=== PATIENT | female | born 1970 | race American Indian/Alaskan Native ===

== ENCOUNTER 2017-02-16 23:23 | Emergency (ER) | payer OTHER ==
[2017-02-16] MEDS ORDERED: fentaNYL 100 MCG/2 ML SDV IVPUSH ONE (23:35)
[2017-02-16] MEDS ORDERED: Aspirin 81 MG Tab.Chew PO ONE (23:35)
--- NOTE | 2017-02-16 23:36 | EDM.PDOC ---
ED HISTORY OF PRESENT ILLNESS - General Chief Complaint: Chest Pain Stated Complaint: [facility] Time Seen by Provider: 02/16/17 23:28 Source of Information: Reports: Patient History Limitations: Reports: No limitations - History of Present Illness INITIAL COMMENTS - FREE TEXT/NARRATIVE: 46-year-old female [place] ancestry presents to the ED per ambulance. She was brought to the ED per [facility] but lives in [place] . Chief complaint is left-sided chest pain that radiates through to her mid back in the neck. It started about 1500 hours today and his not gone away. She was seen by a physician in injury and given Percocet for pain or hydrocodone for pain and 3 nitroglycerin tablets which she reports did not help relieve the pain. She has a known history of coronary disease with stents in place. Apparently did have a myocardial infarction. She also has a pacemaker left upper anterior chest. She also is complaining of mid cramping abdominal pain with normal bowel function. No blood per rectum. No fever or chills. Denies cough or sputum production. No associated feeling of heartburn or burping or belching to relieve the discomfort. No history of congestive heart failure currently on 80 mg Lasix daily. She is taking insulin for control of type 2 diabetes mellitus. Symptom Onset Date: 02/16/17 Symptom Onset Time: 15:00 Timing/Duration: Reports: Hour(s):, Constant, Getting worse, Gradual onset Location, General: Reports: chest, abdomen (Left chest radiating to to the left mid back and nape of neck. Also complaining of diffuse cramping abdominal pain) Quality: Reports: Ache, Pressure, Same as previous episode. Denies: Sharp, Stabbing Improves with: Reports: None Worsens with: Reports: None Context, General: Reports: Other (Chest pain came on at rest.). Denies: Activity, Exercise, Lifting, Sick contact, Trauma Treatments WELDING ESTIMATOR: Reports: Aspirin, Other (see below) (Assessment in the mornings. She received 3 nitroglycerin tablets in route or at [facility]. And also hydrocodone tablets with no relief of pain.) - Related Data Allergies/ADRs: Allergies Allergy/AdvReac Type Severity Reaction Status Date / Time fentanyl Allergy Itching Verified 02/17/17 00:19 ibuprofen Allergy Hives Verified 02/16/17 23:36 metformin HCl Allergy Hives Verified 02/16/17 23:36 [From Glucophage] spinach Allergy Difficulty Verified 02/16/17 23:36 Breathing catfish Allergy Difficulty Uncoded 02/16/17 23:36 Breathing Home Meds: Home Meds Aspirin [Halfprin] 81 mg PO DAILY 08/10/15 [History] Carvedilol 6.25 mg PO BID 08/10/15 [History] Clopidogrel [Plavix] 75 mg PO DAILY 08/10/15 [History] Insulin Aspart [Novolog] 8 unit SQ TIDMEALS PRN 08/10/15 [History] Insulin Detemir [Levemir] 15 unit SUBCUT QPM 08/10/15 [History] Acetaminophen [Acetaminophen 8 Hour] 650 mg PO Q4H PRN 02/16/17 [History] Isosorbide Mononitrate [Isosorbide Mononitrate ER] 30 mg PO DAILY 02/16/17 [ History] Lisinopril [Prinivil] 25 mg PO DAILY 02/16/17 [History] Metolazone 5 mg PO ASDIRECTED 02/16/17 [History] Torsemide [Demadex] 60 mg PO DAILY 02/16/17 [History] Past Medical History Other HEENT History: no upper teeth--no dentures Cardiovascular History: Reports: CAD, Heart Failure (systolic and diastolic, w/ LVEF 30-35%), High cholesterol, Hypertension, [place] (anterior wall), PVD, Stents, Other (see below) (Mitral regurgitation) Other Cardiovascular History: defiberallator Respiratory History: Reports: COPD, Sleep apnea (noncompliant with CPAP, but takes oxygen 2L per [place] at night), Other (see below) (Pulmonary hypertension) Other Respiratory History: uses CPAP at night Gastrointestinal History: Reports: GERD Other Gastrointestinal History: hernia noted Genitourinary History: Reports: Chronic renal insuffiency, Renal calculus, Urinary incontinence Other Genitourinary History: history of kidney stones, dawkins when I pee. 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: Reports: Neurological History: Reports: Neuropathy, peripheral Psychiatric History: Reports: Anxiety, Depression Endocrine/Metabolic History: Reports: Diabetes, type II, Obesity/BMI 30+ Hematologic History: Reports: Anemia Other Dermatologic History: "boil on private parts" - Past Surgical History HEENT Surgical History: Reports: Tonsillectomy Cardiovascular Surgical History: Reports: AICD, Coronary artery stent (multiple) , Pacer (removed) GI Surgical History: Reports: Appendectomy Female Surgical History: Reports: section Musculoskeletal Surgical History: Reports: ORIF (ankle) Social & Family History - Tobacco Use Smoking Status *Q: Former Smoker Years of Tobacco use: 27 Packs/Tins Daily: 0.1 Used Tobacco, but Quit: Yes Month Tobacco Last Used: 2012 Second Hand Smoke Exposure: No - Caffeine Use Caffeine Use: Reports: Coffee, Soda, Tea - Recreational Drug Use Recreational Drug Use: Yes Drug Use in Last 12 Months: Yes Recreational Drug Type: Reports: Marijuana/Hashish Recreational Drug Use Frequency: Socially Recreational Drug Last Use: "about 2 weeks ago" - Living Situation & Occupation Living situation: Reports: , with family (With niece) Occupation: unemployed ED ROS GENERAL - Review of Systems Review Of Systems: See Below Constitutional: Reports: malaise, weakness, fatigue, decreased appetite. Denies : fever, chills, weight loss HEENT: Reports: No symptoms Respiratory: Reports: Shortness of Breath. Denies: Wheezing, Pleuritic Chest Pain, Cough, Sputum, Hemoptysis Cardiovascular: Reports: Chest pain, Blood pressure problem (See history of present illness), Dyspnea on exertion. Denies: Claudication, Edema, Lightheadedness, Orthopnea, Palpitations Endocrine: Reports: fatigue GI/Abdominal: Reports: Abdominal pain (Place of mid cramping abdominal pain with normal bowel movements.), Decreased appetite. Denies: Diarrhea, Difficulty swallowing, Flatus, Hematemesis, Hematochezia, Melena : Reports: frequency Musculoskeletal: Reports: back pain Skin: Reports: no symptoms (Back pain and knee pain.) Neurological: Reports: No Symptoms Psychiatric: Reports: No symptoms ED EXAM, GENERAL - Physical Exam Exam: See Below Exam Limited By: No limitations General Appearance: alert, moderate distress (Peers to be in moderate degree of discomfort. Appears restless.) Eye Exam: bilateral eye: normal inspection Throat/Mouth: Normal inspection, Normal lips, Normal oropharynx. No: Normal teeth Head: atraumatic, normocephalic Neck: normal inspection, supple, non-tender, full range of motion. No: carotid bruit, lymphadenopathy (R), thyromegaly Respiratory/Chest: no respiratory distress, lungs clear, normal breath sounds, no accessory muscle use, chest non-tender Cardiovascular: regular rate, rhythm, no edema, no JVD, no murmur, no rub Peripheral Pulses: 1+: posterior tibial (L), posterior tibial (R), dorsalis pedis (L), dorsalis pedis (R) GI/Abdominal: soft, non tender, no distention (No tympany to), abnormal bowel sounds: (Lightly hyperactive.), other (He has a midline laparotomy from xiphoid process to the pubic symphysis. She reports this was an exploratory laparotomy but nothing was removed.) Extremities: normal inspection, normal range of motion, non-tender, no pedal edema Neurological: alert, oriented, CN II-XII intact, normal cognition Psychiatric: normal affect, normal mood Skin Exam: Warm, Dry, Intact, Normal color, No rash EKG INTERPRETATION EKG Date: 02/16/17 Time: 23:40 Rhythm: other Rate (beats/min): 80 [place]: RAD-right axis deviation P-wave: absent QRS: other (There is a Q wave in V2 to V6 as well as one and aVL suggesting an old anterolateral infarct) ST-T: other (There is some T-wave inversion in leads 3 and aVF. Testes segments are flat in V4 5 and V6.) QT: normal EKG Interpretation Comments: No further analysis attempted due to to 100% paced rhythm. Course - Vital Signs Last Recorded V/S: Last Vital Signs Temp 35.6 C 02/16/17 23:33 Pulse 86 02/17/17 00:19 Resp 15 02/17/17 00:19 BP 145/90 H 02/17/17 00:19 Pulse Ox 100 02/17/17 00:19 - Orders/Labs/Meds Orders: Active Orders 24 hr Category Date Time Status Blood Glucose Check, Bedside [RC] ONETIME Care 02/17/17 01:52 Active EKG Documentation Completion [RC] STAT Care 02/16/17 23:33 Active Abdomen 1V Flat [CR] Stat Exams 02/16/17 23:33 Taken Chest 1V Frontal [CR] Stat Exams 02/16/17 23:33 Taken GLUCOSE RANDOM [CHEM] Stat Lab 02/17/17 01:49 Received Insulin Regular, Human [HumuLIN R] 100 unit Med 02/17/17 01:00 Active Sodium Chloride 0.9% [Normal Saline] 99 ml IV ASDIRECTED Nitroglycerin/D5W [Nitroglycerin 25 MG/D5W 250 ML] Med 02/16/17 23:45 Active 25 mg in 250 ml IV ASDIRECTED Sodium Chloride 0.9% [Normal Saline] 1,000 ml Med 02/16/17 23:45 Active IV ASDIRECTED Medication Orders Sodium Chloride (Normal Saline) 1,000 mls @ 100 mls/hr IV ASDIRECTED ANIKET Last Admin: 02/16/17 23:54 Dose: 100 mls/hr Nitroglycerin/Dextrose (Nitroglycerin 25 Mg/D5w 250 Ml) 25 mg in 250 mls @ 6 mls/hr IV ASDIRECTED ANIKET PRN Reason: 10 MCG/MIN Last Admin: 02/16/17 23:54 Dose: 10 mcg/min, 6 mls/hr Insulin Human Regular 100 unit (/ Sodium Chloride) 100 mls @ 4 mls/hr IV ASDIRECTED ANIKET PRN Reason: 4 UNITS/HR Last Admin: 02/17/17 01:04 Dose: 4 units/hr, 4 mls/hr Labs: Laboratory Tests 02/16/17 02/16/17 02/16/17 Range/Units 23:40 23:40 23:40 WBC 4.63 (3.98-10.04) K/mm3 RBC 4.91 (3.98-5.22) M/mm3 Hgb 13.7 (11.2-15.7) gm/L Hct 40.2 (34.1-44.9) % MCV 81.9 (79.4-94.8) fl MCH 27.9 (25.6-32.2) pg MCHC 34.1 (32.2-35.5) g/dl RDW Std Deviation 46.2 (36.4-46.3) fL Plt Count 155 L (182-369) K/mm3 MPV 11.5 (9.4-12.3) fl Neutrophils % (Manual) 62 H (40-60) % Band Neutrophils % 0 (0-10) % Lymphocytes % (Manual) 27 (20-40) % Atypical Lymphs % 0 % Monocytes % (Manual) 10 (2-10) % Eosinophils % (Manual) 0 L (0.7-5.8) % Basophils % (Manual) 1 (0.1-1.2) Platelet Estimate Adequate Plt Morphology Comment See note RBC Morph Comment Normal PT 9.9 (8.0-13.0) SECONDS INR 0.91 Sodium 129 L (136-145) mEq/L Potassium 4.5 (3.5-5.1) mEq/L Chloride 96 L (98-107) mEq/L Carbon Dioxide 20 L (21-32) mEq/L Anion Gap 17.5 H (5-15) BUN 79 H (7-18) mg/dL Creatinine 2.5 H (0.55-1.02) mg/dL Est Cr Clr Drug Dosing 27.05 mL/min Estimated GFR (MDRD) 21 (>60) mL/min BUN/Creatinine Ratio 31.6 H (14-18) Glucose 670 H* (74-106) mg/dL Serum Osmolality (280-300) mosm/kg Calcium 9.0 (8.5-10.1) mg/dL Magnesium (1.8-2.4) mg/dl Total Bilirubin 0.3 (0.2-1.0) mg/dL AST 46 H (15-37) U/L ALT 49 (14-59) U/L Alkaline Phosphatase 156 H (46-116) U/L CK-MB (CK-2) 4.6 H (0-3.6) ng/ml Troponin I 0.075 H* (0.00-0.056) ng/mL C-Reactive Protein < 0.2 (<1.0) mg/dL B-Natriuretic Peptide (0-100) pg/mL Total Protein 7.7 (6.4-8.2) g/dl Albumin 3.1 L (3.4-5.0) g/dl Globulin 4.6 gm/dL Albumin/Globulin Ratio 0.7 L (1-2) Urine Color (Yellow) Urine Appearance (Clear) Urine pH (5.0-8.0) Ur Specific [place] (1.005-1.030) Urine Protein (Negative) Urine Glucose (UA) (Negative) Urine Ketones (Negative) Urine Occult Blood (Negative) Urine Nitrite (Negative) Urine Bilirubin (Negative) Urine Urobilinogen (0.2-1.0) Ur Leukocyte Esterase (Negative) Urine RBC (0-5) /hpf Urine WBC (0-5) /hpf Ur Epithelial Cells (0-5) /hpf Ur Renal Epithelial Cell (0-5) /hpf Urine Bacteria (FEW) /hpf Urine Mucus (FEW) /hpf Ketones (0.0-0.3) mM 02/16/17 02/16/17 02/16/17 Range/Units 23:40 23:40 23:40 WBC (3.98-10.04) K/mm3 RBC (3.98-5.22) M/mm3 Hgb (11.2-15.7) gm/L Hct (34.1-44.9) % MCV (79.4-94.8) fl MCH (25.6-32.2) pg MCHC (32.2-35.5) g/dl RDW Std Deviation (36.4-46.3) fL Plt Count (182-369) K/mm3 MPV (9.4-12.3) fl Neutrophils % (Manual) (40-60) % Band Neutrophils % (0-10) % Lymphocytes % (Manual) (20-40) % Atypical Lymphs % % Monocytes % (Manual) (2-10) % Eosinophils % (Manual) (0.7-5.8) % Basophils % (Manual) (0.1-1.2) Platelet Estimate Plt Morphology Comment RBC Morph Comment PT (8.0-13.0) SECONDS INR Sodium (136-145) mEq/L Potassium (3.5-5.1) mEq/L Chloride (98-107) mEq/L Carbon Dioxide (21-32) mEq/L Anion Gap (5-15) BUN (7-18) mg/dL Creatinine (0.55-1.02) mg/dL Est Cr Clr Drug Dosing mL/min Estimated GFR (MDRD) (>60) mL/min BUN/Creatinine Ratio (14-18) Glucose (74-106) mg/dL Serum Osmolality 339 H (280-300) mosm/kg Calcium (8.5-10.1) mg/dL Magnesium (1.8-2.4) mg/dl Total Bilirubin (0.2-1.0) mg/dL AST (15-37) U/L ALT (14-59) U/L Alkaline Phosphatase (46-116) U/L CK-MB (CK-2) (0-3.6) ng/ml Troponin I (0.00-0.056) ng/mL C-Reactive Protein (<1.0) mg/dL B-Natriuretic Peptide 1009 H (0-100) pg/mL Total Protein (6.4-8.2) g/dl Albumin (3.4-5.0) g/dl Globulin gm/dL Albumin/Globulin Ratio (1-2) Urine Color (Yellow) Urine Appearance (Clear) Urine pH (5.0-8.0) Ur Specific [place] (1.005-1.030) Urine Protein (Negative) Urine Glucose (UA) (Negative) Urine Ketones (Negative) Urine Occult Blood (Negative) Urine Nitrite (Negative) Urine Bilirubin (Negative) Urine Urobilinogen (0.2-1.0) Ur Leukocyte Esterase (Negative) Urine RBC (0-5) /hpf Urine WBC (0-5) /hpf Ur Epithelial Cells (0-5) /hpf Ur Renal Epithelial Cell (0-5) /hpf Urine Bacteria (FEW) /hpf Urine Mucus (FEW) /hpf Ketones 0.14 (0.0-0.3) mM 02/16/17 02/17/17 Range/Units 23:46 00:10 WBC (3.98-10.04) K/mm3 RBC (3.98-5.22) M/mm3 Hgb (11.2-15.7) gm/L Hct (34.1-44.9) % MCV (79.4-94.8) fl MCH (25.6-32.2) pg MCHC (32.2-35.5) g/dl RDW Std Deviation (36.4-46.3) fL Plt Count (182-369) K/mm3 MPV (9.4-12.3) fl Neutrophils % (Manual) (40-60) % Band Neutrophils % (0-10) % Lymphocytes % (Manual) (20-40) % Atypical Lymphs % % Monocytes % (Manual) (2-10) % Eosinophils % (Manual) (0.7-5.8) % Basophils % (Manual) (0.1-1.2) Platelet Estimate Plt Morphology Comment RBC Morph Comment PT (8.0-13.0) SECONDS INR Sodium (136-145) mEq/L Potassium (3.5-5.1) mEq/L Chloride (98-107) mEq/L Carbon Dioxide (21-32) mEq/L Anion Gap (5-15) BUN (7-18) mg/dL Creatinine (0.55-1.02) mg/dL Est Cr Clr Drug Dosing mL/min Estimated GFR (MDRD) (>60) mL/min BUN/Creatinine Ratio (14-18) Glucose (74-106) mg/dL Serum Osmolality (280-300) mosm/kg Calcium (8.5-10.1) mg/dL Magnesium 2.5 H (1.8-2.4) mg/dl Total Bilirubin (0.2-1.0) mg/dL AST (15-37) U/L ALT (14-59) U/L Alkaline Phosphatase (46-116) U/L CK-MB (CK-2) (0-3.6) ng/ml Troponin I (0.00-0.056) ng/mL C-Reactive Protein (<1.0) mg/dL B-Natriuretic Peptide (0-100) pg/mL Total Protein (6.4-8.2) g/dl Albumin (3.4-5.0) g/dl Globulin gm/dL Albumin/Globulin Ratio (1-2) Urine Color Yellow (Yellow) Urine Appearance Clear (Clear) Urine pH 6.5 (5.0-8.0) Ur Specific [place] 1.025 (1.005-1.030) Urine Protein 3+ H (Negative) Urine Glucose (UA) 2+ H (Negative) Urine Ketones Negative (Negative) Urine Occult Blood 2+ H (Negative) Urine Nitrite Negative (Negative) Urine Bilirubin Negative (Negative) Urine Urobilinogen 0.2 (0.2-1.0) Ur Leukocyte Esterase Negative (Negative) Urine RBC 10-20 H (0-5) /hpf Urine WBC 0-5 (0-5) /hpf Ur Epithelial Cells 0-5 (0-5) /hpf Ur Renal Epithelial Cell 0-5 (0-5) /hpf Urine Bacteria Moderate H (FEW) /hpf Urine Mucus Not seen (FEW) /hpf Ketones (0.0-0.3) mM Meds: Medications Generic Name Dose Route Start Last Admin Trade Name Freq PRN Reason Stop Dose Admin Sodium Chloride 1,000 mls @ 100 mls/hr 02/16/17 23:45 02/16/17 23:54 Normal Saline IV 100 mls/hr ASDIRECTED ANIKET Administration Nitroglycerin/Dextrose 25 mg in 250 mls @ 6 mls/hr 02/16/17 23:45 02/16/17 23 :54 Nitroglycerin 25 Mg/D5w 250 Ml IV 10 mcg/min ASDIRECTED ANIKET 6 mls/hr 10 MCG/MIN Administration Insulin Human Regular 100 unit 100 mls @ 4 mls/hr 02/17/17 01:00 02/17/17 01: 04 / Sodium Chloride IV 4 units/hr ASDIRECTED ANIKET 4 mls/hr 4 UNITS/HR Administration Discontinued Medications Generic Name Dose Route Start Last Admin Trade Name Freq PRN Reason Stop Dose Admin Aspirin 324 mg 02/16/17 23:35 02/16/17 23:53 Aspirin PO 02/16/17 23:36 324 mg ONETIME ONE Administration Diphenhydramine HCl 25 mg 02/17/17 00:06 02/17/17 00:12 Benadryl IVPUSH 02/17/17 00:07 25 mg ONETIME ONE Administration Fentanyl 100 mcg 02/16/17 23:35 02/16/17 23:53 Sublimaze IVPUSH 02/16/17 23:36 100 mcg ONETIME ONE Administration Furosemide 60 mg 02/17/17 00:46 02/17/17 01:00 Lasix IVPUSH 02/17/17 00:47 60 mg NOW ONE Administration Hydromorphone HCl 1 mg 02/17/17 02:12 02/17/17 02:17 Dilaudid IVPUSH 02/17/17 02:13 1 mg ONETIME ONE Administration Insulin Human Regular 10 unit 02/17/17 00:46 02/17/17 01:03 Humulin R IVPUSH 02/17/17 00:47 10 units ONETIME ONE Administration Protocol Ondansetron HCl 4 mg 02/16/17 23:50 02/16/17 23:56 Zofran IVPUSH 02/16/17 23:51 4 mg ONETIME ONE Administration - Radiology Interpretation Free Text/Narrative:: 46-year-old female [place] ancestry presents the ED with reported left-sided chest pain radiating up into the left shoulder mid back and knee but neck since about 1500 hours today. She has a history of coronary disease with previous myocardial infarction and at least one stent. She is on Plavix. She claims that she has been compliant with her medications. She also is complaining of mid diffuse abdominal pain. She was seen by Dr. whyte in clinic either name to review her new town. She received nitroglycerin tablets x3 without relief of discomfort. She also received hydrocodone tablets without relief of pain. She is feeling short of breath. She denies cough or sputum production. Exam reveals no obvious evidence of congestive failure. Lungs are clear. ECG shows 100% paced rhythm at 80 per minute. Appears that she has suffered an old large anterior lateral infarct in the past. Plan given aspirin 324 mg chewed. Nitroglycerin drip to be started to 10 mcg per minute. We'll give fentanyl 100 mcg IV. We'll give Zofran 4 mg IV for nausea. Labs to be drawn to include cardiac markers of course. One view chest x-ray one view of the abdomen to be obtained. - Re-Assessments/Exams Free Text/Narrative Re-Assessment/Exam: 02/17/17 00:07 started itching even at the IV site when she was receiving a fentanyl 100 mcg and is now picking at her face etc. We'll give Benadryl 25 mg IV. 02/17/17 00:50 chest x-ray is within normal limits and is clear. Pacemaker left upper anterior chest with dual chamber pacemaker noted wire. The KUB reveals increased stool throughout the right hemicolon. There is a collection of gas in the left hemiabdomen which is nonspecific. Appears to be dilated loop of small bowel without any signs of obstruction. Labs however reveal a white count of 4.63 with 62% neutrophils and no bands hemoglobin is 13.7 hematocrit is 40.2 platelets 155,000. Coags show a PT of 9.9 the INR of 0.91. Sodium is low at 129 potassium 4.5. Chloride 96 bicarbonate 20. Anion gap is elevated at 17.5. BUN is 79 Creatinine is 2.5 EGFR is 21 i.e. stage IV chronic kidney disease glucose is markedly elevated at 670. AST is 46 ALT is 49 alkaline phosphatase teases 156. CK-MB is 4.6 mildly elevated and her serum troponins mildly elevated at 0.075. Upper normal limits in our lab is 0.59. However she is in heart failure with a BNP of 1009. CRP is less than 0.2. Urine shows 3+ protein 2+ glucose and 2+ blood. No ketones. Did order serum osmolality and serum ketone levels. She' ll be started on insulin drip given 10 units of regular insulin IV bolus followed by 4 units of regular insulin per hour. 60 mg of Lasix was also given intravenously. She is tolerating the nitro drip with a BP of 121/94. Pulse is 80 and regular due to pacemaker. I will discuss this case with our correspondence renew clerk hospitalist as well she would need ICU admission as well. 02/18/140: Manufacturing Assembler case with hospitalist Dr. Freitas at [facility] and she has accepted care of this patient. 02/17/17 02:12 Patient complained of more chest pain upon notice that she'll have to be transferred to [facility] for definitive management because of our ICU status. Her blood pressure is 166/84. His is on a nitro drip at 10 mcg per minute. We'll give her Dilaudid 1 mg IV. This is prior to transport in the helicopter Departure - Departure Time of Disposition: 02:34 Disposition: DC/Tfer to [facility] 02 Reason for Transfer *Q: Other Condition: serious Clinical Impression: Acute coronary syndrome, Congestive heart failure (CHF), Diabetic hyperosmolar non-ketotic state, Elevated troponin, Abdominal pain, Constipation by delayed colonic transit Uncontrolled type 2 diabetes mellitus Qualifiers: Diabetes mellitus complication status: with kidney complications Diabetes mellitus complication detail: with microalbuminuria Additional Instructions: This patient transferred to [facility] do to her current ICU status. She has multiple comorbidities which make it difficult to manage. She will likely require care outside of the 96 hours allow by critical care access hospital. - My Orders Last 24 Hours: My Active Orders 02/16/17 23:33 EKG Documentation Completion [RC] STAT Abdomen 1V Flat [CR] Stat Chest 1V Frontal [CR] Stat 02/16/17 23:45 Nitroglycerin/D5W [Nitroglycerin 25 MG/D5W 250 ML] 25 mg in 250 ml IV ASDIRECTED Sodium Chloride 0.9% [Normal Saline] 1,000 ml IV ASDIRECTED 02/17/17 01:00 Insulin Regular, Human [HumuLIN R] 100 unit Sodium Chloride 0.9% [Normal Saline] 99 ml IV ASDIRECTED 02/17/17 01:49 GLUCOSE RANDOM [CHEM] Stat 02/17/17 01:52 Blood Glucose Check, Bedside [RC] ONETIME - Assessment/Plan Last 24 Hours: My Active Orders 02/16/17 23:33 EKG Documentation Completion [RC] STAT Abdomen 1V Flat [CR] Stat Chest 1V Frontal [CR] Stat 02/16/17 23:45 Nitroglycerin/D5W [Nitroglycerin 25 MG/D5W 250 ML] 25 mg in 250 ml IV ASDIRECTED Sodium Chloride 0.9% [Normal Saline] 1,000 ml IV ASDIRECTED 02/17/17 01:00 Insulin Regular, Human [HumuLIN R] 100 unit Sodium Chloride 0.9% [Normal Saline] 99 ml IV ASDIRECTED 02/17/17 01:49 GLUCOSE RANDOM [CHEM] Stat 02/17/17 01:52 Blood Glucose Check, Bedside [RC] ONETIME
[2017-02-16] MEDS ORDERED: Nitroglycerin/D5W 25 MG/250 ML BOTTLE IV SCH (23:45)
[2017-02-16] MEDS ORDERED: Sodium Chloride 0.9% 1,000 ML IV SCH (23:45)
[2017-02-16] MEDS ORDERED: Ondansetron 4 MG/2 ML SDV IVPUSH ONE (23:50)
[2017-02-17] MEDS ORDERED: diphenhydrAMINE 50 MG/ML SDV IVPUSH ONE (00:06)
[2017-02-17 00:20] VITALS: BP 145/90
[2017-02-17] MEDS ORDERED: Insulin Regular, Human 100 Units/ML 3 ML Vial IVPUSH ONE (00:46)
[2017-02-17] MEDS ORDERED: Furosemide 40 MG/4 ML VIAL IVPUSH ONE (00:46)
[2017-02-17] MEDS ORDERED: HYDROmorphone 1 MG/ML Syringe IVPUSH ONE (02:12)
--- NOTE | 2017-02-17 18:17 | CR ---
Abdomen: Supine view of the abdomen was obtained. Comparison: No previous abdominal x-ray. Calcifications are seen within the pelvis most likely representing phleboliths. Mild arterial calcification is also seen. Surgical clips are noted from prior cholecystectomy. Bowel gas pattern is normal. Mild joint space narrowing is seen within the right hip. Impression: 1. Incidental findings as noted above. Diagnostic code #2
--- NOTE | 2017-02-17 18:17 | CR ---
Chest: Frontal view of the chest was obtained. Comparison: Previous chest x-ray of 12/11/16. Heart size and mediastinum are within normal limits. Coronary artery stent is noted. AICD is present. Lungs are clear. Bony structures are grossly intact. Impression: 1. Stable findings as noted above. Nothing acute is appreciated on frontal chest x-ray. Diagnostic code #2
== END 2017-02-17 02:45 ==
LOC: JD.ED 23:23
DX: I24.9 Acute ischemic heart disease, unspecified (principal); I13.0 Hypertensive heart and chronic kidney disease with heart failure and stage 1 through stage 4 chronic kidney disease, or unspecified chronic kidney disease; N18.9 Chronic kidney disease, unspecified; I50.40 Unspecified combined systolic (congestive) and diastolic (congestive) heart failure; Z79.82 Long term (current) use of aspirin; Z79.4 Long term (current) use of insulin; Z79.899 Other long term (current) drug therapy; Z88.8 Allergy status to other drugs, medicaments and biological substances; Z88.4 Allergy status to anesthetic agent; Z91.013 Allergy to seafood; Z91.018 Allergy to other foods; E78.00 Pure hypercholesterolemia, unspecified; Z95.5 Presence of coronary angioplasty implant and graft; Z95.810 Presence of automatic (implantable) cardiac defibrillator; I73.9 Peripheral vascular disease, unspecified; J44.9 Chronic obstructive pulmonary disease, unspecified; Z99.81 Dependence on supplemental oxygen; K21.9 Gastro-esophageal reflux disease without esophagitis; E11.42 Type 2 diabetes mellitus with diabetic polyneuropathy; F32.9 Major depressive disorder, single episode, unspecified; F41.9 Anxiety disorder, unspecified; E66.9 Obesity, unspecified; Z68.30 Body mass index [BMI] 30.0-30.9, adult; D64.9 Anemia, unspecified; Z87.891 Personal history of nicotine dependence; E11.00 Type 2 diabetes mellitus with hyperosmolarity without nonketotic hyperglycemic-hyperosmolar coma (NKHHC); R74.8 Abnormal levels of other serum enzymes; K59.00 Constipation, unspecified
CPT/HCPCS: 36415; 71010; 74000; 80053; 81001; 82009; 82553; 82947; 83735; 83880; 83930; 84484; 85025; 85610; 86140; 93005; 96365; 96366; 96374; 96375; 99285; A9270; J1170; J1200; J1817; J1940; J2405; J3010; J7030; J7040

== ENCOUNTER 2017-02-25 19:21 | Inpatient (IN) | payer OTHER ==
[2017-02-25] MEDS ORDERED: Sodium Chloride 0.9% 10 ML Syringe FLUSH PRN ×2 (19:28→22:53)
[2017-02-25] MEDS ORDERED: HYDROmorphone 0.5 MG/0.5 ML Syringe IVPUSH ONE ×2 (19:40→22:05)
[2017-02-25] MEDS ORDERED: Ondansetron 4 MG/2 ML SDV IVPUSH ONE (19:40)
[2017-02-25] MEDS ORDERED: Insulin Regular, Human 100 Units/ML 3 ML Vial IVPUSH ONE (19:41)
[2017-02-25] MEDS ORDERED: Sodium Chloride 0.9% 1,000 ML IV SCH ×2 (19:45→20:30)
--- NOTE | 2017-02-25 19:52 | EDM.PDOC ---
ED HISTORY OF PRESENT ILLNESS - General Chief Complaint: Chest Pain Stated Complaint: [facility] Time Seen by Provider: 02/25/17 19:27 Source of Information: Reports: Patient, EMS, RN notes reviewed - History of Present Illness INITIAL COMMENTS - FREE TEXT/NARRATIVE: 46 year old female that presents with chest pain, upper abd pain, nausea, vomiting and elevated glucose. She started with chest pain, nausea, vomiting last evening that continues today. She states she has been weak, dizzy, continued mid chest pain today. She has not taken insulin today because she has been "too sick to eat". She has not checked her sugars today but EMS state it was over 400. She has been given aspirin 324 mg PO en route, nitro spray SL times 2. She continues with upper abd pain, anterior chest pain on arrival to ED. She states she feels short of breath. Mouth feels dry. She has hx of CAD , has stents, has a pacer, recent transfer to [facility] for similar sx not that long ago. - Related Data Allergies/ADRs: Allergies Allergy/AdvReac Type Severity Reaction Status Date / Time fentanyl Allergy Itching Verified 02/17/17 00:19 ibuprofen Allergy Hives Verified 02/16/17 23:36 metformin HCl Allergy Hives Verified 02/16/17 23:36 [From Glucophage] spinach Allergy Difficulty Verified 02/16/17 23:36 Breathing catfish Allergy Difficulty Uncoded 02/16/17 23:36 Breathing Home Meds: Home Meds Aspirin [Halfprin] 81 mg PO DAILY 08/10/15 [History] Carvedilol 6.25 mg PO BID 08/10/15 [History] Clopidogrel [Plavix] 75 mg PO DAILY 08/10/15 [History] Insulin Aspart [Novolog] 8 unit SQ TIDMEALS PRN 08/10/15 [History] Insulin Detemir [Levemir] 15 unit SUBCUT QPM 08/10/15 [History] Acetaminophen [Acetaminophen 8 Hour] 650 mg PO Q4H PRN 02/16/17 [History] Isosorbide Mononitrate [Isosorbide Mononitrate ER] 30 mg PO DAILY 02/16/17 [ History] Lisinopril [Prinivil] 25 mg PO DAILY 02/16/17 [History] Metolazone 5 mg PO ASDIRECTED 02/16/17 [History] Torsemide [Demadex] 60 mg PO DAILY 02/16/17 [History] Past Medical History Other HEENT History: no upper teeth--no dentures Cardiovascular History: Reports: CAD, Heart Failure, High cholesterol, Hypertension, [place], PVD, Stents, Other (see below) Other Cardiovascular History: defiberallator Respiratory History: Reports: COPD, Sleep apnea, Other (see below) Other Respiratory History: uses CPAP at night Gastrointestinal History: Reports: GERD Other Gastrointestinal History: hernia noted Genitourinary History: Reports: Chronic renal insuffiency, Renal calculus, Urinary incontinence Other Genitourinary History: history of kidney stones, dawkins when I pee. 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: Neurological History: Reports: Neuropathy, peripheral Psychiatric History: Reports: Anxiety, Depression Endocrine/Metabolic History: Reports: Diabetes, type II, Obesity/BMI 30+ Hematologic History: Reports: Anemia Other Dermatologic History: "boil on private parts" - Past Surgical History HEENT Surgical History: Reports: Tonsillectomy Cardiovascular Surgical History: Reports: AICD, Coronary artery stent, Pacer GI Surgical History: Reports: Appendectomy Female Surgical History: Reports: section Musculoskeletal Surgical History: Reports: ORIF Social & Family History - Family History Cardiac: Reports: CAD, Heart failure Endocrine/Metabolic: Reports: Diabetes, type II Oncologic: Reports: Breast - Tobacco Use Smoking Status *Q: Former Smoker Years of Tobacco use: 27 Packs/Tins Daily: 0.1 Used Tobacco, but Quit: No Month Tobacco Last Used: 2012 Second Hand Smoke Exposure: No - Caffeine Use Caffeine Use: Reports: Coffee, Tea - Recreational Drug Use Recreational Drug Use: Yes Drug Use in Last 12 Months: Yes Recreational Drug Type: Reports: Marijuana/Hashish Recreational Drug Use Frequency: Socially Recreational Drug Last Use: "about 2 weeks ago" - Living Situation & Occupation Living situation: Reports: , with family (With niece) Occupation: unemployed [employer] [facility] GENERAL - Review of Systems Review Of Systems: See Below Constitutional: Reports: diaphoresis (gone). Denies: fever, chills HEENT: Reports: Other (mouth feels dry). Denies: Sinus problem, Throat pain Respiratory: Reports: Shortness of Breath, Cough. Denies: Wheezing, Sputum Cardiovascular: Reports: Chest pain, Edema (mild chronic) GI/Abdominal: Reports: Abdominal pain (upper mid abd), Nausea, Vomiting. Denies : Diarrhea Musculoskeletal: Denies: shoulder pain, arm pain Skin: Denies: rash Neurological: Reports: Dizziness, Weakness (generalized) ED EXAM, GENERAL - Physical Exam Exam: See Below General Appearance: alert, anxious, moderate distress Throat/Mouth: Other (oral mucosa moderately dry) Head: No: facial swelling Neck: supple, full range of motion, other (no JVD) Respiratory/Chest: no respiratory distress, lungs clear. No: rales, rhonchi, wheezing Cardiovascular: regular rate, rhythm GI/Abdominal: tender (mild tenderness upper mid abd) Extremities: No: leg pain, increased warmth, redness Neurological: alert, oriented, other (no focal weakness) Skin Exam: Warm, Dry, Normal color EKG INTERPRETATION EKG Date: 02/25/17 Rhythm: other (paced rythm, rate 78) QRS: other (q waves AVL and ant leads) ST-T: depressed (Lead III, AVF and V3) Course - Vital Signs Last Recorded V/S: Last Vital Signs Temp 96.3 F 02/25/17 19:29 Pulse 79 02/25/17 19:29 Resp 14 02/25/17 19:29 BP 154/88 H 02/25/17 19:29 Pulse Ox 100 02/25/17 19:29 - Orders/Labs/Meds Orders: Active Orders 24 hr Category Date Time Status Admission Status [Patient Status] [ADT] Routine ADT 02/25/17 22:15 Active EKG 12 Lead [EKG Documentation Completion] [RC] STAT Care 02/25/17 19:29 Active POC Glucose [Blood Glucose Check, Bedside] [RC] ONETIME Care 02/25/17 22:07 Active Peripheral IV Care [RC] . DIRECTED Care 02/25/17 19:29 Active Chest 1V Frontal [CR] Stat Exams 02/25/17 19:46 Taken Insulin Regular, Human [HumuLIN R] 100 unit Med 02/25/17 19:45 Active Sodium Chloride 0.9% [Normal Saline] 99 ml IV TITRATE Sodium Chloride 0.9% [Normal Saline] 1,000 ml Med 02/25/17 20:30 Active IV ASDIRECTED Sodium Chloride 0.9% [Normal Saline] 1,000 ml Med 02/25/17 19:45 Active IV ONETIME Sodium Chloride 0.9% [Saline Flush] Med 02/25/17 19:28 Active 10 ml FLUSH ASDIRECTED PRN Peripheral IV Insertion Adult [OM.PC] Stat Oth 02/25/17 19:29 Ordered Medication Orders Sodium Chloride (Normal Saline) 1,000 mls @ 999 mls/hr IV ONETIME ANIKET Last Admin: 02/25/17 19:51 Dose: 999 mls/hr Insulin Human Regular 100 unit (/ Sodium Chloride) 100 mls @ 4 mls/hr IV TITRATE ANIKET; 4 UNITS/HR PRN Reason: Protocol Last Admin: 02/25/17 19:58 Dose: 4 units/hr, 4 mls/hr Sodium Chloride (Normal Saline) 1,000 mls @ 75 mls/hr IV ASDIRECTED ANIKET Sodium Chloride (Saline Flush) 10 ml FLUSH ASDIRECTED PRN PRN Reason: Keep Vein Open Last Admin: 02/25/17 20:03 Dose: 10 ml Labs: Laboratory Tests 02/25/17 02/25/17 02/25/17 Range/Units 19:36 19:36 19:36 WBC 6.42 (3.98-10.04) K/mm3 RBC 4.66 (3.98-5.22) M/mm3 Hgb 12.8 (11.2-15.7) gm/L Hct 38.2 (34.1-44.9) % MCV 82.0 (79.4-94.8) fl MCH 27.5 (25.6-32.2) pg MCHC 33.5 (32.2-35.5) g/dl RDW Std Deviation 45.3 (36.4-46.3) fL Plt Count 153 L (182-369) K/mm3 MPV 11.5 (9.4-12.3) fl Neut % (Auto) 66.1 (34.0-71.1) % Lymph % (Auto) 23.7 (19.3-51.7) % [facility] % (Auto) 8.1 (4.7-12.5) % Eos % (Auto) 1.1 (0.7-5.8) Baso % (Auto) 0.5 (0.1-1.2) % Neut # (Auto) 4.25 (1.56-6.13) K/mm3 Lymph # (Auto) 1.52 (1.18-3.74) K/mm3 [facility] # (Auto) 0.52 H (0.24-0.36) K/mm3 Eos # (Auto) 0.07 (0.04-0.36) K/mm3 Baso # (Auto) 0.03 (0.01-0.08) K/mm3 Sodium 137 (136-145) mEq/L Potassium 4.2 (3.5-5.1) mEq/L Chloride 108 H (98-107) mEq/L Carbon Dioxide 17 L (21-32) mEq/L Anion Gap 16.2 H (5-15) BUN 76 H (7-18) mg/dL Creatinine 2.0 H (0.55-1.02) mg/dL Est Cr Clr Drug Dosing TNP Estimated GFR (MDRD) 27 (>60) mL/min BUN/Creatinine Ratio 38.0 H (14-18) Glucose 333 H (74-106) mg/dL POC Glucose (70-105) mg/dL Calcium 8.5 (8.5-10.1) mg/dL Total Bilirubin 0.3 (0.2-1.0) mg/dL AST 29 (15-37) U/L ALT 36 (14-59) U/L Alkaline Phosphatase 120 H (46-116) U/L CK-MB (CK-2) 5.2 H (0-3.6) ng/ml Troponin I 0.071 H* (0.00-0.056) ng/mL C-Reactive Protein < 0.2 (<1.0) mg/dL B-Natriuretic Peptide 1291 H (0-100) pg/mL Total Protein 6.3 L (6.4-8.2) g/dl Albumin 2.2 L (3.4-5.0) g/dl Globulin 4.1 gm/dL Albumin/Globulin Ratio 0.5 L (1-2) Lipase (73-393) U/L 02/25/17 02/25/17 Range/Units 20:51 21:05 WBC (3.98-10.04) K/mm3 RBC (3.98-5.22) M/mm3 Hgb (11.2-15.7) gm/L Hct (34.1-44.9) % MCV (79.4-94.8) fl MCH (25.6-32.2) pg MCHC (32.2-35.5) g/dl RDW Std Deviation (36.4-46.3) fL Plt Count (182-369) K/mm3 MPV (9.4-12.3) fl Neut % (Auto) (34.0-71.1) % Lymph % (Auto) (19.3-51.7) % [facility] % (Auto) (4.7-12.5) % Eos % (Auto) (0.7-5.8) Baso % (Auto) (0.1-1.2) % Neut # (Auto) (1.56-6.13) K/mm3 Lymph # (Auto) (1.18-3.74) K/mm3 [facility] # (Auto) (0.24-0.36) K/mm3 Eos # (Auto) (0.04-0.36) K/mm3 Baso # (Auto) (0.01-0.08) K/mm3 Sodium (136-145) mEq/L Potassium (3.5-5.1) mEq/L Chloride (98-107) mEq/L Carbon Dioxide (21-32) mEq/L Anion Gap (5-15) BUN (7-18) mg/dL Creatinine (0.55-1.02) mg/dL Est Cr Clr Drug Dosing Estimated GFR (MDRD) (>60) mL/min BUN/Creatinine Ratio (14-18) Glucose (74-106) mg/dL POC Glucose 323 H (70-105) mg/dL Calcium (8.5-10.1) mg/dL Total Bilirubin (0.2-1.0) mg/dL AST (15-37) U/L ALT (14-59) U/L Alkaline Phosphatase (46-116) U/L CK-MB (CK-2) (0-3.6) ng/ml Troponin I (0.00-0.056) ng/mL C-Reactive Protein (<1.0) mg/dL B-Natriuretic Peptide (0-100) pg/mL Total Protein (6.4-8.2) g/dl Albumin (3.4-5.0) g/dl Globulin gm/dL Albumin/Globulin Ratio (1-2) Lipase 244 (73-393) U/L Meds: Medications Generic Name Dose Route Start Last Admin Trade Name Freq PRN Reason Stop Dose Admin Sodium Chloride 1,000 mls @ 999 mls/hr 02/25/17 19:45 02/25/17 19:51 Normal Saline IV 999 mls/hr ONETIME ANIKET Administration Insulin Human Regular 100 unit 100 mls @ 4 mls/hr 02/25/17 19:45 02/25/17 19: 58 / Sodium Chloride IV 4 units/hr TITRATE ANIKET 4 mls/hr Protocol Administration 4 UNITS/HR Sodium Chloride 1,000 mls @ 75 mls/hr 02/25/17 20:30 Normal Saline IV ASDIRECTED ANIKET Sodium Chloride 10 ml 02/25/17 19:28 02/25/17 20:03 Saline Flush FLUSH 10 ml ASDIRECTED PRN Administration Keep Vein Open Discontinued Medications Generic Name Dose Route Start Last Admin Trade Name Freq PRN Reason Stop Dose Admin Hydromorphone HCl 0.5 mg 02/25/17 19:40 02/25/17 19:50 Dilaudid IVPUSH 02/25/17 19:41 0.5 mg ONETIME ONE Administration Hydromorphone HCl 0.5 mg 02/25/17 22:05 02/25/17 22:16 Dilaudid IVPUSH 02/25/17 22:06 0.5 mg ONETIME ONE Administration Insulin Human Regular 5 unit 02/25/17 19:41 02/25/17 19:53 Humulin R IVPUSH 02/25/17 19:42 5 unit ONETIME ONE Administration Protocol Metoclopramide HCl 5 mg 02/25/17 22:05 02/25/17 22:14 Reglan IVPUSH 02/25/17 22:06 5 mg ONETIME ONE Administration Ondansetron HCl 4 mg 02/25/17 19:40 02/25/17 19:48 Zofran IVPUSH 02/25/17 19:41 4 mg ONETIME ONE Administration - Re-Assessments/Exams Free Text/Narrative Re-Assessment/Exam: 02/25/17 20:35. Lab values as documented. There Is reported glucose of 93 which makes no sense with her bedside glucose greater than 400 ambulance glucose also greater than 400. Calls into question the rest of the values as well. I also have values that are off on a different patient with elevated glucose BUN creatinine on the patient were those readings were not expected. Further discussion with lab reveals that the labels for those to patient's did get transposed. I am going to have lab come do a redraw at this point in time, redraw and re run everything. Patient does feel much better after initial meds. Her chest pain is almost gone. She still does have some mild right upper quadrant upper and midepigastric discomfort. I'm also going to have lab check a serum lipase. Bedside glucose at this time shows 323. Have reduced her IV fluid down to 75 cc per hour. Will continue her insulin drip at 4 units per hour for now. Her vitals remained stable. Chest x-ray shows mild cardiomegaly, mild pulmonary congestion. Sats are running good in the upper 90s. She continues to breathe comfortably, she's not showing any clinical evidence for diabetic ketoacidosis at this time. 02/25/17 22:19. Repeat glucose at this time 223. Labs are as documented. Troponin 0.071. She does have history of a chronic stroke leak due to underlying cardiac and renal status. CK-MB is 5.2. Anion gap very mildly elevated at 16.7. And 2.0, BUN 76. We did give a 500 cc normal saline bolus initially and then I have decreased her fluid rate to 75 per hour with concern of underlying CHF. She feels much better from arrival but does have some continued anterior chest heaviness with more severe discomfort in the area of her right shoulder. He repeated her Dilaudid 0.5 mg IV just a few minutes ago and also now have given Reglan 5 mg IV for nausea starting to come back. To my knowledge she has not been vomiting since arrival to the ED. We'll decrease her insulin drip down to 2 units per hour at this time. She will be admitted inpatient ICU for further treatment, serial enzymes. Departure - Departure Time of Disposition: 22:22 Disposition: Admitted As Inpatient 65 Condition: fair Clinical Impression: Chest pain, Hyperglycemia Chronic renal insufficiency Qualifiers: Chronic kidney disease stage: unspecified stage Qualified Code(s): N18.9 - Chronic kidney disease, unspecified Forms: ED Department Discharge - My Orders Last 24 Hours: My Active Orders 02/25/17 19:28 Sodium Chloride 0.9% [Saline Flush] 10 ml FLUSH ASDIRECTED PRN 02/25/17 19:29 EKG 12 Lead [EKG Documentation Completion] [RC] STAT Peripheral IV Care [RC] . DIRECTED Peripheral IV Insertion Adult [OM.PC] Stat 02/25/17 19:45 Insulin Regular, Human [HumuLIN R] 100 unit Sodium Chloride 0.9% [Normal Saline] 99 ml IV TITRATE Sodium Chloride 0.9% [Normal Saline] 1,000 ml IV ONETIME 02/25/17 19:46 Chest 1V Frontal [CR] Stat 02/25/17 20:30 Sodium Chloride 0.9% [Normal Saline] 1,000 ml IV ASDIRECTED 02/25/17 22:07 POC Glucose [Blood Glucose Check, Bedside] [RC] ONETIME 02/25/17 22:14 GLUCOSE,POC [POC] Routine 02/25/17 22:15 Admission Status [Patient Status] [ADT] Routine - Assessment/Plan Last 24 Hours: My Active Orders 02/25/17 19:28 Sodium Chloride 0.9% [Saline Flush] 10 ml FLUSH ASDIRECTED PRN 02/25/17 19:29 EKG 12 Lead [EKG Documentation Completion] [RC] STAT Peripheral IV Care [RC] . DIRECTED Peripheral IV Insertion Adult [OM.PC] Stat 02/25/17 19:45 Insulin Regular, Human [HumuLIN R] 100 unit Sodium Chloride 0.9% [Normal Saline] 99 ml IV TITRATE Sodium Chloride 0.9% [Normal Saline] 1,000 ml IV ONETIME 02/25/17 19:46 Chest 1V Frontal [CR] Stat 02/25/17 20:30 Sodium Chloride 0.9% [Normal Saline] 1,000 ml IV ASDIRECTED 02/25/17 22:07 POC Glucose [Blood Glucose Check, Bedside] [RC] ONETIME 02/25/17 22:14 GLUCOSE,POC [POC] Routine 02/25/17 22:15 Admission Status [Patient Status] [ADT] Routine
[2017-02-25] MEDS ORDERED: Metoclopramide 10 MG/2 ML SDV IVPUSH ONE (22:05)
--- NOTE | 2017-02-25 22:41 | PCM.HP ---
H&P History of Present Illness - General Date of Service: 02/25/17 Admit Problem/Dx: Admission Diagnosis/Problem Admission Diagnosis/Problem Hyperglycemia Source of Information: Patient, Old records, Provider, RN notes reviewed History Limitations: Reports: No limitations - History of Present Illness Initial Comments - Free Text/Narative: This is a 46 yo with significant cardiac hx/o who comes in with complaints of multiple issues: chest pain, abdominal pain,nausea, vomiting and elevated glucose level and was admitted for hyperglycemia and acute angina. Patient had similar presentation about over a week ago (02/16/2017), she was shipped out to [place] due to ACS. She states it was not a heart attack but rather congestive heart failure. However right after discharge, her symptoms came back. Patient follows a sexer in [place] but unable to recall his name. She admits to having a total of 12 cardiac stents so far. Her most recent PCI was a couple of months ago wherein she received additional 2 stents. Patient was found to have a BS level of over 400s when EMS arrived. Her initial work up in ED shows a CBC remarkable for platelet level of 153. Her chemistry shows Cl of 108, CO of 17, BUN of 76, Cr of 2, BS of 333, Alk Phos of 120, CKMB of 5.2, Troponin x 1 of 0.071, BNP of 1291, and albumin of 2.2. Her EKG shows paced rhythm with Q waves on don-septal leads, no changes from baseline. Her CKR shows no acute abnormal findings except for an enlarged heart with a pacer in placed. Patient admitted for medical management of acute on chronic angina and hyperglycemia. She is full code. Abdominal Pain Score (Numeric/FACES): 10 - Related Data Allergies/Adverse Reactions: Allergies Allergy/AdvReac Type Severity Reaction Status Date / Time fentanyl Allergy Itching Verified 02/17/17 00:19 ibuprofen Allergy Hives Verified 02/16/17 23:36 metformin HCl Allergy Hives Verified 02/16/17 23:36 [From Glucophage] spinach Allergy Difficulty Verified 02/16/17 23:36 Breathing catfish Allergy Difficulty Uncoded 02/16/17 23:36 Breathing Home Medications: Home Meds Aspirin [Halfprin] 81 mg PO DAILY 08/10/15 [History] Carvedilol 6.25 mg PO BID 08/10/15 [History] Clopidogrel [Plavix] 75 mg PO DAILY 08/10/15 [History] Insulin Aspart [Novolog] 8 unit SQ TIDMEALS PRN 08/10/15 [History] Insulin Detemir [Levemir] 15 unit SUBCUT QPM 08/10/15 [History] Acetaminophen [Acetaminophen 8 Hour] 650 mg PO Q4H PRN 02/16/17 [History] Isosorbide Mononitrate [Isosorbide Mononitrate ER] 30 mg PO DAILY 02/16/17 [ History] Lisinopril [Prinivil] 25 mg PO DAILY 02/16/17 [History] Metolazone 5 mg PO ASDIRECTED 02/16/17 [History] Torsemide [Demadex] 60 mg PO DAILY 02/16/17 [History] Past Medical History Other HEENT History: no upper teeth--no dentures Cardiovascular History: Reports: CAD, Heart Failure, High cholesterol, Hypertension, [place], PVD, Stents, Other (see below) Other Cardiovascular History: defiberallator Respiratory History: Reports: COPD, Sleep apnea, Other (see below) Other Respiratory History: uses CPAP at night Gastrointestinal History: Reports: GERD Other Gastrointestinal History: hernia noted Genitourinary History: Reports: Chronic renal insuffiency, Renal calculus, Urinary incontinence Other Genitourinary History: history of kidney stones, dawkins when I pee. CHARRER History: Reports: Neurological History: Reports: Neuropathy, peripheral Psychiatric History: Reports: Anxiety, Depression Endocrine/Metabolic History: Reports: Diabetes, type II, Obesity/BMI 30+ Hematologic History: Reports: Anemia Other Dermatologic History: "boil on private parts" - Past Surgical History HEENT Surgical History: Reports: Tonsillectomy Cardiovascular Surgical History: Reports: AICD, Coronary artery stent, Pacer GI Surgical History: Reports: Appendectomy Female Surgical History: Reports: section Musculoskeletal Surgical History: Reports: ORIF Social & Family History - Family History Cardiac: Reports: CAD, Heart failure Endocrine/Metabolic: Reports: Diabetes, type II Oncologic: Reports: Breast - Tobacco Use Smoking Status *Q: Former Smoker Years of Tobacco use: 27 Packs/Tins Daily: 0.1 Used Tobacco, but Quit: No Month Tobacco Last Used: 2012 Second Hand Smoke Exposure: No - Caffeine Use Caffeine Use: Reports: Coffee, Tea - Recreational Drug Use Recreational Drug Use: Yes Drug Use in Last 12 Months: Yes Recreational Drug Type: Reports: Marijuana/Hashish Recreational Drug Use Frequency: Socially Recreational Drug Last Use: "about 2 weeks ago" - Living Situation & Occupation Living situation: Reports: , with family (With niece) Occupation: unemployed H&P Review of Systems - Review of Systems: Review Of Systems: See Below General: Reports: weakness, fatigue. Denies: fever, chills HEENT: Reports: no symptoms Pulmonary: Denies: Shortness of Breath Cardiovascular: Reports: chest pain Gastrointestinal: Reports: Abdominal pain, Flatus, Nausea, Vomiting. Denies: Anorexia, Black stool, Bloody stool, Constipation, Diarrhea, Decreased appetite , Difficulty swallowing, Distension, Hematochezia Genitourinary: Reports: no symptoms Musculoskeletal: Reports: no symptoms Skin: Denies: cyanosis, jaundice, pruritis, rash, erythema, wound Psychiatric: Denies: confusion, depression, anxiety, hallucinations, suicidal ideation Neurological: Denies: Confusion, Dizziness, Weakness Hematologic/Lymphatic: Reports: no symptoms Immunologic: Reports: no symptoms Exam - Exam Exam: See Below - Vital Signs Vital Signs: Last Vital Signs Temp 35.7 C 02/25/17 19:29 Pulse 79 02/25/17 19:29 Resp 14 02/25/17 19:29 BP 154/88 H 02/25/17 19:29 Pulse Ox 100 02/25/17 19:29 Weight: 99.79 kg - Exam General: alert, oriented, cooperative, mild distress HEENT: Conjunctiva clear, EACs clear, EOMI, Hearing intact, Mucosa moist & pink , Nares patent, Normal nasal septum, Posterior pharynx clear, Pupils equal, Pupils reactive Neck: supple, trachea midline, 2+ carotid pulse wo bruit, full range of motion. No: JVD Lungs: Clear to auscultation, Normal respiratory effort Cardiovascular: regular rate, regular rhythm Abdomen: normal bowel sounds, soft, tenderness (mid abdomen going to the right lateral region). No: organomegaly, peritoneal signs, distention, guarding, rigidity, rebound (Female) Exam: Deferred Rectal (Female) Exam: Deferred Back Exam: normal inspection, decreased range of motion Extremities: normal inspection, normal pulses, other (hyperpigmented bilateral lower extremity). No: clubbing, cyanosis, calf tenderness, edema Peripheral Pulses: 2+: posterior tibial (L), posterior tibial (R), dorsalis pedis (L), dorsalis pedis (R) Skin: warm, dry, intact, other. No: rash, petechia, ecchymosis Skin Alteration Location (drawings not to scale): 1 - midline scar Neuro Extensive - Mental Status: oriented x3, normal cognition, memory intact Neuro Extensive - Motor, Sensory, Reflexes: CN II-XII intact (fairly intact) Psychiatric: normal affect, normal mood, anxious. No: suicidal ideation, homicidal ideation - Patient Data Result Diagrams: 02/26/17 06:11 02/26/17 06:11 EKG INTERPRETATION EKG Date: 02/25/17 Rate (beats/min): 78 EKG Interpretation Comments: Q wave in anterior leads, depressed ST-T wave III, aVF and V3 *Q Meaningful Use (ADM) - VTE *Q VTE Criteria *Q: - Stroke *Q Stroke Criteria *Q: - AMI *Q AMI Criteria *Q: Problem List Initiated/Reviewed/Updated: Yes Orders Last 24hrs: Medication Orders Sodium Chloride (Normal Saline) 1,000 mls @ 999 mls/hr IV ONETIME ANIKET Last Admin: 02/25/17 19:51 Dose: 999 mls/hr Insulin Human Regular 100 unit (/ Sodium Chloride) 100 mls @ 4 mls/hr IV TITRATE ANIKET; 4 UNITS/HR PRN Reason: Protocol Last Titration: 02/25/17 22:20 Dose: 2 units/hr, 2 mls/hr Admin: 02/25/17 19:58 Dose: 4 units/hr, 4 mls/hr Sodium Chloride (Normal Saline) 1,000 mls @ 75 mls/hr IV ASDIRECTED ANIKET Sodium Chloride (Saline Flush) 10 ml FLUSH ASDIRECTED PRN PRN Reason: Keep Vein Open Last Admin: 02/25/17 20:03 Dose: 10 ml Assessment/Plan Comment:: Assessment/Plan: Acute: Acute on Chronic Angina - Hx/o CAD, HF with Reduced EF and Chronic Troponin Leak - Already on Imdur 30 mg po daily, will increase to BID - Will add Norvasc if no response - PRN IV Morphine Q2 for Chest Pain, Dyspnea and SOB - Most recent stress test (nuclear) 06/28/2015 with no acute reversible ischemia Acute on Chronic Troponin Leak - Maybe false positive due to CKD Stage IV - Troponin X1 0.072, CKMB is 5.2 due to Chronic Kidney Disease - She is already on ASA 81 mg po daily, Plavix 75 mg po daily, and Carvedilol 6.25 mg po BID - CE x 2 monitor and repeat EKG in AM - Lipid panel and TFT in AM DM2 with Hyperglycemia - Was found to have BS in the 400s - She is on insulin regimen - She is likely non-compliant - ADA diet - Will check for A1C - ISS and Accu-check QID AC and Bedtime Abdominal Pain - She is passing gas and normal bowel movement - Pain localized to mid abdomen going to right lateral region - Lipase, AST/ALT all negative - PRN pain medications - KUB for now, consider CT scan in AM if KUB does not show anything Nausea and Vomiting - Likely from poorly controlled glucose - PRN anti-emesis Elevated BNP Level - 1291 - This is 2/2 CKD Stage IV - She is not clinically volume overloaded: no pulmonary congestion, no rales or crackles, no peripheral edema - I do not feel she has exacerbation of CHF - Last 2D echo in 2014, will obtain a new one in AM AG-Metabolic Acidosis - Appears to be chronic - 2/2 CKD Stage IV - Will monitor, no indication for Bicarb at this point Chronic: Heart Failure with Reduced EF 35- 40 % 06/23/2015 CAD S/p Stent X 12 total, most recent stent x 2 a month ago in [place] HLD HTN Hx/o AK PVD S/p PPM/AICD COPD TINO on CPAP GERD CKD Stage IV, at baseline Urinary Incontinence Peripheral Neuropathy Anemia from CKD Obesity with BMI 34.5 Plan: Admit to Inpatient with Telemetry Resume Home Medications Routine AM Labs AHA/ADA diet 2 grams and 2L of fluids daily restrictions PT/OT consult CPAP QHS CM/SW for d/c planning Additional orders as above Code status: 1
[2017-02-25] MEDS ORDERED: Non-Formulary Medication 1 Each (Acetaminophen 650 MG) PO PRN (22:43)
[2017-02-25] MEDS ORDERED: Insulin Aspart 100 Units/ML 3 ML Pen SUBCUT PRN (22:43)
[2017-02-25] MEDS ORDERED: Metoprolol Tartrate 5 MG/5 ML SDV IVPUSH PRN (22:48)
[2017-02-25] MEDS ORDERED: hydrALAZINE 20 MG/ML SDV IVPUSH PRN (22:48)
[2017-02-25] MEDS ORDERED: Bisacodyl 5 MG Tab PO PRN (22:53)
[2017-02-25] MEDS ORDERED: Temazepam 15 MG Cap PO PRN (22:53)
[2017-02-25] MEDS ORDERED: Docusate Sodium 100 MG Cap PO PRN (22:53)
[2017-02-25] MEDS ORDERED: LORazepam 2 MG/ML MDV IV PRN (22:53)
[2017-02-25] MEDS ORDERED: Albuterol/Ipratropium 3.0-0.5 MG/3 ML Neb Soln NEB PRN (22:53)
[2017-02-25] MEDS ORDERED: Isosorbide Mononitrate 30 MG Tab.ER PO ONE (23:22)
[2017-02-25] MEDS ORDERED: 50% Dextrose in Water 50 ML Syringe IVPUSH PRN (23:37)
[2017-02-25] MEDS: Morphine 2 MG/ML Syringe IVPUSH PRN (23:48)
[2017-02-25] MEDS: Heparin Sodium 5,000 Units/ML Vial SUBCUT SCH (23:56)
[2017-02-26] MEDS: Heparin Sodium 5,000 Units/ML Vial SUBCUT SCH ×3 (06:21→22:57)
[2017-02-26] MEDS: Morphine 2 MG/ML Syringe IVPUSH PRN ×3 (06:21→21:20)
[2017-02-26] MEDS: Insulin Aspart 100 Units/ML 3 ML Pen SUBCUT SCH ×4 (08:18→22:56)
--- NOTE | 2017-02-26 08:21 | CR ---
Chest: Portable view of the chest was obtained. Comparison: Previous chest x-ray of 02/16/17. Heart size and mediastinum are within normal limits for portable technique. Coronary artery stent is noted as well as AICD. Lungs are clear. Bony structures are grossly intact. Impression: 1. Stable findings. Nothing acute is identified on portable chest x-ray. Diagnostic code #2
[2017-02-26] MEDS: Ondansetron 4 MG/2 ML SDV IV PRN ×2 (08:35→16:28)
[2017-02-26] MEDS: Torsemide 20 MG Tab PO SCH (08:38)
[2017-02-26] MEDS: Lisinopril 10 MG Tab PO SCH (08:39)
[2017-02-26] MEDS: Carvedilol 6.25 MG Tab PO SCH ×2 (08:40→22:36)
[2017-02-26] MEDS: Isosorbide Mononitrate 30 MG Tab.ER PO SCH ×2 (08:40→22:37)
[2017-02-26] MEDS: Clopidogrel 75 MG Tab PO SCH (08:40)
[2017-02-26] MEDS: Aspirin 81 MG Tab.EC PO SCH (08:40)
--- NOTE | 2017-02-26 08:59 | CR ---
Abdomen: Supine view of the abdomen was obtained. Comparison: Previous abdominal x-ray of 02/16/17. Surgical clips are noted within the upper right abdomen. Bowel gas pattern appears normal. Radiopacities are seen within the colon believed to represent bowel content which overlies the right kidney. Minimal degenerative change is seen within the spine. Slight arterial calcification is seen within the pelvis. Other calcifications are seen within the pelvis which are believed to represent phleboliths. Impression: 1. Incidental findings. Diagnostic code #2
[2017-02-26] MEDS ORDERED: Isosorbide Mononitrate 30 MG Tab.ER PO SCH (09:00)
--- NOTE | 2017-02-26 09:29 | PCM.PN ---
- General Info Date of Service: 02/26/17 Admission Dx/Problem (Free Text): Admission Diagnosis/Problem Admission Diagnosis/Problem Hyperglycemia Subjective Update: Follow Up Functional Status: Reports: tolerating diet, ambulating, urinating. Denies: pain controlled, new symptoms Pain Score: 10 - Review of Systems General: Denies: Fever, Chills HEENT: Reports: no symptoms Pulmonary: Denies: shortness of breath Cardiovascular: Denies: Chest Pain, Palpitations, Dyspnea on Exertion, Edema Gastrointestinal: Reports: Abdominal pain, Nausea, Vomiting Genitourinary: Reports: no symptoms Musculoskeletal: Reports: no symptoms Skin: Denies: cyanosis, jaundice, pruritis, rash Neurological: Denies: Confusion, Difficulty Walking, Weakness Psychiatric: Denies: depression, anxiety, agitation, hallucinations, suicidal ideation Systems Review Comment:: No overnight or acute issues. Her chest pain is gone. She still has abdominal pain. She got sick, throwing up right after she ate her breakfast this am. Her KUB showed no acute abnormal findings. Her BNP is 750 and A1C is 11.30. Her lipid is significantly abnormal. She is in tears with her abdominal pain. She is passing gas. Her last bowel movement was yesterday. - Patient Data Vitals - most recent: Last Vital Signs Temp 35.9 C 02/26/17 08:00 Pulse 73 02/25/17 22:59 Resp 20 02/26/17 08:00 BP 110/77 02/26/17 08:40 Pulse Ox 98 02/26/17 08:00 Weight - most recent: 99.79 kg I&O - last 24 hours: Intake & Output 02/25/17 02/26/17 02/26/17 22:59 06:59 14:59 Output Total 500 400 Balance -500 -400 Lab Results last 24 hrs: Laboratory Results - last 24 hr 02/25/17 02/25/17 02/26/17 Range/Units 23:20 23:20 06:11 WBC 5.10 (3.98-10.04) K/mm3 RBC 4.20 (3.98-5.22) M/mm3 Hgb 11.6 (11.2-15.7) gm/L Hct 35.1 (34.1-44.9) % MCV 83.6 (79.4-94.8) fl MCH 27.6 (25.6-32.2) pg MCHC 33.0 (32.2-35.5) g/dl RDW Std Deviation 47.1 H (36.4-46.3) fL Plt Count 157 L (182-369) K/mm3 MPV 11.4 (9.4-12.3) fl Neut % (Auto) 53.1 (34.0-71.1) % Lymph % (Auto) 35.7 (19.3-51.7) % [place] % (Auto) 7.5 (4.7-12.5) % Eos % (Auto) 2.9 (0.7-5.8) Baso % (Auto) 0.6 (0.1-1.2) % Neut # (Auto) 2.71 (1.56-6.13) K/mm3 Lymph # (Auto) 1.82 (1.18-3.74) K/mm3 [place] # (Auto) 0.38 H (0.24-0.36) K/mm3 Eos # (Auto) 0.15 (0.04-0.36) K/mm3 Baso # (Auto) 0.03 (0.01-0.08) K/mm3 Sodium (136-145) mEq/L Potassium (3.5-5.1) mEq/L Chloride (98-107) mEq/L Carbon Dioxide (21-32) mEq/L Anion Gap (5-15) BUN (7-18) mg/dL Creatinine (0.55-1.02) mg/dL Est Cr Clr Drug Dosing mL/min Estimated GFR (MDRD) (>60) mL/min BUN/Creatinine Ratio (14-18) Glucose (74-106) mg/dL Hemoglobin A1c (4.50-6.20) % Calcium (8.5-10.1) mg/dL Magnesium (1.8-2.4) mg/dl CK-MB (CK-2) (0-3.6) ng/ml Troponin I (0.00-0.056) ng/mL B-Natriuretic Peptide (0-100) pg/mL Triglycerides (<150) mg/dL Cholesterol (<200) mg/dL LDL Cholesterol Direct (<100) mg/dL HDL Cholesterol (40-59) mg/dL Free T4 (0.76-1.46) ng/dL TSH 3rd Generation (0.358-3.74) uIU/mL Urine Color Light yellow (Yellow) Urine Appearance Clear (Clear) Urine pH 6.5 (5.0-8.0) Ur Specific [place] 1.025 (1.005-1.030) Urine Protein 3+ H (Negative) Urine Glucose (UA) 2+ H (Negative) Urine Ketones Negative (Negative) Urine Occult Blood 2+ H (Negative) Urine Nitrite Negative (Negative) Urine Bilirubin Negative (Negative) Urine Urobilinogen 0.2 (0.2-1.0) Ur Leukocyte Esterase Negative (Negative) Urine RBC 30-40 H (0-5) /hpf Urine WBC 5-10 H (0-5) /hpf Ur Epithelial Cells 0-5 (0-5) /hpf Urine Bacteria Few (FEW) /hpf Urine Mucus Few (FEW) /hpf Urine Opiates Screen Negative (NEGATIVE) Ur Buprenorphine Scrn Negative (NEGATIVE) Ur Oxycodone Screen Negative (NEGATIVE) Urine Methadone Screen Negative (NEGATIVE) Ur Propoxyphene Screen Negative (NEGATIVE) Ur Barbiturates Screen Negative (NEGATIVE) Ur Tricyclics Screen Negative (NEGATIVE) Ur Phencyclidine Scrn Negative (NEGATIVE) Ur Amphetamine Screen Negative (NEGATIVE) U Methamphetamines Scrn Negative (NEGATIVE) U Benzodiazepines Scrn Negative (NEGATIVE) U Cocaine Metab Screen Negative (NEGATIVE) U Marijuana (THC) Screen Presumptive positive H (NEGATIVE) 02/26/17 02/26/17 02/26/17 Range/Units 06:11 06:11 06:11 WBC (3.98-10.04) K/mm3 RBC (3.98-5.22) M/mm3 Hgb (11.2-15.7) gm/L Hct (34.1-44.9) % MCV (79.4-94.8) fl MCH (25.6-32.2) pg MCHC (32.2-35.5) g/dl RDW Std Deviation (36.4-46.3) fL Plt Count (182-369) K/mm3 MPV (9.4-12.3) fl Neut % (Auto) (34.0-71.1) % Lymph % (Auto) (19.3-51.7) % [place] % (Auto) (4.7-12.5) % Eos % (Auto) (0.7-5.8) Baso % (Auto) (0.1-1.2) % Neut # (Auto) (1.56-6.13) K/mm3 Lymph # (Auto) (1.18-3.74) K/mm3 [place] # (Auto) (0.24-0.36) K/mm3 Eos # (Auto) (0.04-0.36) K/mm3 Baso # (Auto) (0.01-0.08) K/mm3 Sodium 139 (136-145) mEq/L Potassium 4.5 (3.5-5.1) mEq/L Chloride 108 H (98-107) mEq/L Carbon Dioxide 18 L (21-32) mEq/L Anion Gap 17.5 H (5-15) BUN 73 H (7-18) mg/dL Creatinine 1.8 H (0.55-1.02) mg/dL Est Cr Clr Drug Dosing 37.57 mL/min Estimated GFR (MDRD) 30 (>60) mL/min BUN/Creatinine Ratio 40.6 H (14-18) Glucose 213 H (74-106) mg/dL Hemoglobin A1c 11.30 H (4.50-6.20) % Calcium 8.5 (8.5-10.1) mg/dL Magnesium 2.1 (1.8-2.4) mg/dl CK-MB (CK-2) 4.7 H (0-3.6) ng/ml Troponin I 0.066 H* (0.00-0.056) ng/mL B-Natriuretic Peptide 758 H (0-100) pg/mL Triglycerides 264 H (<150) mg/dL Cholesterol 221 H (<200) mg/dL LDL Cholesterol Direct 135 H* (<100) mg/dL HDL Cholesterol 44.0 (40-59) mg/dL Free T4 1.07 (0.76-1.46) ng/dL TSH 3rd Generation 2.931 (0.358-3.74) uIU/mL Urine Color (Yellow) Urine Appearance (Clear) Urine pH (5.0-8.0) Ur Specific [place] (1.005-1.030) Urine Protein (Negative) Urine Glucose (UA) (Negative) Urine Ketones (Negative) Urine Occult Blood (Negative) Urine Nitrite (Negative) Urine Bilirubin (Negative) Urine Urobilinogen (0.2-1.0) Ur Leukocyte Esterase (Negative) Urine RBC (0-5) /hpf Urine WBC (0-5) /hpf Ur Epithelial Cells (0-5) /hpf Urine Bacteria (FEW) /hpf Urine Mucus (FEW) /hpf Urine Opiates Screen (NEGATIVE) Ur Buprenorphine Scrn (NEGATIVE) Ur Oxycodone Screen (NEGATIVE) Urine Methadone Screen (NEGATIVE) Ur Propoxyphene Screen (NEGATIVE) Ur Barbiturates Screen (NEGATIVE) Ur Tricyclics Screen (NEGATIVE) Ur Phencyclidine Scrn (NEGATIVE) Ur Amphetamine Screen (NEGATIVE) U Methamphetamines Scrn (NEGATIVE) U Benzodiazepines Scrn (NEGATIVE) U Cocaine Metab Screen (NEGATIVE) U Marijuana (THC) Screen (NEGATIVE) Med Orders - Current: Current Medications Acetaminophen (Tylenol) 650 mg PO Q4H PRN PRN Reason: Pain (Mild 1-3)/fever Hydrocodone Bitart/Acetaminophen ([facility] 325-5 Mg) 1 tab PO Q4H PRN PRN Reason: Pain (moderate 4-6) Albuterol/Ipratropium (Duoneb 3.0-0.5 Mg/3 Ml) 3 ml NEB Q4H PRN PRN Reason: Shortness Of Breath/wheezing Aspirin (Halfprin) 81 mg PO DAILY [facility] Last Admin: 02/26/17 08:40 Dose: 81 mg Bisacodyl (Dulcolax) 5 mg PO DAILY PRN PRN Reason: Constipation Carvedilol (Coreg) 6.25 mg PO BID [facility] Last Admin: 02/26/17 08:40 Dose: 6.25 mg Clopidogrel Bisulfate (Plavix) 75 mg PO DAILY [facility] Last Admin: 02/26/17 08:40 Dose: 75 mg Dextrose/Water (Dextrose 50% In Water) 50 ml IVPUSH ASDIRECTED PRN PRN Reason: Hypoglycemia Docusate Sodium (Colace) 100 mg PO BID PRN PRN Reason: Constipation Heparin Sodium (Porcine) (Heparin Sodium) 5,000 units SUBCUT Q8H [facility] Last Admin: 02/26/17 06:21 Dose: 5,000 units Hydralazine HCl (Apresoline) 10 mg IVPUSH Q4H PRN PRN Reason: Hypertension Insulin Aspart (Novolog) 8 unit SUBCUT TIDMEALS PRN PRN Reason: Blood Glucose Insulin Aspart (Novolog) 0 unit SUBCUT QIDACANDBED [facility] PRN Reason: Protocol Last Admin: 02/26/17 08:18 Dose: 2 unit Insulin Detemir (Levemir) 15 unit SUBCUT QPM [facility] Isosorbide Mononitrate (Imdur) 30 mg PO BID [facility] Last Admin: 02/26/17 08:40 Dose: 30 mg Lisinopril (Prinivil) 25 mg PO DAILY [facility] Last Admin: 02/26/17 08:39 Dose: 25 mg Lorazepam (Ativan) 1 mg IV Q6H PRN PRN Reason: Anxiety Magnesium Sulfate (Pharmacy To Dose - Magnesium Replacement) 0 dose .XX ASDIRECTED PRN PRN Reason: rx dose Metolazone (Zaroxolyn) 5 mg PO ASDIRECTED@0900 [facility] Metoprolol Tartrate (Lopressor) 5 mg IVPUSH Q4H PRN PRN Reason: Tachycardia Morphine Sulfate (Morphine) 1 mg IVPUSH Q2H PRN PRN Reason: Other Stop: 03/02/17 22:52 Last Admin: 02/26/17 06:21 Dose: 1 mg Ondansetron HCl (Zofran) 4 mg IV Q6H PRN PRN Reason: Nausea/Vomiting Last Admin: 02/26/17 08:35 Dose: 4 mg Potassium Chloride (Pharmacy To Dose - Potassium Replacement) 0 dose .XX ASDIRECTED PRN PRN Reason: rx dose Senna/Docusate Sodium (Senna Plus) 1 tab PO BID PRN PRN Reason: Constipation Sodium Chloride (Saline Flush) 10 ml FLUSH ASDIRECTED PRN PRN Reason: Keep Vein Open Last Admin: 02/25/17 20:03 Dose: 10 ml Sodium Chloride (Saline Flush) 10 ml FLUSH ASDIRECTED PRN PRN Reason: Keep Vein Open Temazepam (Restoril) 15 mg PO BEDTIME PRN PRN Reason: Sleep Torsemide (Demadex) 60 mg PO DAILY [facility] Last Admin: 02/26/17 08:38 Dose: 60 mg Discontinued Medications Hydromorphone HCl (Dilaudid) 0.5 mg IVPUSH ONETIME ONE Stop: 02/25/17 19:41 Last Admin: 02/25/17 19:50 Dose: 0.5 mg Hydromorphone HCl (Dilaudid) 0.5 mg IVPUSH ONETIME ONE Stop: 02/25/17 22:06 Last Admin: 02/25/17 22:16 Dose: 0.5 mg Sodium Chloride (Normal Saline) 1,000 mls @ 999 mls/hr IV ONETIME [facility] Last Admin: 02/25/17 19:51 Dose: 999 mls/hr Insulin Human Regular 100 unit (/ Sodium Chloride) 100 mls @ 4 mls/hr IV TITRATE ANIKET; 4 UNITS/HR PRN Reason: Protocol Last Titration: 02/25/17 22:20 Dose: 2 units/hr, 2 mls/hr Sodium Chloride (Normal Saline) 1,000 mls @ 75 mls/hr IV ASDIRECTED ANIK[facility] Insulin Human Regular (Humulin R) 5 unit IVPUSH ONETIME ONE PRN Reason: Protocol Stop: 02/25/17 19:42 Last Admin: 02/25/17 19:53 Dose: 5 unit Isosorbide Mononitrate (Imdur) 60 mg PO DAILY [facility] Isosorbide Mononitrate (Imdur) 30 mg PO ONETIME ONE Stop: 02/25/17 23:23 Last Admin: 02/26/17 00:00 Dose: 30 mg Metoclopramide HCl (Reglan) 5 mg IVPUSH ONETIME ONE Stop: 02/25/17 22:06 Last Admin: 02/25/17 22:14 Dose: 5 mg Ondansetron HCl (Zofran) 4 mg IVPUSH ONETIME ONE Stop: 02/25/17 19:41 Last Admin: 02/25/17 19:48 Dose: 4 mg - Exam General: alert, oriented, cooperative, moderate distress, other (uncomfortable in tears with her pain) HEENT: Pupils equal, Pupils reactive, EOMI, Mucous membr. moist/pink, Other ( poor dentition) Neck: supple, trachea midline, no JVD, no thyromegaly Lungs: Clear to auscultation, Normal respiratory effort Cardiovascular: Regular Rate, Regular Rhythm Abdomen: bowel sounds present, soft, no tenderness, no distension, tenderness. No: rigidity, rebound, guarding, distension, organomegaly (Female) Exam: Deferred Back Exam: normal inspection, decreased range of motion Extremities: no edema, normal pulses, no tenderness/swelling, no clubbing, no cyanosis, no calf tenderness Peripheral Pulses: 3+: posterior tibial (L), posterior tibial (R), dorsalis pedis (L), dorsalis pedis (R) Skin: warm, dry, intact Neurological: no new focal deficit Psy/Mental Status: normal affect, normal mood, anxious - Problem List Review Problem List Initiated/Reviewed/Updated: Yes - My Orders Last 24 Hours: My Active Orders 02/25/17 22:43 Insulin Aspart [NovoLOG] 8 unit SUBCUT TIDMEALS PRN 02/25/17 22:45 Metolazone [Zaroxolyn] 5 mg PO ASDIRECTED@0900 02/25/17 22:48 Metoprolol Tartrate [Lopressor] 5 mg IVPUSH Q4H PRN hydrALAZINE [Apresoline] 10 mg IVPUSH Q4H PRN 02/25/17 22:50 Height and Weight [RC] 04 Oxygen Therapy [RC] PRN Up With Assistance [RC] ASDIRECTED Up ad Adriana [RC] ASDIRECTED VTE/DVT Education [RC] BID Vital Signs [RC] Q4HR Acetaminophen [Tylenol] 650 mg PO Q4H PRN Acetaminophen/HYDROcodone [[facility] 325-5 MG] 1 tab PO Q4H PRN Morphine 1 mg IVPUSH Q2H PRN Saline Lock Insert [OM.PC] Routine Resuscitation Status Routine 02/25/17 22:51 Intake and Output [RC] 04,16 02/25/17 22:53 Albuterol/Ipratropium [DuoNeb 3.0-0.5 MG/3 ML] 3 ml NEB Q4H PRN Bisacodyl [Dulcolax] 5 mg PO DAILY PRN Docusate Sodium [Colace] 100 mg PO BID PRN Docusate Sodium/Sennosides [Senna Plus] 1 tab PO BID PRN LORazepam [Ativan] 1 mg IV Q6H PRN Ondansetron [Zofran] 4 mg IV Q6H PRN Sodium Chloride 0.9% [Saline Flush] 10 ml FLUSH ASDIRECTED PRN Temazepam [Restoril] 15 mg PO BEDTIME PRN 02/25/17 22:54 RT Aerosol Therapy [RC] ASDIRECTED 02/25/17 22:55 Consult to Case Management [CONS] Routine Consult to Diabetic Nurse Specialist [CONS] Routine Consult to Noc Analyst [CONS] Routine Consult to Spiritual Care [CONS] Routine OT Evaluation and Treatment [CONS] Routine PT Evaluation and Treatment [CONS] Routine 02/25/17 23:00 Heparin Sodium 5,000 units SUBCUT Q8H Magnesium Rep Pharmacy to Dose [Pharmacy to Dose - Magnesium Replacement] 0 dose .XX ASDIRECTED PRN Potassium Rep Pharmacy to Dose [Pharmacy to Dose - Potassium Replacement] 0 dose .XX ASDIRECTED PRN 02/25/17 23:20 CULTURE URINE [RM] Stat 02/25/17 23:37 Blood Glucose Check, Bedside [RC] QIDACANDBED Dextrose 50% in Water 50 ml IVPUSH ASDIRECTED PRN 02/25/17 Dinner 2 Gram Sodium Diet [DIET] Consistent Carbohydrate Diet [DIET] Fluid Restriction [DIET] 02/26/17 05:11 EKG 12 Lead [EK] AM 02/26/17 07:00 EKG Documentation Completion [RC] ASDIRECTED Insulin Aspart [NovoLOG] See Protocol SUBCUT QIDACANDBED 02/26/17 09:00 Aspirin [Halfprin] 81 mg PO DAILY Carvedilol [Coreg] 6.25 mg PO BID Clopidogrel [Plavix] 75 mg PO DAILY Isosorbide Mononitrate [Imdur] 30 mg PO BID Lisinopril [Prinivil] 25 mg PO DAILY Torsemide [Demadex] 60 mg PO DAILY 02/26/17 13:00 CKMB [CHEM] Routine TROPONIN I [CHEM] Routine 02/26/17 18:00 Insulin Detemir [Levemir] 15 unit SUBCUT QPM 02/27/17 05:11 BASIC METABOLIC PANEL,BMP [CHEM] AM CBC WITH AUTO DIFF [HEME] AM MAGNESIUM [CHEM] AM 02/28/17 05:11 BASIC METABOLIC PANEL,BMP [CHEM] AM CBC WITH AUTO DIFF [HEME] AM MAGNESIUM [CHEM] AM 03/01/17 05:11 BASIC METABOLIC PANEL,BMP [CHEM] AM CBC WITH AUTO DIFF [HEME] AM MAGNESIUM [CHEM] AM 03/02/17 05:11 BASIC METABOLIC PANEL,BMP [CHEM] AM CBC WITH AUTO DIFF [HEME] AM MAGNESIUM [CHEM] AM - Plan Plan:: Assessment/Plan: Acute: Abdominal Pain - She is passing gas and normal bowel movement - Pain localized to mid abdomen going to right lateral region - Lipase, AST/ALT all negative - PRN pain medications - KUB: no acute abnormal findings - 2D echo to r/o GB Disease Nausea and Vomiting - 2/2 above - Got sick after she ate her breakfast - PRN anti-emesis - Scopolamine patch X1 now Acute on Chronic Troponin Leak - Maybe false positive due to CKD Stage IV - Troponin X1 0.072, CKMB is 5.2 due to Chronic Kidney Disease, Troponin this am 0.066 - Continue ASA 81 mg po daily, Plavix 75 mg po daily, and Carvedilol 6.25 mg po BID - Lipid panel: Abnormal - TFT: normal DM2 with Hyperglycemia - Was found to have BS in the 400s - BS improved but we can do better ( in the upper 200s and 300s) - She is on insulin regimen - She is likely non-compliant - ADA diet - A1C is 11. 30 - Increase LA to 25 from 18 units, her TDI is 49.5 units - Continue SA insulin with 8 units - ISS and Accu-check QID AC and Bedtime Elevated BNP Level - 1291--> 758 - This is 2/2 CKD Stage IV - She is not clinically volume overloaded: no pulmonary congestion, no rales or crackles, no peripheral edema - I do not feel she has exacerbation of CHF - Last 2D echo in 2014, waiting 2D echo this am AG-Metabolic Acidosis - Levels above the same - Appears to be chronic - 2/2 CKD Stage IV - Will monitor, no indication for Bicarb at this point Resolved S/p Acute on Chronic Angina - Hx/o CAD, HF with Reduced EF and Chronic Troponin Leak - Already on Imdur 30 mg po daily, will increase to BID - Will add Norvasc if no response - PRN IV Morphine Q2 for Chest Pain, Dyspnea and SOB - Most recent stress test (nuclear) 06/28/2015 with no acute reversible ischemia Chronic: Heart Failure with Reduced EF 35- 40 % 06/23/2015 CAD S/p Stent X 12 total, most recent stent x 2 a month ago in [place] HLD HTN Hx/o [place] PVD S/p PPM/AICD COPD TINO on CPAP GERD CKD Stage IV, at baseline Urinary Incontinence Peripheral Neuropathy Anemia from CKD Obesity with BMI 34.5 Plan: She is clinically stable Transfer to Med-Surg with Telemetry Routine AM Labs GB U/S r/o GB Disease Continue PT/OT CPAP QHS CM/SW for d/c planning Additional orders as above Code status: 1
[2017-02-26] MEDS: Metolazone 5 MG Tab PO SCH (09:56)
[2017-02-26] MEDS: Scopolamine 1.5 MG Transdermal Patch TRDERM PRN (10:44)
--- NOTE | 2017-02-26 12:10 | PCM.SN ---
- Free Text/Narrative Note: I was informed her BP has dropped to 87/53 mmHg with a MAP of 64. She had gotten her BP meds this am (Carvedilol 6.25 mf po BID, Imdur 30 mg po BID, Lisinopril 25 mg po, Demadex 60 daily and 1 mg IVP for Abdominal Pain). Repeat manual BP is about the same. She is asymptomatic, will do trendelenberg and monitor BP closely.
[2017-02-26] MEDS: Acetaminophen/HYDROcodone 325-5 MG Tab PO PRN ×2 (13:00→17:08)
[2017-02-26] MEDS ORDERED: Midodrine 5 MG Tab PO ONE (13:01)
[2017-02-26] MEDS: Acetaminophen 325 MG Tab PO PRN (15:03)
--- NOTE | 2017-02-26 15:34 | US ---
Limited abdominal ultrasound: Multiple real-time images were obtained of the right upper abdomen. Technologist's note: Limited exam due to bowel gas and labored breathing Liver is echogenic compatible with fatty infiltration. Gallbladder not identified. Right kidney shows no hydronephrosis or mass. No biliary duct dilatation is seen. Pancreas is incompletely seen. Visualized portions are unremarkable. Impression: 1. Gallbladder not identified. Differential includes gallbladder filled with gallstones versus gallbladder being contracted. No history of prior cholecystectomy is given although on CT chest of 11/27/16 there is suggestion of cholecystectomy clips within the very lowermost cut. No biliary duct dilatation is seen. 2. Mild fatty infiltration within the liver. 3. Poorly seen pancreas. Diagnostic code #3
[2017-02-26] MEDS: Insulin Detemir 100 Units/ML 3 ML Pen SUBCUT SCH (17:56)
[2017-02-26] MEDS ORDERED: Insulin Detemir 100 Units/ML 3 ML Pen SUBCUT SCH (18:00)
--- NOTE | 2017-02-26 22:29 | PCM.CONSN ---
- General Info Date of Service: 02/26/17 - Patient Data Vitals - most recent: Last Vital Signs Temp 97.2 F 02/26/17 20:27 Pulse 63 02/26/17 20:27 Resp 17 02/26/17 20:27 BP 104/60 02/26/17 20:27 Pulse Ox 97 02/26/17 20:27 Weight - most recent: 99.79 kg I&O - last 24 hours: Intake & Output 02/26/17 02/26/17 02/26/17 07:59 15:59 23:59 Intake Total 300 0 Output Total 500 400 Balance -500 -100 0 Lab Results last 24 hrs: Laboratory Results - last 24 hr 02/25/17 02/25/17 02/26/17 Range/Units 23:20 23:20 06:11 WBC 5.10 (3.98-10.04) K/mm3 RBC 4.20 (3.98-5.22) M/mm3 Hgb 11.6 (11.2-15.7) gm/L Hct 35.1 (34.1-44.9) % MCV 83.6 (79.4-94.8) fl MCH 27.6 (25.6-32.2) pg MCHC 33.0 (32.2-35.5) g/dl RDW Std Deviation 47.1 H (36.4-46.3) fL Plt Count 157 L (182-369) K/mm3 MPV 11.4 (9.4-12.3) fl Neut % (Auto) 53.1 (34.0-71.1) % Lymph % (Auto) 35.7 (19.3-51.7) % [place] % (Auto) 7.5 (4.7-12.5) % Eos % (Auto) 2.9 (0.7-5.8) Baso % (Auto) 0.6 (0.1-1.2) % Neut # (Auto) 2.71 (1.56-6.13) K/mm3 Lymph # (Auto) 1.82 (1.18-3.74) K/mm3 [place] # (Auto) 0.38 H (0.24-0.36) K/mm3 Eos # (Auto) 0.15 (0.04-0.36) K/mm3 Baso # (Auto) 0.03 (0.01-0.08) K/mm3 Sodium (136-145) mEq/L Potassium (3.5-5.1) mEq/L Chloride (98-107) mEq/L Carbon Dioxide (21-32) mEq/L Anion Gap (5-15) BUN (7-18) mg/dL Creatinine (0.55-1.02) mg/dL Est Cr Clr Drug Dosing mL/min Estimated GFR (MDRD) (>60) mL/min BUN/Creatinine Ratio (14-18) Glucose (74-106) mg/dL POC Glucose (70-105) mg/dL Hemoglobin A1c (4.50-6.20) % Calcium (8.5-10.1) mg/dL Magnesium (1.8-2.4) mg/dl CK-MB (CK-2) (0-3.6) ng/ml Troponin I (0.00-0.056) ng/mL B-Natriuretic Peptide (0-100) pg/mL Triglycerides (<150) mg/dL Cholesterol (<200) mg/dL LDL Cholesterol Direct (<100) mg/dL HDL Cholesterol (40-59) mg/dL Free T4 (0.76-1.46) ng/dL TSH 3rd Generation (0.358-3.74) uIU/mL Urine Color Light yellow (Yellow) Urine Appearance Clear (Clear) Urine pH 6.5 (5.0-8.0) Ur Specific [place] 1.025 (1.005-1.030) Urine Protein 3+ H (Negative) Urine Glucose (UA) 2+ H (Negative) Urine Ketones Negative (Negative) Urine Occult Blood 2+ H (Negative) Urine Nitrite Negative (Negative) Urine Bilirubin Negative (Negative) Urine Urobilinogen 0.2 (0.2-1.0) Ur Leukocyte Esterase Negative (Negative) Urine RBC 30-40 H (0-5) /hpf Urine WBC 5-10 H (0-5) /hpf Ur Epithelial Cells 0-5 (0-5) /hpf Urine Bacteria Few (FEW) /hpf Urine Mucus Few (FEW) /hpf Urine Opiates Screen Negative (NEGATIVE) Ur Buprenorphine Scrn Negative (NEGATIVE) Ur Oxycodone Screen Negative (NEGATIVE) Urine Methadone Screen Negative (NEGATIVE) Ur Propoxyphene Screen Negative (NEGATIVE) Ur Barbiturates Screen Negative (NEGATIVE) Ur Tricyclics Screen Negative (NEGATIVE) Ur Phencyclidine Scrn Negative (NEGATIVE) Ur Amphetamine Screen Negative (NEGATIVE) U Methamphetamines Scrn Negative (NEGATIVE) U Benzodiazepines Scrn Negative (NEGATIVE) U Cocaine Metab Screen Negative (NEGATIVE) U Marijuana (THC) Screen Presumptive positive H (NEGATIVE) 02/26/17 02/26/17 02/26/17 Range/Units 06:11 06:11 06:11 WBC (3.98-10.04) K/mm3 RBC (3.98-5.22) M/mm3 Hgb (11.2-15.7) gm/L Hct (34.1-44.9) % MCV (79.4-94.8) fl MCH (25.6-32.2) pg MCHC (32.2-35.5) g/dl RDW Std Deviation (36.4-46.3) fL Plt Count (182-369) K/mm3 MPV (9.4-12.3) fl Neut % (Auto) (34.0-71.1) % Lymph % (Auto) (19.3-51.7) % [place] % (Auto) (4.7-12.5) % Eos % (Auto) (0.7-5.8) Baso % (Auto) (0.1-1.2) % Neut # (Auto) (1.56-6.13) K/mm3 Lymph # (Auto) (1.18-3.74) K/mm3 [place] # (Auto) (0.24-0.36) K/mm3 Eos # (Auto) (0.04-0.36) K/mm3 Baso # (Auto) (0.01-0.08) K/mm3 Sodium 139 (136-145) mEq/L Potassium 4.5 (3.5-5.1) mEq/L Chloride 108 H (98-107) mEq/L Carbon Dioxide 18 L (21-32) mEq/L Anion Gap 17.5 H (5-15) BUN 73 H (7-18) mg/dL Creatinine 1.8 H (0.55-1.02) mg/dL Est Cr Clr Drug Dosing 37.57 mL/min Estimated GFR (MDRD) 30 (>60) mL/min BUN/Creatinine Ratio 40.6 H (14-18) Glucose 213 H (74-106) mg/dL POC Glucose (70-105) mg/dL Hemoglobin A1c 11.30 H (4.50-6.20) % Calcium 8.5 (8.5-10.1) mg/dL Magnesium 2.1 (1.8-2.4) mg/dl CK-MB (CK-2) 4.7 H (0-3.6) ng/ml Troponin I 0.066 H* (0.00-0.056) ng/mL B-Natriuretic Peptide 758 H (0-100) pg/mL Triglycerides 264 H (<150) mg/dL Cholesterol 221 H (<200) mg/dL LDL Cholesterol Direct 135 H* (<100) mg/dL HDL Cholesterol 44.0 (40-59) mg/dL Free T4 1.07 (0.76-1.46) ng/dL TSH 3rd Generation 2.931 (0.358-3.74) uIU/mL Urine Color (Yellow) Urine Appearance (Clear) Urine pH (5.0-8.0) Ur Specific [place] (1.005-1.030) Urine Protein (Negative) Urine Glucose (UA) (Negative) Urine Ketones (Negative) Urine Occult Blood (Negative) Urine Nitrite (Negative) Urine Bilirubin (Negative) Urine Urobilinogen (0.2-1.0) Ur Leukocyte Esterase (Negative) Urine RBC (0-5) /hpf Urine WBC (0-5) /hpf Ur Epithelial Cells (0-5) /hpf Urine Bacteria (FEW) /hpf Urine Mucus (FEW) /hpf Urine Opiates Screen (NEGATIVE) Ur Buprenorphine Scrn (NEGATIVE) Ur Oxycodone Screen (NEGATIVE) Urine Methadone Screen (NEGATIVE) Ur Propoxyphene Screen (NEGATIVE) Ur Barbiturates Screen (NEGATIVE) Ur Tricyclics Screen (NEGATIVE) Ur Phencyclidine Scrn (NEGATIVE) Ur Amphetamine Screen (NEGATIVE) U Methamphetamines Scrn (NEGATIVE) U Benzodiazepines Scrn (NEGATIVE) U Cocaine Metab Screen (NEGATIVE) U Marijuana (THC) Screen (NEGATIVE) 02/26/17 02/26/17 02/26/17 Range/Units 06:50 11:27 13:20 WBC (3.98-10.04) K/mm3 RBC (3.98-5.22) M/mm3 Hgb (11.2-15.7) gm/L Hct (34.1-44.9) % MCV (79.4-94.8) fl MCH (25.6-32.2) pg MCHC (32.2-35.5) g/dl RDW Std Deviation (36.4-46.3) fL Plt Count (182-369) K/mm3 MPV (9.4-12.3) fl Neut % (Auto) (34.0-71.1) % Lymph % (Auto) (19.3-51.7) % [place] % (Auto) (4.7-12.5) % Eos % (Auto) (0.7-5.8) Baso % (Auto) (0.1-1.2) % Neut # (Auto) (1.56-6.13) K/mm3 Lymph # (Auto) (1.18-3.74) K/mm3 [place] # (Auto) (0.24-0.36) K/mm3 Eos # (Auto) (0.04-0.36) K/mm3 Baso # (Auto) (0.01-0.08) K/mm3 Sodium (136-145) mEq/L Potassium (3.5-5.1) mEq/L Chloride (98-107) mEq/L Carbon Dioxide (21-32) mEq/L Anion Gap (5-15) BUN (7-18) mg/dL Creatinine (0.55-1.02) mg/dL Est Cr Clr Drug Dosing mL/min Estimated GFR (MDRD) (>60) mL/min BUN/Creatinine Ratio (14-18) Glucose (74-106) mg/dL POC Glucose 220 H 351 H (70-105) mg/dL Hemoglobin A1c (4.50-6.20) % Calcium (8.5-10.1) mg/dL Magnesium (1.8-2.4) mg/dl CK-MB (CK-2) 4.1 H (0-3.6) ng/ml Troponin I 0.062 H* (0.00-0.056) ng/mL B-Natriuretic Peptide (0-100) pg/mL Triglycerides (<150) mg/dL Cholesterol (<200) mg/dL LDL Cholesterol Direct (<100) mg/dL HDL Cholesterol (40-59) mg/dL Free T4 (0.76-1.46) ng/dL TSH 3rd Generation (0.358-3.74) uIU/mL Urine Color (Yellow) Urine Appearance (Clear) Urine pH (5.0-8.0) Ur Specific [place] (1.005-1.030) Urine Protein (Negative) Urine Glucose (UA) (Negative) Urine Ketones (Negative) Urine Occult Blood (Negative) Urine Nitrite (Negative) Urine Bilirubin (Negative) Urine Urobilinogen (0.2-1.0) Ur Leukocyte Esterase (Negative) Urine RBC (0-5) /hpf Urine WBC (0-5) /hpf Ur Epithelial Cells (0-5) /hpf Urine Bacteria (FEW) /hpf Urine Mucus (FEW) /hpf Urine Opiates Screen (NEGATIVE) Ur Buprenorphine Scrn (NEGATIVE) Ur Oxycodone Screen (NEGATIVE) Urine Methadone Screen (NEGATIVE) Ur Propoxyphene Screen (NEGATIVE) Ur Barbiturates Screen (NEGATIVE) Ur Tricyclics Screen (NEGATIVE) Ur Phencyclidine Scrn (NEGATIVE) Ur Amphetamine Screen (NEGATIVE) U Methamphetamines Scrn (NEGATIVE) U Benzodiazepines Scrn (NEGATIVE) U Cocaine Metab Screen (NEGATIVE) U Marijuana (THC) Screen (NEGATIVE) 02/26/17 Range/Units 17:12 WBC (3.98-10.04) K/mm3 RBC (3.98-5.22) M/mm3 Hgb (11.2-15.7) gm/L Hct (34.1-44.9) % MCV (79.4-94.8) fl MCH (25.6-32.2) pg MCHC (32.2-35.5) g/dl RDW Std Deviation (36.4-46.3) fL Plt Count (182-369) K/mm3 MPV (9.4-12.3) fl Neut % (Auto) (34.0-71.1) % Lymph % (Auto) (19.3-51.7) % [place] % (Auto) (4.7-12.5) % Eos % (Auto) (0.7-5.8) Baso % (Auto) (0.1-1.2) % Neut # (Auto) (1.56-6.13) K/mm3 Lymph # (Auto) (1.18-3.74) K/mm3 [place] # (Auto) (0.24-0.36) K/mm3 Eos # (Auto) (0.04-0.36) K/mm3 Baso # (Auto) (0.01-0.08) K/mm3 Sodium (136-145) mEq/L Potassium (3.5-5.1) mEq/L Chloride (98-107) mEq/L Carbon Dioxide (21-32) mEq/L Anion Gap (5-15) BUN (7-18) mg/dL Creatinine (0.55-1.02) mg/dL Est Cr Clr Drug Dosing mL/min Estimated GFR (MDRD) (>60) mL/min BUN/Creatinine Ratio (14-18) Glucose (74-106) mg/dL POC Glucose 302 H (70-105) mg/dL Hemoglobin A1c (4.50-6.20) % Calcium (8.5-10.1) mg/dL Magnesium (1.8-2.4) mg/dl CK-MB (CK-2) (0-3.6) ng/ml Troponin I (0.00-0.056) ng/mL B-Natriuretic Peptide (0-100) pg/mL Triglycerides (<150) mg/dL Cholesterol (<200) mg/dL LDL Cholesterol Direct (<100) mg/dL HDL Cholesterol (40-59) mg/dL Free T4 (0.76-1.46) ng/dL TSH 3rd Generation (0.358-3.74) uIU/mL Urine Color (Yellow) Urine Appearance (Clear) Urine pH (5.0-8.0) Ur Specific [place] (1.005-1.030) Urine Protein (Negative) Urine Glucose (UA) (Negative) Urine Ketones (Negative) Urine Occult Blood (Negative) Urine Nitrite (Negative) Urine Bilirubin (Negative) Urine Urobilinogen (0.2-1.0) Ur Leukocyte Esterase (Negative) Urine RBC (0-5) /hpf Urine WBC (0-5) /hpf Ur Epithelial Cells (0-5) /hpf Urine Bacteria (FEW) /hpf Urine Mucus (FEW) /hpf Urine Opiates Screen (NEGATIVE) Ur Buprenorphine Scrn (NEGATIVE) Ur Oxycodone Screen (NEGATIVE) Urine Methadone Screen (NEGATIVE) Ur Propoxyphene Screen (NEGATIVE) Ur Barbiturates Screen (NEGATIVE) Ur Tricyclics Screen (NEGATIVE) Ur Phencyclidine Scrn (NEGATIVE) Ur Amphetamine Screen (NEGATIVE) U Methamphetamines Scrn (NEGATIVE) U Benzodiazepines Scrn (NEGATIVE) U Cocaine Metab Screen (NEGATIVE) U Marijuana (THC) Screen (NEGATIVE) Med Orders - Current: Current Medications Acetaminophen (Tylenol) 650 mg PO Q4H PRN PRN Reason: Pain (Mild 1-3)/fever Last Admin: 02/26/17 15:03 Dose: 650 mg Hydrocodone Bitart/Acetaminophen ([place] 325-5 Mg) 1 tab PO Q4H PRN PRN Reason: Pain (moderate 4-6) Last Admin: 02/26/17 17:08 Dose: 1 tab Albuterol/Ipratropium (Duoneb 3.0-0.5 Mg/3 Ml) 3 ml NEB Q4H PRN PRN Reason: Shortness Of Breath/wheezing Aspirin (Halfprin) 81 mg PO DAILY [facility] Last Admin: 02/26/17 08:40 Dose: 81 mg Bisacodyl (Dulcolax) 5 mg PO DAILY PRN PRN Reason: Constipation Carvedilol (Coreg) 6.25 mg PO BID [facility] Last Admin: 02/26/17 08:40 Dose: 6.25 mg Clopidogrel Bisulfate (Plavix) 75 mg PO DAILY [facility] Last Admin: 02/26/17 08:40 Dose: 75 mg Dextrose/Water (Dextrose 50% In Water) 50 ml IVPUSH ASDIRECTED PRN PRN Reason: Hypoglycemia Docusate Sodium (Colace) 100 mg PO BID PRN PRN Reason: Constipation Heparin Sodium (Porcine) (Heparin Sodium) 5,000 units SUBCUT Q8H [facility] Last Admin: 02/26/17 14:59 Dose: 5,000 units Hydralazine HCl (Apresoline) 10 mg IVPUSH Q4H PRN PRN Reason: Hypertension Insulin Aspart (Novolog) 8 unit SUBCUT TIDMEALS PRN PRN Reason: Blood Glucose Insulin Aspart (Novolog) 0 unit SUBCUT QIDACANDBED [facility] PRN Reason: Protocol Last Admin: 02/26/17 17:14 Dose: 4 unit Insulin Detemir (Levemir) 25 unit SUBCUT QPM [facility] Last Admin: 02/26/17 17:56 Dose: 25 units Isosorbide Mononitrate (Imdur) 30 mg PO BID [facility] Last Admin: 02/26/17 08:40 Dose: 30 mg Lisinopril (Prinivil) 25 mg PO DAILY [facility] Last Admin: 02/26/17 08:39 Dose: 25 mg Lorazepam (Ativan) 1 mg IV Q6H PRN PRN Reason: Anxiety Magnesium Sulfate (Pharmacy To Dose - Magnesium Replacement) 0 dose .XX ASDIRECTED PRN PRN Reason: rx dose Metolazone (Zaroxolyn) 5 mg PO ASDIRECTED@0900 [facility] Last Admin: 02/26/17 09:56 Dose: Not Given Metoprolol Tartrate (Lopressor) 5 mg IVPUSH Q4H PRN PRN Reason: Tachycardia Midodrine (Midodrine) 5 mg PO TIDAC PRN PRN Reason: Hypotension Miscellaneous Information (Remove Patch) 0 ea TRDERM Q72H [facility] Morphine Sulfate (Morphine) 1 mg IVPUSH Q2H PRN PRN Reason: Other Stop: 03/02/17 22:52 Last Admin: 02/26/17 21:20 Dose: 1 mg Ondansetron HCl (Zofran) 4 mg IV Q6H PRN PRN Reason: Nausea/Vomiting Last Admin: 02/26/17 16:28 Dose: 4 mg Potassium Chloride (Pharmacy To Dose - Potassium Replacement) 0 dose .XX ASDIRECTED PRN PRN Reason: rx dose Scopolamine (Transderm-Scop) 1.5 mg TRDERM Q72H PRN PRN Reason: Nausea Last Admin: 02/26/17 10:44 Dose: 1.5 mg Senna/Docusate Sodium (Senna Plus) 1 tab PO BID PRN PRN Reason: Constipation Sodium Chloride (Saline Flush) 10 ml FLUSH ASDIRECTED PRN PRN Reason: Keep Vein Open Temazepam (Restoril) 15 mg PO BEDTIME PRN PRN Reason: Sleep Torsemide (Demadex) 60 mg PO DAILY [facility] Last Admin: 02/26/17 08:38 Dose: 60 mg Discontinued Medications Hydromorphone HCl (Dilaudid) 0.5 mg IVPUSH ONETIME ONE Stop: 02/25/17 19:41 Last Admin: 02/25/17 19:50 Dose: 0.5 mg Hydromorphone HCl (Dilaudid) 0.5 mg IVPUSH ONETIME ONE Stop: 02/25/17 22:06 Last Admin: 02/25/17 22:16 Dose: 0.5 mg Sodium Chloride (Normal Saline) 1,000 mls @ 999 mls/hr IV ONETIME [facility] Last Admin: 02/25/17 19:51 Dose: 999 mls/hr Insulin Human Regular 100 unit (/ Sodium Chloride) 100 mls @ 4 mls/hr IV TITRATE ANIKET; 4 UNITS/HR PRN Reason: Protocol Last Titration: 02/25/17 22:20 Dose: 2 units/hr, 2 mls/hr Sodium Chloride (Normal Saline) 1,000 mls @ 75 mls/hr IV ASDIRECTED [facility] Insulin Detemir (Levemir) 15 unit SUBCUT QPM [facility] Insulin Human Regular (Humulin R) 5 unit IVPUSH ONETIME ONE PRN Reason: Protocol Stop: 02/25/17 19:42 Last Admin: 02/25/17 19:53 Dose: 5 unit Isosorbide Mononitrate (Imdur) 60 mg PO DAILY [facility] Isosorbide Mononitrate (Imdur) 30 mg PO ONETIME ONE Stop: 02/25/17 23:23 Last Admin: 02/26/17 00:00 Dose: 30 mg Metoclopramide HCl (Reglan) 5 mg IVPUSH ONETIME ONE Stop: 02/25/17 22:06 Last Admin: 02/25/17 22:14 Dose: 5 mg Midodrine (Midodrine) 5 mg PO NOW ONE Stop: 02/26/17 13:02 Last Admin: 02/26/17 13:25 Dose: 5 mg Ondansetron HCl (Zofran) 4 mg IVPUSH ONETIME ONE Stop: 02/25/17 19:41 Last Admin: 02/25/17 19:48 Dose: 4 mg Sodium Chloride (Saline Flush) 10 ml FLUSH ASDIRECTED PRN PRN Reason: Keep Vein Open Last Admin: 02/25/17 20:03 Dose: 10 ml Consult PN Assessment/Plan Procedures: Procedures ASSAY GLUCOSE BLOOD QUANT (02/16/17) ASSAY OF BLOOD OSMOLALITY (02/16/17) ASSAY OF MAGNESIUM (02/16/17) ASSAY OF NATRIURETIC PEPTIDE (02/16/17) ASSAY OF TROPONIN QUANT (02/16/17) C-REACTIVE PROTEIN (02/16/17) CHEST X-RAY 1 VIEW FRONTAL (02/16/17) CHEST X-RAY 2VW FRONTAL&LATL (11/27/16) COMPLETE CBC W/AUTO DIFF WBC (02/16/17) COMPREHEN METABOLIC PANEL (02/16/17) CREATINE MB FRACTION (02/16/17) CT ANGIOGRAPHY CHEST (11/27/16) ELECTROCARDIOGRAM TRACING (02/16/17) EMERGENCY DEPT VISIT (02/16/17) FIBRIN DEGRADATION QUANT (12/11/16) HYDRATE IV INFUSION ADD-ON (11/27/16) PROTHROMBIN TIME (02/16/17) ROUTINE VENIPUNCTURE (02/16/17) TEST FOR ACETONE/KETONES (02/16/17) THER/PROPH/DIAG INJ IV PUSH (02/16/17) THER/PROPH/DIAG INJ SC/IM (11/27/16) THER/PROPH/DIAG IV INF ADDON (02/16/17) THER/PROPH/DIAG IV INF INIT (02/16/17) THROMBOPLASTIN TIME PARTIAL (12/11/16) TX/PRO/DX INJ NEW DRUG ADDON (02/16/17) TX/PRO/DX INJ SAME DRUG CLOSER ON (12/11/16) URINALYSIS AUTO W/SCOPE (02/16/17) X-RAY EXAM OF ABDOMEN (02/16/17) Problem List Initiated/Reviewed/Updated: Yes Plan: surgical consults dictated LUÍS
[2017-02-26] MEDS ORDERED: Gabapentin 100 MG Cap PO ONE (22:44)
[2017-02-27] MEDS: Midodrine 5 MG Tab PO PRN (01:11)
[2017-02-27] MEDS ORDERED: Sodium Chloride 0.9% 250 ML IV ONE ×3 (01:27→08:30)
[2017-02-27] MEDS ORDERED: Sodium Chloride 0.9% 250 ML IV SCH (01:30)
[2017-02-27] MEDS: Heparin Sodium 5,000 Units/ML Vial SUBCUT SCH ×3 (06:05→23:09)
[2017-02-27] MEDS: Acetaminophen/HYDROcodone 325-5 MG Tab PO PRN ×3 (06:10→18:55)
[2017-02-27] MEDS: Insulin Aspart 100 Units/ML 3 ML Pen SUBCUT SCH ×4 (06:15→21:35)
--- NOTE | 2017-02-27 08:28 | CONS ---
CONSULTING PHYSICIAN: John Redding MD DATE OF CONSULTATION: 02/26/2017 HISTORY OF PRESENT ILLNESS: This is a 46-year-old, who has had abdominal pain, for which I was asked to see. The pain seems to be located in the right upper quadrant and started about 4 days ago associated with a burning sensation and had difficulty eating with vomiting and nausea. The patient has a history of diabetes which has been under poor control. She is insulin dependent. She does state that she has not had any problem with her eyes or numbness in her feet, but her creatinine levels have been 2.0 with an estimated glomerular filtration rate of 27. The patient also along with the diabetes has a history of congestive heart failure which her B-natriuretic peptide is 1200. The patient has had some chest pain recently, has been sent to [place] for possible myocardial infarction which was felt that her problems were due to heart failure. She has had history of numerous stents placed and is on Plavix. Current blood sugars are that in the 300 and 400 range. MEDICATIONS: Per medication form. PAST MEDICAL HISTORY: Cholecystectomy, history of defibrillator placed, and history of a midline incision which laparotomy was done for reasons not noted. There is report of peripheral neuropathy, anxiety, depression, type 2 diabetes, and obesity. Other additional history is her pain and it seems to be constant and burning sensation. No particular radiation. It was not associated with abdominal distention. She does pass gas. Had normal bowel movements. SOCIAL HISTORY: The patient was a former smoker. Does use marijuana and lives with her family. ALLERGIES: Numerous allergies to ibuprofen, fentanyl, metformin, spinach, and catfish. REVIEW OF SYSTEMS: She feels hot and cold and feverish. She has chest pain and shortness of breath at times, nausea and vomiting, anorexia and black stools in the past. She reports general aches and pains. PHYSICAL EXAMINATION: GENERAL: Reveals a temperature of 35, pulse 79, respirations 14, blood pressure 154/88, pulse is 100%. HEENT: Eyes sclerae white. Extraocular muscle motion normal. Oral cavity, healthy mucous membrane. NECK: Supple. LUNGS: Clear. Distant breath sounds noted. HEART: Tones regular rate. ABDOMEN: Midline scar. No guarding, rebound, abdominal distention. No ventral inguinal hernias noted. SKIN: Warm. No rashes noted. EXTREMITIES: The pulses in the lower extremities are intact and dorsalis posterior pedis. Moves all upper and lower extremities. Numbness in the feet can be established and no sensorineural deficit. NEURO: Cranial nerves 3-12 intact. She is alert, but very weepy and in mild distress. ASSESSMENT: 1. Abdominal pain, unlikely surgical in nature and possibly represents a peripheral neuropathy. 2. Uncontrolled diabetes. MMODAL /[id number]
[2017-02-27] MEDS: Torsemide 20 MG Tab PO SCH (08:44)
[2017-02-27] MEDS: Isosorbide Mononitrate 30 MG Tab.ER PO SCH ×2 (08:44→21:34)
[2017-02-27] MEDS: Carvedilol 6.25 MG Tab PO SCH ×2 (08:44→21:34)
[2017-02-27] MEDS: Clopidogrel 75 MG Tab PO SCH (08:45)
[2017-02-27] MEDS: Gabapentin 100 MG Cap PO SCH ×3 (08:45→21:23)
[2017-02-27] MEDS: Lisinopril 10 MG Tab PO SCH (08:45)
[2017-02-27] MEDS: Aspirin 81 MG Tab.EC PO SCH (08:46)
[2017-02-27] MEDS: Metolazone 5 MG Tab PO SCH ×2 (08:49→11:30)
[2017-02-27] MEDS: Diatrizoate Meglumine/Diatrizoate Sodium 37% 120 ML Bottle PO ONE ×2 (08:57→09:31)
[2017-02-27] MEDS ORDERED: Prochlorperazine 25 MG Supp RECTAL PRN (09:08)
[2017-02-27] MEDS ORDERED: Prochlorperazine 10 MG in Sodium Chloride 0.9% 50 ML IV PRN (09:08)
[2017-02-27] MEDS: Dextrose 5%-0.45% NaCl 1,000 ML IV SCH (09:17)
--- NOTE | 2017-02-27 10:25 | CT ---
CT abdomen and pelvis Technique: Multiple axial sections were obtained from above the dome of the diaphragm inferiorly through the pubic symphysis. Oral contrast has been given. No intravenous contrast was utilized. Comparison: No previous CT abdomen or pelvis study is available. Findings: Small portion of the visualized lung bases show nothing acute. Noncontrast appearance of the liver shows no discrete abnormality. Spleen appears within normal limits. Small nodule noted within the right adrenal gland. Nodule has negative Hounsfield unit measurements indicating fat which makes this most likely due to a small benign adenoma. This finding measures slightly greater than 1 cm. Left adrenal gland is unremarkable. Surgical clips seen from prior cholecystectomy. Pancreas is within normal limits. Kidney show no abnormal calcifications or hydronephrosis. Anterior abdominal wall hernia is seen containing a loop of small bowel. Hernia opening measures approximately 8 cm. This causes no strangulation. Hernia mostly contains fat. No pelvic mass or adenopathy is seen. No free fluid or inflammatory change is seen within the abdomen or within the pelvis. No findings of appendicitis are seen. Bone window settings were reviewed which show mild degenerative change scattered within the spine. Impression: 1. Anterior abdominal wall hernia containing mostly fat as well as a loop of small bowel. No small bowel dilatation is seen and hernia causes no strangulation. 2. Small adrenal nodule felt to represent small benign adrenal adenoma. 3. Other incidental findings as noted above. Diagnostic code #3
[2017-02-27] MEDS: metroNIDAZOLE 500 MG Tab PO SCH ×2 (15:52→23:11)
[2017-02-27] MEDS: Insulin Detemir 100 Units/ML 3 ML Pen SUBCUT SCH (17:33)
--- NOTE | 2017-02-27 20:37 | PCM.PN ---
- General Info Date of Service: 02/27/17 Admission Dx/Problem (Free Text): Admission Diagnosis/Problem Admission Diagnosis/Problem Hyperglycemia Subjective Update: Follow Up Functional Status: Reports: pain controlled, urinating. Denies: tolerating diet , new symptoms - Review of Systems General: Denies: Fever, Chills HEENT: Reports: no symptoms Pulmonary: Denies: shortness of breath Cardiovascular: Denies: Chest Pain Gastrointestinal: Reports: Abdominal pain, Nausea, Other. Denies: Vomiting Genitourinary: Reports: no symptoms Musculoskeletal: Reports: no symptoms Skin: Reports: no symptoms Neurological: Denies: Confusion, Seizure, Difficulty Walking, Weakness Psychiatric: Denies: depression, anxiety, agitation, hallucinations Systems Review Comment:: No overnight or acute issues. She is doing much better. Her pain has improved. She was nauseous but no emesis at the time she drinking her oral contrast for the CT scan. - Patient Data Vitals - most recent: Last Vital Signs Temp 36.6 C 02/27/17 16:28 Pulse 60 02/27/17 16:28 Resp 14 02/27/17 16:28 BP 102/48 L 02/27/17 16:28 Pulse Ox 96 02/27/17 16:28 Weight - most recent: 91.308 kg I&O - last 24 hours: Intake & Output 02/27/17 02/27/17 02/27/17 06:59 14:59 22:59 Intake Total 650 0 1930 Output Total 400 Balance 650 -400 1930 Lab Results last 24 hrs: Laboratory Results - last 24 hr 02/26/17 02/27/17 02/27/17 Range/Units 22:56 05:43 05:43 WBC 4.85 (3.98-10.04) K/mm3 RBC 3.99 (3.98-5.22) M/mm3 Hgb 11.0 L (11.2-15.7) gm/L Hct 34.0 L (34.1-44.9) % MCV 85.2 (79.4-94.8) fl MCH 27.6 (25.6-32.2) pg MCHC 32.4 (32.2-35.5) g/dl RDW Std Deviation 48.7 H (36.4-46.3) fL Plt Count 175 L (182-369) K/mm3 MPV 11.2 (9.4-12.3) fl Neut % (Auto) 48.4 (34.0-71.1) % Lymph % (Auto) 39.2 (19.3-51.7) % [place] % (Auto) 8.9 (4.7-12.5) % Eos % (Auto) 2.7 (0.7-5.8) Baso % (Auto) 0.4 (0.1-1.2) % Neut # (Auto) 2.35 (1.56-6.13) K/mm3 Lymph # (Auto) 1.90 (1.18-3.74) K/mm3 [place] # (Auto) 0.43 H (0.24-0.36) K/mm3 Eos # (Auto) 0.13 (0.04-0.36) K/mm3 Baso # (Auto) 0.02 (0.01-0.08) K/mm3 Manual Slide Review Not Reportable Sodium 141 (136-145) mEq/L Potassium 4.4 (3.5-5.1) mEq/L Chloride 111 H (98-107) mEq/L Carbon Dioxide 19 L (21-32) mEq/L Anion Gap 15.4 H (5-15) BUN 74 H (7-18) mg/dL Creatinine 2.5 H (0.55-1.02) mg/dL Est Cr Clr Drug Dosing 27.05 mL/min Estimated GFR (MDRD) 21 (>60) mL/min BUN/Creatinine Ratio 29.6 H (14-18) Glucose 116 H (74-106) mg/dL POC Glucose 202 H (70-105) mg/dL Calcium 8.3 L (8.5-10.1) mg/dL Magnesium 2.1 (1.8-2.4) mg/dl 02/27/17 02/27/17 02/27/17 Range/Units 06:04 11:35 17:10 WBC (3.98-10.04) K/mm3 RBC (3.98-5.22) M/mm3 Hgb (11.2-15.7) gm/L Hct (34.1-44.9) % MCV (79.4-94.8) fl MCH (25.6-32.2) pg MCHC (32.2-35.5) g/dl RDW Std Deviation (36.4-46.3) fL Plt Count (182-369) K/mm3 MPV (9.4-12.3) fl Neut % (Auto) (34.0-71.1) % Lymph % (Auto) (19.3-51.7) % [place] % (Auto) (4.7-12.5) % Eos % (Auto) (0.7-5.8) Baso % (Auto) (0.1-1.2) % Neut # (Auto) (1.56-6.13) K/mm3 Lymph # (Auto) (1.18-3.74) K/mm3 [place] # (Auto) (0.24-0.36) K/mm3 Eos # (Auto) (0.04-0.36) K/mm3 Baso # (Auto) (0.01-0.08) K/mm3 Manual Slide Review Sodium (136-145) mEq/L Potassium (3.5-5.1) mEq/L Chloride (98-107) mEq/L Carbon Dioxide (21-32) mEq/L Anion Gap (5-15) BUN (7-18) mg/dL Creatinine (0.55-1.02) mg/dL Est Cr Clr Drug Dosing mL/min Estimated GFR (MDRD) (>60) mL/min BUN/Creatinine Ratio (14-18) Glucose (74-106) mg/dL POC Glucose 103 267 H 311 H (70-105) mg/dL Calcium (8.5-10.1) mg/dL Magnesium (1.8-2.4) mg/dl Fabrice Results last 24 hrs: Microbiology 02/25/17 23:20 Urine Culture - Final Urine, Clean Catch Gardnerella Vaginalis Med Orders - Current: Current Medications Acetaminophen (Tylenol) 650 mg PO Q4H PRN PRN Reason: Pain (Mild 1-3)/fever Last Admin: 02/26/17 15:03 Dose: 650 mg Hydrocodone Bitart/Acetaminophen ([place] 325-5 Mg) 1 tab PO Q4H PRN PRN Reason: Pain (moderate 4-6) Last Admin: 02/27/17 18:55 Dose: 1 tab Albuterol/Ipratropium (Duoneb 3.0-0.5 Mg/3 Ml) 3 ml NEB Q4H PRN PRN Reason: Shortness Of Breath/wheezing Aspirin (Halfprin) 81 mg PO DAILY [facility] Last Admin: 02/27/17 08:46 Dose: 81 mg Bisacodyl (Dulcolax) 5 mg PO DAILY PRN PRN Reason: Constipation Carvedilol (Coreg) 6.25 mg PO BID [facility] Last Admin: 02/27/17 08:44 Dose: 6.25 mg Clopidogrel Bisulfate (Plavix) 75 mg PO DAILY [facility] Last Admin: 02/27/17 08:45 Dose: 75 mg Dextrose/Water (Dextrose 50% In Water) 50 ml IVPUSH ASDIRECTED PRN PRN Reason: Hypoglycemia Docusate Sodium (Colace) 100 mg PO BID PRN PRN Reason: Constipation Gabapentin (Neurontin) 100 mg PO TID [facility] Last Admin: 02/27/17 15:52 Dose: 100 mg Heparin Sodium (Porcine) (Heparin Sodium) 5,000 units SUBCUT Q8H [facility] Last Admin: 02/27/17 15:52 Dose: 5,000 units Hydralazine HCl (Apresoline) 10 mg IVPUSH Q4H PRN PRN Reason: Hypertension Dextrose/Sodium Chloride (Dextrose 5%-1/2 Ns) 1,000 mls @ 50 mls/hr IV ASDIRECTED [facility] Last Admin: 02/27/17 09:17 Dose: 50 mls/hr Prochlorperazine Edisylate 10 (mg/ Sodium Chloride) 52 mls @ 150 mls/hr IV Q6H PRN PRN Reason: Nausea/Vomiting Insulin Aspart (Novolog) 8 unit SUBCUT TIDMEALS PRN PRN Reason: Blood Glucose Insulin Aspart (Novolog) 0 unit SUBCUT QIDACANDBED [facility] PRN Reason: Protocol Last Admin: 02/27/17 17:32 Dose: 4 unit Insulin Detemir (Levemir) 25 unit SUBCUT QPM [facility] Last Admin: 02/27/17 17:33 Dose: 25 units Isosorbide Mononitrate (Imdur) 30 mg PO BID [facility] Last Admin: 02/27/17 08:44 Dose: 30 mg Lisinopril (Prinivil) 25 mg PO DAILY [facility] Last Admin: 02/27/17 08:45 Dose: 25 mg Lorazepam (Ativan) 1 mg IV Q6H PRN PRN Reason: Anxiety Magnesium Sulfate (Pharmacy To Dose - Magnesium Replacement) 0 dose .XX ASDIRECTED PRN PRN Reason: rx dose Metolazone (Zaroxolyn) 5 mg PO ASDIRECTED@0900 [facility] Last Admin: 02/27/17 11:30 Dose: Not Given Metoprolol Tartrate (Lopressor) 5 mg IVPUSH Q4H PRN PRN Reason: Tachycardia Metronidazole (Flagyl) 500 mg PO Q8H [facility] Last Admin: 02/27/17 15:52 Dose: 500 mg Midodrine (Midodrine) 5 mg PO TIDAC PRN PRN Reason: Hypotension Last Admin: 02/27/17 01:11 Dose: 5 mg Miscellaneous Information (Remove Patch) 0 ea TRDERM Q72H [facility] Morphine Sulfate (Morphine) 1 mg IVPUSH Q2H PRN PRN Reason: Other Stop: 03/02/17 22:52 Last Admin: 02/26/17 21:20 Dose: 1 mg Ondansetron HCl (Zofran) 4 mg IV Q6H PRN PRN Reason: Nausea/Vomiting Last Admin: 02/26/17 16:28 Dose: 4 mg Potassium Chloride (Pharmacy To Dose - Potassium Replacement) 0 dose .XX ASDIRECTED PRN PRN Reason: rx dose Prochlorperazine Maleate (Compro) 25 mg RECTAL Q12HR PRN PRN Reason: Nausea/Vomiting Scopolamine (Transderm-Scop) 1.5 mg TRDERM Q72H PRN PRN Reason: Nausea Last Admin: 02/26/17 10:44 Dose: 1.5 mg Senna/Docusate Sodium (Senna Plus) 1 tab PO BID PRN PRN Reason: Constipation Sodium Chloride (Saline Flush) 10 ml FLUSH ASDIRECTED PRN PRN Reason: Keep Vein Open Temazepam (Restoril) 15 mg PO BEDTIME PRN PRN Reason: Sleep Torsemide (Demadex) 60 mg PO DAILY [facility] Last Admin: 02/27/17 08:44 Dose: 60 mg Discontinued Medications Diatrizoate Meglum/Diatrizoate Sod (Gastrografin 37%) 90 ml PO ONETIME ONE Stop: 02/27/17 08:35 Last Admin: 02/27/17 09:31 Dose: 90 ml Gabapentin (Neurontin) 100 mg PO ONETIME ONE Stop: 02/26/17 22:45 Last Admin: 02/26/17 22:59 Dose: 100 mg Hydromorphone HCl (Dilaudid) 0.5 mg IVPUSH ONETIME ONE Stop: 02/25/17 19:41 Last Admin: 02/25/17 19:50 Dose: 0.5 mg Hydromorphone HCl (Dilaudid) 0.5 mg IVPUSH ONETIME ONE Stop: 02/25/17 22:06 Last Admin: 02/25/17 22:16 Dose: 0.5 mg Sodium Chloride (Normal Saline) 1,000 mls @ 999 mls/hr IV ONETIME ANIKET Last Admin: 02/25/17 19:51 Dose: 999 mls/hr Insulin Human Regular 100 unit (/ Sodium Chloride) 100 mls @ 4 mls/hr IV TITRATE ANIKET; 4 UNITS/HR PRN Reason: Protocol Last Titration: 02/25/17 22:20 Dose: 2 units/hr, 2 mls/hr Sodium Chloride (Normal Saline) 1,000 mls @ 75 mls/hr IV ASDIRECTED ANIKET Sodium Chloride (Normal Saline) 250 mls @ 250 mls/hr IV ONETIME ONE Stop: 02/27/17 02:26 Last Admin: 02/27/17 01:37 Dose: 250 mls/hr Sodium Chloride (Normal Saline) 250 mls @ 250 mls/hr IV ONETIME ONE Stop: 02/27/17 07:29 Last Admin: 02/27/17 08:08 Dose: 250 mls/hr Sodium Chloride (Normal Saline) 250 mls @ 250 mls/hr IV ONETIME ONE Stop: 02/27/17 09:29 Last Admin: 02/27/17 09:16 Dose: Not Given Insulin Detemir (Levemir) 15 unit SUBCUT QPM ANIKET Insulin Human Regular (Humulin R) 5 unit IVPUSH ONETIME ONE PRN Reason: Protocol Stop: 02/25/17 19:42 Last Admin: 02/25/17 19:53 Dose: 5 unit Isosorbide Mononitrate (Imdur) 60 mg PO DAILY ANIKET Isosorbide Mononitrate (Imdur) 30 mg PO ONETIME ONE Stop: 02/25/17 23:23 Last Admin: 02/26/17 00:00 Dose: 30 mg Metoclopramide HCl (Reglan) 5 mg IVPUSH ONETIME ONE Stop: 02/25/17 22:06 Last Admin: 02/25/17 22:14 Dose: 5 mg Midodrine (Midodrine) 5 mg PO NOW ONE Stop: 02/26/17 13:02 Last Admin: 02/26/17 13:25 Dose: 5 mg Ondansetron HCl (Zofran) 4 mg IVPUSH ONETIME ONE Stop: 02/25/17 19:41 Last Admin: 02/25/17 19:48 Dose: 4 mg Sodium Chloride (Saline Flush) 10 ml FLUSH ASDIRECTED PRN PRN Reason: Keep Vein Open Last Admin: 02/25/17 20:03 Dose: 10 ml - Exam General: alert, oriented, cooperative, no acute distress HEENT: Pupils equal, Pupils reactive, EOMI, Mucous membr. moist/pink Neck: supple, trachea midline, no JVD, no thyromegaly Lungs: Clear to auscultation, Normal respiratory effort Cardiovascular: Regular Rate, Regular Rhythm Abdomen: bowel sounds present, soft, no tenderness, no distension (Female) Exam: Deferred Back Exam: normal inspection, decreased range of motion Extremities: normal pulses, no tenderness/swelling, no clubbing, no cyanosis, no calf tenderness. No: edema Skin: warm, dry, intact Neurological: no new focal deficit Psy/Mental Status: alert, normal affect, normal mood - Problem List Review Problem List Initiated/Reviewed/Updated: Yes - My Orders Last 24 Hours: My Active Orders 02/26/17 21:33 Notify Provider Consults [RC] ASDIRECTED Consult to Physician [CONS] Routine 02/26/17 21:38 Midodrine 5 mg PO TIDAC PRN 02/27/17 09:08 Prochlorperazine [Compazine] 10 mg Sodium Chloride 0.9% [Normal Saline] 50 ml IV Q6H Prochlorperazine [Compro] 25 mg RECTAL Q12HR PRN 02/27/17 09:15 Dextrose 5%-0.45% NaCl [Dextrose 5%-1/2 NS] 1,000 ml IV ASDIRECTED 02/27/17 12:11 Consult to Dietary [Consult to Senior Writer] [CONS] Routine 02/28/17 05:11 BASIC METABOLIC PANEL,BMP [CHEM] AM CBC WITH AUTO DIFF [HEME] AM MAGNESIUM [CHEM] AM 03/01/17 05:11 BASIC METABOLIC PANEL,BMP [CHEM] AM CBC WITH AUTO DIFF [HEME] AM MAGNESIUM [CHEM] AM 03/01/17 10:30 Remove Patch 0 ea TRDERM Q72H 03/02/17 05:11 BASIC METABOLIC PANEL,BMP [CHEM] AM CBC WITH AUTO DIFF [HEME] AM MAGNESIUM [CHEM] AM - Plan Plan:: Assessment/Plan: Acute: Abdominal Pain, Improved - She is passing gas and normal bowel movement - Pain localized to mid abdomen going to right lateral region - Lipase, AST/ALT all negative - PRN pain medications - KUB: no acute abnormal findings - U/S GB: Showed no GD - CT scan shows: Anterior abdomial wall hernia containing fat as well as a loop of small bowel. No strangulation. Small adrenal nodule felt to be adenoma Nausea W/o Vomiting - 2/2 above - Got sick after she ate her breakfast - PRN anti-emesis - Scopolamine patch X1 now DM2 with Hyperglycemia - Was found to have BS in the 400s - BS improved but we can do better ( in the upper 200s and 300s) - She is on insulin regimen - She is likely non-compliant - ADA diet - A1C is 11. 30 - Increase LA to 25 from 18 units, her TDI is 49.5 units - Continue SA insulin with 8 units - ISS and Accu-check QID AC and Bedtime - She is getting D5W for sustenance since she has not been able to take anything in Elevated BNP Level - 1291--> 758 - This is 2/2 CKD Stage IV - She is not clinically volume overloaded: no pulmonary congestion, no rales or crackles, no peripheral edema - I do not feel she has exacerbation of CHF - Last 2D echo in 2014, 2D echo completed this am AG-Metabolic Acidosis, Improving - CO is now 19 - Levels above the same - Appears to be chronic - 2/2 CKD Stage IV - Will monitor, no indication for Bicarbonate at this point Resolved S/p Acute on Chronic Angina - Hx/o CAD, HF with Reduced EF and Chronic Troponin Leak - Already on Imdur 30 mg po daily, will increase to BID - Will add Norvasc if no response - PRN IV Morphine Q2 for Chest Pain, Dyspnea and SOB - Most recent stress test (nuclear) 06/28/2015 with no acute reversible ischemia S/p Acute on Chronic Troponin Leak - Maybe false positive due to CKD Stage IV - Troponin X1 0.072, CKMB is 5.2 due to Chronic Kidney Disease, Troponin this am 0.066 - Continue ASA 81 mg po daily, Plavix 75 mg po daily, and Carvedilol 6.25 mg po BID - Lipid panel: Abnormal - TFT: normal Chronic: Heart Failure with Reduced EF 35- 40 % 06/23/2015 CAD S/p Stent X 12 total, most recent stent x 2 a month ago in [place] [facility] HTN Hx/o MD PVD S/p PPM/AICD COPD TINO on CPAP GERD CKD Stage IV, at baseline Urinary Incontinence Peripheral Neuropathy Anemia from CKD Obesity with BMI 34.5 Plan: She remains clinically stable Routine AM Labs Continue PT/OT CPAP QHS CM/SW for d/c planning Will resume full liquid diet Consulted Dr. Redding last night for further eval Additional orders as above Code status: 1
--- NOTE | 2017-02-27 21:03 | PCM.SN ---
- Free Text/Narrative Note: Discussed case with Dr. Redding, he recommended physiotherapy and physical therapy. Will continue pain medications. She need to be someone in [place] for further evaluation of it. Will do it after discharge.
[2017-02-28] MEDS: Dextrose 5%-0.45% NaCl 1,000 ML IV SCH ×2 (02:04→22:42)
[2017-02-28] MEDS: Heparin Sodium 5,000 Units/ML Vial SUBCUT SCH ×4 (06:18→23:01)
[2017-02-28] MEDS: metroNIDAZOLE 500 MG Tab PO SCH ×4 (06:19→23:01)
[2017-02-28] MEDS: Ondansetron 4 MG/2 ML SDV IV PRN (08:10)
[2017-02-28] MEDS: Insulin Aspart 100 Units/ML 3 ML Pen SUBCUT SCH ×4 (08:15→21:29)
--- NOTE | 2017-02-28 08:26 | PCM.PN ---
- General Info Date of Service: 02/28/17 Admission Dx/Problem (Free Text): Admission Diagnosis/Problem Admission Diagnosis/Problem Hyperglycemia Subjective Update: Follow Up Functional Status: Reports: pain controlled, ambulating, urinating. Denies: new symptoms - Review of Systems General: Denies: Fever, Weakness, Fatigue, Malaise, Chills HEENT: Reports: no symptoms Pulmonary: Denies: shortness of breath Cardiovascular: Denies: Chest Pain Gastrointestinal: Reports: Nausea. Denies: Abdominal pain Genitourinary: Reports: no symptoms Musculoskeletal: Reports: no symptoms Skin: Reports: no symptoms Neurological: Denies: Confusion, Seizure, Difficulty Walking, Weakness Psychiatric: Denies: confusion, depression, anxiety, agitation Systems Review Comment:: No overnight issues. She is still nauseous. She is still not able to keep anything down. She has no new complaints. - Patient Data Vitals - most recent: Last Vital Signs Temp 36.1 C 02/28/17 04:22 Pulse 62 02/28/17 04:22 Resp 16 02/28/17 04:22 BP 95/56 L 02/28/17 04:22 Pulse Ox 97 02/28/17 04:22 Weight - most recent: 96.116 kg I&O - last 24 hours: Intake & Output 02/27/17 02/28/17 02/28/17 22:59 06:59 14:59 Intake Total 1930 602 Output Total 0 Balance 1930 602 Lab Results last 24 hrs: Laboratory Results - last 24 hr 02/27/17 02/27/17 02/27/17 Range/Units 11:35 17:10 21:16 WBC (3.98-10.04) K/mm3 RBC (3.98-5.22) M/mm3 Hgb (11.2-15.7) gm/L Hct (34.1-44.9) % MCV (79.4-94.8) fl MCH (25.6-32.2) pg MCHC (32.2-35.5) g/dl RDW Std Deviation (36.4-46.3) fL Plt Count (182-369) K/mm3 MPV (9.4-12.3) fl Neut % (Auto) (34.0-71.1) % Lymph % (Auto) (19.3-51.7) % [place] % (Auto) (4.7-12.5) % Eos % (Auto) (0.7-5.8) Baso % (Auto) (0.1-1.2) % Neut # (Auto) (1.56-6.13) K/mm3 Lymph # (Auto) (1.18-3.74) K/mm3 [place] # (Auto) (0.24-0.36) K/mm3 Eos # (Auto) (0.04-0.36) K/mm3 Baso # (Auto) (0.01-0.08) K/mm3 Sodium (136-145) mEq/L Potassium (3.5-5.1) mEq/L Chloride (98-107) mEq/L Carbon Dioxide (21-32) mEq/L Anion Gap (5-15) BUN (7-18) mg/dL Creatinine (0.55-1.02) mg/dL Est Cr Clr Drug Dosing mL/min Estimated GFR (MDRD) (>60) mL/min BUN/Creatinine Ratio (14-18) Glucose (74-106) mg/dL POC Glucose 267 H 311 H 286 H (70-105) mg/dL Calcium (8.5-10.1) mg/dL Magnesium (1.8-2.4) mg/dl 02/28/17 02/28/17 02/28/17 Range/Units 05:35 05:35 06:26 WBC 3.87 L (3.98-10.04) K/mm3 RBC 3.80 L (3.98-5.22) M/mm3 Hgb 10.6 L (11.2-15.7) gm/L Hct 32.5 L (34.1-44.9) % MCV 85.5 (79.4-94.8) fl MCH 27.9 (25.6-32.2) pg MCHC 32.6 (32.2-35.5) g/dl RDW Std Deviation 48.6 H (36.4-46.3) fL Plt Count 114 L (182-369) K/mm3 MPV 11.6 (9.4-12.3) fl Neut % (Auto) 38.8 (34.0-71.1) % Lymph % (Auto) 45.7 (19.3-51.7) % [place] % (Auto) 10.9 (4.7-12.5) % Eos % (Auto) 3.6 (0.7-5.8) Baso % (Auto) 0.5 (0.1-1.2) % Neut # (Auto) 1.50 L (1.56-6.13) K/mm3 Lymph # (Auto) 1.77 (1.18-3.74) K/mm3 [place] # (Auto) 0.42 H (0.24-0.36) K/mm3 Eos # (Auto) 0.14 (0.04-0.36) K/mm3 Baso # (Auto) 0.02 (0.01-0.08) K/mm3 Sodium 138 (136-145) mEq/L Potassium 4.3 (3.5-5.1) mEq/L Chloride 108 H (98-107) mEq/L Carbon Dioxide 18 L (21-32) mEq/L Anion Gap 16.3 H (5-15) BUN 71 H (7-18) mg/dL Creatinine 2.6 H (0.55-1.02) mg/dL Est Cr Clr Drug Dosing 26.01 mL/min Estimated GFR (MDRD) 20 (>60) mL/min BUN/Creatinine Ratio 27.3 H (14-18) Glucose 184 H (74-106) mg/dL POC Glucose 184 H (70-105) mg/dL Calcium 7.8 L (8.5-10.1) mg/dL Magnesium 2.2 (1.8-2.4) mg/dl Fabrice Results last 24 hrs: Microbiology 02/25/17 23:20 Urine Culture - Final Urine, Clean Catch Gardnerella Vaginalis Med Orders - Current: Current Medications Acetaminophen (Tylenol) 650 mg PO Q4H PRN PRN Reason: Pain (Mild 1-3)/fever Last Admin: 02/26/17 15:03 Dose: 650 mg Hydrocodone Bitart/Acetaminophen ([place] 325-5 Mg) 1 tab PO Q4H PRN PRN Reason: Pain (moderate 4-6) Last Admin: 02/27/17 18:55 Dose: 1 tab Albuterol/Ipratropium (Duoneb 3.0-0.5 Mg/3 Ml) 3 ml NEB Q4H PRN PRN Reason: Shortness Of Breath/wheezing Aspirin (Halfprin) 81 mg PO DAILY [facility] Last Admin: 02/27/17 08:46 Dose: 81 mg Bisacodyl (Dulcolax) 5 mg PO DAILY PRN PRN Reason: Constipation Carvedilol (Coreg) 6.25 mg PO BID [facility] Last Admin: 02/27/17 21:34 Dose: 6.25 mg Clopidogrel Bisulfate (Plavix) 75 mg PO DAILY [facility] Last Admin: 02/27/17 08:45 Dose: 75 mg Dextrose/Water (Dextrose 50% In Water) 50 ml IVPUSH ASDIRECTED PRN PRN Reason: Hypoglycemia Docusate Sodium (Colace) 100 mg PO BID PRN PRN Reason: Constipation Gabapentin (Neurontin) 100 mg PO TID [facility] Last Admin: 02/27/17 21:23 Dose: 100 mg Heparin Sodium (Porcine) (Heparin Sodium) 5,000 units SUBCUT Q8H [facility] Last Admin: 02/28/17 06:18 Dose: 5,000 units Hydralazine HCl (Apresoline) 10 mg IVPUSH Q4H PRN PRN Reason: Hypertension Dextrose/Sodium Chloride (Dextrose 5%-1/2 Ns) 1,000 mls @ 50 mls/hr IV ASDIRECTED [facility] Last Admin: 02/28/17 02:04 Dose: 50 mls/hr Prochlorperazine Edisylate 10 (mg/ Sodium Chloride) 52 mls @ 150 mls/hr IV Q6H PRN PRN Reason: Nausea/Vomiting Insulin Aspart (Novolog) 0 unit SUBCUT QIDACANDBED [facility] PRN Reason: Protocol Last Admin: 02/28/17 08:15 Dose: 1 unit Insulin Detemir (Levemir) 25 unit SUBCUT QPM [facility] Last Admin: 02/27/17 17:33 Dose: 25 units Isosorbide Mononitrate (Imdur) 30 mg PO BID [facility] Last Admin: 02/27/17 21:34 Dose: 30 mg Lisinopril (Prinivil) 25 mg PO DAILY [facility] Last Admin: 02/27/17 08:45 Dose: 25 mg Lorazepam (Ativan) 1 mg IV Q6H PRN PRN Reason: Anxiety Magnesium Sulfate (Pharmacy To Dose - Magnesium Replacement) 0 dose .XX ASDIRECTED PRN PRN Reason: rx dose Metolazone (Zaroxolyn) 5 mg PO ASDIRECTED@0900 [facility] Last Admin: 02/27/17 11:30 Dose: Not Given Metoprolol Tartrate (Lopressor) 5 mg IVPUSH Q4H PRN PRN Reason: Tachycardia Metronidazole (Flagyl) 500 mg PO Q8H [facility] Last Admin: 02/28/17 06:19 Dose: 500 mg Midodrine (Midodrine) 5 mg PO TIDAC PRN PRN Reason: Hypotension Last Admin: 02/27/17 01:11 Dose: 5 mg Miscellaneous Information (Remove Patch) 0 ea TRDERM Q72H [facility] Morphine Sulfate (Morphine) 1 mg IVPUSH Q2H PRN PRN Reason: Other Stop: 03/02/17 22:52 Last Admin: 02/26/17 21:20 Dose: 1 mg Ondansetron HCl (Zofran) 4 mg IV Q6H PRN PRN Reason: Nausea/Vomiting Last Admin: 02/28/17 08:10 Dose: 4 mg Potassium Chloride (Pharmacy To Dose - Potassium Replacement) 0 dose .XX ASDIRECTED PRN PRN Reason: rx dose Prochlorperazine Maleate (Compro) 25 mg RECTAL Q12HR PRN PRN Reason: Nausea/Vomiting Scopolamine (Transderm-Scop) 1.5 mg TRDERM Q72H PRN PRN Reason: Nausea Last Admin: 02/26/17 10:44 Dose: 1.5 mg Senna/Docusate Sodium (Senna Plus) 1 tab PO BID PRN PRN Reason: Constipation Sodium Chloride (Saline Flush) 10 ml FLUSH ASDIRECTED PRN PRN Reason: Keep Vein Open Temazepam (Restoril) 15 mg PO BEDTIME PRN PRN Reason: Sleep Torsemide (Demadex) 60 mg PO DAILY [facility] Last Admin: 02/27/17 08:44 Dose: 60 mg Discontinued Medications Diatrizoate Meglum/Diatrizoate Sod (Gastrografin 37%) 90 ml PO ONETIME ONE Stop: 02/27/17 08:35 Last Admin: 02/27/17 09:31 Dose: 90 ml Gabapentin (Neurontin) 100 mg PO ONETIME ONE Stop: 02/26/17 22:45 Last Admin: 02/26/17 22:59 Dose: 100 mg Hydromorphone HCl (Dilaudid) 0.5 mg IVPUSH ONETIME ONE Stop: 02/25/17 19:41 Last Admin: 02/25/17 19:50 Dose: 0.5 mg Hydromorphone HCl (Dilaudid) 0.5 mg IVPUSH ONETIME ONE Stop: 02/25/17 22:06 Last Admin: 02/25/17 22:16 Dose: 0.5 mg Sodium Chloride (Normal Saline) 1,000 mls @ 999 mls/hr IV ONETIME [facility] Last Admin: 02/25/17 19:51 Dose: 999 mls/hr Insulin Human Regular 100 unit (/ Sodium Chloride) 100 mls @ 4 mls/hr IV TITRATE ANIKET; 4 UNITS/HR PRN Reason: Protocol Last Titration: 02/25/17 22:20 Dose: 2 units/hr, 2 mls/hr Sodium Chloride (Normal Saline) 1,000 mls @ 75 mls/hr IV ASDIRECTED ANIKET Sodium Chloride (Normal Saline) 250 mls @ 250 mls/hr IV ONETIME ONE Stop: 02/27/17 02:26 Last Admin: 02/27/17 01:37 Dose: 250 mls/hr Sodium Chloride (Normal Saline) 250 mls @ 250 mls/hr IV ONETIME ONE Stop: 02/27/17 07:29 Last Admin: 02/27/17 08:08 Dose: 250 mls/hr Sodium Chloride (Normal Saline) 250 mls @ 250 mls/hr IV ONETIME ONE Stop: 02/27/17 09:29 Last Admin: 02/27/17 09:16 Dose: Not Given Insulin Aspart (Novolog) 8 unit SUBCUT TIDMEALS PRN PRN Reason: Blood Glucose Insulin Detemir (Levemir) 15 unit SUBCUT QPM [facility] Insulin Human Regular (Humulin R) 5 unit IVPUSH ONETIME ONE PRN Reason: Protocol Stop: 02/25/17 19:42 Last Admin: 02/25/17 19:53 Dose: 5 unit Isosorbide Mononitrate (Imdur) 60 mg PO DAILY [facility] Isosorbide Mononitrate (Imdur) 30 mg PO ONETIME ONE Stop: 02/25/17 23:23 Last Admin: 02/26/17 00:00 Dose: 30 mg Metoclopramide HCl (Reglan) 5 mg IVPUSH ONETIME ONE Stop: 02/25/17 22:06 Last Admin: 02/25/17 22:14 Dose: 5 mg Midodrine (Midodrine) 5 mg PO NOW ONE Stop: 02/26/17 13:02 Last Admin: 02/26/17 13:25 Dose: 5 mg Ondansetron HCl (Zofran) 4 mg IVPUSH ONETIME ONE Stop: 02/25/17 19:41 Last Admin: 02/25/17 19:48 Dose: 4 mg Sodium Chloride (Saline Flush) 10 ml FLUSH ASDIRECTED PRN PRN Reason: Keep Vein Open Last Admin: 02/25/17 20:03 Dose: 10 ml - Exam General: alert, oriented, cooperative, no acute distress HEENT: Pupils equal, Pupils reactive, EOMI, Mucous membr. moist/pink Neck: supple, trachea midline, no JVD, no thyromegaly Lungs: Clear to auscultation, Normal respiratory effort Cardiovascular: Regular Rate, Regular Rhythm Abdomen: bowel sounds present, soft, no tenderness, no distension, other (Obese) (Female) Exam: Deferred Back Exam: normal inspection, decreased range of motion Extremities: no edema, normal pulses, no tenderness/swelling, no clubbing, no cyanosis, no calf tenderness Skin: warm, dry, intact Neurological: no new focal deficit Psy/Mental Status: alert, normal affect, normal mood - Problem List Review Problem List Initiated/Reviewed/Updated: Yes - My Orders Last 24 Hours: My Active Orders 02/27/17 09:08 Prochlorperazine [Compazine] 10 mg Sodium Chloride 0.9% [Normal Saline] 50 ml IV Q6H Prochlorperazine [Compro] 25 mg RECTAL Q12HR PRN 02/27/17 09:15 Dextrose 5%-0.45% NaCl [Dextrose 5%-1/2 NS] 1,000 ml IV ASDIRECTED 02/27/17 12:11 Consult to Dietary [Consult to Technical Healthcare Consultant] [CONS] Routine 03/01/17 05:11 BASIC METABOLIC PANEL,BMP [CHEM] AM CBC WITH AUTO DIFF [HEME] AM MAGNESIUM [CHEM] AM 03/01/17 10:30 Remove Patch 0 ea TRDERM Q72H 03/02/17 05:11 BASIC METABOLIC PANEL,BMP [CHEM] AM CBC WITH AUTO DIFF [HEME] AM MAGNESIUM [CHEM] AM - Plan Plan:: Assessment/Plan: Acute: Abdominal Pain, Improved - She is passing gas and normal bowel movement - Pain localized to mid abdomen going to right lateral region - Lipase, AST/ALT all negative - PRN pain medications - KUB: no acute abnormal findings - U/S GB: Showed no GD - CT scan shows: Anterior abdominal wall hernia containing fat as well as a loop of small bowel. No strangulation. Small adrenal nodule felt to be adenoma Nausea W/o Vomiting - 2/2 above - Got sick after she ate her breakfast - PRN anti-emesis - Scopolamine patch X1 now - Will do gastric emptying study to rule in gastroparesis DM2 with Hyperglycemia - Was found to have BS in the 400s - BS improved but we can do better ( in the upper 200s and 300s) - She is on insulin regimen - She is likely non-compliant - ADA diet - A1C is 11. 30 - Increase LA to 25 from 18 units, her TDI is 49.5 units - Continue SA insulin with 8 units - ISS and Accu-check QID AC and Bedtime - She is getting D5W for sustenance since she has not been able to take anything in Elevated BNP Level, No Clinical Signs of Acute congestive heart failure - 1291--> 758 - This is 2/2 CKD Stage IV - She is not clinically volume overloaded: no pulmonary congestion, no rales or crackles, no peripheral edema - I do not feel she has exacerbation of CHF - Last 2D echo in 2014, repeat 2D Echo shows EF 30-35% with RWMA, worse AG-Metabolic Acidosis - CO is now 18 - Levels above the same - Appears to be chronic - 2/2 CKD Stage IV - Will monitor, no indication for Bicarbonate at this point CT Scan Shows - Anterior abdominal wall hernia containing fat as well as a loop of small bowel - No strangulation - Refer to [facility] after discharge (Dr. Aguilera?) Resolved S/p Acute on Chronic Angina - Hx/o CAD, HF with Reduced EF and Chronic Troponin Leak - Already on Imdur 30 mg po daily, will increase to BID - Will add Norvasc if no response - PRN IV Morphine Q2 for Chest Pain, Dyspnea and SOB - Most recent stress test (nuclear) 06/28/2015 with no acute reversible ischemia S/p Acute on Chronic Troponin Leak - Maybe false positive due to CKD Stage IV - Troponin X1 0.072, CKMB is 5.2 due to Chronic Kidney Disease, Troponin this am 0.066 - Continue ASA 81 mg po daily, Plavix 75 mg po daily, and Carvedilol 6.25 mg po BID - Lipid panel: Abnormal - TFT: normal Chronic: Heart Failure with Reduced EF 35- 40 % 06/23/2015 CAD S/p Stent X 12 total, most recent stent x 2 a month ago in [place] H[place] HTN Hx/o [place] PVD S/p PPM/AICD COPD TINO on CPAP GERD CKD Stage IV, at baseline Urinary Incontinence Peripheral Neuropathy Anemia from CKD Obesity with BMI 34.5 Plan: She remains clinically stable but still nauseous Routine AM Labs Continue PT/OT CPAP QHS CM/SW for d/c planning Additional orders as above Code status: 1 LOS anticipate > 96 hrs due to persistence of symptoms
[2017-02-28] MEDS ORDERED: Metoclopramide 10 MG/2 ML SDV IVPUSH ONE (09:39)
[2017-02-28] MEDS ORDERED: Metoclopramide 10 MG/2 ML SDV IVPUSH PRN (10:04)
[2017-02-28] MEDS: Torsemide 20 MG Tab PO SCH (10:08)
[2017-02-28] MEDS: Gabapentin 100 MG Cap PO SCH ×3 (10:08→20:29)
[2017-02-28] MEDS: Clopidogrel 75 MG Tab PO SCH (10:08)
[2017-02-28] MEDS: Isosorbide Mononitrate 30 MG Tab.ER PO SCH ×2 (10:09→20:29)
[2017-02-28] MEDS: Carvedilol 6.25 MG Tab PO SCH ×2 (10:09→20:28)
[2017-02-28] MEDS: Aspirin 81 MG Tab.EC PO SCH (10:09)
[2017-02-28] MEDS: Lisinopril 10 MG Tab PO SCH (10:11)
[2017-02-28] MEDS: Metolazone 5 MG Tab PO SCH (10:17)
[2017-02-28] MEDS ORDERED: Meperidine PF 50 MG/ML Syringe IVPUSH PRN (12:08)
[2017-02-28] MEDS ORDERED: diphenhydrAMINE 50 MG/ML SDV IVPUSH PRN (12:09)
[2017-02-28] MEDS: Meperidine PF 50 MG/ML Syringe IM PRN ×2 (14:25→21:35)
--- NOTE | 2017-02-28 14:37 | PCM.SN ---
- Free Text/Narrative Note: Ate cottage cheese soup, tolerated it so far w/o symptoms. But she is still having abdominal pain. She currently on demerol for pain management.
[2017-02-28] MEDS: Insulin Detemir 100 Units/ML 3 ML Pen SUBCUT SCH (18:01)
[2017-02-28] MEDS: Acetaminophen/HYDROcodone 325-5 MG Tab PO PRN (18:03)
[2017-02-28] MEDS: Acetaminophen 325 MG Tab PO PRN (20:30)
[2017-03-01] MEDS: metroNIDAZOLE 500 MG Tab PO SCH ×2 (05:39→06:08)
[2017-03-01] MEDS: Heparin Sodium 5,000 Units/ML Vial SUBCUT SCH ×4 (05:40→22:47)
[2017-03-01] MEDS: Insulin Aspart 100 Units/ML 3 ML Pen SUBCUT SCH ×6 (05:41→22:46)
[2017-03-01] MEDS ORDERED: Sodium Chloride 0.9% 10 ML Syringe FLUSH PRN (08:47)
[2017-03-01] MEDS ORDERED: Sodium Chloride 0.9% 500 ML IV ONE (08:50)
[2017-03-01] MEDS: Carvedilol 6.25 MG Tab PO SCH ×2 (09:20→21:45)
[2017-03-01] MEDS: Gabapentin 100 MG Cap PO SCH ×3 (09:21→21:47)
[2017-03-01] MEDS: Isosorbide Mononitrate 30 MG Tab.ER PO SCH ×2 (09:21→21:48)
[2017-03-01] MEDS: Aspirin 81 MG Tab.EC PO SCH (09:21)
[2017-03-01] MEDS: Clopidogrel 75 MG Tab PO SCH (09:21)
[2017-03-01] MEDS: Lisinopril 10 MG Tab PO SCH (09:21)
[2017-03-01] MEDS: Metolazone 5 MG Tab PO SCH (09:22)
[2017-03-01] MEDS: Scopolamine 1.5 MG Transdermal Patch TRDERM PRN (09:27)
--- NOTE | 2017-03-01 16:09 | PCM.PN ---
- General Info Date of Service: 03/01/17 Admission Dx/Problem (Free Text): Admission Diagnosis/Problem Admission Diagnosis/Problem Hyperglycemia Subjective Update: Follow Up Functional Status: Reports: pain controlled, ambulating, urinating. Denies: new symptoms - Review of Systems General: Denies: Fever, Weakness, Fatigue, Malaise, Chills HEENT: Reports: no symptoms Pulmonary: Denies: shortness of breath Cardiovascular: Denies: Chest Pain Gastrointestinal: Reports: Abdominal pain, Nausea, Vomiting. Denies: Constipation, Diarrhea Genitourinary: Reports: no symptoms Musculoskeletal: Reports: no symptoms Skin: Reports: no symptoms Neurological: Denies: Confusion, Seizure, Difficulty Walking Psychiatric: Denies: depression, anxiety, cravings, hallucinations Systems Review Comment:: Patient did well overnight. Her symptoms improved and was able to hold down a soup last night. This morning she woke up nauseous and dry heaving. She still has some abdominal pain but better than yesterday. She has no new complaints. - Patient Data Vitals - most recent: Last Vital Signs Temp 36.4 C 03/01/17 12:25 Pulse 62 03/01/17 12:25 Resp 20 03/01/17 12:25 BP 97/52 L 03/01/17 12:25 Pulse Ox 96 03/01/17 12:25 Weight - most recent: 95.164 kg I&O - last 24 hours: Intake & Output 03/01/17 03/01/17 03/01/17 06:59 14:59 22:59 Intake Total 840 0 330 Output Total 400 Balance 440 0 330 Lab Results last 24 hrs: Laboratory Results - last 24 hr 02/28/17 02/28/17 03/01/17 Range/Units 17:24 21:11 05:26 WBC (3.98-10.04) K/mm3 RBC (3.98-5.22) M/mm3 Hgb (11.2-15.7) gm/L Hct (34.1-44.9) % MCV (79.4-94.8) fl MCH (25.6-32.2) pg MCHC (32.2-35.5) g/dl RDW Std Deviation (36.4-46.3) fL Plt Count (182-369) K/mm3 MPV (9.4-12.3) fl Neut % (Auto) (34.0-71.1) % Lymph % (Auto) (19.3-51.7) % Lee % (Auto) (4.7-12.5) % Eos % (Auto) (0.7-5.8) Baso % (Auto) (0.1-1.2) % Neut # (Auto) (1.56-6.13) K/mm3 Lymph # (Auto) (1.18-3.74) K/mm3 Lee # (Auto) (0.24-0.36) K/mm3 Eos # (Auto) (0.04-0.36) K/mm3 Baso # (Auto) (0.01-0.08) K/mm3 Sodium (136-145) mEq/L Potassium (3.5-5.1) mEq/L Chloride (98-107) mEq/L Carbon Dioxide (21-32) mEq/L Anion Gap (5-15) BUN (7-18) mg/dL Creatinine (0.55-1.02) mg/dL Est Cr Clr Drug Dosing mL/min Estimated GFR (MDRD) (>60) mL/min BUN/Creatinine Ratio (14-18) Glucose (74-106) mg/dL POC Glucose 226 H 223 H 154 H (70-105) mg/dL Calcium (8.5-10.1) mg/dL Magnesium (1.8-2.4) mg/dl 03/01/17 03/01/17 03/01/17 Range/Units 05:30 05:30 10:45 WBC 3.89 L (3.98-10.04) K/mm3 RBC 4.02 (3.98-5.22) M/mm3 Hgb 11.2 (11.2-15.7) gm/L Hct 34.6 (34.1-44.9) % MCV 86.1 (79.4-94.8) fl MCH 27.9 (25.6-32.2) pg MCHC 32.4 (32.2-35.5) g/dl RDW Std Deviation 48.4 H (36.4-46.3) fL Plt Count 123 L (182-369) K/mm3 MPV 10.9 (9.4-12.3) fl Neut % (Auto) 49.4 (34.0-71.1) % Lymph % (Auto) 35.7 (19.3-51.7) % Lee % (Auto) 10.8 (4.7-12.5) % Eos % (Auto) 3.1 (0.7-5.8) Baso % (Auto) 0.5 (0.1-1.2) % Neut # (Auto) 1.92 (1.56-6.13) K/mm3 Lymph # (Auto) 1.39 (1.18-3.74) K/mm3 Lee # (Auto) 0.42 H (0.24-0.36) K/mm3 Eos # (Auto) 0.12 (0.04-0.36) K/mm3 Baso # (Auto) 0.02 (0.01-0.08) K/mm3 Sodium 138 (136-145) mEq/L Potassium 4.2 (3.5-5.1) mEq/L Chloride 107 (98-107) mEq/L Carbon Dioxide 21 (21-32) mEq/L Anion Gap 14.2 (5-15) BUN 66 H (7-18) mg/dL Creatinine 2.7 H (0.55-1.02) mg/dL Est Cr Clr Drug Dosing 25.05 mL/min Estimated GFR (MDRD) 19 (>60) mL/min BUN/Creatinine Ratio 24.4 H (14-18) Glucose 173 H (74-106) mg/dL POC Glucose 214 H (70-105) mg/dL Calcium 8.2 L (8.5-10.1) mg/dL Magnesium 2.0 (1.8-2.4) mg/dl Med Orders - Current: Current Medications Acetaminophen (Tylenol) 650 mg PO Q4H PRN PRN Reason: Pain (Mild 1-3)/fever Last Admin: 02/28/17 20:30 Dose: 650 mg Hydrocodone Bitart/Acetaminophen ([place] 325-5 Mg) 2 tab PO Q4H PRN PRN Reason: Pain (moderate 4-6) Albuterol/Ipratropium (Duoneb 3.0-0.5 Mg/3 Ml) 3 ml NEB Q4H PRN PRN Reason: Shortness Of Breath/wheezing Aspirin (Halfprin) 81 mg PO DAILY [facility] Last Admin: 03/01/17 09:21 Dose: 81 mg Bisacodyl (Dulcolax) 5 mg PO DAILY PRN PRN Reason: Constipation Carvedilol (Coreg) 6.25 mg PO BID [facility] Last Admin: 03/01/17 09:20 Dose: 6.25 mg Clopidogrel Bisulfate (Plavix) 75 mg PO DAILY [facility] Last Admin: 03/01/17 09:21 Dose: 75 mg Dextrose/Water (Dextrose 50% In Water) 50 ml IVPUSH ASDIRECTED PRN PRN Reason: Hypoglycemia Diphenhydramine HCl (Benadryl) 25 mg IVPUSH Q6H PRN PRN Reason: Nausea/Vomiting Docusate Sodium (Colace) 100 mg PO BID PRN PRN Reason: Constipation Gabapentin (Neurontin) 200 mg PO TID [facility] Last Admin: 03/01/17 09:21 Dose: 200 mg Heparin Sodium (Porcine) (Heparin Sodium) 5,000 units SUBCUT Q8H [facility] Last Admin: 03/01/17 15:44 Dose: 5,000 units Hydralazine HCl (Apresoline) 10 mg IVPUSH Q4H PRN PRN Reason: Hypertension Dextrose/Sodium Chloride (Dextrose 5%-1/2 Ns) 1,000 mls @ 50 mls/hr IV ASDIRECTED [facility] Last Admin: 02/28/17 22:42 Dose: 50 mls/hr Prochlorperazine Edisylate 10 (mg/ Sodium Chloride) 52 mls @ 150 mls/hr IV Q6H PRN PRN Reason: Nausea/Vomiting Last Admin: 03/01/17 15:43 Dose: 150 mls/hr Insulin Aspart (Novolog) 0 unit SUBCUT QIDACANDBED [facility] PRN Reason: Protocol Last Admin: 03/01/17 10:46 Dose: 2 unit Insulin Detemir (Levemir) 25 unit SUBCUT QPM [facility] Last Admin: 02/28/17 18:01 Dose: 25 units Isosorbide Mononitrate (Imdur) 30 mg PO BID [facility] Last Admin: 03/01/17 09:21 Dose: 30 mg Lisinopril (Prinivil) 25 mg PO DAILY [facility] Last Admin: 03/01/17 09:21 Dose: 25 mg Lorazepam (Ativan) 1 mg IV Q6H PRN PRN Reason: Anxiety Magnesium Sulfate (Pharmacy To Dose - Magnesium Replacement) 0 dose .XX ASDIRECTED PRN PRN Reason: rx dose Meperidine HCl (Demerol) 50 mg IM Q6H PRN PRN Reason: Pain Last Admin: 02/28/17 21:35 Dose: 50 mg Metoclopramide HCl (Reglan) 10 mg IVPUSH Q6H PRN PRN Reason: Nausea/Vomiting Last Admin: 03/01/17 09:24 Dose: 10 mg Metolazone (Zaroxolyn) 5 mg PO ASDIRECTED@0900 [facility] Last Admin: 03/01/17 09:22 Dose: Not Given Metoprolol Tartrate (Lopressor) 5 mg IVPUSH Q4H PRN PRN Reason: Tachycardia Midodrine (Midodrine) 5 mg PO TIDAC PRN PRN Reason: Hypotension Last Admin: 02/27/17 01:11 Dose: 5 mg Miscellaneous Information (Remove Patch) 0 ea TRDERM Q72H [facility] Last Admin: 03/01/17 09:29 Dose: Not Given Morphine Sulfate (Morphine) 1 mg IVPUSH Q2H PRN PRN Reason: Other Stop: 03/02/17 22:52 Last Admin: 02/26/17 21:20 Dose: 1 mg Potassium Chloride (Pharmacy To Dose - Potassium Replacement) 0 dose .XX ASDIRECTED PRN PRN Reason: rx dose Prochlorperazine Maleate (Compro) 25 mg RECTAL Q12HR PRN PRN Reason: Nausea/Vomiting Scopolamine (Transderm-Scop) 1.5 mg TRDERM Q72H PRN PRN Reason: Nausea Last Admin: 03/01/17 09:27 Dose: 1.5 mg Senna/Docusate Sodium (Senna Plus) 1 tab PO BID PRN PRN Reason: Constipation Sodium Chloride (Saline Flush) 10 ml FLUSH ASDIRECTED PRN PRN Reason: Keep Vein Open Sodium Chloride (Saline Flush) 10 ml FLUSH ASDIRECTED PRN PRN Reason: Keep Vein Open Temazepam (Restoril) 15 mg PO BEDTIME PRN PRN Reason: Sleep Torsemide (Demadex) 60 mg PO DAILY [facility] Last Admin: 02/28/17 10:08 Dose: 60 mg Discontinued Medications Hydrocodone Bitart/Acetaminophen ([place] 325-5 Mg) 1 tab PO Q4H PRN PRN Reason: Pain (moderate 4-6) Last Admin: 02/28/17 18:03 Dose: 1 tab Diatrizoate Meglum/Diatrizoate Sod (Gastrografin 37%) 90 ml PO ONETIME ONE Stop: 02/27/17 08:35 Last Admin: 02/27/17 09:31 Dose: 90 ml Gabapentin (Neurontin) 100 mg PO TID [facility] Last Admin: 02/28/17 20:29 Dose: 100 mg Gabapentin (Neurontin) 100 mg PO ONETIME ONE Stop: 02/26/17 22:45 Last Admin: 02/26/17 22:59 Dose: 100 mg Hydromorphone HCl (Dilaudid) 0.5 mg IVPUSH ONETIME ONE Stop: 02/25/17 19:41 Last Admin: 02/25/17 19:50 Dose: 0.5 mg Hydromorphone HCl (Dilaudid) 0.5 mg IVPUSH ONETIME ONE Stop: 02/25/17 22:06 Last Admin: 02/25/17 22:16 Dose: 0.5 mg Sodium Chloride (Normal Saline) 1,000 mls @ 999 mls/hr IV ONETIME [facility]IKET Last Admin: 02/25/17 19:51 Dose: 999 mls/hr Insulin Human Regular 100 unit (/ Sodium Chloride) 100 mls @ 4 mls/hr IV TITRATE [facility]IK[facility]; 4 UNITS/HR PRN Reason: Protocol Last Titration: 02/25/17 22:20 Dose: 2 units/hr, 2 mls/hr Sodium Chloride (Normal Saline) 1,000 mls @ 75 mls/hr IV ASDIRECTED ANIK[facility] Sodium Chloride (Normal Saline) 250 mls @ 250 mls/hr IV ONETIME ONE Stop: 02/27/17 02:26 Last Admin: 02/27/17 01:37 Dose: 250 mls/hr Sodium Chloride (Normal Saline) 250 mls @ 250 mls/hr IV ONETIME ONE Stop: 02/27/17 07:29 Last Admin: 02/27/17 08:08 Dose: 250 mls/hr Sodium Chloride (Normal Saline) 250 mls @ 250 mls/hr IV ONETIME ONE Stop: 02/27/17 09:29 Last Admin: 02/27/17 09:16 Dose: Not Given Sodium Chloride (Normal Saline) 500 mls @ 100 mls/hr IV .BOLUS ONE Stop: 03/01/17 13:49 Last Admin: 03/01/17 09:25 Dose: 100 mls/hr Insulin Aspart (Novolog) 8 unit SUBCUT TIDMEALS PRN PRN Reason: Blood Glucose Insulin Detemir (Levemir) 15 unit SUBCUT QPM [facility] Insulin Human Regular (Humulin R) 5 unit IVPUSH ONETIME ONE PRN Reason: Protocol Stop: 02/25/17 19:42 Last Admin: 02/25/17 19:53 Dose: 5 unit Isosorbide Mononitrate (Imdur) 60 mg PO DAILY [facility] Isosorbide Mononitrate (Imdur) 30 mg PO ONETIME ONE Stop: 02/25/17 23:23 Last Admin: 02/26/17 00:00 Dose: 30 mg Meperidine HCl (Demerol) 50 mg IVPUSH Q6H PRN PRN Reason: Pain Metoclopramide HCl (Reglan) 5 mg IVPUSH ONETIME ONE Stop: 02/25/17 22:06 Last Admin: 02/25/17 22:14 Dose: 5 mg Metoclopramide HCl (Reglan) 5 mg IVPUSH ONETIME ONE Stop: 02/28/17 09:40 Last Admin: 02/28/17 10:12 Dose: 5 mg Metronidazole (Flagyl) 500 mg PO Q8H [facility] Last Admin: 03/01/17 06:08 Dose: Not Given Midodrine (Midodrine) 5 mg PO NOW ONE Stop: 02/26/17 13:02 Last Admin: 02/26/17 13:25 Dose: 5 mg Ondansetron HCl (Zofran) 4 mg IVPUSH ONETIME ONE Stop: 02/25/17 19:41 Last Admin: 02/25/17 19:48 Dose: 4 mg Ondansetron HCl (Zofran) 4 mg IV Q6H PRN PRN Reason: Nausea/Vomiting Last Admin: 02/28/17 08:10 Dose: 4 mg Sodium Chloride (Saline Flush) 10 ml FLUSH ASDIRECTED PRN PRN Reason: Keep Vein Open Last Admin: 02/25/17 20:03 Dose: 10 ml - Exam General: alert, oriented, cooperative, no acute distress HEENT: Pupils equal, Pupils reactive, EOMI, Mucous membr. moist/pink Neck: supple, trachea midline, no JVD Lungs: Clear to auscultation, Normal respiratory effort Cardiovascular: Regular Rate, Regular Rhythm Abdomen: bowel sounds present, soft, no distension, tenderness. No: rigidity, rebound, guarding, distension (Female) Exam: Deferred Back Exam: normal inspection, decreased range of motion Extremities: no edema, normal pulses, no tenderness/swelling, no clubbing, no cyanosis, no calf tenderness Peripheral Pulses: 2+: dorsalis pedis (L), dorsalis pedis (R) Skin: warm, dry, intact Neurological: no new focal deficit Psy/Mental Status: alert, normal affect, normal mood - Problem List Review Problem List Initiated/Reviewed/Updated: Yes - My Orders Last 24 Hours: My Active Orders 03/01/17 08:47 Sodium Chloride 0.9% [Saline Flush] 10 ml FLUSH ASDIRECTED PRN Saline Lock Insert [OM.PC] Routine 03/01/17 08:48 Gabapentin [Neurontin] 200 mg PO TID 03/01/17 09:17 Acetaminophen/HYDROcodone [[place] 325-5 MG] 2 tab PO Q4H PRN 03/01/17 10:30 Remove Patch 0 ea TRDERM Q72H 03/01/17 Lunch Full Liquid Diet [DIET] 03/02/17 05:11 BASIC METABOLIC PANEL,BMP [CHEM] AM CBC WITH AUTO DIFF [HEME] AM MAGNESIUM [CHEM] AM - Plan Plan:: Assessment/Plan: Acute: Abdominal Pain, Improved: Gastroparesis vs Abdominal Hernia - She is passing gas and normal bowel movement - Pain localized to mid abdomen going to right lateral region - Lipase, AST/ALT all negative - PRN pain medications - KUB: no acute abnormal findings - U/S GB: Showed no GD - CT scan shows: Anterior abdominal wall hernia containing fat as well as a loop of small bowel. No strangulation. Small adrenal nodule felt to be adenoma - Patient improves with narcotics, we held if due to initial plan for gastric emptying study - Will continue to narcotic pain Nausea W/o Vomiting - 2/2 above - Got sick after she ate her breakfast - PRN anti-emesis: Reglan and possibly alternate with Compazine - PRN Scopolamine patch - Will do gastric emptying study to rule in gastroparesis, radialogy would not be able to do it until Sunday besides they want patient to be off anti- emetic meds prior to testing. This was not ideal since she is really symptomatic CT Scan Shows - Anterior abdominal wall hernia containing fat as well as a loop of small bowel - No strangulation - Refer to [facility] after discharge (Dr. Aguilera?) in March 07 DM2 - BS is stable in the 200 range - She is not able to eat much due to nausea - Resolved S/p Acute on Chronic Angina - Hx/o CAD, HF with Reduced EF and Chronic Troponin Leak - Already on Imdur 30 mg po daily, will increase to BID - Will add Norvasc if no response - PRN IV Morphine Q2 for Chest Pain, Dyspnea and SOB - Most recent stress test (nuclear) 06/28/2015 with no acute reversible ischemia S/p Acute on Chronic Troponin Leak - Maybe false positive due to CKD Stage IV - Troponin X1 0.072, CKMB is 5.2 due to Chronic Kidney Disease, Troponin this am 0.066 - Continue ASA 81 mg po daily, Plavix 75 mg po daily, and Carvedilol 6.25 mg po BID - Lipid panel: Abnormal - TFT: normal S/p Elevated BNP Level, No Clinical Signs of Acute congestive heart failure - 1291--> 758 - This is 2/2 CKD Stage IV - She is not clinically volume overloaded: no pulmonary congestion, no rales or crackles, no peripheral edema - I do not feel she has exacerbation of CHF - Last 2D echo in 2014, repeat 2D Echo shows EF 30-35% with RWMA, worse S/p AG-Metabolic Acidosis - CO is now 18 - Levels above the same - Appears to be chronic - 2/2 CKD Stage IV - Will monitor, no indication for Bicarbonate at this point S/p Hyperglycemia - Was found to have BS in the 400s - BS improved but we can do better ( in the upper 200s and 300s) - She is on insulin regimen - She is likely non-compliant - ADA diet - A1C is 11. 30 - Increase LA to 25 from 18 units, her TDI is 49.5 units - Continue SA insulin with 8 units - ISS and Accu-check QID AC and Bedtime - She is getting D5W for sustenance since she has not been able to take anything in Chronic: Heart Failure with Reduced EF 35- 40 % 06/23/2015 CAD S/p Stent X 12 total, most recent stent x 2 a month ago in [facility] HTN Hx/o OR PVD S/p PPM/AICD COPD TINO on CPAP GERD CKD Stage IV, at baseline Urinary Incontinence Peripheral Neuropathy Anemia from CKD Obesity with BMI 34.5 Plan: She is clinically stable. I cannot r/o gastroparesis w/o gastric emptying study. At this point, we will try to get her symptoms better. She is able to take in full liquid diet but not heavy regular diet. We will stay full liquid while we control her symptoms. She may need GI eval for EGD after discharge as well. Routine AM Labs Continue PT/OT CPAP QHS Increased Gabapentin Dose to 200 mg po TID CM/SW for d/c planning Additional orders as above Code status: 1 LOS anticipate > 96 hrs due to persistence of symptoms
--- NOTE | 2017-03-01 16:38 | PCM.SN ---
- Free Text/Narrative Note: She is doing much better symptom dinh. She is laughing and smiling on my follow up rounds.
[2017-03-01] MEDS: Insulin Detemir 100 Units/ML 3 ML Pen SUBCUT SCH (17:02)
[2017-03-01] MEDS ORDERED: Sodium Chloride 0.9% 1,000 ML IV SCH (23:00)
[2017-03-02] MEDS: Dextrose 5%-0.45% NaCl 1,000 ML IV SCH (00:33)
[2017-03-02] MEDS: Midodrine 5 MG Tab PO PRN (01:18)
[2017-03-02] MEDS: Heparin Sodium 5,000 Units/ML Vial SUBCUT SCH ×3 (06:40→22:25)
[2017-03-02] MEDS: Insulin Aspart 100 Units/ML 3 ML Pen SUBCUT SCH ×4 (06:41→22:27)
--- NOTE | 2017-03-02 07:12 | PCM.PN ---
- General Info Date of Service: 03/02/17 Admission Dx/Problem (Free Text): Admission Diagnosis/Problem Admission Diagnosis/Problem Hyperglycemia Subjective Update: Follow Up Functional Status: Reports: pain controlled, ambulating, urinating. Denies: new symptoms - Review of Systems General: Denies: Fever, Weakness, Fatigue, Malaise, Chills, Night Sweats HEENT: Reports: no symptoms Pulmonary: Denies: shortness of breath Cardiovascular: Denies: Chest Pain Gastrointestinal: Reports: Abdominal pain. Denies: Nausea, Vomiting Genitourinary: Reports: no symptoms Musculoskeletal: Reports: no symptoms Skin: Reports: no symptoms Neurological: Denies: Confusion, Weakness, Gait Disturbance Psychiatric: Denies: depression, anxiety, agitation, hallucinations Systems Review Comment:: No overnight issues. She feels much better. She still has chronic belly pain. Her pain scale is 4/10. She not nauseous or dry heaving. She wants her diet advanced. - Patient Data Vitals - most recent: Last Vital Signs Temp 37.0 C 03/01/17 21:43 Pulse 64 03/01/17 21:45 Resp 20 03/01/17 21:43 BP 90/62 03/02/17 03:03 Pulse Ox 95 03/01/17 22:00 Weight - most recent: 95.164 kg I&O - last 24 hours: Intake & Output 03/01/17 03/02/17 03/02/17 22:59 06:59 14:59 Intake Total 1330 Output Total 200 Balance 1130 Lab Results last 24 hrs: Laboratory Results - last 24 hr 03/01/17 03/01/17 03/01/17 Range/Units 10:45 16:59 21:43 WBC (3.98-10.04) K/mm3 RBC (3.98-5.22) M/mm3 Hgb (11.2-15.7) gm/L Hct (34.1-44.9) % MCV (79.4-94.8) fl MCH (25.6-32.2) pg MCHC (32.2-35.5) g/dl RDW Std Deviation (36.4-46.3) fL Plt Count (182-369) K/mm3 MPV (9.4-12.3) fl Neut % (Auto) (34.0-71.1) % Lymph % (Auto) (19.3-51.7) % [place] % (Auto) (4.7-12.5) % Eos % (Auto) (0.7-5.8) Baso % (Auto) (0.1-1.2) % Neut # (Auto) (1.56-6.13) K/mm3 Lymph # (Auto) (1.18-3.74) K/mm3 [place] # (Auto) (0.24-0.36) K/mm3 Eos # (Auto) (0.04-0.36) K/mm3 Baso # (Auto) (0.01-0.08) K/mm3 POC Glucose 214 H 263 H 188 H (70-105) mg/dL 03/02/17 03/02/17 Range/Units 05:55 06:39 WBC 3.66 L (3.98-10.04) K/mm3 RBC 3.99 (3.98-5.22) M/mm3 Hgb 11.0 L (11.2-15.7) gm/L Hct 34.4 (34.1-44.9) % MCV 86.2 (79.4-94.8) fl MCH 27.6 (25.6-32.2) pg MCHC 32.0 L (32.2-35.5) g/dl RDW Std Deviation 50.0 H (36.4-46.3) fL Plt Count 114 L (182-369) K/mm3 MPV 11.1 (9.4-12.3) fl Neut % (Auto) 49.5 (34.0-71.1) % Lymph % (Auto) 36.6 (19.3-51.7) % [place] % (Auto) 9.8 (4.7-12.5) % Eos % (Auto) 3.3 (0.7-5.8) Baso % (Auto) 0.5 (0.1-1.2) % Neut # (Auto) 1.81 (1.56-6.13) K/mm3 Lymph # (Auto) 1.34 (1.18-3.74) K/mm3 [place] # (Auto) 0.36 (0.24-0.36) K/mm3 Eos # (Auto) 0.12 (0.04-0.36) K/mm3 Baso # (Auto) 0.02 (0.01-0.08) K/mm3 POC Glucose 159 H (70-105) mg/dL Med Orders - Current: Current Medications Acetaminophen (Tylenol) 650 mg PO Q4H PRN PRN Reason: Pain (Mild 1-3)/fever Last Admin: 02/28/17 20:30 Dose: 650 mg Hydrocodone Bitart/Acetaminophen (Protection 325-5 Mg) 2 tab PO Q4H PRN PRN Reason: Pain (moderate 4-6) Albuterol/Ipratropium (Duoneb 3.0-0.5 Mg/3 Ml) 3 ml NEB Q4H PRN PRN Reason: Shortness Of Breath/wheezing Aspirin (Halfprin) 81 mg PO DAILY [facility] Last Admin: 03/01/17 09:21 Dose: 81 mg Bisacodyl (Dulcolax) 5 mg PO DAILY PRN PRN Reason: Constipation Carvedilol (Coreg) 6.25 mg PO BID [facility] Last Admin: 03/01/17 21:45 Dose: 6.25 mg Clopidogrel Bisulfate (Plavix) 75 mg PO DAILY [facility] Last Admin: 03/01/17 09:21 Dose: 75 mg Diphenhydramine HCl (Benadryl) 25 mg IVPUSH Q6H PRN PRN Reason: Nausea/Vomiting Docusate Sodium (Colace) 100 mg PO BID PRN PRN Reason: Constipation Gabapentin (Neurontin) 200 mg PO TID [facility] Last Admin: 03/01/17 21:47 Dose: 200 mg Heparin Sodium (Porcine) (Heparin Sodium) 5,000 units SUBCUT Q8H [facility] Last Admin: 03/02/17 06:40 Dose: 5,000 units Hydralazine HCl (Apresoline) 10 mg IVPUSH Q4H PRN PRN Reason: Hypertension Dextrose/Sodium Chloride (Dextrose 5%-1/2 Ns) 1,000 mls @ 50 mls/hr IV ASDIRECTED [facility] Last Admin: 03/02/17 00:33 Dose: 50 mls/hr Prochlorperazine Edisylate 10 (mg/ Sodium Chloride) 52 mls @ 150 mls/hr IV Q6H PRN PRN Reason: Nausea/Vomiting Last Admin: 03/01/17 15:43 Dose: 150 mls/hr Insulin Aspart (Novolog) 0 unit SUBCUT QIDACANDBED [facility] PRN Reason: Protocol Last Admin: 03/02/17 06:41 Dose: 1 unit Insulin Detemir (Levemir) 25 unit SUBCUT QPM [facility] Last Admin: 03/01/17 17:02 Dose: 25 units Isosorbide Mononitrate (Imdur) 30 mg PO BID [facility] Last Admin: 03/01/17 21:48 Dose: 30 mg Lisinopril (Prinivil) 25 mg PO DAILY [facility] Last Admin: 03/01/17 09:21 Dose: 25 mg Lorazepam (Ativan) 1 mg IV Q6H PRN PRN Reason: Anxiety Magnesium Sulfate (Pharmacy To Dose - Magnesium Replacement) 0 dose .XX ASDIRECTED PRN PRN Reason: rx dose Meperidine HCl (Demerol) 50 mg IM Q6H PRN PRN Reason: Pain Last Admin: 02/28/17 21:35 Dose: 50 mg Metoclopramide HCl (Reglan) 10 mg IVPUSH Q6H PRN PRN Reason: Nausea/Vomiting Last Admin: 03/01/17 09:24 Dose: 10 mg Metolazone (Zaroxolyn) 5 mg PO ASDIRECTED@0900 [facility] Last Admin: 03/01/17 09:22 Dose: Not Given Metoprolol Tartrate (Lopressor) 5 mg IVPUSH Q4H PRN PRN Reason: Tachycardia Midodrine (Midodrine) 5 mg PO TIDAC PRN PRN Reason: Hypotension Last Admin: 03/02/17 01:18 Dose: 5 mg Miscellaneous Information (Remove Patch) 0 ea TRDERM Q72H [facility] Last Admin: 03/01/17 09:29 Dose: Not Given Morphine Sulfate (Morphine) 1 mg IVPUSH Q2H PRN PRN Reason: Other Stop: 03/02/17 22:52 Last Admin: 02/26/17 21:20 Dose: 1 mg Potassium Chloride (Pharmacy To Dose - Potassium Replacement) 0 dose .XX ASDIRECTED PRN PRN Reason: rx dose Prochlorperazine Maleate (Compro) 25 mg RECTAL Q12HR PRN PRN Reason: Nausea/Vomiting Scopolamine (Transderm-Scop) 1.5 mg TRDERM Q72H PRN PRN Reason: Nausea Last Admin: 03/01/17 09:27 Dose: 1.5 mg Senna/Docusate Sodium (Senna Plus) 1 tab PO BID PRN PRN Reason: Constipation Sodium Chloride (Saline Flush) 10 ml FLUSH ASDIRECTED PRN PRN Reason: Keep Vein Open Sodium Chloride (Saline Flush) 10 ml FLUSH ASDIRECTED PRN PRN Reason: Keep Vein Open Temazepam (Restoril) 15 mg PO BEDTIME PRN PRN Reason: Sleep Torsemide (Demadex) 60 mg PO DAILY [facility] Last Admin: 02/28/17 10:08 Dose: 60 mg Discontinued Medications Hydrocodone Bitart/Acetaminophen (Protection 325-5 Mg) 1 tab PO Q4H PRN PRN Reason: Pain (moderate 4-6) Last Admin: 02/28/17 18:03 Dose: 1 tab Dextrose/Water (Dextrose 50% In Water) 50 ml IVPUSH ASDIRECTED PRN PRN Reason: Hypoglycemia Diatrizoate Meglum/Diatrizoate Sod (Gastrografin 37%) 90 ml PO ONETIME ONE Stop: 02/27/17 08:35 Last Admin: 02/27/17 09:31 Dose: 90 ml Gabapentin (Neurontin) 100 mg PO TID [facility] Last Admin: 02/28/17 20:29 Dose: 100 mg Gabapentin (Neurontin) 100 mg PO ONETIME ONE Stop: 02/26/17 22:45 Last Admin: 02/26/17 22:59 Dose: 100 mg Hydromorphone HCl (Dilaudid) 0.5 mg IVPUSH ONETIME ONE Stop: 02/25/17 19:41 Last Admin: 02/25/17 19:50 Dose: 0.5 mg Hydromorphone HCl (Dilaudid) 0.5 mg IVPUSH ONETIME ONE Stop: 02/25/17 22:06 Last Admin: 02/25/17 22:16 Dose: 0.5 mg Sodium Chloride (Normal Saline) 1,000 mls @ 999 mls/hr IV ONETIME [facility] Last Admin: 02/25/17 19:51 Dose: 999 mls/hr Insulin Human Regular 100 unit (/ Sodium Chloride) 100 mls @ 4 mls/hr IV TITRATE [facility]; 4 UNITS/HR PRN Reason: Protocol Last Titration: 02/25/17 22:20 Dose: 2 units/hr, 2 mls/hr Sodium Chloride (Normal Saline) 1,000 mls @ 75 mls/hr IV ASDIRECTED [facility] Sodium Chloride (Normal Saline) 250 mls @ 250 mls/hr IV ONETIME ONE Stop: 02/27/17 02:26 Last Admin: 02/27/17 01:37 Dose: 250 mls/hr Sodium Chloride (Normal Saline) 250 mls @ 250 mls/hr IV ONETIME ONE Stop: 02/27/17 07:29 Last Admin: 02/27/17 08:08 Dose: 250 mls/hr Sodium Chloride (Normal Saline) 250 mls @ 250 mls/hr IV ONETIME ONE Stop: 02/27/17 09:29 Last Admin: 02/27/17 09:16 Dose: Not Given Sodium Chloride (Normal Saline) 500 mls @ 100 mls/hr IV .BOLUS ONE Stop: 03/01/17 13:49 Last Admin: 03/01/17 09:25 Dose: 100 mls/hr Sodium Chloride (Normal Saline) 1,000 mls @ 100 mls/hr IV ASDIRECTED [facility] Insulin Aspart (Novolog) 8 unit SUBCUT TIDMEALS PRN PRN Reason: Blood Glucose Insulin Detemir (Levemir) 15 unit SUBCUT QPM [facility] Insulin Human Regular (Humulin R) 5 unit IVPUSH ONETIME ONE PRN Reason: Protocol Stop: 02/25/17 19:42 Last Admin: 02/25/17 19:53 Dose: 5 unit Isosorbide Mononitrate (Imdur) 60 mg PO DAILY [facility] Isosorbide Mononitrate (Imdur) 30 mg PO ONETIME ONE Stop: 02/25/17 23:23 Last Admin: 02/26/17 00:00 Dose: 30 mg Meperidine HCl (Demerol) 50 mg IVPUSH Q6H PRN PRN Reason: Pain Metoclopramide HCl (Reglan) 5 mg IVPUSH ONETIME ONE Stop: 02/25/17 22:06 Last Admin: 02/25/17 22:14 Dose: 5 mg Metoclopramide HCl (Reglan) 5 mg IVPUSH ONETIME ONE Stop: 02/28/17 09:40 Last Admin: 02/28/17 10:12 Dose: 5 mg Metronidazole (Flagyl) 500 mg PO Q8H [facility] Last Admin: 03/01/17 06:08 Dose: Not Given Midodrine (Midodrine) 5 mg PO NOW ONE Stop: 02/26/17 13:02 Last Admin: 02/26/17 13:25 Dose: 5 mg Ondansetron HCl (Zofran) 4 mg IVPUSH ONETIME ONE Stop: 02/25/17 19:41 Last Admin: 02/25/17 19:48 Dose: 4 mg Ondansetron HCl (Zofran) 4 mg IV Q6H PRN PRN Reason: Nausea/Vomiting Last Admin: 02/28/17 08:10 Dose: 4 mg Sodium Chloride (Saline Flush) 10 ml FLUSH ASDIRECTED PRN PRN Reason: Keep Vein Open Last Admin: 02/25/17 20:03 Dose: 10 ml - Exam General: alert, oriented, cooperative, no acute distress HEENT: Pupils equal, Pupils reactive, EOMI, Mucous membr. moist/pink Neck: supple, trachea midline, no JVD, no thyromegaly Lungs: Clear to auscultation, Normal respiratory effort Cardiovascular: Regular Rate, Regular Rhythm Abdomen: bowel sounds present, soft, no tenderness, no distension (Female) Exam: Deferred Back Exam: normal inspection, decreased range of motion Extremities: no edema, normal pulses, no tenderness/swelling, no clubbing, no cyanosis, no calf tenderness Peripheral Pulses: 2+: posterior tibial (L), posterior tibial (R), dorsalis pedis (L), dorsalis pedis (R) Skin: warm, dry, intact Neurological: no new focal deficit Psy/Mental Status: alert, normal affect, normal mood - Problem List Review Problem List Initiated/Reviewed/Updated: Yes - My Orders Last 24 Hours: My Active Orders 03/01/17 08:47 Sodium Chloride 0.9% [Saline Flush] 10 ml FLUSH ASDIRECTED PRN Saline Lock Insert [OM.PC] Routine 03/01/17 08:48 Gabapentin [Neurontin] 200 mg PO TID 03/01/17 09:17 Acetaminophen/HYDROcodone [Protection 325-5 MG] 2 tab PO Q4H PRN 03/01/17 10:30 Remove Patch 0 ea TRDERM Q72H 03/01/17 Lunch Full Liquid Diet [DIET] 03/02/17 05:55 BASIC METABOLIC PANEL,BMP [CHEM] AM MAGNESIUM [CHEM] AM - Plan Plan:: Assessment/Plan: Acute: Abdominal Pain, Improved: Gastroparesis vs Abdominal Hernia - She is passing gas and normal bowel movement - Pain localized to mid abdomen going to right lateral region - Lipase, AST/ALT all negative - PRN pain medications - KUB: no acute abnormal findings - U/S GB: Showed no GD - CT scan shows: Anterior abdominal wall hernia containing fat as well as a loop of small bowel. No strangulation. Small adrenal nodule felt to be adenoma - Patient improves with narcotics, we held if due to initial plan for gastric emptying study - Continue to narcotic pain CT Scan Shows - Anterior abdominal wall hernia containing fat as well as a loop of small bowel - No strangulation - Refer to [facility] after discharge (Dr. Aguilera?) in March 07 DM2 - BS is stable in the 200 range - She is not able to eat much due to nausea Resolved S/p Acute on Chronic Angina - Hx/o CAD, HF with Reduced EF and Chronic Troponin Leak - Already on Imdur 30 mg po daily, will increase to BID - Will add Norvasc if no response - PRN IV Morphine Q2 for Chest Pain, Dyspnea and SOB - Most recent stress test (nuclear) 06/28/2015 with no acute reversible ischemia S/p Acute on Chronic Troponin Leak - Maybe false positive due to CKD Stage IV - Troponin X1 0.072, CKMB is 5.2 due to Chronic Kidney Disease, Troponin this am 0.066 - Continue ASA 81 mg po daily, Plavix 75 mg po daily, and Carvedilol 6.25 mg po BID - Lipid panel: Abnormal - TFT: normal S/p Elevated BNP Level, No Clinical Signs of Acute congestive heart failure - 1291--> 758 - This is 2/2 CKD Stage IV - She is not clinically volume overloaded: no pulmonary congestion, no rales or crackles, no peripheral edema - I do not feel she has exacerbation of CHF - Last 2D echo in 2014, repeat 2D Echo shows EF 30-35% with RWMA, worse S/p AG-Metabolic Acidosis - CO is now 18 - Levels above the same - Appears to be chronic - 2/2 CKD Stage IV - Will monitor, no indication for Bicarbonate at this point S/p Hyperglycemia - Was found to have BS in the 400s - BS improved but we can do better ( in the upper 200s and 300s) - She is on insulin regimen - She is likely non-compliant - ADA diet - A1C is 11. 30 - Increase LA to 25 from 18 units, her TDI is 49.5 units - Continue SA insulin with 8 units - ISS and Accu-check QID AC and Bedtime - She is getting D5W for sustenance since she has not been able to take anything in S/p Nausea W/o Vomiting - 2/2 above - Got sick after she ate her breakfast - PRN anti-emesis: Reglan and possibly alternate with Compazine - PRN Scopolamine patch - Will do gastric emptying study to rule in gastroparesis, radialogy would not be able to do it until Sunday besides they want patient to be off anti- emetic meds prior to testing. This was not ideal since she is really symptomatic Chronic: Heart Failure with Reduced EF 35- 40 % 06/23/2015 CAD S/p Stent X 12 total, most recent stent x 2 a month ago in [place] [facility] HTN Hx/o IL PVD S/p PPM/AICD COPD TINO on CPAP GERD CKD Stage IV, at baseline Urinary Incontinence Peripheral Neuropathy Anemia from CKD Obesity with BMI 34.5 Plan: She remains clinically stable Continue current treatment Routine AM Labs Will advance diet as requested Continue PT/OT CPAP QHS CM/SW for d/c planning Additional orders as above Gastric emptying study outpatient and +/- GI eval for EGD GS eval right after discharge Code status: 1 Possible d/c this weekend LOS anticipate > 96 hrs due to persistence of symptoms
[2017-03-02] MEDS: Carvedilol 6.25 MG Tab PO SCH ×2 (09:29→22:30)
[2017-03-02] MEDS: Isosorbide Mononitrate 30 MG Tab.ER PO SCH ×2 (09:30→22:29)
[2017-03-02] MEDS: Aspirin 81 MG Tab.EC PO SCH (09:30)
[2017-03-02] MEDS: Clopidogrel 75 MG Tab PO SCH (09:31)
[2017-03-02] MEDS: Lisinopril 10 MG Tab PO SCH (09:31)
[2017-03-02] MEDS: Gabapentin 100 MG Cap PO SCH ×3 (09:31→22:29)
[2017-03-02] MEDS: Metolazone 5 MG Tab PO SCH (12:18)
[2017-03-02] MEDS: Acetaminophen/HYDROcodone 325-5 MG Tab PO PRN ×2 (14:33→22:30)
--- NOTE | 2017-03-02 16:57 | PCM.SN ---
- Free Text/Narrative Note: Spoke to Gypsy, (patient's daughter) update her about mom's progress. I told her either he has gastroparesis vs abdominal hernia causing her symptoms. She has been set up to see a GS specialist in [facility] and it is imperative that she must keep her appointment. She will be scheduled for gastric emptying study and possibly see a GI to r/o gastroparesis. I informed Gypsy, if her mom continues to do well, she will likely be discharged home tomorrow.
[2017-03-02] MEDS: Insulin Detemir 100 Units/ML 3 ML Pen SUBCUT SCH (17:13)
[2017-03-03] MEDS: Meperidine PF 50 MG/ML Syringe IM PRN (01:43)
[2017-03-03] MEDS: Heparin Sodium 5,000 Units/ML Vial SUBCUT SCH (06:47)
[2017-03-03] MEDS: Insulin Aspart 100 Units/ML 3 ML Pen SUBCUT SCH ×2 (08:02→11:10)
[2017-03-03] MEDS: Isosorbide Mononitrate 30 MG Tab.ER PO SCH (08:03)
[2017-03-03] MEDS: Lisinopril 10 MG Tab PO SCH (08:04)
[2017-03-03] MEDS: Clopidogrel 75 MG Tab PO SCH (08:04)
[2017-03-03] MEDS: Aspirin 81 MG Tab.EC PO SCH (08:04)
[2017-03-03] MEDS: Carvedilol 6.25 MG Tab PO SCH (08:04)
[2017-03-03] MEDS: Gabapentin 100 MG Cap PO SCH (08:05)
[2017-03-03] MEDS: Metolazone 5 MG Tab PO SCH (08:05)
[2017-03-03] MEDS: Torsemide 20 MG Tab PO SCH (08:05)
[2017-03-03 08:06] VITALS: BP 109/68
[2017-03-03] MEDS: Scopolamine 1.5 MG Transdermal Patch TRDERM PRN (08:14)
--- NOTE | 2017-03-03 08:51 | PCM.DCSUM1 ---
Discharge Summary - Hospital Course Brief History: This is a 46 yo with significant cardiac hx/o who comes in with complaints of multiple issues: chest pain, abdominal pain, nausea, vomiting and elevated glucose level and was admitted for hyperglycemia and acute angina. Patient had similar presentation about over a week ago (2016), she was shipped out to [place] due to ACS. She was admitted for medical management of acute on chronic angina and hyperglycemia. - Discharge Data Discharge Date: 03/03/17 Discharge Disposition: Home, Self-Care 01 Condition: Good - Discharge Diagnosis/Problem(s) (1) Abdominal wall hernia SNOMED Code(s): 677191711 ICD Code: K43.9 - VENTRAL HERNIA WITHOUT OBSTRUCTION OR GANGRENE Status: Chronic (2) Chest pain SNOMED Code(s): 58570738 ICD Code: R07.9 - CHEST PAIN, UNSPECIFIED Status: Resolved (3) Chronic renal insufficiency SNOMED Code(s): 612924065 ICD Code: N18.9 - CHRONIC KIDNEY DISEASE, UNSPECIFIED Status: Chronic Qualifiers: Chronic kidney disease stage: unspecified stage Qualified Code(s): N18.9 - Chronic kidney disease, unspecified (4) Hyperglycemia SNOMED Code(s): 38249924 ICD Code: R73.9 - HYPERGLYCEMIA, UNSPECIFIED Status: Resolved (5) Abdominal pain SNOMED Code(s): 05444277 ICD Code: R10.9 - UNSPECIFIED ABDOMINAL PAIN Status: Chronic Qualifiers: Abdominal location: lower abdomen, unspecified Qualified Code(s): R10.30 - Lower abdominal pain, unspecified - Patient Summary/Data Operative Procedure(s) Performed: None Complications: None Consults: Consultations 02/25/17 22:55 Consult to Case Management [CONS] Routine Consult to Diabetic Nurse Specialist [CONS] Routine Consult to Meter Repairer Helper [CONS] Routine Consult to Spiritual Care [CONS] Routine OT Evaluation and Treatment [CONS] Routine PT Evaluation and Treatment [CONS] Routine 02/26/17 21:33 Consult to Physician [CONS] Routine 02/27/17 12:11 Consult to Dietary [Consult to Vending Stand Supervisor] [CONS] Routine 02/28/17 09:33 PT Evaluation and Treatment [CONS] Routine Hospital Course: Discharge Summary Per Problem List: Acute on Chronic Angina - Hx/o CAD, HF with Reduced EF and Chronic Troponin Leak - Already on Imdur 30 mg po daily - PRN IV Morphine Q2 for Chest Pain, Dyspnea and SOB - Most recent stress test (nuclear) 06/28/2015 with no acute reversible ischemia - Patient was already on ASA, and BB - Patient chest pain resolved after her Imdur was changed to BID Acute on Chronic Troponin Leak - Maybe false positive due to CKD Stage IV - Troponin X1 0.072, CKMB is 5.2 due to Chronic Kidney Disease - She was already on ASA 81 mg po daily, Plavix 75 mg po daily, and Carvedilol 6.25 mg po BID - CE x 2: Showed no worsening level - Repeat EKG was about the same w/o acute ST-T wave changes - Lipid panel: was abnormal and TFT was normal - Follow up with cardiology after discharge, she is to set this up for her DM2 with Hyperglycemia - Was found to have BS in the 400s on admission, he was in the 200s for the most part - She was on insulin regimen - We felt she was non-compliant - ADA diet was provided - Her A1C was 11.30 - ISS and Accu-check QID AC and Bedtime Abdominal Pain: Gastroparesis vs Abdominal Wall Hernia - She was passing gas and normal bowel movement - Pain localized to mid abdomen going to right lateral region - Lipase, AST/ALT all negative - PRN pain medications - KUB showed no acute abnormal findings - CT scan showed anterior abdominal wall hernia mostly fat as well as a loop of small bowel w/o strangulation. This was already noted on a CT scan dated 06/22/2015 - Dr. Redding consulted but felt no urgent need for any surgical intervention - Her pain has been controlled - Prior to d/c she was able to eat regular meal w/o symptoms - She was given Neurotin 200 mg po TID for presumptive gastro-enteroparesis - She has an appointment to see Dr. Evans next week for further eval on her abdominal wall hernia Nausea and Vomiting - Normanna to be from poorly controlled glucose - Abdominal Pain vs Gastroparesis - With PRN anti-emesis Reglan, Neurontin and Abdominal Pain-she improved significantly - We were not able to offer her gastric emptying study because she was on anti-emesis - Per [facility] protocol, she has to be off on any anti-emesis for 24-48 hrs - She will have an outpatient gastric emptying study done after discharge to r/o gastroparesis with instructions to follow prior to the procedure - She was advised to see a GI specialist for possible EGD as well Elevated BNP Level - BNP 1291 - This was 2/2 CKD Stage IV - She was not clinically volume overloaded: no pulmonary congestion, no rales or crackles, no peripheral edema - We felt she did not have exacerbation of CHF - Last 2D echo in 2014 - 2D echo: LVEF 30-35% with RWMA-similar compared to 06/24/2015 AG-Metabolic Acidosis - Appears to be chronic - 2/2 CKD Stage IV - Resolved with with adequate hydration and good oral intake Adrenal Adenoma, Not New - CT scan findings - This was noted on a CT scan on 06/23/2015 - PCP to monitor Hyperlipidemia - She carries this hx as noted on her PMHx - Her lipid panel was abnormal - She was not started on statin here due to poor intake - We were not able to add this on her d/c meds as she was already gone by then - Tried to call in to her Drug store but she has no listed pharmacy - Will try to reach her or mail the rx to her home address if no luck Overall, Destiny has done well since admission. She will be discharged with new meds as listed on her medication reconciliation list. She was advised to keep her appointment next week and to get the gastric emptying study done after that. She was further advised to call her doctor for any issues or concerns. If she is not able to reach him/her, she is to go to the nearest medical facility for further care. On the day of discharge, I spent over 45 minutes with her stressing the importance of medical and dietary compliance. She expressed understanding and in agreement with the plans as discussed above. All questions were answered. - Patient Instructions Diet: Heart Healthy Diet, Usual Diet as Tolerated, Low Sodium, Diabetic Diet, Weight Loss Diet Fluid Restriction: 2000 mL Activity: As Tolerated Driving: Do Not Drive Showering/Bathing: May Shower Notify Provider of: Fever, Increased Pain, Swelling and Redness, Nausea and/or Vomiting Other/Special Instructions: - Please take all medications as directed. - Follow 2L daily fluid restrictions. - Keep you appointment for GS eval next week in [place]. - You will have gastric emptying study and possibly GI eval to r/o Gastroparesis. - Please check and log you BS at least twice a day and three times a week, show this log on your follow up appointment with your PCP. - Medical and Dietary compliance is very important in getting. - If you have any concerns or questions, call your doctor during business hours. If you are unable to reach him/her, go to the nearest medical facility for treatment - Discharge Plan Prescriptions/Med Rec: Metoclopramide HCl [Reglan] 10 mg PO Q6HR PRN #20 tablet PRN Reason: Nausea/Vomiting Docusate Sodium [Stool Softener] 100 mg PO BID #30 tablet Gabapentin [Neurontin] 200 mg PO TID #90 cap oxyCODONE 10 mg PO Q4H PRN #20 tablet PRN Reason: Pain Home Medications: Home Meds Aspirin [Halfprin] 81 mg PO DAILY 08/10/15 [History] Carvedilol 6.25 mg PO BID 08/10/15 [History] Clopidogrel [Plavix] 75 mg PO DAILY 08/10/15 [History] Insulin Aspart [Novolog Flexpen] 8 unit SQ TIDMEALS PRN 08/10/15 [History] Insulin Detemir [Levemir] 15 unit SUBCUT QPM 08/10/15 [History] Acetaminophen [Acetaminophen 8 Hour] 650 mg PO Q4H PRN 02/16/17 [History] Isosorbide Mononitrate [Isosorbide Mononitrate ER] 30 mg PO DAILY 02/16/17 [ History] Metolazone 5 mg PO ASDIRECTED 02/16/17 [History] Torsemide [Demadex] 60 mg PO DAILY 02/16/17 [History] Docusate Sodium [Stool Softener] 100 mg PO BID #30 tablet 03/03/17 [Rx] Gabapentin [Neurontin] 200 mg PO TID #90 cap 03/03/17 [Rx] Lisinopril [Prinivil] 20 mg PO DAILY #0 03/03/17 [Rx] Metoclopramide HCl [Reglan] 10 mg PO Q6HR PRN #20 tablet 03/03/17 [Rx] Torsemide [Demadex] 40 mg PO DAILY tablet 03/03/17 [Rx] oxyCODONE 10 mg PO Q4H PRN #20 tablet 03/03/17 [Rx] Patient Handouts: Diabetes and Sick Day Management, Heart Failure, [id number] , Angina Pectoris, [id number], Coronary Artery Disease, Female Referrals: Maurilio Evans MD [Ordering Only Provider] - 03/07/17 2:00 pm (please arrive at 2pm for paper work and appt. is at 2:30 central time. If you need to get in earlier please call. This appt. if to see Surgeon for abdominal Hernia in [place]) - Discharge Summary/Plan Comment DC Time >30 min.: Yes (40 mins) Discharge Summary/Plan Comment: Discharge to Home - General Info Date of Service: 03/03/17 Admission Dx/Problem (Free Text: Admission Diagnosis/Problem Admission Diagnosis/Problem Hyperglycemia Subjective Update: Follow Up Functional Status: Reports: pain controlled, tolerating diet, ambulating, urinating. Denies: new symptoms - Review of Systems General: Denies: Fever, Weakness, Fatigue, Malaise HEENT: Reports: no symptoms Pulmonary: Denies: shortness of breath Cardiovascular: Denies: Chest Pain Gastrointestinal: Reports: Abdominal pain. Denies: Constipation, Diarrhea, Difficulty swallowing, Nausea, Vomiting Genitourinary: Reports: no symptoms Musculoskeletal: Reports: no symptoms Skin: Reports: no symptoms Neurological: Reports: No Symptoms. Denies: Difficulty Walking, Weakness, Gait Disturbance Psychiatric: Denies: confusion, depression, anxiety, cravings, hallucinations Systems Review Comment: No overnight or acute issues. She is relatively well. - Patient Data Vitals - Most Recent: Last Vital Signs Temp 36.2 C 03/03/17 08:01 Pulse 63 03/03/17 08:04 Resp 16 03/03/17 08:01 BP 109/68 03/03/17 08:04 Pulse Ox 99 03/03/17 08:01 Weight - Most Recent: 97.125 kg I&O - Last 24 hours: Intake & Output 03/02/17 03/03/17 03/03/17 22:59 06:59 14:59 Intake Total 1848 650 Output Total 600 650 Balance 1248 0 Lab Results - Last 24 hrs: Laboratory Results - last 24 hr 03/02/17 03/02/17 03/03/17 Range/Units 17:10 21:17 06:46 POC Glucose 289 H 279 H 171 H (70-105) mg/dL Med Orders - Current: Current Medications Acetaminophen (Tylenol) 650 mg PO Q4H PRN PRN Reason: Pain (Mild 1-3)/fever Last Admin: 02/28/17 20:30 Dose: 650 mg Hydrocodone Bitart/Acetaminophen (Kiana 325-5 Mg) 2 tab PO Q4H PRN PRN Reason: Pain (moderate 4-6) Last Admin: 03/02/17 22:30 Dose: 2 tab Albuterol/Ipratropium (Duoneb 3.0-0.5 Mg/3 Ml) 3 ml NEB Q4H PRN PRN Reason: Shortness Of Breath/wheezing Aspirin (Halfprin) 81 mg PO DAILY [facility] Last Admin: 03/03/17 08:04 Dose: 81 mg Bisacodyl (Dulcolax) 5 mg PO DAILY PRN PRN Reason: Constipation Carvedilol (Coreg) 6.25 mg PO BID [facility] Last Admin: 03/03/17 08:04 Dose: 6.25 mg Clopidogrel Bisulfate (Plavix) 75 mg PO DAILY [facility] Last Admin: 03/03/17 08:04 Dose: 75 mg Diphenhydramine HCl (Benadryl) 25 mg IVPUSH Q6H PRN PRN Reason: Nausea/Vomiting Docusate Sodium (Colace) 100 mg PO BID PRN PRN Reason: Constipation Gabapentin (Neurontin) 200 mg PO TID [facility] Last Admin: 03/03/17 08:05 Dose: 200 mg Heparin Sodium (Porcine) (Heparin Sodium) 5,000 units SUBCUT Q8H [facility] Last Admin: 03/03/17 06:47 Dose: 5,000 units Hydralazine HCl (Apresoline) 10 mg IVPUSH Q4H PRN PRN Reason: Hypertension Prochlorperazine Edisylate 10 (mg/ Sodium Chloride) 52 mls @ 150 mls/hr IV Q6H PRN PRN Reason: Nausea/Vomiting Last Admin: 03/01/17 15:43 Dose: 150 mls/hr Insulin Aspart (Novolog) 0 unit SUBCUT QIDACANDBED [facility] PRN Reason: Protocol Last Admin: 03/03/17 08:02 Dose: 1 unit Insulin Detemir (Levemir) 25 unit SUBCUT QPM [facility] Last Admin: 03/02/17 17:13 Dose: 25 units Isosorbide Mononitrate (Imdur) 30 mg PO BID [facility] Last Admin: 03/03/17 08:03 Dose: 30 mg Lisinopril (Prinivil) 25 mg PO DAILY [facility] Last Admin: 03/03/17 08:04 Dose: 25 mg Lorazepam (Ativan) 1 mg IV Q6H PRN PRN Reason: Anxiety Magnesium Sulfate (Pharmacy To Dose - Magnesium Replacement) 0 dose .XX ASDIRECTED PRN PRN Reason: rx dose Meperidine HCl (Demerol) 50 mg IM Q6H PRN PRN Reason: Pain Last Admin: 03/03/17 01:43 Dose: 50 mg Metoclopramide HCl (Reglan) 10 mg IVPUSH Q6H PRN PRN Reason: Nausea/Vomiting Last Admin: 03/01/17 09:24 Dose: 10 mg Metolazone (Zaroxolyn) 5 mg PO ASDIRECTED@0900 [facility] Last Admin: 03/03/17 08:05 Dose: 5 mg Metoprolol Tartrate (Lopressor) 5 mg IVPUSH Q4H PRN PRN Reason: Tachycardia Midodrine (Midodrine) 5 mg PO TIDAC PRN PRN Reason: Hypotension Last Admin: 03/02/17 01:18 Dose: 5 mg Miscellaneous Information (Remove Patch) 0 ea TRDERM Q72H [facility] Last Admin: 03/01/17 09:29 Dose: Not Given Potassium Chloride (Pharmacy To Dose - Potassium Replacement) 0 dose .XX ASDIRECTED PRN PRN Reason: rx dose Prochlorperazine Maleate (Compro) 25 mg RECTAL Q12HR PRN PRN Reason: Nausea/Vomiting Scopolamine (Transderm-Scop) 1.5 mg TRDERM Q72H PRN PRN Reason: Nausea Last Admin: 03/03/17 08:14 Dose: 1.5 mg Senna/Docusate Sodium (Senna Plus) 1 tab PO BID PRN PRN Reason: Constipation Sodium Chloride (Saline Flush) 10 ml FLUSH ASDIRECTED PRN PRN Reason: Keep Vein Open Sodium Chloride (Saline Flush) 10 ml FLUSH ASDIRECTED PRN PRN Reason: Keep Vein Open Temazepam (Restoril) 15 mg PO BEDTIME PRN PRN Reason: Sleep Torsemide (Demadex) 60 mg PO DAILY [facility] Last Admin: 03/03/17 08:05 Dose: Not Given Discontinued Medications Hydrocodone Bitart/Acetaminophen (Kiana 325-5 Mg) 1 tab PO Q4H PRN PRN Reason: Pain (moderate 4-6) Last Admin: 02/28/17 18:03 Dose: 1 tab Dextrose/Water (Dextrose 50% In Water) 50 ml IVPUSH ASDIRECTED PRN PRN Reason: Hypoglycemia Diatrizoate Meglum/Diatrizoate Sod (Gastrografin 37%) 90 ml PO ONETIME ONE Stop: 02/27/17 08:35 Last Admin: 02/27/17 09:31 Dose: 90 ml Gabapentin (Neurontin) 100 mg PO TID [facility] Last Admin: 02/28/17 20:29 Dose: 100 mg Gabapentin (Neurontin) 100 mg PO ONETIME ONE Stop: 02/26/17 22:45 Last Admin: 02/26/17 22:59 Dose: 100 mg Hydromorphone HCl (Dilaudid) 0.5 mg IVPUSH ONETIME ONE Stop: 02/25/17 19:41 Last Admin: 02/25/17 19:50 Dose: 0.5 mg Hydromorphone HCl (Dilaudid) 0.5 mg IVPUSH ONETIME ONE Stop: 02/25/17 22:06 Last Admin: 02/25/17 22:16 Dose: 0.5 mg Sodium Chloride (Normal Saline) 1,000 mls @ 999 mls/hr IV ONETIME ANIKET Last Admin: 02/25/17 19:51 Dose: 999 mls/hr Insulin Human Regular 100 unit (/ Sodium Chloride) 100 mls @ 4 mls/hr IV TITRATE ANIKET; 4 UNITS/HR PRN Reason: Protocol Last Titration: 02/25/17 22:20 Dose: 2 units/hr, 2 mls/hr Sodium Chloride (Normal Saline) 1,000 mls @ 75 mls/hr IV ASDIRECTED ANIKET Sodium Chloride (Normal Saline) 250 mls @ 250 mls/hr IV ONETIME ONE Stop: 02/27/17 02:26 Last Admin: 02/27/17 01:37 Dose: 250 mls/hr Sodium Chloride (Normal Saline) 250 mls @ 250 mls/hr IV ONETIME ONE Stop: 02/27/17 07:29 Last Admin: 02/27/17 08:08 Dose: 250 mls/hr Sodium Chloride (Normal Saline) 250 mls @ 250 mls/hr IV ONETIME ONE Stop: 02/27/17 09:29 Last Admin: 02/27/17 09:16 Dose: Not Given Dextrose/Sodium Chloride (Dextrose 5%-1/2 Ns) 1,000 mls @ 50 mls/hr IV ASDIRECTED [facility] Last Admin: 03/02/17 00:33 Dose: 50 mls/hr Sodium Chloride (Normal Saline) 500 mls @ 100 mls/hr IV .BOLUS ONE Stop: 03/01/17 13:49 Last Admin: 03/01/17 09:25 Dose: 100 mls/hr Sodium Chloride (Normal Saline) 1,000 mls @ 100 mls/hr IV ASDIRECTED [facility] Insulin Aspart (Novolog) 8 unit SUBCUT TIDMEALS PRN PRN Reason: Blood Glucose Insulin Detemir (Levemir) 15 unit SUBCUT QPM [facility] Insulin Human Regular (Humulin R) 5 unit IVPUSH ONETIME ONE PRN Reason: Protocol Stop: 02/25/17 19:42 Last Admin: 02/25/17 19:53 Dose: 5 unit Isosorbide Mononitrate (Imdur) 60 mg PO DAILY [facility] Isosorbide Mononitrate (Imdur) 30 mg PO ONETIME ONE Stop: 02/25/17 23:23 Last Admin: 02/26/17 00:00 Dose: 30 mg Meperidine HCl (Demerol) 50 mg IVPUSH Q6H PRN PRN Reason: Pain Metoclopramide HCl (Reglan) 5 mg IVPUSH ONETIME ONE Stop: 02/25/17 22:06 Last Admin: 02/25/17 22:14 Dose: 5 mg Metoclopramide HCl (Reglan) 5 mg IVPUSH ONETIME ONE Stop: 02/28/17 09:40 Last Admin: 02/28/17 10:12 Dose: 5 mg Metronidazole (Flagyl) 500 mg PO Q8H [facility] Last Admin: 03/01/17 06:08 Dose: Not Given Midodrine (Midodrine) 5 mg PO NOW ONE Stop: 02/26/17 13:02 Last Admin: 02/26/17 13:25 Dose: 5 mg Morphine Sulfate (Morphine) 1 mg IVPUSH Q2H PRN PRN Reason: Other Stop: 03/02/17 22:52 Last Admin: 02/26/17 21:20 Dose: 1 mg Ondansetron HCl (Zofran) 4 mg IVPUSH ONETIME ONE Stop: 02/25/17 19:41 Last Admin: 02/25/17 19:48 Dose: 4 mg Ondansetron HCl (Zofran) 4 mg IV Q6H PRN PRN Reason: Nausea/Vomiting Last Admin: 02/28/17 08:10 Dose: 4 mg Sodium Chloride (Saline Flush) 10 ml FLUSH ASDIRECTED PRN PRN Reason: Keep Vein Open Last Admin: 02/25/17 20:03 Dose: 10 ml - Exam General: Reports: alert, oriented, cooperative, no acute distress HEENT: Reports: Pupils equal, Pupils reactive, EOMI, Mucous membr. moist/pink Neck: Reports: supple, trachea midline, no JVD, no thyromegaly Lungs: Reports: Clear to auscultation, Normal respiratory effort Cardiovascular: Reports: Regular Rate, Regular Rhythm Abdomen: Reports: bowel sounds present, soft, no tenderness, no distension (Female) Exam: Deferred Rectal (Female) Exam: Deferred Back Exam: Reports: normal inspection, decreased range of motion Extremities: Reports: no edema, normal pulses, no tenderness/swelling, no clubbing, no cyanosis, no calf tenderness Skin: Reports: warm, intact Neurological: Reports: no new focal deficit Psy/Mental Status: Reports: alert, normal affect, normal mood *Q Meaningful Use (DIS) - VTE *Q VTE Criteria *Q: - Stroke *Q Stroke Criteria *Q: - AMI *Q AMI Criteria *Q:
--- NOTE | 2017-03-04 12:00 | PCM.SN ---
- Free Text/Narrative Note: Tried calling her since yesterday multiple times but w/o any success. Also tried calling her daughter, Gypsy, at least 3-4 times but not answering. Attempts were made again this morning to reach either one of them but w/o luck. Will go ahead and mail the statin rx to her home address as listed on [employer].
== END 2017-03-03 12:45 | disposition home or self-care (01) | DRG 638 ==
LOC: JD.ED 19:21 → JD.ICU 22:15 → JD.MS 02-26 18:38
PROVIDERS: ADMIT Internal Medicine; ATTEND Internal Medicine
DX: E11.65 Type 2 diabetes mellitus with hyperglycemia (principal); I13.0 Hypertensive heart and chronic kidney disease with heart failure and stage 1 through stage 4 chronic kidney disease, or unspecified chronic kidney disease; N18.4 Chronic kidney disease, stage 4 (severe); E87.2 Acidosis; I25.118 Atherosclerotic heart disease of native coronary artery with other forms of angina pectoris; I50.9 Heart failure, unspecified; Z87.891 Personal history of nicotine dependence; E78.00 Pure hypercholesterolemia, unspecified; I73.9 Peripheral vascular disease, unspecified; I25.2 Old myocardial infarction; Z95.5 Presence of coronary angioplasty implant and graft; E11.43 Type 2 diabetes mellitus with diabetic autonomic (poly)neuropathy; E11.40 Type 2 diabetes mellitus with diabetic neuropathy, unspecified; Z79.4 Long term (current) use of insulin; K31.84 Gastroparesis; R10.9 Unspecified abdominal pain; J44.9 Chronic obstructive pulmonary disease, unspecified; G47.33 Obstructive sleep apnea (adult) (pediatric); E66.9 Obesity, unspecified; Z68.34 Body mass index [BMI] 34.0-34.9, adult; F32.9 Major depressive disorder, single episode, unspecified; F41.9 Anxiety disorder, unspecified; D63.1 Anemia in chronic kidney disease; K43.9 Ventral hernia without obstruction or gangrene; K21.9 Gastro-esophageal reflux disease without esophagitis; Z95.810 Presence of automatic (implantable) cardiac defibrillator; Z79.82 Long term (current) use of aspirin; Z79.899 Other long term (current) drug therapy; Z88.8 Allergy status to other drugs, medicaments and biological substances; Z88.4 Allergy status to anesthetic agent; Z91.018 Allergy to other foods; R32 Unspecified urinary incontinence; D35.00 Benign neoplasm of unspecified adrenal gland; E78.5 Hyperlipidemia, unspecified
CPT/HCPCS: 36415; 71010; 71010-26; 74000; 74000-26; 74176; 74176-26; 76705; 76705-26; 80048; 80053; 80061; 80306; 81001; 82553; 82962; 83036; 83690; 83735; 83880; 84439; 84443; 84484; 85025; 86140; 87086; 93005; 93306; 96365; 96366; 96375; 96376; 97116-GP; 97162-GP; 97163-GP; 97165-GO; 97530-GP; 99285; 99285-25; A9270-GY; J0780; J1170; J1644; J1815-GY; J1817; J2175; J2270; J2405; J2765; J7030; J7040; J7042; J7050; Q9963

== ENCOUNTER 2017-04-09 00:25 | Inpatient (IN) | payer OTHER ==
[2017-04-09] MEDS ORDERED: Sodium Chloride 0.9% 10 ML Syringe FLUSH PRN (00:40)
[2017-04-09] MEDS ORDERED: Morphine 4 MG/ML Syringe IVPUSH ONE (01:15)
--- NOTE | 2017-04-09 01:27 | EDM.PDOC ---
ED HPI GENERAL MEDICAL PROBLEM - General Chief Complaint: Respiratory Problem Stated Complaint: [facility] Time Seen by Provider: 04/09/17 00:33 Source of Information: Reports: Patient, EMS History Limitations: Reports: No Limitations - History of Present Illness INITIAL COMMENTS - FREE TEXT/NARRATIVE: The patient presents with worsening shortness of breath today. She also has bilateral flank pain with some dysuria. She was admitted to the hospital last month. She was recently treated for a UTI but she now has more dysuria and flank pain. She has a history of coronary artery disease with multiple stents and a pacemaker and congestive heart failure. She says she has been taking her meds and sticking with her diet. She has a cough but no fever. She has nausea but no vomiting. She also has some chest pain. Onset: Gradual Duration: Hour(s): (Today) Location: Reports: Back (Bilateral flank) Quality: Reports: Sharp Severity: Moderate Improves with: Reports: None Worsens with: Reports: None Associated Symptoms: Reports: Cough, Shortness of Breath Bilateral Flank Pain Score (Numeric/FACES): 10 - Related Data Allergies Allergy/AdvReac Type Severity Reaction Status Date / Time fentanyl Allergy Itching Verified 04/09/17 00:30 ibuprofen Allergy Hives Verified 04/09/17 00:30 metformin HCl Allergy Hives Verified 04/09/17 00:30 [From Glucophage] spinach Allergy Difficulty Verified 04/09/17 00:30 Breathing catfish Allergy Difficulty Uncoded 04/09/17 00:30 Breathing Home Meds: Home Meds Aspirin [Halfprin] 81 mg PO DAILY 08/10/15 [History] Carvedilol 6.25 mg PO BID 08/10/15 [History] Clopidogrel [Plavix] 75 mg PO DAILY 08/10/15 [History] Insulin Aspart [Novolog Flexpen] 8 unit SQ TIDMEALS PRN 08/10/15 [History] Insulin Detemir [Levemir] 15 unit SUBCUT QPM 08/10/15 [History] Acetaminophen [Acetaminophen 8 Hour] 650 mg PO Q4H PRN 02/16/17 [History] Isosorbide Mononitrate [Isosorbide Mononitrate ER] 30 mg PO DAILY 02/16/17 [ History] Metolazone 5 mg PO ASDIRECTED 02/16/17 [History] Torsemide [Demadex] 60 mg PO DAILY 02/16/17 [History] Lisinopril [Prinivil] 2.5 mg PO DAILY 04/09/17 [History] Nitrofurantoin [place]/Macrocryst [Macrobid] 100 mg PO BID 04/09/17 [History] Pantoprazole [ProTONIX] 40 mg PO DAILY 04/09/17 [History] Rosuvastatin [Crestor] 20 mg PO DAILY 04/09/17 [History] Past Medical History Other HEENT History: no upper teeth--no dentures Cardiovascular History: Reports: CAD, Heart Failure, High Cholesterol, Hypertension, [place], PVD, Stents Other Cardiovascular History: defiberallator Respiratory History: Reports: COPD, Sleep Apnea, Other (See Below) Other Respiratory History: uses CPAP at night Gastrointestinal History: Reports: GERD Other Gastrointestinal History: hernia noted Genitourinary History: Reports: Chronic Renal Insuffiency, Renal Calculus, Urinary Incontinence Other Genitourinary History: history of kidney stones, dawkins when I pee. 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: Neurological History: Reports: Neuropathy, Peripheral Psychiatric History: Reports: Anxiety, Depression Endocrine/Metabolic History: Reports: Diabetes, Type II, Obesity/BMI 30+ Hematologic History: Reports: Anemia Other Dermatologic History: "boil on private parts" - Infectious Disease History Infectious Disease History: Reports: None - Past Surgical History HEENT Surgical History: Reports: Tonsillectomy Cardiovascular Surgical History: Reports: AICD, Coronary Artery Stent, Pacer GI Surgical History: Reports: Appendectomy Female Surgical History: Reports: Section Musculoskeletal Surgical History: Reports: ORIF Social & Family History - Family History Family Medical History: Noncontributory Cardiac: Reports: CAD, Heart Failure Endocrine/Metabolic: Reports: Diabetes, type II Oncologic: Reports: Breast - Tobacco Use Smoking Status *Q: Never Smoker Years of Tobacco use: 27 Packs/Tins Daily: 0.1 Used Tobacco, but Quit: No Month Tobacco Last Used: 2012 Second Hand Smoke Exposure: No - Caffeine Use Caffeine Use: Reports: None - Recreational Drug Use Recreational Drug Use: Yes Drug Use in Last 12 Months: Yes Recreational Drug Type: Reports: Marijuana/Hashish Recreational Drug Use Frequency: Monthly Recreational Drug Last Use: "about 2 weeks ago" - Living Situation & Occupation Living situation: Reports: , with Family Occupation: Unemployed ED ROS GENERAL - Review of Systems Review Of Systems: See Below Constitutional: Reports: No Symptoms HEENT: Reports: No Symptoms Respiratory: Reports: Shortness of Breath Cardiovascular: Reports: Chest Pain Endocrine: Reports: No Symptoms GI/Abdominal: Reports: Nausea. Denies: Abdominal Pain, Vomiting : Reports: Flank Pain Musculoskeletal: Reports: No Symptoms Skin: Reports: No Symptoms ED EXAM, GENERAL - Physical Exam Exam: See Below Exam Limited By: No Limitations General Appearance: Alert, No Apparent Distress Ears: Normal External Exam Nose: Normal Inspection Head: Atraumatic, Normocephalic Neck: Normal Inspection Respiratory/Chest: No Respiratory Distress, Decreased Breath Sounds Cardiovascular: Regular Rate, Rhythm, No Edema, No Murmur GI/Abdominal: Soft, Non-Tender, No Organomegaly, No Mass Extremities: Normal Inspection Neurological: Alert, Oriented, No Motor/Sensory Deficits EKG INTERPRETATION EKG Date: 04/09/17 Time: 00:35 Rhythm: other (Ventricular paced rhythm) Rate (beats/min): 77 Course - Vital Signs Last Recorded V/S: Last Vital Signs Temp 97.5 F 04/09/17 00:30 Pulse 83 04/09/17 00:30 Resp 17 04/09/17 00:30 BP Pulse Ox 97 04/09/17 00:30 - Orders/Labs/Meds Orders: Active Orders 24 hr Category Date Time Status Cardiac Monitoring [RC] . DIRECTED Care 04/09/17 00:40 Active EKG Documentation Completion [RC] STAT Care 04/09/17 00:40 Active Oxygen Therapy [RC] PRN Care 04/09/17 00:40 Active Peripheral IV Care [RC] . DIRECTED Care 04/09/17 00:40 Active Chest 1V Frontal [CR] Stat Exams 04/09/17 00:40 Taken CULTURE URINE [RM] Stat Lab 04/09/17 02:33 Ordered Levofloxacin/Dextrose 5%-Water [Levaquin in D5W 500 MG/ Med 04/09/17 02:33 Active 100 ML] 500 mg Premix Bag 1 bag IV ONETIME Sodium Chloride 0.9% [Saline Flush] Med 04/09/17 00:40 Active 10 ml FLUSH ASDIRECTED PRN Peripheral IV Insertion Adult [OM.PC] Stat Oth 04/09/17 00:40 Ordered Medication Orders Levofloxacin/Dextrose 500 mg/ (Premix) 100 mls @ 100 mls/hr IV ONETIME ONE Stop: 04/09/17 03:32 Sodium Chloride (Saline Flush) 10 ml FLUSH ASDIRECTED PRN PRN Reason: Keep Vein Open Last Admin: 04/09/17 00:42 Dose: 10 ml Labs: Laboratory Tests 04/09/17 04/09/17 04/09/17 Range/Units 00:48 01:00 01:00 WBC 4.92 (3.98-10.04) K/mm3 RBC 3.52 L (3.98-5.22) M/mm3 Hgb 10.2 L (11.2-15.7) gm/L Hct 31.4 L (34.1-44.9) % MCV 89.2 (79.4-94.8) fl MCH 29.0 (25.6-32.2) pg MCHC 32.5 (32.2-35.5) g/dl RDW Std Deviation 49.7 H (36.4-46.3) fL Plt Count 147 L (182-369) K/mm3 MPV 10.9 (9.4-12.3) fl Neut % (Auto) 57.5 (34.0-71.1) % Lymph % (Auto) 27.6 (19.3-51.7) % Karn[place] % (Auto) 9.6 (4.7-12.5) % Eos % (Auto) 4.5 (0.7-5.8) Baso % (Auto) 0.4 (0.1-1.2) % Neut # (Auto) 2.83 (1.56-6.13) K/mm3 Lymph # (Auto) 1.36 (1.18-3.74) K/mm3 Karnes # (Auto) 0.47 H (0.24-0.36) K/mm3 Eos # (Auto) 0.22 (0.04-0.36) K/mm3 Baso # (Auto) 0.02 (0.01-0.08) K/mm3 Sodium 140 (136-145) mEq/L Potassium 4.9 (3.5-5.1) mEq/L Chloride 111 H (98-107) mEq/L Carbon Dioxide 16 L (21-32) mEq/L Anion Gap 17.9 H (5-15) BUN 68 H (7-18) mg/dL Creatinine 2.1 H (0.55-1.02) mg/dL Est Cr Clr Drug Dosing 31.86 mL/min Estimated GFR (MDRD) 25 (>60) mL/min BUN/Creatinine Ratio 32.4 H (14-18) Glucose 290 H (74-106) mg/dL Calcium 8.1 L (8.5-10.1) mg/dL Total Bilirubin 0.3 (0.2-1.0) mg/dL AST 26 (15-37) U/L ALT 27 (14-59) U/L Alkaline Phosphatase 107 (46-116) U/L Troponin I 0.284 H* (0.00-0.056) ng/mL B-Natriuretic Peptide (0-100) pg/mL Total Protein 6.5 (6.4-8.2) g/dl Albumin 2.6 L (3.4-5.0) g/dl Globulin 3.9 gm/dL Albumin/Globulin Ratio 0.7 L (1-2) Urine Color Light yellow (Yellow) Urine Appearance Clear (Clear) Urine pH 6.5 (5.0-8.0) Ur Specific [place] 1.025 (1.005-1.030) Urine Protein 3+ H (Negative) Urine Glucose (UA) 1+ H (Negative) Urine Ketones Negative (Negative) Urine Occult Blood 1+ H (Negative) Urine Nitrite Negative (Negative) Urine Bilirubin Negative (Negative) Urine Urobilinogen 0.2 (0.2-1.0) Ur Leukocyte Esterase Trace H (Negative) Urine RBC 5-10 H (0-5) /hpf Urine WBC 30-40 H (0-5) /hpf Urine WBC Clumps Few (NOT SEEN) /hpf Ur Epithelial Cells Not Reportable Ur Squamous Epith Cells 20-30 H (0-5) /hpf Urine Bacteria Few (FEW) /hpf Urine Mucus Not seen (FEW) /hpf 04/09/17 Range/Units 01:00 WBC (3.98-10.04) K/mm3 RBC (3.98-5.22) M/mm3 Hgb (11.2-15.7) gm/L Hct (34.1-44.9) % MCV (79.4-94.8) fl MCH (25.6-32.2) pg MCHC (32.2-35.5) g/dl RDW Std Deviation (36.4-46.3) fL Plt Count (182-369) K/mm3 MPV (9.4-12.3) fl Neut % (Auto) (34.0-71.1) % Lymph % (Auto) (19.3-51.7) % Karnes % (Auto) (4.7-12.5) % Eos % (Auto) (0.7-5.8) Baso % (Auto) (0.1-1.2) % Neut # (Auto) (1.56-6.13) K/mm3 Lymph # (Auto) (1.18-3.74) K/mm3 Karnes # (Auto) (0.24-0.36) K/mm3 Eos # (Auto) (0.04-0.36) K/mm3 Baso # (Auto) (0.01-0.08) K/mm3 Sodium (136-145) mEq/L Potassium (3.5-5.1) mEq/L Chloride (98-107) mEq/L Carbon Dioxide (21-32) mEq/L Anion Gap (5-15) BUN (7-18) mg/dL Creatinine (0.55-1.02) mg/dL Est Cr Clr Drug Dosing mL/min Estimated GFR (MDRD) (>60) mL/min BUN/Creatinine Ratio (14-18) Glucose (74-106) mg/dL Calcium (8.5-10.1) mg/dL Total Bilirubin (0.2-1.0) mg/dL AST (15-37) U/L ALT (14-59) U/L Alkaline Phosphatase (46-116) U/L Troponin I (0.00-0.056) ng/mL B-Natriuretic Peptide 835 H (0-100) pg/mL Total Protein (6.4-8.2) g/dl Albumin (3.4-5.0) g/dl Globulin gm/dL Albumin/Globulin Ratio (1-2) Urine Color (Yellow) Urine Appearance (Clear) Urine pH (5.0-8.0) Ur Specific [place] (1.005-1.030) Urine Protein (Negative) Urine Glucose (UA) (Negative) Urine Ketones (Negative) Urine Occult Blood (Negative) Urine Nitrite (Negative) Urine Bilirubin (Negative) Urine Urobilinogen (0.2-1.0) Ur Leukocyte Esterase (Negative) Urine RBC (0-5) /hpf Urine WBC (0-5) /hpf Urine WBC Clumps (NOT SEEN) /hpf Ur Epithelial Cells Ur Squamous Epith Cells (0-5) /hpf Urine Bacteria (FEW) /hpf Urine Mucus (FEW) /hpf Meds: Medications Generic Name Dose Route Start Last Admin Trade Name Freq PRN Reason Stop Dose Admin Levofloxacin/Dextrose 500 mg/ 100 mls @ 100 mls/hr 04/09/17 02:33 Premix IV 04/09/17 03:32 ONETIME ONE Sodium Chloride 10 ml 04/09/17 00:40 04/09/17 00:42 Saline Flush FLUSH 10 ml ASDIRECTED PRN Administration Keep Vein Open Discontinued Medications Generic Name Dose Route Start Last Admin Trade Name Freq PRN Reason Stop Dose Admin Furosemide 40 mg 04/09/17 02:33 Lasix IVPUSH 04/09/17 02:34 ONETIME ONE Morphine Sulfate 4 mg 04/09/17 01:15 04/09/17 01:23 Morphine IVPUSH 04/09/17 01:16 4 mg ONETIME ONE Administration - Re-Assessments/Exams Free Text/Narrative Re-Assessment/Exam: 04/09/17 01:36 EMS called in for orders on the way in. She had a CPAP on and they were wanting to give some lasix so I okayed that order and I wanted them to give her some nitro if she had more shortness of breath. I ordered oxygen here, EKG, CXR , labs, and UA. 04/09/17 02:35 Her EKG shows a paced rhythm. Her CXR shows cardiomegaly with congestive changes. Her WBC was normal. Her Hgb is low at 10.2. Her anion gap is elevated at 17.9. Her creatinine is elevated at 2.1. Her glucose is elevated at 290. Her troponin is elevated at 0.284. Her BNP is elevated at 835. Her UA shows a possible UTI. She has some squamis cells. I will give her some levaquin 500mg IV and get a urine culture. I will also give her some lasix 40mg IV. She is in failure and she has a UTI. It appears she is failing outpatient treatment with macrobid. I feel she needs to be admitted. I called Dr Blakely and she agreed to the admission. Departure - Departure Time of Disposition: 02:45 Disposition: Admitted As Inpatient 65 Condition: fair Clinical Impression: Renal insufficiency, Elevated troponin CHF exacerbation Qualifiers: Congestive heart failure type: systolic Qualified Code(s): I50.23 - Acute on chronic systolic (congestive) heart failure Urinary tract infection Qualifiers: Urinary tract infection type: site unspecified Hematuria presence: without hematuria Qualified Code(s): N39.0 - Urinary tract infection, site not specified - Discharge Information Forms: ED Department Discharge - My Orders Last 24 Hours: My Active Orders 04/09/17 00:40 Cardiac Monitoring [RC] . DIRECTED EKG Documentation Completion [RC] STAT Oxygen Therapy [RC] PRN Peripheral IV Care [RC] . DIRECTED Chest 1V Frontal [CR] Stat Sodium Chloride 0.9% [Saline Flush] 10 ml FLUSH ASDIRECTED PRN Peripheral IV Insertion Adult [OM.PC] Stat 04/09/17 02:33 CULTURE URINE [RM] Stat Levofloxacin/Dextrose 5%-Water [Levaquin in D5W 500 MG/100 ML] 500 mg Premix Bag 1 bag IV ONETIME - Assessment/Plan Last 24 Hours: My Active Orders 04/09/17 00:40 Cardiac Monitoring [RC] . DIRECTED EKG Documentation Completion [RC] STAT Oxygen Therapy [RC] PRN Peripheral IV Care [RC] . DIRECTED Chest 1V Frontal [CR] Stat Sodium Chloride 0.9% [Saline Flush] 10 ml FLUSH ASDIRECTED PRN Peripheral IV Insertion Adult [OM.PC] Stat 04/09/17 02:33 CULTURE URINE [RM] Stat Levofloxacin/Dextrose 5%-Water [Levaquin in D5W 500 MG/100 ML] 500 mg Premix Bag 1 bag IV ONETIME
[2017-04-09] MEDS ORDERED: Furosemide 40 MG/4 ML VIAL IVPUSH ONE ×2 (02:33→07:00)
[2017-04-09] MEDS ORDERED: Levofloxacin/Dextrose 5%-Water 500 MG in Premix Bag 1 BAG IV ONE (02:33)
[2017-04-09] MEDS ORDERED: HYDROmorphone 1 MG/ML Syringe IVPUSH ONE (03:38)
[2017-04-09] MEDS ORDERED: HYDROmorphone 1 MG/ML Syringe ONE (03:41)
[2017-04-09] MEDS: HYDROmorphone 0.5 MG/0.5 ML Syringe IVPUSH PRN ×5 (06:20→21:47)
[2017-04-09] MEDS: Ondansetron 4 MG/2 ML SDV IVPUSH PRN ×2 (08:34→15:26)
--- NOTE | 2017-04-09 09:12 | PCM.HP ---
H&P History of Present Illness - General Date of Service: 04/09/17 Admit Problem/Dx: Admission Diagnosis/Problem Admission Diagnosis/Problem CHF, Congestive heart failure Source of Information: Patient, Provider History Limitations: Reports: No Limitations - History of Present Illness Initial Comments - Free Text/Narative: 47 year old female with ischemic CMP/CHF NYHA III, LVEF 30-35% (2D echo 02/26/17 ) presents with SOB. Has been found to have an acute UTI, received Levoquin in the ED. She denies PND, has orthopnea; she is unable to walk > 100 feet, stopping with SOB. Has not had recent CP, has LE swelling. Reports back pain relieved with Tylenol. Recent hospitalization: 02/16/17-[place]; 02/26/17-Hyperglycemia with sequelae. Previous presenting BNP on recent admission was 1291. Reportedly has been seen by cardiology, but would appear to need an upgrade to a BiV-AICD. Onset of Symptoms: Reports: Gradual Duration of Symptoms: Reports: Day(s):, Getting Worse Location: Reports: Generalized Quality: Reports: Same as Previous Episode Improves with: Reports: Medication Worsens with: Reports: None Associated Symptoms: Reports: Loss of Appetite, Malaise, Nausea/Vomiting, Shortness of Breath, Weakness Bilateral Flank Pain Score (Numeric/FACES): 4 - Related Data Allergies/Adverse Reactions: Allergies Allergy/AdvReac Type Severity Reaction Status Date / Time fentanyl Allergy Itching Verified 04/09/17 04:32 ibuprofen Allergy Hives Verified 04/09/17 04:32 metformin HCl Allergy Hives Verified 04/09/17 04:32 [From Glucophage] spinach Allergy Difficulty Verified 04/09/17 04:32 Breathing catfish Allergy Difficulty Uncoded 04/09/17 00:30 Breathing Home Medications: Home Meds Aspirin [Halfprin] 81 mg PO DAILY 08/10/15 [History] Carvedilol 6.25 mg PO BID 08/10/15 [History] Clopidogrel [Plavix] 75 mg PO DAILY 08/10/15 [History] Insulin Aspart [Novolog Flexpen] 8 unit SQ TIDMEALS PRN 08/10/15 [History] Insulin Detemir [Levemir] 15 unit SUBCUT QPM 08/10/15 [History] Acetaminophen [Acetaminophen 8 Hour] 650 mg PO Q4H PRN 02/16/17 [History] Isosorbide Mononitrate [Isosorbide Mononitrate ER] 30 mg PO DAILY 02/16/17 [ History] Metolazone 5 mg PO ASDIRECTED 02/16/17 [History] Torsemide [Demadex] 60 mg PO DAILY 02/16/17 [History] Lisinopril [Prinivil] 2.5 mg PO DAILY 04/09/17 [History] Nitrofurantoin [place]/Macrocryst [Macrobid] 100 mg PO BID 04/09/17 [History] Nitroglycerin 0.4 mg PO ASDIRECTED PRN 04/09/17 [History] Pantoprazole [ProTONIX] 40 mg PO DAILY 04/09/17 [History] Rosuvastatin [Crestor] 20 mg PO DAILY 04/09/17 [History] Past Medical History Other HEENT History: no upper teeth--no dentures-----> pt says she does not have upper dentures however when getting home meds out of her backpack for her she had upper dentures in the pocket of the backpack. Pt says she wears glasses but left them in [place]. Cardiovascular History: Reports: CAD, Heart Failure, High Cholesterol, Hypertension, [place], PVD, Stents Other Cardiovascular History: defiberallator Respiratory History: Reports: COPD, Sleep Apnea, Other (See Below) Other Respiratory History: uses CPAP at night Gastrointestinal History: Reports: GERD Other Gastrointestinal History: hernia noted Genitourinary History: Reports: Chronic Renal Insuffiency, Renal Calculus, Urinary Incontinence Other Genitourinary History: history of kidney stones, dawkins when I pee. 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: Neurological History: Reports: Neuropathy, Peripheral Psychiatric History: Reports: Anxiety, Depression Endocrine/Metabolic History: Reports: Diabetes, Type II, Obesity/BMI 30+ Hematologic History: Reports: Anemia Other Dermatologic History: "boil on private parts" - Infectious Disease History Infectious Disease History: Reports: None - Past Surgical History HEENT Surgical History: Reports: Tonsillectomy Cardiovascular Surgical History: Reports: AICD, Coronary Artery Stent, Pacer GI Surgical History: Reports: Appendectomy Female Surgical History: Reports: Section Musculoskeletal Surgical History: Reports: ORIF Social & Family History - Family History Family Medical History: Noncontributory Cardiac: Reports: CAD, Heart Failure Endocrine/Metabolic: Reports: Diabetes, type II Oncologic: Reports: Breast - Tobacco Use Smoking Status *Q: Former Smoker Years of Tobacco use: 27 Packs/Tins Daily: 1 Used Tobacco, but Quit: Yes Month Tobacco Last Used: 2011 Second Hand Smoke Exposure: No - Caffeine Use Caffeine Use: Reports: Coffee Other Caffeine Use: says she is a big coffee drinker - Recreational Drug Use Recreational Drug Use: Yes Drug Use in Last 12 Months: Yes Recreational Drug Type: Reports: Marijuana/Hashish Recreational Drug Use Frequency: Weekly Recreational Drug Last Use: "about 2 weeks ago" - Living Situation & Occupation Living situation: Reports: , with Family Occupation: Unemployed H&P Review of Systems - Review of Systems: Review Of Systems: See Below General: Reports: Malaise, Weakness, Fatigue, Decreased Appetite, Weight Gain HEENT: Reports: No Symptoms Pulmonary: Reports: Shortness of Breath Cardiovascular: Reports: Lightheadedness Gastrointestinal: Reports: No Symptoms Genitourinary: Reports: Frequency Musculoskeletal: Reports: Back Pain Skin: Reports: No Symptoms Psychiatric: Reports: No Symptoms Neurological: Reports: No Symptoms Hematologic/Lymphatic: Reports: No Symptoms Immunologic: Reports: No Symptoms Exam - Exam Exam: See Below - Vital Signs Vital Signs: Last Vital Signs Temp 36.7 C 04/09/17 08:08 Pulse 73 04/09/17 08:08 Resp 16 04/09/17 08:08 BP 105/90 04/09/17 08:08 Pulse Ox 98 04/09/17 08:08 Weight: 106.594 kg - Exam Quality Assessment: Supplemental Oxygen, DVT Prophylaxis General: Alert, Oriented, Cooperative HEENT: EACs Clear, EOMI, Nares Patent, Normal Nasal Septum, Pupils Equal, Pupils Reactive, PERRLA Neck: Supple, Trachea Midline Lungs: Normal Respiratory Effort, Decreased Breath Sounds, Crackles Cardiovascular: Regular Rate, Systolic Murmur Abdomen: Normal Bowel Sounds, Soft (Female) Exam: Deferred Rectal (Female) Exam: Deferred Back Exam: Normal Inspection Extremities: Normal Pulses Skin: Warm Neurological: Cranial Nerves Intact, Normal Speech Neuro Extensive - Mental Status: Alert, Oriented x3, Normal Mood/Affect Neuro Extensive - Motor, Sensory, Reflexes: CN II-XII Intact Psychiatric: Alert - Patient Data Lab Results last 24 hrs: Laboratory Results - last 24 hr 04/09/17 Range/Units 06:22 Sodium 140 (136-145) mEq/L Potassium 5.0 (3.5-5.1) mEq/L Chloride 110 H (98-107) mEq/L Carbon Dioxide 19 L (21-32) mEq/L Anion Gap 16.0 H (5-15) BUN 64 H (7-18) mg/dL Creatinine 2.1 H (0.55-1.02) mg/dL Est Cr Clr Drug Dosing 31.86 mL/min Estimated GFR (MDRD) 25 (>60) mL/min BUN/Creatinine Ratio 30.5 H (14-18) Glucose 231 H (74-106) mg/dL Calcium 8.4 L (8.5-10.1) mg/dL Total Bilirubin 0.3 (0.2-1.0) mg/dL AST 25 (15-37) U/L ALT 24 (14-59) U/L Alkaline Phosphatase 105 (46-116) U/L Troponin I 0.285 H* (0.00-0.056) ng/mL Total Protein 6.3 L (6.4-8.2) g/dl Albumin 2.5 L (3.4-5.0) g/dl Globulin 3.8 gm/dL Albumin/Globulin Ratio 0.7 L (1-2) Result Diagrams: 04/09/17 06:22 04/09/17 06:22 *Q Meaningful Use (ADM) - VTE *Q VTE Criteria *Q: - Stroke *Q Stroke Criteria *Q: - AMI *Q AMI Criteria *Q: - Problem List (1) CHF exacerbation SNOMED Code(s): 14132587 ICD Code: I50.9 - HEART FAILURE, UNSPECIFIED Status: Acute Current Visit : Yes Qualifiers: Congestive heart failure type: systolic Qualified Code(s): I50.23 - Acute on chronic systolic (congestive) heart failure (2) Elevated troponin SNOMED Code(s): 366826953, 003766739 ICD Code: R79.89 - OTHER SPECIFIED ABNORMAL FINDINGS OF BLOOD CHEMISTRY Status: Acute Current Visit: Yes (3) Renal insufficiency SNOMED Code(s): 741405009, 828358210 ICD Code: N28.9 - DISORDER OF KIDNEY AND URETER, UNSPECIFIED Status: Acute Current Visit: Yes (4) Urinary tract infection SNOMED Code(s): 10905675 ICD Code: N39.0 - URINARY TRACT INFECTION, SITE NOT SPECIFIED Status: Acute Current Visit: Yes Qualifiers: Urinary tract infection type: site unspecified Hematuria presence: without hematuria Qualified Code(s): N39.0 - Urinary tract infection, site not specified (5) Abdominal pain SNOMED Code(s): 06726689 ICD Code: R10.9 - UNSPECIFIED ABDOMINAL PAIN Status: Acute Current Visit : No (6) Acute coronary syndrome SNOMED Code(s): 804943125 ICD Code: I24.9 - ACUTE ISCHEMIC HEART DISEASE, UNSPECIFIED Status: Acute Current Visit: No (7) Anemia SNOMED Code(s): 934413377 ICD Code: D64.9 - ANEMIA, UNSPECIFIED Status: Acute Current Visit: No Qualifiers: Anemia type: unspecified type Qualified Code(s): D64.9 - Anemia, unspecified Problem List Initiated/Reviewed/Updated: Yes Orders Last 24hrs: Active Orders 24 hr Category Date Time Status Patient Status [ADT] Routine ADT 04/09/17 04:27 Active Bedrest Bathroom Privileges [RC] QSHIFT Care 04/09/17 05:12 Active EKG 12 Lead [EKG Documentation Completion] [RC] STAT Care 04/09/17 07:14 Active Oxygen Therapy [RC] ASDIRECTED Care 04/09/17 05:12 Active Cardiac [Heart Healthy Diet] [DIET] Diet 04/09/17 Breakfast Active TROPONIN I [CHEM] Routine Lab 04/09/17 10:30 Ordered HYDROmorphone [Dilaudid] Med 04/09/17 05:12 Active 0.5 mg IVPUSH Q2H PRN Levofloxacin/Dextrose 5%-Water [Levaquin in D5W 500 MG/ Med 04/10/17 03:00 Active 100 ML] 500 mg Premix Bag 1 bag IV Q24H Ondansetron [Zofran] Med 04/09/17 07:53 Active 4 mg IVPUSH Q4H PRN Resuscitation Status Routine Resus Stat 04/09/17 05:08 Ordered Medication Orders Hydromorphone HCl (Dilaudid) 0.5 mg IVPUSH Q2H PRN PRN Reason: Pain (severe 7-10) Last Admin: 04/09/17 06:20 Dose: 0.5 mg Levofloxacin/Dextrose 500 mg/ (Premix) 100 mls @ 100 mls/hr IV Q24H ANIKET Ondansetron HCl (Zofran) 4 mg IVPUSH Q4H PRN PRN Reason: Nausea Last Admin: 04/09/17 08:34 Dose: 4 mg Sodium Chloride (Saline Flush) 10 ml FLUSH ASDIRECTED PRN PRN Reason: Keep Vein Open Last Admin: 04/09/17 00:42 Dose: 10 ml Assessment/Plan Comment:: Impression: AUTI Acute exacerbation of CHF, NYHA III CAD/ICMP; LVEF 30-35% Type 2 AMI/necrosis Chronic back Hx of ventral hernia, stable Gastroparesis Diabetes Mellitus, HgbA1C 11.30 Plan: Diurese Continue Levoquib IV, await [facility] Novolog insulin with 2000 ADA/heart healthy Adjust CHF/CAD meds Fluid restriction Cardiac rehab re: CHF Needs upgrade ie BiVAICD Renal US Spot urine for Protein/Cr
[2017-04-09] MEDS ORDERED: Nitroglycerin 0.4 MG Tab.SL SL PRN (09:14)
--- NOTE | 2017-04-09 09:37 | CR ---
Chest: Portable view of the chest was obtained. Comparison: Previous chest x-ray of 02/25/17. Heart size is normal. Coronary artery stent is present. Lungs are clear with no acute infiltrates. AICD is present. Bony structures are grossly intact. Impression: 1. Incidental findings. Nothing acute is identified on portable chest x-ray. Diagnostic code #2
[2017-04-09] MEDS ORDERED: Bumetanide 1 MG/4 ML MDV IVPUSH ONE (09:45)
[2017-04-09] MEDS: Clopidogrel 75 MG Tab PO SCH (10:08)
[2017-04-09] MEDS: Carvedilol 6.25 MG Tab PO SCH ×2 (10:08→20:54)
[2017-04-09] MEDS: Insulin Aspart 100 Units/ML 3 ML Pen SUBCUT SCH (21:47)
[2017-04-10] MEDS: HYDROmorphone 0.5 MG/0.5 ML Syringe IVPUSH PRN ×3 (02:32→09:22)
[2017-04-10] MEDS ORDERED: Levofloxacin/Dextrose 5%-Water 500 MG in Premix Bag 1 BAG IV SCH (03:00)
[2017-04-10] MEDS: Ondansetron 4 MG/2 ML SDV IVPUSH PRN ×2 (04:00→09:23)
[2017-04-10] MEDS ORDERED: Rosuvastatin 10 MG Tab PO SCH (09:00)
[2017-04-10] MEDS ORDERED: Enoxaparin 30 MG/0.3 ML Syringe SUBCUT SCH (09:00)
[2017-04-10] MEDS ORDERED: Pantoprazole 40 MG Tab.CR PO SCH (09:00)
[2017-04-10] MEDS ORDERED: Isosorbide Mononitrate 30 MG Tab.ER PO SCH (09:00)
[2017-04-10] MEDS ORDERED: Aspirin 81 MG Tab.EC PO SCH (09:00)
[2017-04-10] MEDS: Insulin Aspart 100 Units/ML 3 ML Pen SUBCUT SCH (09:21)
[2017-04-10] MEDS: Carvedilol 6.25 MG Tab PO SCH (09:22)
[2017-04-10] MEDS: Clopidogrel 75 MG Tab PO SCH (09:22)
--- NOTE | 2017-04-10 10:26 | PCM.PN ---
- General Info Date of Service: 04/10/17 Functional Status: Reports: pain controlled (poor control), tolerating diet, ambulating, urinating - Review of Systems General: Reports: Weakness, Fatigue HEENT: Reports: headaches Pulmonary: Reports: shortness of breath Cardiovascular: Reports: No Symptoms Gastrointestinal: Reports: No symptoms Genitourinary: Reports: no symptoms Musculoskeletal: Reports: no symptoms Skin: Reports: no symptoms Neurological: Reports: No Symptoms Psychiatric: Reports: depression - Patient Data Vitals - most recent: Last Vital Signs Temp 36.8 C 04/10/17 08:41 Pulse 70 04/10/17 09:22 Resp 18 04/10/17 08:41 BP 119/85 04/10/17 09:22 Pulse Ox 98 04/10/17 08:41 Weight - most recent: 101.922 kg I&O - last 24 hours: Intake & Output 04/09/17 04/10/17 04/10/17 22:59 06:59 14:59 Intake Total 640 550 Output Total 1850 1001 Balance -1210 -451 Lab Results last 24 hrs: Laboratory Results - last 24 hr 04/09/17 04/09/17 04/10/17 Range/Units 10:32 21:46 06:05 WBC (3.98-10.04) K/mm3 RBC (3.98-5.22) M/mm3 Hgb (11.2-15.7) gm/L Hct (34.1-44.9) % MCV (79.4-94.8) fl MCH (25.6-32.2) pg MCHC (32.2-35.5) g/dl RDW Std Deviation (36.4-46.3) fL Plt Count (182-369) K/mm3 MPV (9.4-12.3) fl Neut % (Auto) (34.0-71.1) % Lymph % (Auto) (19.3-51.7) % [place] % (Auto) (4.7-12.5) % Eos % (Auto) (0.7-5.8) Baso % (Auto) (0.1-1.2) % Neut # (Auto) (1.56-6.13) K/mm3 Lymph # (Auto) (1.18-3.74) K/mm3 [place] # (Auto) (0.24-0.36) K/mm3 Eos # (Auto) (0.04-0.36) K/mm3 Baso # (Auto) (0.01-0.08) K/mm3 Sodium 141 (136-145) mEq/L Potassium 5.2 H (3.5-5.1) mEq/L Chloride 110 H (98-107) mEq/L Carbon Dioxide 18 L (21-32) mEq/L Anion Gap 18.2 H (5-15) BUN 62 H (7-18) mg/dL Creatinine 2.1 H (0.55-1.02) mg/dL Est Cr Clr Drug Dosing 31.86 mL/min Estimated GFR (MDRD) 25 (>60) mL/min BUN/Creatinine Ratio 29.5 H (14-18) Glucose 167 H (74-106) mg/dL POC Glucose 204 H (70-105) mg/dL Calcium 8.4 L (8.5-10.1) mg/dL Troponin I 0.278 H* (0.00-0.056) ng/mL B-Natriuretic Peptide (0-100) pg/mL 04/10/17 04/10/17 04/10/17 Range/Units 06:05 06:05 06:25 WBC 4.71 (3.98-10.04) K/mm3 RBC 3.53 L (3.98-5.22) M/mm3 Hgb 10.2 L (11.2-15.7) gm/L Hct 31.5 L (34.1-44.9) % MCV 89.2 (79.4-94.8) fl MCH 28.9 (25.6-32.2) pg MCHC 32.4 (32.2-35.5) g/dl RDW Std Deviation 48.7 H (36.4-46.3) fL Plt Count 147 L (182-369) K/mm3 MPV 10.7 (9.4-12.3) fl Neut % (Auto) 69.5 (34.0-71.1) % Lymph % (Auto) 20.0 (19.3-51.7) % [place] % (Auto) 7.6 (4.7-12.5) % Eos % (Auto) 2.5 (0.7-5.8) Baso % (Auto) 0.4 (0.1-1.2) % Neut # (Auto) 3.27 (1.56-6.13) K/mm3 Lymph # (Auto) 0.94 L (1.18-3.74) K/mm3 [place] # (Auto) 0.36 (0.24-0.36) K/mm3 Eos # (Auto) 0.12 (0.04-0.36) K/mm3 Baso # (Auto) 0.02 (0.01-0.08) K/mm3 Sodium (136-145) mEq/L Potassium (3.5-5.1) mEq/L Chloride (98-107) mEq/L Carbon Dioxide (21-32) mEq/L Anion Gap (5-15) BUN (7-18) mg/dL Creatinine (0.55-1.02) mg/dL Est Cr Clr Drug Dosing mL/min Estimated GFR (MDRD) (>60) mL/min BUN/Creatinine Ratio (14-18) Glucose (74-106) mg/dL POC Glucose 170 H (70-105) mg/dL Calcium (8.5-10.1) mg/dL Troponin I (0.00-0.056) ng/mL B-Natriuretic Peptide 1159 H (0-100) pg/mL Med Orders - Current: Current Medications Aspirin (Halfprin) 81 mg PO DAILY [facility] Last Admin: 04/10/17 09:22 Dose: 81 mg Carvedilol (Coreg) 6.25 mg PO BID [facility] Last Admin: 04/10/17 09:22 Dose: 6.25 mg Clopidogrel Bisulfate (Plavix) 75 mg PO DAILY [facility] Last Admin: 04/10/17 09:22 Dose: 75 mg Enoxaparin Sodium (Lovenox) 30 mg SUBCUT DAILY [facility] Last Admin: 04/10/17 09:21 Dose: 30 mg Hydromorphone HCl (Dilaudid) 0.5 mg IVPUSH Q2H PRN PRN Reason: Pain (severe 7-10) Last Admin: 04/10/17 09:22 Dose: 0.5 mg Levofloxacin/Dextrose 500 mg/ (Premix) 100 mls @ 100 mls/hr IV Q24H [facility] Last Admin: 04/10/17 02:33 Dose: 100 mls/hr Insulin Aspart (Novolog) 0 unit SUBCUT BIDMEALS [facility] PRN Reason: Protocol Last Admin: 04/10/17 09:21 Dose: Not Given Isosorbide Mononitrate (Imdur) 30 mg PO DAILY [facility] Last Admin: 04/10/17 09:22 Dose: 30 mg Nitroglycerin (Nitrostat) 0.4 mg SL ASDIRECTED PRN PRN Reason: Chest Pain Ondansetron HCl (Zofran) 4 mg IVPUSH Q4H PRN PRN Reason: Nausea Last Admin: 04/10/17 09:23 Dose: 4 mg Pantoprazole Sodium (Protonix) 40 mg PO DAILY [facility] Last Admin: 04/10/17 09:22 Dose: 40 mg Rosuvastatin Calcium (Crestor) 20 mg PO DAILY [facility] Last Admin: 04/10/17 09:21 Dose: 20 mg Sodium Chloride (Saline Flush) 10 ml FLUSH ASDIRECTED PRN PRN Reason: Keep Vein Open Last Admin: 04/09/17 00:42 Dose: 10 ml Discontinued Medications Bumetanide (Bumex) 1 mg IVPUSH ONETIME ONE Stop: 04/09/17 09:46 Last Admin: 04/09/17 10:09 Dose: 1 mg Furosemide (Lasix) 40 mg IVPUSH ONETIME ONE Stop: 04/09/17 02:34 Last Admin: 04/09/17 02:50 Dose: 40 mg Furosemide (Lasix) 80 mg IVPUSH NOW ONE Stop: 04/09/17 07:01 Last Admin: 04/09/17 06:26 Dose: 80 mg Hydromorphone HCl (Dilaudid) 1 mg IVPUSH ONETIME ONE Stop: 04/09/17 03:39 Last Admin: 04/09/17 03:41 Dose: 1 mg Hydromorphone HCl (Dilaudid) Confirm Administered Dose 1 mg .ROUTE .STK-MED ONE Stop: 04/09/17 03:42 Last Admin: 04/09/17 05:43 Dose: Not Given Levofloxacin/Dextrose 500 mg/ (Premix) 100 mls @ 100 mls/hr IV ONETIME ONE Stop: 04/09/17 03:32 Last Admin: 04/09/17 02:51 Dose: 100 mls/hr Morphine Sulfate (Morphine) 4 mg IVPUSH ONETIME ONE Stop: 04/09/17 01:16 Last Admin: 04/09/17 01:23 Dose: 4 mg - Exam Quality Assessment: DVT prophylaxis General: alert, oriented, no acute distress HEENT: Pupils equal, Pupils reactive, EOMI Neck: supple, trachea midline Lungs: Normal respiratory effort, Decreased breath sounds, Crackles Cardiovascular: Regular Rate Abdomen: bowel sounds present, soft, no tenderness, no distension (Female) Exam: Deferred Back Exam: Normal Inspection Extremities: normal pulses Skin: warm Neurological: no new focal deficit Psy/Mental Status: alert, depressed - Problem List & Annotations (1) CHF exacerbation SNOMED Code(s): 68151104 Code(s): I50.9 - HEART FAILURE, UNSPECIFIED Status: Acute Current Visit: Yes Qualifiers: Congestive heart failure type: systolic Qualified Code(s): I50.23 - Acute on chronic systolic (congestive) heart failure (2) Elevated troponin SNOMED Code(s): 802144714, 368537189 Code(s): R79.89 - OTHER SPECIFIED ABNORMAL FINDINGS OF BLOOD CHEMISTRY Status: Acute Current Visit: Yes (3) Renal insufficiency SNOMED Code(s): 358807089, 135127320 Code(s): N28.9 - DISORDER OF KIDNEY AND URETER, UNSPECIFIED Status: Acute Current Visit: Yes (4) Urinary tract infection SNOMED Code(s): 10742436 Code(s): N39.0 - URINARY TRACT INFECTION, SITE NOT SPECIFIED Status: Acute Current Visit: Yes Qualifiers: Urinary tract infection type: site unspecified Hematuria presence: without hematuria Qualified Code(s): N39.0 - Urinary tract infection, site not specified (5) Abdominal pain SNOMED Code(s): 30880659 Code(s): R10.9 - UNSPECIFIED ABDOMINAL PAIN Status: Acute Current Visit: No (6) Acute coronary syndrome SNOMED Code(s): 388510802 Code(s): I24.9 - ACUTE ISCHEMIC HEART DISEASE, UNSPECIFIED Status: Acute Current Visit: No (7) Anemia SNOMED Code(s): 508337536 Code(s): D64.9 - ANEMIA, UNSPECIFIED Status: Acute Current Visit: No Qualifiers: Anemia type: unspecified type Qualified Code(s): D64.9 - Anemia, unspecified - Problem List Review Problem List Initiated/Reviewed/Updated: Yes - My Orders Last 24 Hours: My Active Orders 04/09/17 09:44 Consult to Cardiac Rehabilitation [CONS] Routine Congestive Heart Failure Education [OM.PC] Routine 04/09/17 10:47 Code Status [Resuscitation Status] Routine 04/09/17 21:00 Blood Glucose Check, Bedside [RC] Insulin Aspart [NovoLOG] See Protocol SUBCUT BIDMEALS 04/09/17 Lunch ADA Diabetic [[place] [employer] Diet] [DIET] Fluid Restriction [DIET] 04/10/17 09:00 Aspirin [Halfprin] 81 mg PO DAILY Enoxaparin [Lovenox] 30 mg SUBCUT DAILY Isosorbide Mononitrate [Imdur] 30 mg PO DAILY Pantoprazole [ProTONIX] 40 mg PO DAILY Rosuvastatin [Crestor] 20 mg PO DAILY 04/10/17 09:15 Activity as Tolerated [RC] .Routine 04/11/17 05:00 B-TYPE NATRIURETIC PEPTIDE,BNP [CHEM] DAILY BMP [BASIC METABOLIC PANEL,BMP] [CHEM] DAILY 04/11/17 09:26 CBC WITH AUTO DIFF [HEME] DAILY 04/12/17 05:00 B-TYPE NATRIURETIC PEPTIDE,BNP [CHEM] DAILY BMP [BASIC METABOLIC PANEL,BMP] [CHEM] DAILY 04/12/17 07:00 CBC W/O DIFF,HEMOGRAM [HEME] MOTH@0700 04/12/17 09:26 CBC WITH AUTO DIFF [HEME] DAILY 04/13/17 05:00 B-TYPE NATRIURETIC PEPTIDE,BNP [CHEM] DAILY BMP [BASIC METABOLIC PANEL,BMP] [CHEM] DAILY 04/16/17 07:00 CBC W/O DIFF,HEMOGRAM [HEME] MOTH@0700 04/19/17 07:00 CBC W/O DIFF,HEMOGRAM [HEME] MOTH@0700 04/23/17 07:00 CBC W/O DIFF,HEMOGRAM [HEME] MOTH@0700 04/26/17 07:00 CBC W/O DIFF,HEMOGRAM [HEME] MOTH@0700 04/30/17 07:00 CBC W/O DIFF,HEMOGRAM [HEME] MOTH@0700 - Plan Plan:: Impression: AUTI with persistent dysuria Acute exacerbation of CHF, NYHA III CAD/ICMP; LVEF 30-35% Type 2 AMI/necrosis Chronic back Hx of ventral hernia, stable Gastroparesis Diabetes Mellitus, HgbA1C 11.30 Plan: Add pyridium Continue Levoquib IV, await UC SS Novolog insulin with 1999 ADA/heart healthy Adjust CHF/CAD meds Fluid restriction, 2000 cc by mouth Cardiac rehab re: CHF Needs upgrade ie BiVAICD Renal US Spot urine for Protein/Cr DVT/GI prophylaxis
[2017-04-10] MEDS ORDERED: Bumetanide 1 MG/4 ML MDV IVPUSH ONE (10:36)
[2017-04-10] MEDS ORDERED: Acetaminophen 325 MG Tab PO PRN (11:52)
--- NOTE | 2017-04-10 14:38 | US ---
Renal ultrasound: Multiple real-time images of the kidneys were obtained. Comparison: Previous CT study of 02/27/17 showing the kidneys, no previous renal ultrasound. Right kidney was seen on ultrasound of the right upper quadrant dated 02/26/17. Findings: Kidneys show no hydronephrosis or mass. No shadowing calculi are seen. Resistivity indices are mildly increased within both kidneys. Right kidney measures 10.9 cm in length. Left kidney measures 10.0 cm in length. Prevoid volume within the bladder is 358 mL and post void volume is 31 mL. Impression: 1. Mildly elevated resistivity indices within both kidneys compatible with medical renal disease. 2. Small post void residual within the bladder. 3. No additional abnormality is identified on renal ultrasound study. Diagnostic code #3
[2017-04-10 15:48] VITALS: BP 120/73
[2017-04-10] MEDS ORDERED: Phenazopyridine 95 MG Tab PO SCH (16:00)
[2017-04-10] MEDS ORDERED: Metoclopramide 10 MG/2 ML SDV IVPUSH SCH (17:00)
--- NOTE | 2017-04-10 18:59 | PCM.DCSUM1 ---
Discharge Summary - Hospital Course HPI Initial Comments: 47 year old female treatment for AUTI and CHF, signed out AMA. Please see progress not for 04/10/17. - Discharge Data Discharge Date: 04/10/17 Discharge Disposition: Against Medical Advice 07 Condition: Good - Discharge Diagnosis/Problem(s) (1) CHF exacerbation SNOMED Code(s): 72146706 ICD Code: I50.9 - HEART FAILURE, UNSPECIFIED Status: Acute Current Visit : Yes Qualifiers: Congestive heart failure type: systolic Qualified Code(s): I50.23 - Acute on chronic systolic (congestive) heart failure (2) Elevated troponin SNOMED Code(s): 173920686, 191330188 ICD Code: R79.89 - OTHER SPECIFIED ABNORMAL FINDINGS OF BLOOD CHEMISTRY Status: Acute Current Visit: Yes (3) Renal insufficiency SNOMED Code(s): 451366043, 523642530 ICD Code: N28.9 - DISORDER OF KIDNEY AND URETER, UNSPECIFIED Status: Acute Current Visit: Yes (4) Urinary tract infection SNOMED Code(s): 56338828 ICD Code: N39.0 - URINARY TRACT INFECTION, SITE NOT SPECIFIED Status: Acute Current Visit: Yes Qualifiers: Urinary tract infection type: site unspecified Hematuria presence: without hematuria Qualified Code(s): N39.0 - Urinary tract infection, site not specified (5) Abdominal pain SNOMED Code(s): 25942793 ICD Code: R10.9 - UNSPECIFIED ABDOMINAL PAIN Status: Acute Current Visit : No (6) Acute coronary syndrome SNOMED Code(s): 833921613 ICD Code: I24.9 - ACUTE ISCHEMIC HEART DISEASE, UNSPECIFIED Status: Acute Current Visit: No (7) Anemia SNOMED Code(s): 716559540 ICD Code: D64.9 - ANEMIA, UNSPECIFIED Status: Acute Current Visit: No Qualifiers: Anemia type: unspecified type Qualified Code(s): D64.9 - Anemia, unspecified - Patient Summary/Data Consults: Consultations 04/09/17 09:24 Consult to [facility] [CONS] Routine PT Evaluation and Treatment [CONS] Routine 04/09/17 09:25 OT Evaluation and Treatment [CONS] Routine 04/09/17 09:44 Consult to Cardiac Rehabilitation [CONS] Routine 04/10/17 12:08 Consult to Physician [CONS] Routine - Discharge Plan Home Medications: Home Meds Aspirin [Halfprin] 81 mg PO DAILY 08/10/15 [History] Carvedilol 6.25 mg PO BID 08/10/15 [History] Clopidogrel [Plavix] 75 mg PO DAILY 08/10/15 [History] Insulin Aspart [Novolog Flexpen] 8 unit SQ TIDMEALS PRN 08/10/15 [History] Insulin Detemir [Levemir] 15 unit SUBCUT QPM 08/10/15 [History] Acetaminophen [Acetaminophen 8 Hour] 650 mg PO Q4H PRN 02/16/17 [History] Isosorbide Mononitrate [Isosorbide Mononitrate ER] 30 mg PO DAILY 02/16/17 [ History] Metolazone 5 mg PO ASDIRECTED 02/16/17 [History] Torsemide [Demadex] 60 mg PO DAILY 02/16/17 [History] Lisinopril [Prinivil] 2.5 mg PO DAILY 04/09/17 [History] Nitrofurantoin [place]/Macrocryst [Macrobid] 100 mg PO BID 04/09/17 [History] Nitroglycerin 0.4 mg PO ASDIRECTED PRN 04/09/17 [History] Pantoprazole [ProTONIX] 40 mg PO DAILY 04/09/17 [History] Rosuvastatin [Crestor] 20 mg PO DAILY 04/09/17 [History] Patient Handouts: Tips for Eating Away From Home If You Have Diabetes, Heart- Healthy Eating Plan, [id number], Urinary Tract Infection, Adult, Heart Failure , [id number] Forms: ED Department Discharge Referrals: PCP,None [Primary Care Provider] - - General Info Date of Service: 04/09/17 Functional Status: Reports: ambulating, urinating - Review of Systems General: Reports: No Symptoms HEENT: Reports: no symptoms Pulmonary: Reports: no symptoms Cardiovascular: Reports: No Symptoms Gastrointestinal: Reports: Nausea Genitourinary: Reports: no symptoms Musculoskeletal: Reports: no symptoms Skin: Reports: no symptoms - Patient Data Vitals - Most Recent: Last Vital Signs Temp 36.1 C 04/10/17 15:46 Pulse 71 04/10/17 15:46 Resp 16 04/10/17 15:46 BP 120/73 04/10/17 15:46 Pulse Ox 99 04/10/17 15:46 Weight - Most Recent: 101.922 kg I&O - Last 24 hours: Intake & Output 04/10/17 04/10/17 04/10/17 06:59 14:59 22:59 Intake Total 550 0 630 Output Total 1001 700 Balance -451 0 -70 Lab Results - Last 24 hrs: Laboratory Results - last 24 hr 04/09/17 04/10/17 04/10/17 Range/Units 21:46 06:05 06:05 WBC (3.98-10.04) K/mm3 RBC (3.98-5.22) M/mm3 Hgb (11.2-15.7) gm/L Hct (34.1-44.9) % MCV (79.4-94.8) fl MCH (25.6-32.2) pg MCHC (32.2-35.5) g/dl RDW Std Deviation (36.4-46.3) fL Plt Count (182-369) K/mm3 MPV (9.4-12.3) fl Neut % (Auto) (34.0-71.1) % Lymph % (Auto) (19.3-51.7) % [place] % (Auto) (4.7-12.5) % Eos % (Auto) (0.7-5.8) Baso % (Auto) (0.1-1.2) % Neut # (Auto) (1.56-6.13) K/mm3 Lymph # (Auto) (1.18-3.74) K/mm3 [place] # (Auto) (0.24-0.36) K/mm3 Eos # (Auto) (0.04-0.36) K/mm3 Baso # (Auto) (0.01-0.08) K/mm3 Sodium 141 (136-145) mEq/L Potassium 5.2 H (3.5-5.1) mEq/L Chloride 110 H (98-107) mEq/L Carbon Dioxide 18 L (21-32) mEq/L Anion Gap 18.2 H (5-15) BUN 62 H (7-18) mg/dL Creatinine 2.1 H (0.55-1.02) mg/dL Est Cr Clr Drug Dosing 31.86 mL/min Estimated GFR (MDRD) 25 (>60) mL/min BUN/Creatinine Ratio 29.5 H (14-18) Glucose 167 H (74-106) mg/dL POC Glucose 204 H (70-105) mg/dL Calcium 8.4 L (8.5-10.1) mg/dL B-Natriuretic Peptide 1159 H (0-100) pg/mL 04/10/17 04/10/17 04/10/17 Range/Units 06:05 06:25 16:11 WBC 4.71 (3.98-10.04) K/mm3 RBC 3.53 L (3.98-5.22) M/mm3 Hgb 10.2 L (11.2-15.7) gm/L Hct 31.5 L (34.1-44.9) % MCV 89.2 (79.4-94.8) fl MCH 28.9 (25.6-32.2) pg MCHC 32.4 (32.2-35.5) g/dl RDW Std Deviation 48.7 H (36.4-46.3) fL Plt Count 147 L (182-369) K/mm3 MPV 10.7 (9.4-12.3) fl Neut % (Auto) 69.5 (34.0-71.1) % Lymph % (Auto) 20.0 (19.3-51.7) % [place] % (Auto) 7.6 (4.7-12.5) % Eos % (Auto) 2.5 (0.7-5.8) Baso % (Auto) 0.4 (0.1-1.2) % Neut # (Auto) 3.27 (1.56-6.13) K/mm3 Lymph # (Auto) 0.94 L (1.18-3.74) K/mm3 [place] # (Auto) 0.36 (0.24-0.36) K/mm3 Eos # (Auto) 0.12 (0.04-0.36) K/mm3 Baso # (Auto) 0.02 (0.01-0.08) K/mm3 Sodium 142 (136-145) mEq/L Potassium 5.5 H (3.5-5.1) mEq/L Chloride 110 H (98-107) mEq/L Carbon Dioxide 21 (21-32) mEq/L Anion Gap 16.5 H (5-15) BUN 61 H (7-18) mg/dL Creatinine 2.3 H (0.55-1.02) mg/dL Est Cr Clr Drug Dosing 29.09 mL/min Estimated GFR (MDRD) 23 (>60) mL/min BUN/Creatinine Ratio 26.5 H (14-18) Glucose 170 H (74-106) mg/dL POC Glucose 170 H (70-105) mg/dL Calcium 8.8 (8.5-10.1) mg/dL B-Natriuretic Peptide (0-100) pg/mL Med Orders - Current: Current Medications Acetaminophen (Tylenol) 650 mg PO Q6H PRN PRN Reason: PAIN Last Admin: 04/10/17 17:18 Dose: 650 mg Aspirin (Halfprin) 81 mg PO DAILY [facility] Last Admin: 04/10/17 09:22 Dose: 81 mg Carvedilol (Coreg) 6.25 mg PO BID [facility] Last Admin: 04/10/17 09:22 Dose: 6.25 mg Clopidogrel Bisulfate (Plavix) 75 mg PO DAILY [facility] Last Admin: 04/10/17 09:22 Dose: 75 mg Enoxaparin Sodium (Lovenox) 30 mg SUBCUT DAILY [facility] Last Admin: 04/10/17 09:21 Dose: 30 mg Levofloxacin/Dextrose 500 mg/ (Premix) 100 mls @ 100 mls/hr IV Q24H [facility] Last Admin: 04/10/17 02:33 Dose: 100 mls/hr Insulin Aspart (Novolog) 0 unit SUBCUT ,21 [facility] PRN Reason: Protocol Isosorbide Mononitrate (Imdur) 30 mg PO DAILY [facility] Last Admin: 04/10/17 09:22 Dose: 30 mg Metoclopramide HCl (Reglan) 10 mg IVPUSH Q6H [facility] Last Admin: 04/10/17 17:20 Dose: 10 mg Nitroglycerin (Nitrostat) 0.4 mg SL ASDIRECTED PRN PRN Reason: Chest Pain Ondansetron HCl (Zofran) 4 mg IVPUSH Q4H PRN PRN Reason: Nausea Last Admin: 04/10/17 09:23 Dose: 4 mg Pantoprazole Sodium (Protonix) 40 mg PO DAILY [facility] Last Admin: 04/10/17 09:22 Dose: 40 mg Phenazopyridine HCl (Urinary Pain Relief) 95 mg PO TIDPC [facility] Last Admin: 04/10/17 16:44 Dose: 95 mg Rosuvastatin Calcium (Crestor) 20 mg PO DAILY [facility] Last Admin: 04/10/17 09:21 Dose: 20 mg Sodium Chloride (Saline Flush) 10 ml FLUSH ASDIRECTED PRN PRN Reason: Keep Vein Open Last Admin: 04/09/17 00:42 Dose: 10 ml Discontinued Medications Bumetanide (Bumex) 1 mg IVPUSH ONETIME ONE Stop: 04/09/17 09:46 Last Admin: 04/09/17 10:09 Dose: 1 mg Bumetanide (Bumex) 1 mg IVPUSH BID ONE Stop: 04/10/17 10:37 Last Admin: 04/10/17 11:30 Dose: 1 mg Furosemide (Lasix) 40 mg IVPUSH ONETIME ONE Stop: 04/09/17 02:34 Last Admin: 04/09/17 02:50 Dose: 40 mg Furosemide (Lasix) 80 mg IVPUSH NOW ONE Stop: 04/09/17 07:01 Last Admin: 04/09/17 06:26 Dose: 80 mg Hydromorphone HCl (Dilaudid) 1 mg IVPUSH ONETIME ONE Stop: 04/09/17 03:39 Last Admin: 04/09/17 03:41 Dose: 1 mg Hydromorphone HCl (Dilaudid) Confirm Administered Dose 1 mg .ROUTE .STK-MED ONE Stop: 04/09/17 03:42 Last Admin: 04/09/17 05:43 Dose: Not Given Hydromorphone HCl (Dilaudid) 0.5 mg IVPUSH Q2H PRN PRN Reason: Pain (severe 7-10) Last Admin: 04/10/17 09:22 Dose: 0.5 mg Levofloxacin/Dextrose 500 mg/ (Premix) 100 mls @ 100 mls/hr IV ONETIME ONE Stop: 04/09/17 03:32 Last Admin: 04/09/17 02:51 Dose: 100 mls/hr Insulin Aspart (Novolog) 0 unit SUBCUT BIDMEALS [facility] PRN Reason: Protocol Last Admin: 04/10/17 09:21 Dose: Not Given Morphine Sulfate (Morphine) 4 mg IVPUSH ONETIME ONE Stop: 04/09/17 01:16 Last Admin: 04/09/17 01:23 Dose: 4 mg *Q Meaningful Use (DIS) - VTE *Q VTE Criteria *Q: - Stroke *Q Stroke Criteria *Q: - AMI *Q AMI Criteria *Q:
[2017-04-10] MEDS ORDERED: Insulin Aspart 100 Units/ML 3 ML Pen SUBCUT SCH (21:00)
== END 2017-04-10 18:18 | disposition left against medical advice (07) | DRG 292 ==
LOC: JD.ED 00:25 → SUPCPDRO 00:25 → JD.MS 03:08
PROVIDERS: ADMIT Internal Medicine Cardiovascular Disease; ATTEND Internal Medicine Cardiovascular Disease
DX: I50.23 Acute on chronic systolic (congestive) heart failure (principal); N17.9 Acute kidney failure, unspecified; N39.0 Urinary tract infection, site not specified; I24.9 Acute ischemic heart disease, unspecified; R79.89 Other specified abnormal findings of blood chemistry; I25.2 Old myocardial infarction; I25.10 Atherosclerotic heart disease of native coronary artery without angina pectoris; Z95.5 Presence of coronary angioplasty implant and graft; R10.9 Unspecified abdominal pain; D64.9 Anemia, unspecified; E11.65 Type 2 diabetes mellitus with hyperglycemia; Z79.4 Long term (current) use of insulin; J44.9 Chronic obstructive pulmonary disease, unspecified; G47.33 Obstructive sleep apnea (adult) (pediatric); K21.9 Gastro-esophageal reflux disease without esophagitis; Z87.891 Personal history of nicotine dependence
CPT/HCPCS: 36415; 71010; 71010-26; 76770; 76770-26; 80048; 80053; 81001; 82962; 83880; 84484; 85025; 87086; 93005; 96365; 96375; 97116-GP; 97161-GP; 97165-GO; 99284; 99285-25; A9270-GY; J1170; J1650; J1815-GY; J1940; J1956; J2270; J2405; J2765; J7050

== ENCOUNTER 2017-12-28 21:10 | Emergency (ER) | payer OTHER ==
[2017-12-28 21:18] VITALS: BP 131/78
--- NOTE | 2017-12-28 21:23 | EDM.PDOC ---
ED HPI GENERAL MEDICAL PROBLEM - General Chief Complaint: Chest Pain Stated Complaint: [facility] Time Seen by Provider: 12/28/17 21:17 Source of Information: Reports: Patient History Limitations: Reports: No Limitations, Other (moderately distressed. Anxious and tearfull. ) - History of Present Illness INITIAL COMMENTS - FREE TEXT/NARRATIVE: 47-year-old female who is of [place] arrives per [place] [facility]. Patient is an insulin-dependent diabetic since age 15. She' s had multiple myocardial infarctions and multiple stent placements due to coronary disease. She hasn't been on hemodialysis now for about 7 months. She was in [place] receiving hemodialysis care up until recently. She moved back to [place] and has not been established with a local urologist. She did receive her last hemodialysis on December 27 in [place], [place]. She presents due to diffuse central chest pain rating through to her back. Pain started approximate 6 hours ago. Is making her short of breath. She admits to a mild dry cough. Pain is described as a heaviness and a squeezing discomfort. She states that some are too much expense with previous heart attacks. Patient' s ejection fraction is estimated to be around 20% according to the patient. She has associated nausea and has vomited today. Blood sugar was 297. She has taken insulin per sliding scale last taken about 4:00 today 4 units. She still makes a little bit of urine daily and she was admitted to our hospital in the past with urinary tract infection. She will require hemodialysis once again tomorrow. An ECG done by the triage nurse reveals a paced rhythm at 100 bpm. There are Q waves from V1 to V6 suggestive of an old anteroseptal myocardial infarction also involving the lateral wall. Occasional PVC is appreciated. Is no true ST segment elevation or depression to suggest ischemia. Note on review her meds she is on high-dose Demadex 60 mg a day and mirtazapine alone suggesting she still making some urine. Onset: Today Onset Date: 12/28/17 Onset Time: 14:00 Duration: Hour(s):, Constant, Heavy Location: Reports: Chest (Central chest rating to to her mid back intrascapular area.) Quality: Reports: Ache, Throbbing Severity: Moderate Improves with: Reports: None Worsens with: Reports: None Context: Denies: Activity, Exercise, Lifting, Sick Contact, Trauma, Other Associated Symptoms: Reports: Chest Pain, Cough (Dry cough), Loss of Appetite, Malaise, Nausea/Vomiting (Vomited once today.), Shortness of Breath, Weakness. Denies: No Other Symptoms (See history present), Confusion, cough w sputum, Diaphoresis, Fever/Chills, Headaches, Rash, Seizure Treatments PULVERIZER: Reports: Other (see below) (Didn't take her normal medicines today.) Chest Pain Score (Numeric/FACES): 9 - Related Data Allergies Allergy/AdvReac Type Severity Reaction Status Date / Time fentanyl Allergy Itching Verified 04/09/17 04:32 ibuprofen Allergy Hives Verified 04/09/17 04:32 metformin HCl Allergy Hives Verified 04/09/17 04:32 [From Glucophage] spinach Allergy Difficulty Verified 04/09/17 04:32 Breathing catfish Allergy Difficulty Uncoded 04/09/17 00:30 Breathing Home Meds: Home Meds Aspirin [Halfprin] 81 mg PO DAILY 08/10/15 [History] Carvedilol 6.25 mg PO BID 08/10/15 [History] Clopidogrel [Plavix] 75 mg PO DAILY 08/10/15 [History] Insulin Aspart [Novolog Flexpen] 0 unit SQ TIDMEALS PRN 08/10/15 [History] Insulin Detemir [Levemir] 15 unit SUBCUT QPM 08/10/15 [History] Acetaminophen [Acetaminophen 8 Hour] 650 mg PO Q4H PRN 02/16/17 [History] Isosorbide Mononitrate [Isosorbide Mononitrate ER] 30 mg PO DAILY 02/16/17 [ History] Metolazone 5 mg PO ASDIRECTED 02/16/17 [History] Torsemide [Demadex] 60 mg PO DAILY 02/16/17 [History] Lisinopril [Prinivil] 2.5 mg PO DAILY 04/09/17 [History] Nitroglycerin 0.4 mg PO ASDIRECTED PRN 04/09/17 [History] Pantoprazole [ProTONIX] 40 mg PO DAILY 04/09/17 [History] Rosuvastatin [Crestor] 20 mg PO DAILY 04/09/17 [History] Past Medical History Other HEENT History: no upper teeth--no dentures-----> pt says she does not have upper dentures however when getting home meds out of her backpack for her she had upper dentures in the pocket of the backpack. Pt says she wears glasses but left them in [place]. Cardiovascular History: Reports: CAD, Heart Failure, High Cholesterol, Hypertension, ND, PVD, Stents Other Cardiovascular History: defiberallator Respiratory History: Reports: COPD, Sleep Apnea, Other (See Below) Other Respiratory History: uses CPAP at night Gastrointestinal History: Reports: GERD Other Gastrointestinal History: hernia noted Genitourinary History: Reports: Chronic Renal Insuffiency, Renal Calculus, Urinary Incontinence Other Genitourinary History: history of kidney stones, dawkins when I pee. [employer] History: Reports: Neurological History: Reports: Neuropathy, Peripheral Psychiatric History: Reports: Anxiety, Depression Endocrine/Metabolic History: Reports: Diabetes, Type II, Obesity/BMI 30+ Hematologic History: Reports: Anemia Other Dermatologic History: "boil on private parts" - Infectious Disease History Infectious Disease History: Reports: None - Past Surgical History HEENT Surgical History: Reports: Tonsillectomy Cardiovascular Surgical History: Reports: AICD, Coronary Artery Stent, Pacer GI Surgical History: Reports: Appendectomy Female Surgical History: Reports: Section Musculoskeletal Surgical History: Reports: ORIF Social & Family History - Family History Family Medical History: Noncontributory Cardiac: Reports: CAD, Heart Failure Endocrine/Metabolic: Reports: Diabetes, type II Oncologic: Reports: Breast - Tobacco Use Smoking Status *Q: Former Smoker Years of Tobacco use: 27 Packs/Tins Daily: 1 Used Tobacco, but Quit: Yes Month Tobacco Last Used: 2011 Second Hand Smoke Exposure: No - Caffeine Use Caffeine Use: Reports: Coffee Other Caffeine Use: says she is a big coffee drinker - Recreational Drug Use Recreational Drug Use: Yes Drug Use in Last 12 Months: Yes Recreational Drug Type: Reports: Marijuana/Hashish Recreational Drug Use Frequency: Weekly Recreational Drug Last Use: "about 2 weeks ago" - Living Situation & Occupation Living situation: Reports: , with Family Occupation: Unemployed ED ROS GENERAL - Review of Systems Review Of Systems: See Below Constitutional: Reports: Malaise, Weakness, Fatigue, Decreased Appetite, Weight Loss. Denies: Fever, Chills HEENT: Reports: Other (Vision is poor due to diabetic retinopathy.) Respiratory: Reports: Shortness of Breath, Cough. Denies: Wheezing, Pleuritic Chest Pain Cardiovascular: Reports: Chest Pain (Nonproductive), Blood Pressure Problem ( see history of present illness), Dyspnea on Exertion (Chronic lower extremity edema chronically), Edema. Denies: Claudication ( chronic hypertension usually well controlled with medications ), Lightheadedness, Orthopnea, Palpitations Endocrine: Reports: Fatigue, High Glucose (Last glucose test was 297 by paramedics en route to [place]) GI/Abdominal: Reports: Nausea, Vomiting (Vomited once today.). Denies: Abdominal Pain : Reports: Other (She claims she makes about a half a cup of urine per day.) Musculoskeletal: Reports: No Symptoms Skin: Reports: Bruising (Bruises easily due to being on Plavix.) Neurological: Reports: No Symptoms Psychiatric: Reports: No Symptoms Hematologic/Lymphatic: Reports: No Symptoms Immunologic: Reports: No Symptoms ED EXAM, GENERAL - Physical Exam Exam: See Below Exam Limited By: No Limitations General Appearance: Alert, Moderate Distress (Patient is quite tearful and obviously quite anxious. 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 No: Lymphadenopathy (L), Lymphadenopathy (R) Respiratory/Chest: No Respiratory Distress, Lungs Clear, Normal Breath Sounds, Chest Non-Tender Cardiovascular: Regular Rate, Rhythm (No pulses are palpable in the lower extremities due to edema of the lower extremities. Monitor reveals paced rhythm at 100/m), No Murmur, No Rub. No: Normal Peripheral Pulses GI/Abdominal: Other (Moderately obese. Evidence of a midline surgical scar which probably was an exploratory. There is some concern about cancer or colon which was not identified. She apparently did have a coincidental appendectomy.) Back Exam: Normal Inspection, Full Range of Motion. No: CVA Tenderness (L), CVA Tenderness (R) Extremities: Pedal Edema Neurological: Alert (3+ pitting edema of the lower extremities skin is taut and very dry and scaly.), Oriented, CN II-XII Intact, Normal Cognition Psychiatric: Normal Affect, Normal Mood Skin Exam: Warm, Dry, Intact, Other (Skin on lower extremities is very taut due to dependent edema dry and scaly. Slight evidence of venous stasis dermatitis evident.) EKG INTERPRETATION EKG Date: 12/28/17 Time: 21:20 Rhythm: Other (Atrial sensed ventricular paced rhythm at 100/m) Rate (Beats/Min): 100 ST-T: Normal EKG Interpretation Comments: No obvious ischemic changes are evident. No further analysis attempted due to paced rhythm. Course - Vital Signs Last Recorded V/S: Last Vital Signs Temp 35.8 C 12/28/17 21:16 Pulse 98 12/28/17 21:16 Resp 20 12/28/17 21:16 BP 131/78 12/28/17 21:16 Pulse Ox 100 12/28/17 21:16 - Orders/Labs/Meds Orders: Active Orders 24 hr Category Date Time Status EKG Documentation Completion [RC] STAT Care 12/28/17 21:25 Active Oxygen Therapy [RC] ASDIRECTED Care 12/28/17 21:25 Active Oxygen Therapy [RC] ASDIRECTED Care 12/28/17 22:15 Active Peripheral IV Care [RC] . DIRECTED Care 12/28/17 21:26 Active Chest 1V Frontal [CR] Stat Exams 12/28/17 21:24 Taken CULTURE BLOOD [BC] Stat Lab 12/28/17 21:55 Received CULTURE BLOOD [BC] Stat Lab 12/28/17 22:00 Received URINALYSIS W/MICROSCOPIC [UA W/MICROSCOPIC] [URIN] Stat Lab 12/28/17 21:25 Ordered Nitroglycerin/D5W [Nitroglycerin 25 MG/D5W 250 ML] Med 12/28/17 21:30 Active 25 mg in 250 ml IV ASDIRECTED Sodium Chloride 0.9% [Saline Flush] Med 12/28/17 21:26 Active 10 ml FLUSH ASDIRECTED PRN Blood Culture x2 Reflex Set [OM.PC] Stat Oth 12/28/17 21:25 Ordered Blood Culture x2 Reflex Set [OM.PC] Stat Oth 12/28/17 21:43 Ordered Peripheral IV Insertion Adult [OM.PC] Stat Oth 12/28/17 21:26 Ordered Medication Orders Nitroglycerin/Dextrose (Nitroglycerin 25 Mg/D5w 250 Ml) 25 mg in 250 mls @ 6 mls/hr IV ASDIRECTED ANIKET PRN Reason: 10 MCG/MIN Last Admin: 12/28/17 21:43 Dose: 10 mcg/min, 6 mls/hr Sodium Chloride (Saline Flush) 10 ml FLUSH ASDIRECTED PRN PRN Reason: Keep Vein Open Last Admin: 12/28/17 21:36 Dose: 10 ml Labs: Laboratory Tests 12/28/17 12/28/17 12/28/17 Range/Units 21:20 21:20 21:20 WBC 5.44 (3.98-10.04) K/mm3 RBC 3.65 L (3.98-5.22) M/mm3 Hgb 9.3 L (11.2-15.7) gm/L Hct 31.3 L (34.1-44.9) % MCV 85.8 (79.4-94.8) fl MCH 25.5 L (25.6-32.2) pg MCHC 29.7 L (32.2-35.5) g/dl RDW Std Deviation 52.3 H (36.4-46.3) fL Plt Count 155 L (182-369) K/mm3 MPV 11.1 (9.4-12.3) fl Neutrophils % (Manual) 73 H (40-60) % Band Neutrophils % 0 (0-10) % Lymphocytes % (Manual) 15 L (20-40) % Atypical Lymphs % 0 % Monocytes % (Manual) 11 H (2-10) % Eosinophils % (Manual) 1 (0.7-5.8) % Basophils % (Manual) 0 L (0.1-1.2) Platelet Estimate Adequate Polychromasia Few Hypochromasia 1+ slight Poikilocytosis 1+ slight Anisocytosis 1+ slight Ovalocytes 1+ slight PT 10.7 (8.0-13.0) SECONDS INR 1.00 Sodium 142 (136-145) mEq/L Potassium 4.2 (3.5-5.1) mEq/L Chloride 106 (98-107) mEq/L Carbon Dioxide 24 (21-32) mEq/L Anion Gap 16.2 H (5-15) BUN 47 H (7-18) mg/dL Creatinine 3.0 H (0.55-1.02) mg/dL Est Cr Clr Drug Dosing 22.30 mL/min Estimated GFR (MDRD) 17 (>60) mL/min BUN/Creatinine Ratio 15.7 (14-18) Glucose 295 H (74-106) mg/dL Calcium 8.2 L (8.5-10.1) mg/dL Magnesium 2.6 H (1.8-2.4) mg/dl Total Bilirubin 0.4 (0.2-1.0) mg/dL AST 26 (15-37) U/L ALT 23 (14-59) U/L Alkaline Phosphatase 131 H (46-116) U/L CK-MB (CK-2) 1.8 (0-3.6) ng/ml Troponin I 0.023 (0.00-0.056) ng/mL C-Reactive Protein 0.6 (<1.0) mg/dL NT-Pro-B Natriuret Pep (0-125) pg/mL Total Protein 6.9 (6.4-8.2) g/dl Albumin 3.1 L (3.4-5.0) g/dl Globulin 3.8 gm/dL Albumin/Globulin Ratio 0.8 L (1-2) 12/28/17 Range/Units 21:20 WBC (3.98-10.04) K/mm3 RBC (3.98-5.22) M/mm3 Hgb (11.2-15.7) gm/L Hct (34.1-44.9) % MCV (79.4-94.8) fl MCH (25.6-32.2) pg MCHC (32.2-35.5) g/dl RDW Std Deviation (36.4-46.3) fL Plt Count (182-369) K/mm3 MPV (9.4-12.3) fl Neutrophils % (Manual) (40-60) % Band Neutrophils % (0-10) % Lymphocytes % (Manual) (20-40) % Atypical Lymphs % % Monocytes % (Manual) (2-10) % Eosinophils % (Manual) (0.7-5.8) % Basophils % (Manual) (0.1-1.2) Platelet Estimate Polychromasia Hypochromasia Poikilocytosis Anisocytosis Ovalocytes PT (8.0-13.0) SECONDS INR Sodium (136-145) mEq/L Potassium (3.5-5.1) mEq/L Chloride (98-107) mEq/L Carbon Dioxide (21-32) mEq/L Anion Gap (5-15) BUN (7-18) mg/dL Creatinine (0.55-1.02) mg/dL Est Cr Clr Drug Dosing mL/min Estimated GFR (MDRD) (>60) mL/min BUN/Creatinine Ratio (14-18) Glucose (74-106) mg/dL Calcium (8.5-10.1) mg/dL Magnesium (1.8-2.4) mg/dl Total Bilirubin (0.2-1.0) mg/dL AST (15-37) U/L ALT (14-59) U/L Alkaline Phosphatase (46-116) U/L CK-MB (CK-2) (0-3.6) ng/ml Troponin I (0.00-0.056) ng/mL C-Reactive Protein (<1.0) mg/dL NT-Pro-B Natriuret Pep 65071 H (0-125) pg/mL Total Protein (6.4-8.2) g/dl Albumin (3.4-5.0) g/dl Globulin gm/dL Albumin/Globulin Ratio (1-2) Meds: Medications Generic Name Dose Route Start Last Admin Trade Name Freq PRN Reason Stop Dose Admin Nitroglycerin/Dextrose 25 mg in 250 mls @ 6 mls/hr 12/28/17 21:30 12/28/17 21 :43 Nitroglycerin 25 Mg/D5w 250 Ml IV 10 mcg/min ASDIRECTED ANIKET 6 mls/hr 10 MCG/MIN Administration Sodium Chloride 10 ml 12/28/17 21:26 12/28/17 21:36 Saline Flush FLUSH 10 ml ASDIRECTED PRN Administration Keep Vein Open Discontinued Medications Generic Name Dose Route Start Last Admin Trade Name Freq PRN Reason Stop Dose Admin Aspirin 324 mg 12/28/17 21:26 12/28/17 21:36 Aspirin PO 12/28/17 21:27 324 mg ONETIME ONE Administration Hydromorphone HCl 1 mg 12/28/17 21:27 12/28/17 21:36 Dilaudid IVPUSH 12/28/17 21:28 1 mg ONETIME ONE Administration Hydromorphone HCl Confirm 12/28/17 21:37 12/28/17 21:36 Dilaudid Administered 12/28/17 21:38 Not Given Dose 1 mg .ROUTE .STK-MED ONE Hydromorphone HCl 1 mg 12/28/17 22:43 Dilaudid IVPUSH 12/28/17 22:44 ONETIME ONE Metoclopramide HCl 10 mg 12/28/17 21:27 12/28/17 21:33 Reglan IVPUSH 12/28/17 21:28 10 mg ONETIME ONE Administration - Radiology Interpretation Free Text/Narrative:: 47-year-old hoh female who is a hemodialysis patient due to long-standing type 1 diabetes presents to the ED with central chest pain that she's had for between 4 and 6 hours. Patient has a history of extensive coronary disease having multiple stents placed on multiple occasions. Told her ejection fraction is around 20% and she is in congestive failure. She last had hemodialysis and [facility] 2 days ago. She was due for dialysis again tomorrow. Plan cardiac workup to be completed. She'll be started on nitroglycerin at 10 mcg/m. Aspirin 324 mg will be given by mouth. Of note she is on Plavix 75 mg daily. She is also metaxalone and high-dose Demadex suggesting that she still makes some urine from her kidneys. Slightly warm to palpation and has had nausea and vomiting. Septic workup will be carried out as she did have a urinary tract infection which was last seen through our hospital in November. Will be given Reglan 10 mg IV with Dilaudid 1 mg IV for chest pain. She will ultimately be transferred to [place] due to her hemodialysis status. She usually receives care through [facility] in [place]. - Re-Assessments/Exams Free Text/Narrative Re-Assessment/Exam: 12/28/17 22:13 chest x-ray done portably reveals moderate cardiomegaly. There is mild evidence of diffuse vascular congestion. Pacemaker present left upper quadrant. No pleural effusions or pneumothorax evident. Unchanged from previous ECG. 12/28/17 22:15 Anterior chest pain is much improved. She still having some pleuritic pain with deep inspiration in her right upper back. Sats of dropped off to as low as 92% since she has received the Dilaudid. She'll be placed on oxygen at 2 L/m by nasal cannula. 12/28/17 22:38 Labs are back and reveal a white count of 5.44 with 73% neutrophils no bands reported. Hemoglobin is low at 9.3 with hematocrit of 31.3. MCV is 85.8. Platelet count is 155,000. PT is 10.7 with an INR 1.0. Sodium is 142 with a potassium of 4.2. Chloride 106 with a bicarbonate of 24. And a gap is mildly elevated at 16.2. BUN is 47 with a creatinine of 3.0. Estimated GFR is 17. Glucose is 295. Calcium is 8.2. Magnesium normal at 2.6. Liver function normal. Alk phosphatase mildly elevated 131. CK-MB fraction 1.8 troponin I is less than 0.0-3. C-reactive protein is less than 0.6. BNP is elevated at 13,330. Albumin fraction is low at 3.1. Therefore it appears her major problem is congestive heart failure without evidence of acute myocardial infarction. The only way to improve this is through hemodialysis. I will therefore contact [facility] with a view to transfer to that institution so that hemodialysis can be performed. 12/28/17 23:04 I have spoken with Dr. Freitas--hospitalist at [facility] in [place] and she has accepted care of this patient. The plan will be to leave her on the nitro drip during transport and check her cardiac markers when she arrives at that institution. If they're once again normal nitro drip could be discontinued. The major problem I believe is congestive heart failure which is only going to be benefited by hemodialysis. made aware of the need for transport due to need for hemodialysis likely at the bedside. She has requested further pain medication and was given Dilaudid 1 mg IV for pain relief which is mostly pleuritic in her right upper back. This should also provide some comfort during the transport. Departure - Departure Time of Disposition: 23:05 Disposition: DC/Tfer to Acute Hospital 02 Reason for Transfer *Q: Other Condition: Poor Clinical Impression: Acute coronary syndrome, Hemodialysis patient, Insulin dependent diabetes mellitus, Congestive heart failure with cardiomyopathy Diabetic retinopathy Qualifiers: Diabetes mellitus type: type 1 Diabetic retinopathy severity: with unspecified retinopathy severity Diabetes mellitus macular edema: without macular edema Laterality: bilateral Qualified Code(s): E10.319 - Type 1 diabetes mellitus with unspecified diabetic retinopathy without macular edema Referrals: PCP,None [Primary Care Provider] - Forms: ED Department Discharge - My Orders Last 24 Hours: My Active Orders 12/28/17 21:24 Chest 1V Frontal [CR] Stat 12/28/17 21:25 EKG Documentation Completion [RC] STAT Oxygen Therapy [RC] ASDIRECTED URINALYSIS W/MICROSCOPIC [UA W/MICROSCOPIC] [URIN] Stat Blood Culture x2 Reflex Set [OM.PC] Stat 12/28/17 21:26 Peripheral IV Care [RC] . DIRECTED Sodium Chloride 0.9% [Saline Flush] 10 ml FLUSH ASDIRECTED PRN Peripheral IV Insertion Adult [OM.PC] Stat 12/28/17 21:30 Nitroglycerin/D5W [Nitroglycerin 25 MG/D5W 250 ML] 25 mg in 250 ml IV ASDIRECTED 12/28/17 21:43 Blood Culture x2 Reflex Set [OM.PC] Stat 12/28/17 21:55 CULTURE BLOOD [BC] Stat 12/28/17 22:00 CULTURE BLOOD [BC] Stat 12/28/17 22:15 Oxygen Therapy [RC] ASDIRECTED - Assessment/Plan Last 24 Hours: My Active Orders 12/28/17 21:24 Chest 1V Frontal [CR] Stat 12/28/17 21:25 EKG Documentation Completion [RC] STAT Oxygen Therapy [RC] ASDIRECTED URINALYSIS W/MICROSCOPIC [UA W/MICROSCOPIC] [URIN] Stat Blood Culture x2 Reflex Set [OM.PC] Stat 12/28/17 21:26 Peripheral IV Care [RC] . DIRECTED Sodium Chloride 0.9% [Saline Flush] 10 ml FLUSH ASDIRECTED PRN Peripheral IV Insertion Adult [OM.PC] Stat 12/28/17 21:30 Nitroglycerin/D5W [Nitroglycerin 25 MG/D5W 250 ML] 25 mg in 250 ml IV ASDIRECTED 12/28/17 21:43 Blood Culture x2 Reflex Set [OM.PC] Stat 12/28/17 21:55 CULTURE BLOOD [BC] Stat 12/28/17 22:00 CULTURE BLOOD [BC] Stat 12/28/17 22:15 Oxygen Therapy [RC] ASDIRECTED
[2017-12-28] MEDS ORDERED: Aspirin 81 MG Tab.Chew PO ONE (21:26)
[2017-12-28] MEDS ORDERED: Sodium Chloride 0.9% 10 ML Syringe FLUSH PRN (21:26)
[2017-12-28] MEDS ORDERED: Metoclopramide 10 MG/2 ML SDV IVPUSH ONE (21:27)
[2017-12-28] MEDS ORDERED: HYDROmorphone 1 MG/ML Syringe IVPUSH ONE ×2 (21:27→22:43)
[2017-12-28] MEDS ORDERED: Nitroglycerin/D5W 25 MG/250 ML BOTTLE IV SCH (21:30)
[2017-12-28] MEDS ORDERED: HYDROmorphone 0.5 MG/0.5 ML SYRINGE ONE (21:37)
[2017-12-28] MEDS ORDERED: HYDROmorphone 0.5 MG/0.5 ML SYRINGE IVPUSH ONE (22:43)
--- NOTE | 2017-12-29 14:04 | CR ---
Chest: Portable view of the chest was obtained. Comparison: Prior chest x-ray of 04/09/17. Right-sided catheter is seen possibly for dialysis. Please correlate. AICD is present. Heart size within normal limits for portable technique. Left coronary artery stent is present. Lungs are clear with no acute parenchymal densities. Impression: 1. Findings as noted above. Nothing acute is appreciated on portable chest x-ray. Diagnostic code #2
== END 2017-12-28 23:34 ==
LOC: JD.ED 21:10
DX: I24.9 Acute ischemic heart disease, unspecified (principal); E10.319 Type 1 diabetes mellitus with unspecified diabetic retinopathy without macular edema; I25.10 Atherosclerotic heart disease of native coronary artery without angina pectoris; J44.9 Chronic obstructive pulmonary disease, unspecified; G47.30 Sleep apnea, unspecified; E10.22 Type 1 diabetes mellitus with diabetic chronic kidney disease; I13.0 Hypertensive heart and chronic kidney disease with heart failure and stage 1 through stage 4 chronic kidney disease, or unspecified chronic kidney disease; I50.9 Heart failure, unspecified; N18.9 Chronic kidney disease, unspecified; E10.42 Type 1 diabetes mellitus with diabetic polyneuropathy; Z79.4 Long term (current) use of insulin; Z95.5 Presence of coronary angioplasty implant and graft; Z95.0 Presence of cardiac pacemaker; Z87.891 Personal history of nicotine dependence; Z79.82 Long term (current) use of aspirin; Z90.2 Acquired absence of lung [part of]; Z79.899 Other long term (current) drug therapy; Z91.018 Allergy to other foods; Z88.6 Allergy status to analgesic agent; Z88.8 Allergy status to other drugs, medicaments and biological substances; Z91.013 Allergy to seafood
CPT/HCPCS: 36415; 71045; 80053; 82553; 83735; 83880; 84484; 85025; 85610; 86140; 87040; 93005; 96365; 96366; 96375; 96376; 99285; A9270; J1170; J2765; J7050

== ENCOUNTER 2018-02-04 10:57 | Emergency (ER) | payer OTHER ==
[2018-02-04] MEDS ORDERED: Sodium Chloride 0.9% 10 ML Syringe FLUSH PRN (11:49)
[2018-02-04] MEDS ORDERED: Ondansetron 4 MG/2 ML SDV IVPUSH ONE (11:50)
[2018-02-04] MEDS ORDERED: HYDROmorphone 0.5 MG/0.5 ML SYRINGE IVPUSH ONE (11:50)
--- NOTE | 2018-02-04 12:08 | EDM.PDOC ---
ED HPI GENERAL MEDICAL PROBLEM - General Chief Complaint: Chest Pain Stated Complaint: [facility] Time Seen by Provider: 02/04/18 11:42 Source of Information: Reports: Patient History Limitations: Reports: No Limitations - History of Present Illness INITIAL COMMENTS - FREE TEXT/NARRATIVE: Patient is a 47-year-old female who presents to the ED complaining of chest and abdominal pain that started last night at approximately 7:00 pm. Patient is a dialysis patient that has missed her appointment today due to worsening pain to the chest, abdomen with also shortness of breath with taking a deep breath and coughing. She was instructed to come to the ED for further evaluation. Chest and abdomen discomfort described as sharp worse with taking a deep breath, palpation, and coughing. Pain radiates from the abdomen up into her chest and shoulders. She feels overloaded needs dialysis today. Last dialysis was this past Sunday. Her dry weight is approximately 220 pounds. Unclear weight today at this point. Cough has been present for the past 2 weeks. She admits to having quite abit of sinus congestion with runny nose. No sore throat. Of note patient was hospitalized at [place] approximately 2 weeks ago. Upon discharge did not have any of her medications. She has been without her meds for the past 2 weeks. See below for all the meds she is supposed to be on. One of the medications she is suppose to be taking is hydrocodone for chronic pain therapy. She takes this on a daily basis normally. States most likely would not be here in the ED if she had this medication. There's been no documented fever. She is not short of breath at rest. With taking a deep breath she developed a sharp pain thus has a sensation of being short of breath. 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 Pain to the chest is generalized. Last PE was on the right side. She has had frequent bowel movements which is normal for her. No pain with urination. No increased swelling or pain to the posterior aspect of her calves or lower legs. She called the ambulance this morning for transport. She would' ve came last night but did not have a web applications programmer. She received 4 baby aspirin enroute. In addition received one spray of nitroglycerin that did not work and only gave her headache. Patient admitted, and to nursing staff that she was depressed and suicidal. With further questioning patient denied being suicidal and or wanting to harm anybody else. She loves her grandkids. Treatments CITY PLANNING AIDE: Reports: Aspirin, Nitroglycerin Chest Pain Score (Numeric/FACES): 10 Headache Pain Score (Numeric/FACES): 10 - Related Data Allergies Allergy/AdvReac Type Severity Reaction Status Date / Time fentanyl Allergy Itching Verified 02/04/18 11:12 ibuprofen Allergy Hives Verified 02/04/18 11:12 metformin HCl Allergy Hives Verified 02/04/18 11:12 [From Glucophage] spinach Allergy Difficulty Verified 02/04/18 11:12 Breathing catfish Allergy Difficulty Uncoded 02/04/18 11:12 Breathing Home Meds: Home Meds Aspirin [Halfprin] 81 mg PO DAILY 08/10/15 [History] Carvedilol 6.25 mg PO BID 08/10/15 [History] Clopidogrel [Plavix] 75 mg PO DAILY 08/10/15 [History] Insulin Aspart [Novolog Flexpen] 0 unit SQ TIDMEALS PRN 08/10/15 [History] Insulin Detemir [Levemir] 15 unit SUBCUT QPM 08/10/15 [History] Acetaminophen [Acetaminophen 8 Hour] 650 mg PO Q4H PRN 02/16/17 [History] Isosorbide Mononitrate [Isosorbide Mononitrate ER] 30 mg PO DAILY 02/16/17 [ History] Metolazone 5 mg PO ASDIRECTED 02/16/17 [History] Torsemide [Demadex] 60 mg PO DAILY 02/16/17 [History] Lisinopril [Prinivil] 2.5 mg PO DAILY 04/09/17 [History] Nitroglycerin 0.4 mg PO ASDIRECTED PRN 04/09/17 [History] Pantoprazole [ProTONIX] 40 mg PO DAILY 04/09/17 [History] Rosuvastatin [Crestor] 20 mg PO DAILY 04/09/17 [History] Past Medical History Other HEENT History: no upper teeth--no dentures-----> pt says she does not have upper dentures however when getting home meds out of her backpack for her she had upper dentures in the pocket of the backpack. Pt says she wears glasses but left them in [place]. Cardiovascular History: Reports: CAD, Heart Failure, High Cholesterol, Hypertension, NV, PVD, Stents Other Cardiovascular History: defiberallator Respiratory History: Reports: COPD, Sleep Apnea, Other (See Below) Other Respiratory History: uses CPAP at night Gastrointestinal History: Reports: GERD Other Gastrointestinal History: hernia noted Genitourinary History: Reports: Chronic Renal Insuffiency, Renal Calculus, Urinary Incontinence Other Genitourinary History: history of kidney stones, dawkins when I pee. 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 History: Reports: Neurological History: Reports: Neuropathy, Peripheral Psychiatric History: Reports: Anxiety, Depression Endocrine/Metabolic History: Reports: Diabetes, Type II, Obesity/BMI 30+ Hematologic History: Reports: Anemia Other Dermatologic History: "boil on private parts" - Infectious Disease History Infectious Disease History: Reports: None - Past Surgical History HEENT Surgical History: Reports: Tonsillectomy Cardiovascular Surgical History: Reports: AICD, Coronary Artery Stent, Pacer GI Surgical History: Reports: Appendectomy Female Surgical History: Reports: Section Musculoskeletal Surgical History: Reports: ORIF Social & Family History - Family History Family Medical History: Noncontributory Cardiac: Reports: CAD, Heart Failure Endocrine/Metabolic: Reports: Diabetes, type II Oncologic: Reports: Breast - Tobacco Use Smoking Status *Q: Never Smoker Years of Tobacco use: 27 Packs/Tins Daily: 1 Used Tobacco, but Quit: Yes Month/Year Tobacco Last Used: 2011 Second Hand Smoke Exposure: No - Caffeine Use Caffeine Use: Reports: Coffee Other Caffeine Use: says she is a big coffee drinker - Recreational Drug Use Recreational Drug Use: Yes Drug Use in Last 12 Months: Yes Recreational Drug Type: Reports: Marijuana/Hashish Other Recreational Drug Type: last used yesterday Recreational Drug Use Frequency: Weekly Recreational Drug Last Use: "about 2 weeks ago" - Living Situation & Occupation Living situation: Reports: , with Family Occupation: Unemployed ED ROS GENERAL - Review of Systems Review Of Systems: ROS reveals no pertinent complaints other than HPI. ED EXAM, GENERAL - Physical Exam Exam: See Below Exam Limited By: No Limitations General Appearance: Alert, WD/WN, Anxious, Other (Crying) Ears: Hearing Grossly Normal Nose: Normal Inspection Throat/Mouth: Normal Voice, No Airway Compromise Neck: Normal Inspection, Supple Respiratory/Chest: No Respiratory Distress, Lungs Clear, Normal Breath Sounds, No Accessory Muscle Use, Other (Tenderness the chest with palpation throughout.) Cardiovascular: Normal Peripheral Pulses, Regular Rate, Rhythm Peripheral Pulses: 4+: Radial (L), Radial (R) GI/Abdominal: Normal Bowel Sounds, Soft, No Organomegaly, Distended, Other ( Tenderness to the abdomen throughout. This is also worsened with coughing.) Back Exam: Normal Inspection Extremities: Normal Inspection, Normal Range of Motion, Non-Tender Neurological: Alert, Oriented, CN II-XII Intact, Normal Cognition, No Motor/ Sensory Deficits Psychiatric: Normal Affect, Anxious, Tearful Skin Exam: Warm, Dry, Intact, Normal Color, No Rash Course - Vital Signs Last Recorded V/S: Last Vital Signs Temp 97.7 F 02/04/18 16:47 Pulse 80 02/04/18 16:47 Resp 16 02/04/18 16:47 BP 143/85 H 02/04/18 16:47 Pulse Ox 100 02/04/18 16:47 - Orders/Labs/Meds Orders: Active Orders 24 hr Category Date Time Status Peripheral IV Care [RC] . DIRECTED Care 02/04/18 11:49 Active CULTURE BLOOD [BC] Stat Lab 02/04/18 12:53 Received CULTURE BLOOD [BC] Stat Lab 02/04/18 13:02 Received CULTURE URINE [RM] Stat Lab 02/04/18 13:30 Received INFLUENZA A+B AG SCREEN [RM] Stat Lab 02/04/18 13:00 Ordered Blood Culture x2 Reflex Set [OM.PC] Stat Oth 02/04/18 12:10 Ordered Peripheral IV Insertion Adult [OM.PC] Stat Oth 02/04/18 11:49 Ordered Labs: Laboratory Tests 02/04/18 02/04/18 02/04/18 Range/Units 12:53 12:53 12:53 WBC 4.42 (3.98-10.04) K/mm3 RBC 3.72 L (3.98-5.22) M/mm3 Hgb 9.3 L (11.2-15.7) gm/L Hct 31.1 L (34.1-44.9) % MCV 83.6 (79.4-94.8) fl MCH 25.0 L (25.6-32.2) pg MCHC 29.9 L (32.2-35.5) g/dl RDW Std Deviation 57.6 H (36.4-46.3) fL Plt Count 147 L (182-369) K/mm3 MPV 11.5 (9.4-12.3) fl Neutrophils % (Manual) 80 H (40-60) % Band Neutrophils % 0 (0-10) % Lymphocytes % (Manual) 20 (20-40) % Atypical Lymphs % 0 % Monocytes % (Manual) 0 L (2-10) % Eosinophils % (Manual) 0 L (0.7-5.8) % Basophils % (Manual) 0 L (0.1-1.2) Platelet Estimate Decreased Hypochromasia 2+ moderate Microcytosis 1+ slight Target Cells 1+ slight Tear Drop Cells 1+ slight RBC Morph Comment Not Reportable PT 11.4 (8.0-13.0) SECONDS INR 1.06 APTT 29 (22-36) SECONDS D-Dimer, Quantitative 4.31 H (0.19-0.59) mg/L Sodium 144 (136-145) mEq/L Potassium 4.9 (3.5-5.1) mEq/L Chloride 108 H (98-107) mEq/L Carbon Dioxide 23 (21-32) mEq/L Anion Gap 17.9 H (5-15) BUN 77 H (7-18) mg/dL Creatinine 2.9 H (0.55-1.02) mg/dL Est Cr Clr Drug Dosing 23.07 mL/min Estimated GFR (MDRD) 17 (>60) mL/min BUN/Creatinine Ratio 26.6 H (14-18) Glucose 241 H (74-106) mg/dL Calcium 9.0 (8.5-10.1) mg/dL Total Bilirubin 0.7 (0.2-1.0) mg/dL AST 26 (15-37) U/L ALT 17 (14-59) U/L Alkaline Phosphatase 115 (46-116) U/L Troponin I 0.025 (0.00-0.056) ng/mL NT-Pro-B Natriuret Pep (0-125) pg/mL Total Protein 7.4 (6.4-8.2) g/dl Albumin 3.3 L (3.4-5.0) g/dl Globulin 4.1 gm/dL Albumin/Globulin Ratio 0.8 L (1-2) Lipase 245 (73-393) U/L Urine Color (Yellow) Urine Appearance (Clear) Urine pH (5.0-8.0) Ur Specific Bath (1.005-1.030) Urine Protein (Negative) Urine Glucose (UA) (Negative) Urine Ketones (Negative) Urine Occult Blood (Negative) Urine Nitrite (Negative) Urine Bilirubin (Negative) Urine Urobilinogen (0.2-1.0) Ur Leukocyte Esterase (Negative) Urine RBC (0-5) /hpf Urine WBC (0-5) /hpf Ur Epithelial Cells (0-5) /hpf Urine Bacteria (FEW) /hpf Urine Mucus (FEW) /hpf 02/04/18 02/04/18 02/04/18 Range/Units 12:53 13:30 15:05 WBC (3.98-10.04) K/mm3 RBC (3.98-5.22) M/mm3 Hgb (11.2-15.7) gm/L Hct (34.1-44.9) % MCV (79.4-94.8) fl MCH (25.6-32.2) pg MCHC (32.2-35.5) g/dl RDW Std Deviation (36.4-46.3) fL Plt Count (182-369) K/mm3 MPV (9.4-12.3) fl Neutrophils % (Manual) (40-60) % Band Neutrophils % (0-10) % Lymphocytes % (Manual) (20-40) % Atypical Lymphs % % Monocytes % (Manual) (2-10) % Eosinophils % (Manual) (0.7-5.8) % Basophils % (Manual) (0.1-1.2) Platelet Estimate Hypochromasia Microcytosis Target Cells Tear Drop Cells RBC Morph Comment PT (8.0-13.0) SECONDS INR APTT (22-36) SECONDS D-Dimer, Quantitative (0.19-0.59) mg/L Sodium (136-145) mEq/L Potassium (3.5-5.1) mEq/L Chloride (98-107) mEq/L Carbon Dioxide (21-32) mEq/L Anion Gap (5-15) BUN (7-18) mg/dL Creatinine (0.55-1.02) mg/dL Est Cr Clr Drug Dosing mL/min Estimated GFR (MDRD) (>60) mL/min BUN/Creatinine Ratio (14-18) Glucose (74-106) mg/dL Calcium (8.5-10.1) mg/dL Total Bilirubin (0.2-1.0) mg/dL AST (15-37) U/L ALT (14-59) U/L Alkaline Phosphatase (46-116) U/L Troponin I 0.018 (0.00-0.056) ng/mL NT-Pro-B Natriuret Pep 8112 H (0-125) pg/mL Total Protein (6.4-8.2) g/dl Albumin (3.4-5.0) g/dl Globulin gm/dL Albumin/Globulin Ratio (1-2) Lipase (73-393) U/L Urine Color Yellow (Yellow) Urine Appearance Clear (Clear) Urine pH 7.5 (5.0-8.0) Ur Specific Bath 1.020 (1.005-1.030) Urine Protein 3+ H (Negative) Urine Glucose (UA) Trace H (Negative) Urine Ketones Negative (Negative) Urine Occult Blood 1+ H (Negative) Urine Nitrite Negative (Negative) Urine Bilirubin Negative (Negative) Urine Urobilinogen 0.2 (0.2-1.0) Ur Leukocyte Esterase Negative (Negative) Urine RBC 20-30 H (0-5) /hpf Urine WBC 5-10 H (0-5) /hpf Ur Epithelial Cells 10-20 H (0-5) /hpf Urine Bacteria Moderate H (FEW) /hpf Urine Mucus Not seen (FEW) /hpf Meds: Medications Discontinued Medications Generic Name Dose Route Start Last Admin Trade Name Leigh PRN Reason Stop Dose Admin Hydromorphone HCl 0.5 mg 02/04/18 11:50 02/04/18 13:03 Dilaudid IVPUSH 02/04/18 11:51 0.5 mg ONETIME ONE Administration Hydromorphone HCl 0.25 mg 02/04/18 15:04 02/04/18 15:10 Dilaudid IVPUSH 02/04/18 15:05 0.25 mg ONETIME STA Administration Ondansetron HCl 4 mg 02/04/18 11:50 02/04/18 13:03 Zofran IVPUSH 02/04/18 11:51 4 mg ONETIME ONE Administration Sodium Chloride 10 ml 02/04/18 11:49 02/04/18 13:06 Saline Flush FLUSH 10 ml ASDIRECTED PRN Administration Keep Vein Open - Re-Assessments/Exams Free Text/Narrative Re-Assessment/Exam: IV will be established with Dilaudid 0.5 mg IVP and also Zofran 4 mg IVP. Initial lab studies will include CBC, chem 14, blood cultures 2, d-dimer, influenza screen, lipase, BMP, coag studies, troponin, and x-ray of the abdomen and chest. 02/04/18 13:41 reassessment, patient states she is feeling much better with the therapies above. Chest x-ray reviewed with Dr. Nicole. No acute findings noted. X-ray of the abdomen reviewed with Dr. Nicole revealed increased stool pattern with no findings concerning for obstruction. Labs are pending. 02/04/18 14:31Labs reviewed: White blood cell count 4.42, hemoglobin 9.3, sodium 144, potassium 4.9, CO2 23, AG 17.9, crying 2.9, glucose 241, troponin 0.025, proBNP 8112, lipase 245, d-dimer is 4.31. D-dimer is quite elevated from previous lab results. Concerning for PE. She will miss dialysis in [place]. Suspect patient will be transferred to [facility] for dialysis and additional imaging. UA protein 3+, trace glucose, occult blood 1+, urine rbc's 20-30, urine wbc's 5- 10, urine epithelial cells 10-20, bacteria moderate. Appears contaminated. Ordered urine culture. Patient be transferred to [facility] for dialysis and also further diagnostic testing to rule out PE. 02/04/18 14:[address] Calabrese air pollution inspector hospitalists at [facility]. He has accepted the patient. 2nd troponin has been ordered to be obtained prior to transfer. Ambulance has been notified. Transfer paperwork completed. 2nd troponin 0.018. Departure - Departure Time of Disposition: 14:45 Disposition: DC/Tfer to Acute Hospital 02 Reason for Transfer *Q: Other Condition: Good Clinical Impression: Dialysis patient, noncompliant, Elevated d-dimer Uncontrolled diabetes mellitus Qualifiers: Diabetes mellitus type: type 2 Diabetes mellitus computer terminal operator insulin use: with fdc use Diabetes mellitus complication status: with unspecified complications Qualified Code(s): E11.8 - Type 2 diabetes mellitus with unspecified complications Anemia Qualifiers: Anemia type: unspecified type Qualified Code(s): D64.9 - Anemia, unspecified Referrals: PCP,None [Primary Care Provider] - Forms: ED Department Discharge - My Orders Last 24 Hours: My Active Orders 02/04/18 11:49 Peripheral IV Care [RC] . DIRECTED Peripheral IV Insertion Adult [OM.PC] Stat 02/04/18 12:10 Blood Culture x2 Reflex Set [OM.PC] Stat 02/04/18 12:53 CULTURE BLOOD [BC] Stat 02/04/18 13:00 INFLUENZA A+B AG SCREEN [RM] Stat 02/04/18 13:02 CULTURE BLOOD [BC] Stat 02/04/18 13:30 CULTURE URINE [RM] Stat - Assessment/Plan Last 24 Hours: My Active Orders 02/04/18 11:49 Peripheral IV Care [RC] . DIRECTED Peripheral IV Insertion Adult [OM.PC] Stat 02/04/18 12:10 Blood Culture x2 Reflex Set [OM.PC] Stat 02/04/18 12:53 CULTURE BLOOD [BC] Stat 02/04/18 13:00 INFLUENZA A+B AG SCREEN [RM] Stat 02/04/18 13:02 CULTURE BLOOD [BC] Stat 02/04/18 13:30 CULTURE URINE [RM] Stat
[2018-02-04] MEDS ORDERED: HYDROmorphone 0.5 MG/0.5 ML SYRINGE IVPUSH STA (15:04)
--- NOTE | 2018-02-04 15:11 | CR ---
Abdominal series: Frontal view of the chest is obtained as well as supine and upright views of the abdomen. Comparison: Previous chest x-ray of 12/28/17 and abdominal x-ray of 02/26/17. Surgical clips are seen within the right inguinal region. Calcific type densities are noted within the upper right abdomen. Findings most likely due to bowel content as no renal calculi are seen on noncontrast CT study of 02/27/17. Heart is slightly enlarged. Coronary artery stents are present. AICD is noted as well as right-sided infusion catheter. No acute parenchymal change is seen within either lung. Bowel gas pattern appears normal. Surgical clips are seen from previous cholecystectomy. Bony structures appear within normal limits for the patient's age. Impression: 1. Incidental findings. Nothing acute is seen on abdominal series. Diagnostic code #2
[2018-02-04 16:47] VITALS: BP 143/85
== END 2018-02-04 15:23 ==
LOC: JD.ED 10:57
DX: I13.0 Hypertensive heart and chronic kidney disease with heart failure and stage 1 through stage 4 chronic kidney disease, or unspecified chronic kidney disease (principal); I50.9 Heart failure, unspecified; N18.9 Chronic kidney disease, unspecified; D63.1 Anemia in chronic kidney disease; R79.89 Other specified abnormal findings of blood chemistry; E11.22 Type 2 diabetes mellitus with diabetic chronic kidney disease; I25.2 Old myocardial infarction; K21.9 Gastro-esophageal reflux disease without esophagitis; Z88.8 Allergy status to other drugs, medicaments and biological substances; Z79.82 Long term (current) use of aspirin; Z79.899 Other long term (current) drug therapy; Z91.048 Other nonmedicinal substance allergy status; Z79.4 Long term (current) use of insulin; Z87.891 Personal history of nicotine dependence; Z99.2 Dependence on renal dialysis
CPT/HCPCS: 36415; 74022; 80053; 81001; 83690; 83880; 84484; 85025; 85379; 85610; 85730; 87040; 87086; 87804; 96374; 96375; 96376; 99285; J1170; J2405; J7050

== ENCOUNTER 2018-02-25 04:26 | Emergency (ER) | payer OTHER ==
[2018-02-25 04:33] VITALS: BP 114/69
[2018-02-25] MEDS ORDERED: Orphenadrine 100 MG Tab.ER PO STA (04:56)
--- NOTE | 2018-02-25 05:02 | EDM.PDOC ---
ED HPI GENERAL MEDICAL PROBLEM - General Chief Complaint: Chest Pain Stated Complaint: [facility] Time Seen by Provider: 02/25/18 04:39 Source of Information: Reports: Patient, Old Records History Limitations: Reports: No Limitations - History of Present Illness INITIAL COMMENTS - FREE TEXT/NARRATIVE: The patient states that she has had nausea and emesis, along with chills, all day yesterday, 02/24/2018. She developed pain to the back of her neck, radiating to both arms, a headache, sharp left-sided chest pain that radiates through to her back, and dyspnea around 20:30 tonight. Her chest pain is made better if she is upright, worse if she is supine, and is distinctly different from prior MIs. She denies having palpitations, constipation, diarrhea, urinary symptoms, or recent fever. She denies prior similar symptoms. The patient states that she was admitted to [facility] from 02/16/2018 through 02/23/2018 for abdominal pain. Extensive workup was negative. The patient's PCP is [facility]. Chest Pain Score (Numeric/FACES): 9 - Related Data Allergies Allergy/AdvReac Type Severity Reaction Status Date / Time fentanyl Allergy Itching Verified 02/25/18 04:32 ibuprofen Allergy Hives Verified 02/25/18 04:32 metformin HCl Allergy Hives Verified 02/25/18 04:32 [From Glucophage] spinach Allergy Difficulty Verified 02/25/18 04:32 Breathing catfish Allergy Difficulty Uncoded 02/04/18 11:12 Breathing Home Meds: Home Meds Aspirin [Halfprin] 81 mg PO DAILY 08/10/15 [History] Carvedilol 6.25 mg PO BID 08/10/15 [History] Clopidogrel [Plavix] 75 mg PO DAILY 08/10/15 [History] Insulin Aspart [Novolog Flexpen] 0 unit SQ TIDMEALS PRN 08/10/15 [History] Insulin Detemir [Levemir] 15 unit SUBCUT QPM 08/10/15 [History] Acetaminophen [Acetaminophen 8 Hour] 650 mg PO Q4H PRN 02/16/17 [History] Isosorbide Mononitrate [Isosorbide Mononitrate ER] 30 mg PO DAILY 02/16/17 [ History] Metolazone 5 mg PO ASDIRECTED 02/16/17 [History] Torsemide [Demadex] 60 mg PO DAILY 02/16/17 [History] Lisinopril [Prinivil] 2.5 mg PO DAILY 04/09/17 [History] Nitroglycerin 0.4 mg PO ASDIRECTED PRN 04/09/17 [History] Pantoprazole [ProTONIX] 40 mg PO DAILY 04/09/17 [History] Rosuvastatin [Crestor] 20 mg PO DAILY 04/09/17 [History] Orphenadrine [Norflex] 1 tab PO Q12H PRN #14 tab.er 02/25/18 [Rx] Past Medical History Other HEENT History: no upper teeth--no dentures-----> pt says she does not have upper dentures however when getting home meds out of her backpack for her she had upper dentures in the pocket of the backpack. Pt says she wears glasses but left them in [place]. Cardiovascular History: Reports: CAD, Heart Failure, High Cholesterol, Hypertension, [place], PVD, Stents Other Cardiovascular History: defiberallator Respiratory History: Reports: COPD, Sleep Apnea, Other (See Below) Other Respiratory History: uses CPAP at night Gastrointestinal History: Reports: GERD Other Gastrointestinal History: hernia noted Genitourinary History: Reports: Chronic Renal Insuffiency, Dialysis (Q , , ), Renal Calculus, Urinary Incontinence Other Genitourinary History: history of kidney stones, dawkins when I pee. 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: Neurological History: Reports: Neuropathy, Peripheral Psychiatric History: Reports: Anxiety, Depression Endocrine/Metabolic History: Reports: Diabetes, Type II, Obesity/BMI 30+ Hematologic History: Reports: Anemia Other Dermatologic History: "boil on private parts" - Infectious Disease History Infectious Disease History: Reports: None - Past Surgical History HEENT Surgical History: Reports: Tonsillectomy Cardiovascular Surgical History: Reports: AICD, Coronary Artery Stent, Pacer GI Surgical History: Reports: Appendectomy Female Surgical History: Reports: Section Musculoskeletal Surgical History: Reports: ORIF Social & Family History - Family History Family Medical History: Noncontributory Cardiac: Reports: CAD, Heart Failure Endocrine/Metabolic: Reports: Diabetes, type II Oncologic: Reports: Breast - Tobacco Use Smoking Status *Q: Never Smoker Years of Tobacco use: 27 Packs/Tins Daily: 1 Used Tobacco, but Quit: Yes Month/Year Tobacco Last Used: 2011 Second Hand Smoke Exposure: No - Caffeine Use Caffeine Use: Reports: Coffee Other Caffeine Use: says she is a big coffee drinker - Recreational Drug Use Recreational Drug Use: Yes Drug Use in Last 12 Months: Yes Recreational Drug Type: Reports: Marijuana/Hashish Other Recreational Drug Type: last used yesterday Recreational Drug Use Frequency: Daily Recreational Drug Last Use: "about 2 weeks ago" - Living Situation & Occupation Living situation: Reports: , with Family Occupation: Unemployed ED ROS GENERAL - Review of Systems Review Of Systems: ROS reveals no pertinent complaints other than HPI. ED EXAM, GENERAL - Physical Exam Exam: See Below Exam Limited By: No Limitations General Appearance: Alert, WD/WN, No Apparent Distress Eye Exam: Bilateral Eye: Normal Inspection Ears: Normal External Exam, Hearing Grossly Normal Nose: Normal Inspection, No Blood Throat/Mouth: Normal Inspection, Normal Lips, Normal Voice, No Airway Compromise Head: Atraumatic, Normocephalic Neck: Normal Inspection, Full Range of Motion, Other (Reproducible tenderness to the cervical paraspinous musculature) Respiratory/Chest: No Respiratory Distress, Lungs Clear, Normal Breath Sounds, No Accessory Muscle Use, Other (Reproducible tenderness to palpation of the left chest). No: Crackles, Rhonchi, Wheezing Cardiovascular: Normal Peripheral Pulses, Regular Rate, Rhythm, No Gallop, No JVD, No Murmur, No Rub Peripheral Pulses: 4+: Radial (L), Radial (R) GI/Abdominal: Normal Bowel Sounds, Soft, Non-Tender, No Organomegaly, No Distention, No Abnormal Bruit, No Mass, Other (Obese) (Female) Exam: Deferred Rectal (Female) Exam: Deferred Back Exam: Normal Inspection, Full Range of Motion, NT Extremities: Normal Inspection, Normal Range of Motion, Normal Capillary Refill , Other (1-2+ pitting pretibial edema, bilaterally) Neurological: Alert, Oriented, Normal Cognition, Normal Gait, No Motor/Sensory Deficits Psychiatric: Normal Affect Skin Exam: Warm, Dry, Intact, Normal Color, No Rash EKG INTERPRETATION EKG Date: 02/25/18 Time: 04:30 Rhythm: NSR Rate (Beats/Min): 80 P-Wave: Present QRS: Other (V-paced) Comparison: No Change (02/04/2018) Course - Vital Signs Last Recorded V/S: Last Vital Signs Temp 36.6 C 02/25/18 04:29 Pulse 86 02/25/18 04:29 Resp 21 H 02/25/18 04:29 BP 114/69 02/25/18 04:29 Pulse Ox 95 02/25/18 04:29 - Orders/Labs/Meds Orders: Active Orders 24 hr Category Date Time Status EKG Documentation Completion [RC] STAT Care 02/25/18 04:48 Active Chest 2V [CR] Stat Exams 02/25/18 04:48 Taken UA W/MICROSCOPIC [URIN] Stat Lab 02/25/18 05:15 Ordered Labs: Laboratory Tests 02/25/18 02/25/18 02/25/18 Range/Units 05:04 05:04 05:04 WBC 5.47 (3.98-10.04) K/mm3 RBC 3.64 L (3.98-5.22) M/mm3 Hgb 9.0 L (11.2-15.7) gm/L Hct 30.9 L (34.1-44.9) % MCV 84.9 (79.4-94.8) fl MCH 24.7 L (25.6-32.2) pg MCHC 29.1 L (32.2-35.5) g/dl RDW Std Deviation 59.1 H (36.4-46.3) fL Plt Count 102 L (182-369) K/mm3 MPV 11.7 (9.4-12.3) fl Neutrophils % (Manual) 73 H (40-60) % Band Neutrophils % 0 (0-10) % Lymphocytes % (Manual) 18 L (20-40) % Atypical Lymphs % 0 % Monocytes % (Manual) 4 (2-10) % Eosinophils % (Manual) 4 (0.7-5.8) % Basophils % (Manual) 1 (0.1-1.2) Platelet Estimate Decreased Plt Morphology Comment Normal Hypochromasia 1+ slight Poikilocytosis 2+ moderate Anisocytosis 1+ slight Microcytosis 1+ slight Macrocytosis 1+ slight Tear Drop Cells 1+ slight Ovalocytes 1+ slight RBC Morph Comment Abnormal PT 11.8 (9.5-12.1) SECONDS INR 1.08 APTT 28 (24-31) SECONDS D-Dimer, Quantitative 3.72 H (0.19-0.50) mg/L Sodium 142 (136-145) mEq/L Potassium 3.9 (3.5-5.1) mEq/L Chloride 104 (98-107) mEq/L Carbon Dioxide 30 (21-32) mEq/L Anion Gap 11.9 (5-15) BUN 40 H (7-18) mg/dL Creatinine 5.4 H (0.55-1.02) mg/dL Est Cr Clr Drug Dosing 12.39 mL/min Estimated GFR (MDRD) 8 (>60) mL/min BUN/Creatinine Ratio 7.4 L (14-18) Glucose 157 H (74-106) mg/dL Calcium 8.0 L (8.5-10.1) mg/dL Total Bilirubin 0.4 (0.2-1.0) mg/dL AST 27 (15-37) U/L ALT 15 (14-59) U/L Alkaline Phosphatase 100 (46-116) U/L Troponin I 0.025 (0.00-0.056) ng/mL NT-Pro-B Natriuret Pep (0-125) pg/mL Total Protein 6.7 (6.4-8.2) g/dl Albumin 2.8 L (3.4-5.0) g/dl Globulin 3.9 gm/dL Albumin/Globulin Ratio 0.7 L (1-2) Urine Color (Yellow) Urine Appearance (Clear) Urine pH (5.0-8.0) Ur Specific [place] (1.005-1.030) Urine Protein (Negative) Urine Glucose (UA) (Negative) Urine Ketones (Negative) Urine Occult Blood (Negative) Urine Nitrite (Negative) Urine Bilirubin (Negative) Urine Urobilinogen (0.2-1.0) Ur Leukocyte Esterase (Negative) Urine RBC (0-5) /hpf Urine WBC (0-5) /hpf Ur Epithelial Cells (0-5) /hpf Urine Bacteria (FEW) /hpf Urine Mucus (FEW) /hpf 02/25/18 02/25/18 Range/Units 05:04 05:15 WBC (3.98-10.04) K/mm3 RBC (3.98-5.22) M/mm3 Hgb (11.2-15.7) gm/L Hct (34.1-44.9) % MCV (79.4-94.8) fl MCH (25.6-32.2) pg MCHC (32.2-35.5) g/dl RDW Std Deviation (36.4-46.3) fL Plt Count (182-369) K/mm3 MPV (9.4-12.3) fl Neutrophils % (Manual) (40-60) % Band Neutrophils % (0-10) % Lymphocytes % (Manual) (20-40) % Atypical Lymphs % % Monocytes % (Manual) (2-10) % Eosinophils % (Manual) (0.7-5.8) % Basophils % (Manual) (0.1-1.2) Platelet Estimate Plt Morphology Comment Hypochromasia Poikilocytosis Anisocytosis Microcytosis Macrocytosis Tear Drop Cells Ovalocytes RBC Morph Comment PT (9.5-12.1) SECONDS INR APTT (24-31) SECONDS D-Dimer, Quantitative (0.19-0.50) mg/L Sodium (136-145) mEq/L Potassium (3.5-5.1) mEq/L Chloride (98-107) mEq/L Carbon Dioxide (21-32) mEq/L Anion Gap (5-15) BUN (7-18) mg/dL Creatinine (0.55-1.02) mg/dL Est Cr Clr Drug Dosing mL/min Estimated GFR (MDRD) (>60) mL/min BUN/Creatinine Ratio (14-18) Glucose (74-106) mg/dL Calcium (8.5-10.1) mg/dL Total Bilirubin (0.2-1.0) mg/dL AST (15-37) U/L ALT (14-59) U/L Alkaline Phosphatase (46-116) U/L Troponin I (0.00-0.056) ng/mL NT-Pro-B Natriuret Pep 71190 H (0-125) pg/mL Total Protein (6.4-8.2) g/dl Albumin (3.4-5.0) g/dl Globulin gm/dL Albumin/Globulin Ratio (1-2) Urine Color Yellow (Yellow) Urine Appearance Clear (Clear) Urine pH 8.5 H (5.0-8.0) Ur Specific [place] 1.020 (1.005-1.030) Urine Protein 3+ H (Negative) Urine Glucose (UA) Negative (Negative) Urine Ketones Trace H (Negative) Urine Occult Blood Trace-lysed H (Negative) Urine Nitrite Negative (Negative) Urine Bilirubin 1+ H (Negative) Urine Urobilinogen 0.2 (0.2-1.0) Ur Leukocyte Esterase Negative (Negative) Urine RBC 5-10 H (0-5) /hpf Urine WBC 0-5 (0-5) /hpf Ur Epithelial Cells 0-5 (0-5) /hpf Urine Bacteria Few (FEW) /hpf Urine Mucus Not seen (FEW) /hpf Meds: Medications Discontinued Medications Generic Name Dose Route Start Last Admin Trade Name Freq PRN Reason Stop Dose Admin Orphenadrine Citrate 100 mg 02/25/18 04:56 02/25/18 05:03 Norflex PO 02/25/18 04:57 100 mg ONETIME STA Administration - Re-Assessments/Exams Free Text/Narrative Re-Assessment/Exam: 02/25/18 05:38 Two-view chest radiograph reviewed. Suboptimal inspiratory effort. Cardiac silhouette is at the upper limits of normal. No pulmonary vascular congestion. No pleural effusions. No focal infiltrate. No pneumothorax. Left-sided AICD, right-sided hemodialysis catheter, and coronary artery stents are incidentally noted. Formal read per the Radiologist pending. 02/25/18 06:31 Test results discussed with the patient. The patient has numerous lab abnormalities, but all are consistent with a patient on hemodialysisn - anemia, thrombocytopenia, elevated BUN/Cr, elevated d-dimer, and elevated BNP, however, the patient's troponin is within normal limits, and, along with the patient's history, I do not suspect a recent cardiac event. The patient is indicating that she is still in pain. I asked her if she has any pain medication at home, she said no, however, the [place] PMPi indicates that the patient filled a prescription for 20 Percocet on 02/22/2018. I pointed that out to her, she stated that she didn't fill the prescription, however, the NEGOTIATOR only reports prescriptions that are filled, not prescriptions that were written but not filled. I explained to the patient, and she then said, yes, that she has the Percocet at home, and that she has not taken any. The patient did not report the Percocet to the nurse who reviewed her medications today. I am concerned that the patient has already taken all of her Percocet, and that today 's visit may be an attempt to acquire more. I will discharge the patient home with a prescription for Norflex, and she can follow-up with her PCP if her symptoms persist. Departure - Departure Time of Disposition: 06:34 Disposition: Home, Self-Care 01 Condition: Good Clinical Impression: Neck muscle spasm, Musculoskeletal chest pain, End stage renal disease on dialysis - Discharge Information Prescriptions: Orphenadrine [Norflex] 1 tab PO Q12H PRN #14 tab.er PRN Reason: Muscle Spasm Forms: ED Department Discharge Additional Instructions: You were seen in the emergency room for a headache, neck pain, chest pain, back pain, nausea, vomiting, chills, and shortness of breath. Workup in the ER included blood work, a urinalysis, a chest x-ray, and an ECG. Your tests found abnormalities consistent with end-stage renal disease on hemodialysis, otherwise, the remainder of her workup was unremarkable. You have not suffered a heart attack. You do not have pneumonia. You do not have a collapsed lung. You have been started on the muscle relaxant Norflex. Take one tablet every 12 hours, as prescribed. If your symptoms persist, please follow-up with your primary care physician at [facility]. If any other problems, please do not hesitate to return to the ER. - My Orders Last 24 Hours: My Active Orders 02/25/18 04:48 EKG Documentation Completion [RC] STAT Chest 2V [CR] Stat 02/25/18 05:15 UA W/MICROSCOPIC [URIN] Stat - Assessment/Plan Last 24 Hours: My Active Orders 02/25/18 04:48 EKG Documentation Completion [RC] STAT Chest 2V [CR] Stat 02/25/18 05:15 UA W/MICROSCOPIC [URIN] Stat
--- NOTE | 2018-02-25 07:36 | CR ---
Chest: Two views of the chest was obtained. Comparison: Prior chest x-ray of 12/28/17. Right sided dialysis catheter is seen. AICD is seen entering from the left side. Coronary artery stent is present. Heart size and mediastinum are normal. Lungs show no acute parenchymal densities. Scattered degenerative change is noted within the spine with disc space narrowing and endplate osteophytes. Impression: 1. Incidental findings. Nothing acute is appreciated on two-view chest x-ray. Diagnostic code #2
== END 2018-02-25 06:50 | disposition home or self-care (01) ==
LOC: JD.ED 04:26
DX: R07.89 Other chest pain (principal); M62.838 Other muscle spasm; I13.0 Hypertensive heart and chronic kidney disease with heart failure and stage 1 through stage 4 chronic kidney disease, or unspecified chronic kidney disease; I50.9 Heart failure, unspecified; E78.00 Pure hypercholesterolemia, unspecified; I25.2 Old myocardial infarction; N18.6 End stage renal disease; I25.10 Atherosclerotic heart disease of native coronary artery without angina pectoris; J44.9 Chronic obstructive pulmonary disease, unspecified; E11.22 Type 2 diabetes mellitus with diabetic chronic kidney disease; G47.30 Sleep apnea, unspecified; E11.42 Type 2 diabetes mellitus with diabetic polyneuropathy; D63.1 Anemia in chronic kidney disease; Z88.6 Allergy status to analgesic agent; Z88.8 Allergy status to other drugs, medicaments and biological substances; Z79.4 Long term (current) use of insulin; Z79.82 Long term (current) use of aspirin; Z79.899 Other long term (current) drug therapy; Z99.89 Dependence on other enabling machines and devices; Z87.442 Personal history of urinary calculi; Z99.2 Dependence on renal dialysis
CPT/HCPCS: 36415; 71046; 80053; 81001; 83880; 84484; 85025; 85379; 85610; 85730; 93005; 99285; A9270; 93010; 99284

== ENCOUNTER 2018-03-11 21:00 | Emergency (ER) | payer OTHER ==
--- NOTE | 2018-03-13 21:05 | EDM.PDOC ---
ED HPI GENERAL MEDICAL PROBLEM - General Stated Complaint: [facility] Time Seen by Provider: 03/11/18 21:13 Source of Information: Reports: Patient History Limitations: Reports: No Limitations - History of Present Illness INITIAL COMMENTS - FREE TEXT/NARRATIVE: The patient was seen during computer downtime. Prior medical records were not available. Handwritten notes were taken at the time - this record is made from those notes. The patient states that she underwent exploratory laparoscopy at [facility] 3-4 years ago. She states that she developed right upper quadrant abdominal pain approximately 6 months ago. She saw a doctor in [place], who instructed her to return to [facility] for evaluation. She states that she saw the surgeon Dr. Price at [facility] 2-[address] scan was performed, which was reportedly negative. She was instructed to return to [facility] if she continued to experience more pain. She states that her right upper quadrant abdominal pain returned. She has had nausea and emesis. She has had chills, but no fever. She has been constipated, although had diarrhea yesterday. No urinary symptoms. She states that she called EMS, and asked that they take her to [facility], however, they brought her here. She states that she is essentially here for a ride to [facility]. The patient is diabetic. She states that her most recent blood glucose tonight was 137. The patient has end-stage renal disease, on hemodialysis every Sunday, Sunday , and Sunday for the past 8 months, but states that she skipped her hemodialysis today, because she did not have a ride. - Related Data Allergies Allergy/AdvReac Type Severity Reaction Status Date / Time fentanyl Allergy Itching Verified 02/25/18 04:32 ibuprofen Allergy Hives Verified 02/25/18 04:32 metformin HCl Allergy Hives Verified 02/25/18 04:32 [From Glucophage] spinach Allergy Difficulty Verified 02/25/18 04:32 Breathing catfish Allergy Difficulty Uncoded 02/04/18 11:12 Breathing Home Meds: Home Meds Aspirin [Halfprin] 81 mg PO DAILY 08/10/15 [History] Carvedilol 6.25 mg PO BID 08/10/15 [History] Clopidogrel [Plavix] 75 mg PO DAILY 08/10/15 [History] Insulin Aspart [Novolog Flexpen] 0 unit SQ TIDMEALS PRN 08/10/15 [History] Insulin Detemir [Levemir] 15 unit SUBCUT QPM 08/10/15 [History] Acetaminophen [Acetaminophen 8 Hour] 650 mg PO Q4H PRN 02/16/17 [History] Isosorbide Mononitrate [Isosorbide Mononitrate ER] 30 mg PO DAILY 02/16/17 [ History] Metolazone 5 mg PO ASDIRECTED 02/16/17 [History] Torsemide [Demadex] 60 mg PO DAILY 02/16/17 [History] Lisinopril [Prinivil] 2.5 mg PO DAILY 04/09/17 [History] Nitroglycerin 0.4 mg PO ASDIRECTED PRN 04/09/17 [History] Pantoprazole [ProTONIX] 40 mg PO DAILY 04/09/17 [History] Rosuvastatin [Crestor] 20 mg PO DAILY 04/09/17 [History] Orphenadrine [Norflex] 1 tab PO Q12H PRN #14 tab.er 02/25/18 [Rx] Past Medical History Cardiovascular History: Reports: CAD, Heart Failure, High Cholesterol, Hypertension, [place], PVD Respiratory History: Reports: COPD, Sleep Apnea (nightly CPAP) Gastrointestinal History: Reports: GERD Genitourinary History: Reports: Dialysis (Q M,W,F), Renal Calculus, Urinary Incontinence 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: Neurological History: Reports: Neuropathy, Peripheral Psychiatric History: Reports: Anxiety, Depression Endocrine/Metabolic History: Reports: Diabetes, Type II, Obesity/BMI 30+ Hematologic History: Reports: Anemia - Past Surgical History HEENT Surgical History: Reports: Tonsillectomy Cardiovascular Surgical History: Reports: AICD, Coronary Artery Stent GI Surgical History: Reports: Appendectomy, Other (See Below) (Exploratory laparoscopy x 2) Female Surgical History: Reports: Section (x 1) Musculoskeletal Surgical History: Reports: ORIF (right ankle) Social & Family History - Family History Family Medical History: Noncontributory Cardiac: Reports: CAD, Heart Failure Endocrine/Metabolic: Reports: Diabetes, type II Oncologic: Reports: Breast - Tobacco Use Smoking Status *Q: Never Smoker - Caffeine Use Caffeine Use: Reports: Coffee Other Caffeine Use: says she is a big coffee drinker - Alcohol Use Alcohol Use History: Yes Date/Time of Last Drink Comment: Quit 2010 - Recreational Drug Use Recreational Drug Use: Yes Drug Use in Last 12 Months: Yes Recreational Drug Type: Reports: Marijuana/Hashish (weekly) - Living Situation & Occupation Living situation: Reports: , with Family (with brother) Occupation: Unemployed ED ROS GENERAL - Review of Systems Review Of Systems: ROS reveals no pertinent complaints other than HPI. ED EXAM, GENERAL - Physical Exam Exam: See Below Exam Limited By: No Limitations General Appearance: Alert, WD/WN, No Apparent Distress Eye Exam: Bilateral Eye: Normal Inspection Ears: Normal External Exam, Hearing Grossly Normal Nose: Normal Inspection, No Blood Throat/Mouth: Normal Inspection, Normal Lips, Normal Voice, No Airway Compromise Head: Atraumatic, Normocephalic Neck: Normal Inspection, Full Range of Motion Respiratory/Chest: No Respiratory Distress, Lungs Clear, Normal Breath Sounds, No Accessory Muscle Use, Other (Hemodialysis catheter in the right chest is C/D/ I) Cardiovascular: Normal Peripheral Pulses, Regular Rate, Rhythm, No Gallop, No JVD, No Murmur, No Rub Peripheral Pulses: 3+: Radial (L), Radial (R) GI/Abdominal: Normal Bowel Sounds, Soft, No Organomegaly, No Distention, No Abnormal Bruit, No Mass, Tender (Generalized, non-focal), Other (Obese) (Female) Exam: Deferred Back Exam: Normal Inspection, Full Range of Motion, NT Extremities: Normal Inspection, Normal Range of Motion, Normal Capillary Refill , Other (3+ pretibial edema bilaterally) Neurological: Alert, Oriented, Normal Cognition, No Motor/Sensory Deficits Psychiatric: Normal Affect Skin Exam: Warm, Dry, Intact, Normal Color, No Rash Course - Orders/Labs/Meds Labs: Laboratory Tests 03/11/18 03/11/18 03/11/18 Range/Units 21:55 21:55 21:55 WBC 6.35 (3.98-10.04) K/mm3 RBC 3.76 L (3.98-5.22) M/mm3 Hgb 9.1 L (11.2-15.7) gm/L Hct 30.4 L (34.1-44.9) % MCV 80.9 (79.4-94.8) fl MCH 24.2 L (25.6-32.2) pg MCHC 29.9 L (32.2-35.5) g/dl RDW Std Deviation 54.7 H (36.4-46.3) fL Plt Count 179 L (182-369) K/mm3 MPV 10.4 (9.4-12.3) fl Neutrophils % (Manual) 81 H (40-60) % Band Neutrophils % 0 (0-10) % Lymphocytes % (Manual) 13 L (20-40) % Atypical Lymphs % 3 % Monocytes % (Manual) 2 (2-10) % Eosinophils % (Manual) 1 (0.7-5.8) % Basophils % (Manual) 0 L (0.1-1.2) Platelet Estimate Adequate Polychromasia Few Hypochromasia 1+ slight Anisocytosis 1+ Sodium 140 (136-145) mEq/L Potassium 4.2 (3.5-5.1) mEq/L Chloride 108 H (98-107) mEq/L Carbon Dioxide 20 L (21-32) mEq/L Anion Gap 16.2 H (5-15) BUN 57 H (7-18) mg/dL Creatinine 3.4 H (0.55-1.02) mg/dL Est Cr Clr Drug Dosing TNP Estimated GFR (MDRD) 14 (>60) mL/min BUN/Creatinine Ratio 16.8 (14-18) Glucose 172 H (74-106) mg/dL Calcium 7.9 L (8.5-10.1) mg/dL Magnesium 2.5 H (1.8-2.4) mg/dl Total Bilirubin 0.7 (0.2-1.0) mg/dL AST 21 (15-37) U/L ALT 20 (14-59) U/L Alkaline Phosphatase 106 (46-116) U/L Total Protein 7.1 (6.4-8.2) g/dl Albumin 3.1 L (3.4-5.0) g/dl Globulin 4.0 gm/dL Albumin/Globulin Ratio 0.8 L (1-2) Lipase 120 (73-393) U/L Urine Color Ariela H (Yellow) Urine Appearance Slt cloudy H (Clear) Urine pH 5.5 (5.0-8.0) Ur Specific [place] > or = 1.030 (1.005-1.030) Urine Protein 3+ H (Negative) Urine Glucose (UA) Negative (Negative) Urine Ketones Trace H (Negative) Urine Occult Blood 2+ H (Negative) Urine Nitrite Negative (Negative) Urine Bilirubin 1+ H (Negative) Urine Urobilinogen 0.2 (0.2-1.0) Ur Leukocyte Esterase Negative (Negative) Urine RBC 0-5 (0-5) /hpf Urine WBC 10-20 H (0-5) /hpf Ur Epithelial Cells 10-20 H (0-5) /hpf Urine Bacteria Moderate H (FEW) /hpf Hyaline Casts 5-10 H (0-5) /lpf Urine Mucus Not seen (FEW) /hpf - Re-Assessments/Exams Free Text/Narrative Re-Assessment/Exam: The CBC is notable for a H/H of 9.1/30.4. The CMP is notable for a bicarbonate of 19.5, BUN/Cr 57/3.42, and blood glucose of 172. Magnesium is elevated at 2.5. Lipase is within normal limits at 120. The urinalysis is consistent with contamination. Case discussed with [facility] at 22:07. They noted that the patient had been admitted on 02/20/2018 with a diagnosis of diverticulitis. She was discharged home with prescriptions that included Percocet and a five-day course of Flagyl. Case then discussed with Dr. Borges, Hospitalist at [facility], at 22:23. She accepted the patient for observation. The patient will be transported by ground ambulance. Departure - Departure Time of Disposition: 22:25 Disposition: DC/Tfer to Acute Hospital 02 Condition: Fair Clinical Impression: Abdominal pain of unknown etiology, Need for acute hemodialysis - Discharge Information
== END 2018-03-11 22:50 ==
LOC: JD.ED 21:00
DX: R10.11 Right upper quadrant pain (principal); I11.0 Hypertensive heart disease with heart failure; I50.9 Heart failure, unspecified; E78.00 Pure hypercholesterolemia, unspecified; I25.10 Atherosclerotic heart disease of native coronary artery without angina pectoris; I25.2 Old myocardial infarction; K21.9 Gastro-esophageal reflux disease without esophagitis; J44.9 Chronic obstructive pulmonary disease, unspecified; F41.9 Anxiety disorder, unspecified; F32.9 Major depressive disorder, single episode, unspecified; E66.9 Obesity, unspecified; D64.9 Anemia, unspecified; G47.30 Sleep apnea, unspecified; Z99.89 Dependence on other enabling machines and devices; Z88.8 Allergy status to other drugs, medicaments and biological substances; Z88.6 Allergy status to analgesic agent; Z91.018 Allergy to other foods; Z91.013 Allergy to seafood; Z99.2 Dependence on renal dialysis; Z79.899 Other long term (current) drug therapy; Z95.5 Presence of coronary angioplasty implant and graft; Z95.810 Presence of automatic (implantable) cardiac defibrillator; Z87.442 Personal history of urinary calculi; E11.42 Type 2 diabetes mellitus with diabetic polyneuropathy
CPT/HCPCS: 36415; 80053; 81001; 83690; 83735; 85025; 99284; 99285

== ENCOUNTER 2018-03-22 14:11 | Emergency (ER) | payer OTHER ==
[2018-03-22] MEDS ORDERED: Sodium Chloride 0.9% 500 ML ONE (14:41)
[2018-03-22] MEDS ORDERED: Ondansetron 4 MG/2 ML SDV IVPUSH ONE ×2 (14:53→17:36)
[2018-03-22] MEDS ORDERED: Alum Hydrox/Mag Hydrox/Simeth 30 ML, Lidocaine 2% 15 ML PO STA ×2 (14:56)
--- NOTE | 2018-03-22 15:12 | EDM.PDOC ---
ED HPI GENERAL MEDICAL PROBLEM - General Chief Complaint: Abdominal Pain Stated Complaint: [facility] Time Seen by Provider: 03/22/18 14:21 Source of Information: Reports: Patient, Old Records History Limitations: Reports: No Limitations - History of Present Illness INITIAL COMMENTS - FREE TEXT/NARRATIVE: The patient states that she developed midline abdominal pain, sharp in character , that radiates up to her lower central chest, last night. She states that the pain comes and goes. It improves, nearly to resolution, with a hot shower. No recent fever, but she states that she has had chills. She reports nausea and vomiting all night. She reports constipation, that is chronic. The patient has end-stage renal disease and makes very little urine; she denies urinary symptoms. The patient initially stated that she has had this same pain previously, but later stated that she has not. Medical records find that the patient was seen in this ED on 03/11/2018, with a complaint of right upper quadrant abdominal pain. She stated at the time that she had undergone an exploratory laparoscopy at [facility] 3-4 years ago, and that she developed right upper quadrant abdominal pain about 6 months ago. She stated that she had followed up with Dr. Price in February 2018, that a CT scan was performed, which was reportedly negative, and then she was instructed to return to [place] if she continued to experience more pain. When seen on 03/11/2018, a CBC, CMP, lipase level, and urinalysis were consistent with a with end-stage renal disease on hemodialysis, but otherwise unremarkable. The patient was transferred to [facility]. Discharge paperwork that the patient brought with her today indicates that the patient was admitted from 03/12/2018 through 03/15/2018, and was discharged with a diagnosis of "abdominal pain". She was discharged home with prescriptions for Zofran and Percocet 5/325, 28 tablets, intended to last 7 days. The patient states that the van failed to pick her up for hemodialysis today. Her last hemodialysis would have been this past 03/20/2018. Treatments TALENT BUYER: Reports: Other (see below) Other Treatments TALENT BUYER: nitor spray Abdomen Pain Score (Numeric/FACES): 10 - Related Data Allergies Allergy/AdvReac Type Severity Reaction Status Date / Time fentanyl Allergy Itching Verified 02/25/18 04:32 ibuprofen Allergy Hives Verified 02/25/18 04:32 metformin HCl Allergy Hives Verified 02/25/18 04:32 [From Glucophage] spinach Allergy Difficulty Verified 02/25/18 04:32 Breathing catfish Allergy Difficulty Uncoded 02/04/18 11:12 Breathing Home Meds: Home Meds Aspirin [Halfprin] 81 mg PO DAILY 08/10/15 [History] Carvedilol 6.25 mg PO BID 08/10/15 [History] Clopidogrel [Plavix] 75 mg PO DAILY 08/10/15 [History] Insulin Aspart [Novolog Flexpen] 0 unit SQ TIDMEALS PRN 08/10/15 [History] Insulin Detemir [Levemir] 15 unit SUBCUT QPM 08/10/15 [History] Acetaminophen [Acetaminophen 8 Hour] 650 mg PO Q4H PRN 02/16/17 [History] Isosorbide Mononitrate [Isosorbide Mononitrate ER] 30 mg PO DAILY 02/16/17 [ History] Metolazone 5 mg PO ASDIRECTED 02/16/17 [History] Torsemide [Demadex] 60 mg PO DAILY 02/16/17 [History] Lisinopril [Prinivil] 2.5 mg PO DAILY 04/09/17 [History] Nitroglycerin 0.4 mg PO ASDIRECTED PRN 04/09/17 [History] Pantoprazole [ProTONIX] 40 mg PO DAILY 04/09/17 [History] Rosuvastatin [Crestor] 20 mg PO DAILY 04/09/17 [History] Orphenadrine [Norflex] 1 tab PO Q12H PRN #14 tab.er 02/25/18 [Rx] Past Medical History Cardiovascular History: Reports: CAD, Heart Failure, High Cholesterol, Hypertension, IA, PVD Respiratory History: Reports: COPD, Sleep Apnea (nightly CPAP) Gastrointestinal History: Reports: GERD Genitourinary History: Reports: Dialysis (Q M, W, F at 14:00), Renal Calculus, Urinary Incontinence 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: Neurological History: Reports: Neuropathy, Peripheral Psychiatric History: Reports: Anxiety, Depression Endocrine/Metabolic History: Reports: Diabetes, Type II, Obesity/BMI 30+ Hematologic History: Reports: Anemia - Past Surgical History HEENT Surgical History: Reports: Tonsillectomy Cardiovascular Surgical History: Reports: AICD, Coronary Artery Stent GI Surgical History: Reports: Appendectomy, Other (See Below) (Exploratory laparoscopy x 2) Female Surgical History: Reports: Section (x 1) Musculoskeletal Surgical History: Reports: ORIF (right ankle) Social & Family History - Family History Family Medical History: Noncontributory Cardiac: Reports: CAD, Heart Failure Endocrine/Metabolic: Reports: Diabetes, type II Oncologic: Reports: Breast - Tobacco Use Smoking Status *Q: Never Smoker - Caffeine Use Caffeine Use: Reports: Soda Other Caffeine Use: diet soda - Alcohol Use Alcohol Use History: Yes Date/Time of Last Drink Comment: Quit 2010 - Recreational Drug Use Recreational Drug Use: Yes Drug Use in Last 12 Months: Yes Recreational Drug Type: Reports: Marijuana/Hashish (smokes weekly) - Living Situation & Occupation Living situation: Reports: , with Family (with brother) Occupation: Unemployed ED ROS GENERAL - Review of Systems Review Of Systems: ROS reveals no pertinent complaints other than HPI. ED EXAM, GENERAL - Physical Exam Exam: See Below Exam Limited By: No Limitations General Appearance: Alert, WD/WN, Other ([place] - normal for her - but stops if distracted) Eye Exam: Bilateral Eye: Normal Inspection Ears: Normal External Exam, Hearing Grossly Normal Nose: Normal Inspection, No Blood Throat/Mouth: Normal Inspection, Normal Lips, Normal Voice, No Airway Compromise Head: Atraumatic, Normocephalic Neck: Normal Inspection, Full Range of Motion Respiratory/Chest: No Respiratory Distress, Lungs Clear, Normal Breath Sounds, No Accessory Muscle Use Cardiovascular: Normal Peripheral Pulses, Regular Rate, Rhythm, No Gallop, No JVD, No Murmur, No Rub Peripheral Pulses: 1+: Radial (L), Radial (R) GI/Abdominal: Normal Bowel Sounds, Soft, No Organomegaly, No Distention, No Abnormal Bruit, No Mass, Tender (Generalized, non-focal), Other (Obese) (Female) Exam: Deferred Rectal (Female) Exam: Deferred Back Exam: Normal Inspection, Full Range of Motion, CVA Tenderness (L), CVA Tenderness (R) Extremities: Normal Inspection, Normal Range of Motion, Normal Capillary Refill , Other (2-3+ pretibial edema bilaterally) Neurological: Alert, Oriented, Normal Cognition, No Motor/Sensory Deficits Psychiatric: Normal Affect Skin Exam: Warm, Dry, Intact, Normal Color, No Rash EKG INTERPRETATION EKG Date: 03/22/18 Time: 14:21 Rhythm: NSR (Atrially sensed, ventricularly paced) Rate (Beats/Min): 84 Comparison: No Change (02/25/2018) Course - Vital Signs Last Recorded V/S: Last Vital Signs Temp 35.8 C 03/22/18 14:27 Pulse 80 03/22/18 14:27 Resp 17 03/22/18 16:00 BP 138/87 03/22/18 16:00 Pulse Ox 99 03/22/18 16:00 - Orders/Labs/Meds Orders: Active Orders 24 hr Category Date Time Status EKG Documentation Completion [RC] STAT Care 03/22/18 14:29 Active Abdomen 1V Upright [CR] Stat Exams 03/22/18 14:55 Taken Chest 2V [CR] Stat Exams 03/22/18 14:55 Taken UA W/MICROSCOPIC [URIN] Stat Lab 03/22/18 14:54 Ordered Labs: Laboratory Tests 03/22/18 03/22/18 03/22/18 Range/Units 14:54 15:15 15:15 WBC 5.24 (3.98-10.04) K/mm3 RBC 4.15 (3.98-5.22) M/mm3 Hgb 9.7 L (11.2-15.7) gm/L Hct 32.9 L (34.1-44.9) % MCV 79.3 L (79.4-94.8) fl MCH 23.4 L (25.6-32.2) pg MCHC 29.5 L (32.2-35.5) g/dl RDW Std Deviation 51.8 H (36.4-46.3) fL Plt Count 156 L (182-369) K/mm3 MPV 10.5 (9.4-12.3) fl Neutrophils % (Manual) 82 H (40-60) % Band Neutrophils % 0 (0-10) % Lymphocytes % (Manual) 17 L (20-40) % Atypical Lymphs % 0 % Monocytes % (Manual) 0 L (2-10) % Eosinophils % (Manual) 0 L (0.7-5.8) % Basophils % (Manual) 1 (0.1-1.2) Toxic Granulation Few Platelet Estimate Adequate Plt Morphology Comment Normal Hypochromasia 2+ moderate Anisocytosis 2+ moderate RBC Morph Comment Not Reportable Sodium 139 (136-145) mEq/L Potassium 3.9 (3.5-5.1) mEq/L Chloride 103 (98-107) mEq/L Carbon Dioxide 25 (21-32) mEq/L Anion Gap 14.9 (5-15) BUN 73 H (7-18) mg/dL Creatinine 4.0 H (0.55-1.02) mg/dL Est Cr Clr Drug Dosing 16.73 mL/min Estimated GFR (MDRD) 12 (>60) mL/min BUN/Creatinine Ratio 18.3 H (14-18) Glucose 140 H (74-106) mg/dL Calcium 8.8 (8.5-10.1) mg/dL Total Bilirubin 0.8 (0.2-1.0) mg/dL AST 26 (15-37) U/L ALT 13 L (14-59) U/L Alkaline Phosphatase 104 (46-116) U/L Troponin I 0.059 H* (0.00-0.056) ng/mL Total Protein 7.4 (6.4-8.2) g/dl Albumin 3.2 L (3.4-5.0) g/dl Globulin 4.2 gm/dL Albumin/Globulin Ratio 0.8 L (1-2) Lipase 85 (73-393) U/L Urine Color Yellow (Yellow) Urine Appearance Clear (Clear) Urine pH 5.5 (5.0-8.0) Ur Specific [place] 1.025 (1.005-1.030) Urine Protein 3+ H (Negative) Urine Glucose (UA) Negative (Negative) Urine Ketones Negative (Negative) Urine Occult Blood 1+ H (Negative) Urine Nitrite Negative (Negative) Urine Bilirubin Negative (Negative) Urine Urobilinogen 0.2 (0.2-1.0) Ur Leukocyte Esterase Negative (Negative) Urine RBC 5-10 H (0-5) /hpf Urine WBC Not seen (0-5) /hpf Ur Epithelial Cells 0-5 (0-5) /hpf Urine Bacteria Not seen (FEW) /hpf Urine Mucus Not seen (FEW) /hpf Meds: Medications Discontinued Medications Generic Name Dose Route Start Last Admin Trade Name Freq PRN Reason Stop Dose Admin Al Hydroxide/Mg Hydroxide 30 0 ml 03/22/18 14:56 03/22/18 15:07 ml/ Lidocaine HCl 15 ml PO 03/22/18 14:57 45 ml ONETIME STA Administration Sodium Chloride Confirm 03/22/18 14:41 03/22/18 15:19 Normal Saline Administered 03/22/18 14:42 Not Given Dose 500 mls @ as directed .ROUTE .STK-MED ONE Ondansetron HCl 4 mg 03/22/18 14:53 03/22/18 15:07 Zofran IVPUSH 03/22/18 14:54 4 mg ONETIME ONE Administration - Re-Assessments/Exams Free Text/Narrative Re-Assessment/Exam: 03/22/18 15:28 2-view chest radiograph reviewed. Cardiac silhouette is within normal limits. No pulmonary vascular congestion. No pleural effusions. No focal infiltrate. No pneumothorax. A left-sided AICD is incidentally noted. A right sided hemodialysis catheter is incidentally noted. Coronary artery stent is incidentally noted. Formal read per the Radiologist pending. Upright abdominal radiograph reviewed. Nonspecific bowel gas pattern. Considerable stool noted throughout the colon. No free air. Formal read per the Radiologist pending. 03/22/18 16:14 Both the chest radiograph and upright abdominal radiograph images were pushed to [facility]. 03/22/18 16:29 Case discussed with [facility] One Call at 16:16. Case then discussed with Dr. Macias, Hospitalist at [facility], at 16:24. He reviewed some of the notes from the patient's earlier admissions to their facility, and noted that at one point, drug paraphernalia was found in the patient's room. Nursing had previously requested that when the patient is admitted, that she be under video monitoring. Dr. Macias accepted the patient for placement into observation. It is interesting that the patient noted that her abdominal pain improves with a hot shower. This is suggestive of cannabis hyperemesis syndrome. The patient states that she smokes marijuana only once a week, however, if in fact the patient smokes more frequently, then cannabis hyperemesis syndrome should be strongly considered. Departure - Departure Time of Disposition: 16:31 Disposition: Refer to Observation Condition: Fair Clinical Impression: ESRD on hemodialysis, Abdominal pain of unknown etiology, Chest pain of uncertain etiology, Nausea & vomiting - Discharge Information - My Orders Last 24 Hours: My Active Orders 03/22/18 14:29 EKG Documentation Completion [RC] STAT 03/22/18 14:54 UA W/MICROSCOPIC [URIN] Stat 03/22/18 14:55 Abdomen 1V Upright [CR] Stat Chest 2V [CR] Stat - Assessment/Plan Last 24 Hours: My Active Orders 03/22/18 14:29 EKG Documentation Completion [RC] STAT 03/22/18 14:54 UA W/MICROSCOPIC [URIN] Stat 03/22/18 14:55 Abdomen 1V Upright [CR] Stat Chest 2V [CR] Stat
--- NOTE | 2018-03-22 17:28 | CR ---
Abdomen: Supine view of the abdomen was obtained. Comparison: Previous abdominal series of 02/04/18. Slightly prominent air-filled loops of small bowel are noted within the left abdomen. Difficult to exclude developing small bowel obstruction. Bowel gas pattern is otherwise unremarkable. Surgical clips are seen from prior cholecystectomy. Bony structures are grossly intact. Impression: 1. Slightly prominent air-filled loops of small bowel within the left upper abdomen. Difficult to exclude developing small bowel obstruction. Please correlate with patient's symptoms. Diagnostic code #3
--- NOTE | 2018-03-22 17:28 | CR ---
Chest: Two views of the chest were obtained. Comparison: Prior chest x-ray of 02/25/18. Heart size is slightly enlarged. Upper mediastinum is normal. Right sided dialysis catheter is seen. AICD is present. Coronary artery stents are present. Lungs are clear with no acute parenchymal densities. Bony structures appear within normal limits for the patient's age. Impression: 1. Multiple findings as noted above. Nothing acute is seen. Diagnostic code #2
[2018-03-22 18:38] VITALS: BP 138/102
== END 2018-03-22 18:12 ==
LOC: JD.ED 14:11
DX: I13.2 Hypertensive heart and chronic kidney disease with heart failure and with stage 5 chronic kidney disease, or end stage renal disease (principal); I50.9 Heart failure, unspecified; N18.6 End stage renal disease; E11.22 Type 2 diabetes mellitus with diabetic chronic kidney disease; I25.2 Old myocardial infarction; Z88.8 Allergy status to other drugs, medicaments and biological substances; Z79.82 Long term (current) use of aspirin; Z79.4 Long term (current) use of insulin; Z79.899 Other long term (current) drug therapy; Z91.018 Allergy to other foods
CPT/HCPCS: 36415; 71046; 74018; 80053; 81001; 83690; 84484; 85007; 85027; 93005; 96374; 96376; 99285; A9270; J2405; 93010; 99284

== ENCOUNTER 2018-03-25 20:42 | Emergency (ER) | payer OTHER ==
[2018-03-25 20:51] VITALS: BP 157/89
[2018-03-25] MEDS ORDERED: Sodium Chloride 0.9% 10 ML Syringe FLUSH PRN (21:05)
[2018-03-25] MEDS ORDERED: Ondansetron 4 MG/2 ML SDV IVPUSH ONE (21:13)
[2018-03-25] MEDS ORDERED: Sodium Chloride 0.9% 1,000 ML IV SCH (21:15)
[2018-03-25] MEDS ORDERED: HYDROmorphone 0.5 MG/0.5 ML SYRINGE IVPUSH ONE (21:22)
--- NOTE | 2018-03-25 23:36 | EDM.PDOC ---
ED HPI GENERAL MEDICAL PROBLEM - General Chief Complaint: Abdominal Pain Stated Complaint: HEAT PROBLEMS Time Seen by Provider: 03/25/18 20:54 Source of Information: Reports: Patient History Limitations: Reports: No Limitations - History of Present Illness INITIAL COMMENTS - FREE TEXT/NARRATIVE: The patient presents with abdominal pain, blood stools and chest pain. The chest pain started today. The abdominal pain and bloody stool have been an ongoing problem. She has been seen here twice in the past two weeks and sent to [place] where she was discharged the next day. She has renal failure and is on dialysis. She had her dialysis today. The pain got worse. She does admit to smoking marijuana last night. That may be a factor in her pain. She also has nausea and vomiting. Onset: Gradual Duration: Day(s): Location: Reports: Chest, Abdomen Severity: Moderate Improves with: Reports: None Worsens with: Reports: None Associated Symptoms: Reports: Chest Pain, Nausea/Vomiting. Denies: Fever/Chills , Headaches, Shortness of Breath Abdominal Pain Score (Numeric/FACES): 10 - Related Data Allergies Allergy/AdvReac Type Severity Reaction Status Date / Time fentanyl Allergy Itching Verified 03/25/18 20:45 ibuprofen Allergy Hives Verified 03/25/18 20:45 metformin HCl Allergy Hives Verified 03/25/18 20:45 [From Glucophage] spinach Allergy Difficulty Verified 03/25/18 20:45 Breathing catfish Allergy Difficulty Uncoded 03/25/18 20:45 Breathing Home Meds: Home Meds Aspirin [Halfprin] 81 mg PO DAILY 08/10/15 [History] Carvedilol 3.125 mg PO BID 08/10/15 [History] Insulin Aspart [Novolog Flexpen] 3 - 11 unit SQ QID PRN 08/10/15 [History] Insulin Detemir [Levemir] 14 unit SUBCUT Q12H 08/10/15 [History] Isosorbide Mononitrate [Isosorbide Mononitrate ER] 60 mg PO DAILY 02/16/17 [ History] Lisinopril [Prinivil] 10 mg PO DAILY 04/09/17 [History] Nitroglycerin 0.4 mg PO ASDIRECTED PRN 04/09/17 [History] Biotin/FA/Vit C/Vit B Complex [Nephrocaps] 1 mg PO DAILY 03/22/18 [History] Docusate Sodium 100 mg PO BID 03/22/18 [History] Omeprazole 20 mg PO DAILY 03/22/18 [History] Ondansetron HCl [Zofran] 4 mg PO Q6H PRN 03/22/18 [History] QUEtiapine [SEROquel] 25 mg PO BEDTIME PRN 03/22/18 [History] Sertraline [Zoloft] 100 mg PO DAILY 03/22/18 [History] SitaGLIPtin [Januvia] 100 mg PO DAILY 03/22/18 [History] Ticagrelor [Brilinta] 90 mg PO BID 03/22/18 [History] atorvaSTATin [Lipitor] 40 mg PO BEDTIME 03/22/18 [History] busPIRone [Buspar] 15 mg PO TID 03/22/18 [History] oxyCODONE HCl/Acetaminophen [Endocet 5-325 Tablet] 5 - 325 mg PO Q6H PRN [History] Past Medical History Other HEENT History: no upper teeth--no dentures-----> pt says she does not have upper dentures however when getting home meds out of her backpack for her she had upper dentures in the pocket of the backpack. Pt says she wears glasses but left them in [place]. Cardiovascular History: Reports: CAD, Heart Failure, High Cholesterol, Hypertension, VT, PVD Other Cardiovascular History: defiberallator Respiratory History: Reports: COPD, Sleep Apnea Other Respiratory History: uses CPAP at night Gastrointestinal History: Reports: GERD Other Gastrointestinal History: hernia noted Genitourinary History: Reports: Dialysis, Renal Calculus, Urinary Incontinence Other Genitourinary History: history of kidney stones, dawkins when I pee. 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 STAKER History: Reports: Neurological History: Reports: Neuropathy, Peripheral Psychiatric History: Reports: Anxiety, Depression Endocrine/Metabolic History: Reports: Diabetes, Type II, Obesity/BMI 30+ Hematologic History: Reports: Anemia Other Dermatologic History: "boil on private parts" - Infectious Disease History Infectious Disease History: Reports: None - Past Surgical History HEENT Surgical History: Reports: Tonsillectomy Cardiovascular Surgical History: Reports: AICD, Coronary Artery Stent GI Surgical History: Reports: Appendectomy, Other (See Below) Female Surgical History: Reports: Section Musculoskeletal Surgical History: Reports: ORIF Social & Family History - Family History Family Medical History: Noncontributory Cardiac: Reports: CAD, Heart Failure Endocrine/Metabolic: Reports: Diabetes, type II Oncologic: Reports: Breast - Tobacco Use Smoking Status *Q: Never Smoker - Caffeine Use Caffeine Use: Reports: Soda Other Caffeine Use: diet soda - Recreational Drug Use Recreational Drug Use: Yes Drug Use in Last 12 Months: Yes Recreational Drug Type: Reports: Marijuana/Hashish - Living Situation & Occupation Living situation: Reports: , with Family (with brother) Occupation: Unemployed ED ROS GENERAL - Review of Systems Review Of Systems: See Below Constitutional: Reports: No Symptoms HEENT: Reports: No Symptoms Respiratory: Reports: No Symptoms Cardiovascular: Reports: Chest Pain Endocrine: Reports: No Symptoms GI/Abdominal: Reports: Abdominal Pain, Bloody Stool, Nausea, Vomiting : Reports: No Symptoms Musculoskeletal: Reports: No Symptoms Skin: Reports: No Symptoms ED EXAM, GI/ABD - Physical Exam Exam: See Below Exam Limited By: No Limitations General Appearance: Alert, No Apparent Distress Ears: Normal External Exam Nose: Normal Inspection Head: Atraumatic, Normocephalic Neck: Normal Inspection Respiratory/Chest: No Respiratory Distress, Lungs Clear, Normal Breath Sounds Cardiovascular: Regular Rate, Rhythm, No Edema, No Murmur GI/Abdominal Exam: Soft, No Organomegaly, No Mass, Tender (Mild generalized tenderness) EKG INTERPRETATION EKG Date: 03/25/18 Time: 21:09 Rhythm: Other (atarial-sensed Ventricular paced complexes) Rate (Beats/Min): 95 Course - Vital Signs Last Recorded V/S: Last Vital Signs Temp 96.1 F 03/25/18 20:46 Pulse 95 03/25/18 20:46 Resp 18 03/25/18 20:46 BP 157/89 H 03/25/18 20:46 Pulse Ox 95 03/25/18 20:46 - Orders/Labs/Meds Orders: Active Orders 24 hr Category Date Time Status Cardiac Monitoring [RC] . DIRECTED Care 03/25/18 21:05 Active EKG Documentation Completion [RC] STAT Care 03/25/18 21:06 Active Peripheral IV Care [RC] . DIRECTED Care 03/25/18 21:06 Active Chest 1V Frontal [CR] Stat Exams 03/25/18 21:06 Taken Sodium Chloride 0.9% [Normal Saline] 1,000 ml Med 03/25/18 21:15 Active IV ASDIRECTED Sodium Chloride 0.9% [Saline Flush] Med 03/25/18 21:05 Active 10 ml FLUSH ASDIRECTED PRN ED Antiemetic Medication Reflex [OM.PC] Stat Oth 03/25/18 21:05 Ordered Peripheral IV Insertion Adult [OM.PC] Stat Ot 03/25/18 21:05 Ordered Medication Orders Sodium Chloride (Normal Saline) 1,000 mls @ 125 mls/hr IV ASDIRECTED ANIKET Last Admin: 03/25/18 21:18 Dose: 125 mls/hr Sodium Chloride (Saline Flush) 10 ml FLUSH ASDIRECTED PRN PRN Reason: Keep Vein Open Last Admin: 03/25/18 21:18 Dose: 10 ml Labs: Laboratory Tests 03/25/18 03/25/18 Range/Units 21:19 21:19 WBC 9.51 (3.98-10.04) K/mm3 RBC 4.22 (3.98-5.22) M/mm3 Hgb 10.0 L (11.2-15.7) gm/L Hct 33.3 L (34.1-44.9) % MCV 78.9 L (79.4-94.8) fl MCH 23.7 L (25.6-32.2) pg MCHC 30.0 L (32.2-35.5) g/dl RDW Std Deviation 50.6 H (36.4-46.3) fL Plt Count 198 (182-369) K/mm3 MPV 11.5 (9.4-12.3) fl Neut % (Auto) 80.2 H (34.0-71.1) % Lymph % (Auto) 9.9 L (19.3-51.7) % [place] % (Auto) 9.4 (4.7-12.5) % Eos % (Auto) 0.1 L (0.7-5.8) Baso % (Auto) 0.2 (0.1-1.2) % Neut # (Auto) 7.63 H (1.56-6.13) K/mm3 Lymph # (Auto) 0.94 L (1.18-3.74) K/mm3 [place] # (Auto) 0.89 H (0.24-0.36) K/mm3 Eos # (Auto) 0.01 L (0.04-0.36) K/mm3 Baso # (Auto) 0.02 (0.01-0.08) K/mm3 Manual Slide Review Abnormal smear Sodium 138 (136-145) mEq/L Potassium 4.2 (3.5-5.1) mEq/L Chloride 100 (98-107) mEq/L Carbon Dioxide 25 (21-32) mEq/L Anion Gap 17.2 H (5-15) BUN 55 H (7-18) mg/dL Creatinine 4.7 H (0.55-1.02) mg/dL Est Cr Clr Drug Dosing 14.23 mL/min Estimated GFR (MDRD) 10 (>60) mL/min BUN/Creatinine Ratio 11.7 L (14-18) Glucose 228 H (74-106) mg/dL Calcium 8.5 (8.5-10.1) mg/dL Total Bilirubin 0.8 (0.2-1.0) mg/dL AST 31 (15-37) U/L ALT 15 (14-59) U/L Alkaline Phosphatase 114 (46-116) U/L Troponin I 0.138 H* (0.00-0.056) ng/mL Total Protein 7.7 (6.4-8.2) g/dl Albumin 3.3 L (3.4-5.0) g/dl Globulin 4.4 gm/dL Albumin/Globulin Ratio 0.8 L (1-2) Meds: Medications Generic Name Dose Route Start Last Admin Trade Name Freq PRN Reason Stop Dose Admin Sodium Chloride 1,000 mls @ 125 mls/hr 03/25/18 21:15 03/25/18 21:18 Normal Saline IV 125 mls/hr ASDIRECTED ANIKET Administration Sodium Chloride 10 ml 03/25/18 21:05 03/25/18 21:18 Saline Flush FLUSH 10 ml ASDIRECTED PRN Administration Keep Vein Open Discontinued Medications Generic Name Dose Route Start Last Admin Trade Name Freq PRN Reason Stop Dose Admin Hydromorphone HCl 1 mg 03/25/18 21:22 03/25/18 21:30 Dilaudid IVPUSH 03/25/18 21:23 1 mg ONETIME ONE Administration Ondansetron HCl 4 mg 03/25/18 21:13 03/25/18 21:18 Zofran IVPUSH 03/25/18 21:14 4 mg ONETIME ONE Administration - Re-Assessments/Exams Free Text/Narrative Re-Assessment/Exam: 03/25/18 23:33 I ordered an IV NS at 125mL/hr, zofran 4mg IV, dilaudid 1mg IV, labs, CXR and EKG. Her CXR shows nothing acute. Her EKG is paced. Her WBC is normal. Her Hgb is 10. That is the best it has been in awhile. Her platelets are normal at 198. Her anion gap is elevated at 17.2. Her creatinine is elevated at 4.7. Her glucose is 220. Her troponin is elevated at 0.138. She has been elevated before. 03/25/18 23:36 She did not have any more bloody stools here. I will discharge her home. Departure - Departure Time of Disposition: 23:40 Disposition: Home, Self-Care 01 Condition: Good Clinical Impression: Anemia Qualifiers: Anemia type: unspecified type Qualified Code(s): D64.9 - Anemia, unspecified Chronic kidney disease Qualifiers: Chronic kidney disease stage: stage 5, not on chronic dialysis Qualified Code(s ): N18.5 - Chronic kidney disease, stage 5 Chest pain Qualifiers: Chest pain type: unspecified Qualified Code(s): R07.9 - Chest pain, unspecified Abdominal pain Qualifiers: Abdominal location: generalized Qualified Code(s): R10.84 - Generalized abdominal pain Nausea and vomiting Qualifiers: Vomiting type: unspecified Vomiting Intractability: non-intractable Qualified Code(s): R11.2 - Nausea with vomiting, unspecified - Discharge Information Referrals: PCP,Unknown [Primary Care Provider] - Additional Instructions: Follow up with your doctor within the week. Take your medication as prescribed. Please return if you are worse. - My Orders Last 24 Hours: My Active Orders 03/25/18 21:05 Cardiac Monitoring [RC] . DIRECTED Sodium Chloride 0.9% [Saline Flush] 10 ml FLUSH ASDIRECTED PRN ED Antiemetic Medication Reflex [OM.PC] Stat Peripheral IV Insertion Adult [OM.PC] Stat 03/25/18 21:06 EKG Documentation Completion [RC] STAT Peripheral IV Care [RC] . DIRECTED Chest 1V Frontal [CR] Stat 03/25/18 21:15 Sodium Chloride 0.9% [Normal Saline] 1,000 ml IV ASDIRECTED - Assessment/Plan Last 24 Hours: My Active Orders 03/25/18 21:05 Cardiac Monitoring [RC] . DIRECTED Sodium Chloride 0.9% [Saline Flush] 10 ml FLUSH ASDIRECTED PRN ED Antiemetic Medication Reflex [OM.PC] Stat Peripheral IV Insertion Adult [OM.PC] Stat 03/25/18 21:06 EKG Documentation Completion [RC] STAT Peripheral IV Care [RC] . DIRECTED Chest 1V Frontal [CR] Stat 03/25/18 21:15 Sodium Chloride 0.9% [Normal Saline] 1,000 ml IV ASDIRECTED
--- NOTE | 2018-03-26 08:32 | CR ---
Chest: Frontal view of the chest was obtained. Comparison: Prior chest x-ray at 03/22/18. Right-sided dialysis catheter is seen. AICD is present. Coronary artery stent is present. Heart size at the upper limits of normal. Lungs are clear with no acute parenchymal densities. Impression: 1. Incidental findings. Nothing acute is seen on frontal chest x-ray. Diagnostic code #2
== END 2018-03-25 23:55 | disposition home or self-care (01) ==
LOC: JD.ED 20:42
DX: D64.9 Anemia, unspecified (principal); I13.11 Hypertensive heart and chronic kidney disease without heart failure, with stage 5 chronic kidney disease, or end stage renal disease; I50.9 Heart failure, unspecified; N18.5 Chronic kidney disease, stage 5; E78.00 Pure hypercholesterolemia, unspecified; I25.2 Old myocardial infarction; E11.42 Type 2 diabetes mellitus with diabetic polyneuropathy; E11.22 Type 2 diabetes mellitus with diabetic chronic kidney disease; Z88.6 Allergy status to analgesic agent; Z88.8 Allergy status to other drugs, medicaments and biological substances; Z79.82 Long term (current) use of aspirin; Z79.4 Long term (current) use of insulin; Z79.899 Other long term (current) drug therapy
CPT/HCPCS: 36415; 71045; 80053; 84484; 85025; 93005; 96361; 96374; 96375; 99284; J1170; J2405; J7040; J7050

== ENCOUNTER 2018-04-12 11:03 | Emergency (ER) | payer OTHER ==
[2018-04-12 11:13] VITALS: BP 80/57
[2018-04-12] MEDS ORDERED: Sodium Chloride 0.9% 500 ML IV ONE (11:26)
[2018-04-12] MEDS ORDERED: Sodium Chloride 0.9% 10 ML Syringe FLUSH PRN (11:26)
[2018-04-12] MEDS ORDERED: Ondansetron 4 MG/2 ML SDV IVPUSH ONE (11:40)
[2018-04-12] MEDS ORDERED: HYDROmorphone 0.5 MG/0.5 ML SYRINGE IVPUSH ONE (11:40)
--- NOTE | 2018-04-12 12:12 | EDM.PDOC ---
ED HPI GENERAL MEDICAL PROBLEM - General Chief Complaint: Abdominal Pain Stated Complaint: [facility] Time Seen by Provider: 04/12/18 11:30 Source of Information: Reports: Patient, Old Records History Limitations: Reports: No Limitations - History of Present Illness INITIAL COMMENTS - FREE TEXT/NARRATIVE: 48-year-old female arrives via [facility] ambulance service for evaluation and treatment of abdominal pain. Patient is a poor historian. From what I can ascertain she was at [facility] in [place] recently. She an upper and lower endoscopy and she was treated for GI bleed. She is a dialysis patient and her last dialysis was Sunday, about 6 days ago, she states that she returned home and contacted her local dialysis center but they were unable to get her and so therefore she has not had dialysis. She is currently complaining of pain to her right side of her abdomen around her hernia. States it started last night around 9 PM. Is sharp in character and kept her up Most the night due to the pain. Rates the pain currently is 9 out of 10. She reports associated symptoms of lightheadedness, chills, nausea and vomiting. She denies any chest pain, shortness of breath, syncope, melena or hematochezia. She also states that she has "a round ball "on her anus. She states that "something is coming out of her bottom". Patient was given Zofran by EMS but has not had anything for pain thus far. Patient reports that she uses marijuana but has not used so in quite some time. Denies any alcohol use. Abdomen Pain Score (Numeric/FACES): 10 - Related Data Allergies Allergy/AdvReac Type Severity Reaction Status Date / Time fentanyl Allergy Itching Verified 03/25/18 20:45 ibuprofen Allergy Hives Verified 03/25/18 20:45 metformin HCl Allergy Hives Verified 03/25/18 20:45 [From Glucophage] spinach Allergy Difficulty Verified 03/25/18 20:45 Breathing catfish Allergy Difficulty Uncoded 03/25/18 20:45 Breathing Home Meds: Home Meds Aspirin [Halfprin] 81 mg PO DAILY 08/10/15 [History] Carvedilol 3.125 mg PO BID 08/10/15 [History] Insulin Aspart [Novolog Flexpen] 3 - 11 unit SQ QID PRN 08/10/15 [History] Isosorbide Mononitrate [Isosorbide Mononitrate ER] 60 mg PO DAILY 02/16/17 [ History] Lisinopril [Prinivil] 5 mg PO DAILY 04/09/17 [History] Nitroglycerin 0.4 mg PO ASDIRECTED PRN 04/09/17 [History] Biotin/FA/Vit C/Vit B Complex [Nephrocaps] 1 mg PO DAILY 03/22/18 [History] Docusate Sodium 100 mg PO BID 03/22/18 [History] Omeprazole 20 mg PO DAILY 03/22/18 [History] Ondansetron HCl [Zofran] 4 mg PO Q6H PRN 03/22/18 [History] Sertraline [Zoloft] 100 mg PO DAILY 03/22/18 [History] SitaGLIPtin [Januvia] 100 mg PO DAILY 03/22/18 [History] Ticagrelor [Brilinta] 90 mg PO BID 03/22/18 [History] atorvaSTATin [Lipitor] 40 mg PO BEDTIME 03/22/18 [History] busPIRone [Buspar] 15 mg PO TID 03/22/18 [History] Hydrocodone/Acetaminophen [Hydrocodon-Acetaminophen 5-325] 5 - 325 mg PO BID PRN 04/12/18 [History] Metoclopramide [Reglan] 5 mg PO Q6H PRN 04/12/18 [History] Past Medical History Other HEENT History: no upper teeth--no dentures-----> pt says she does not have upper dentures however when getting home meds out of her backpack for her she had upper dentures in the pocket of the backpack. Pt says she wears glasses but left them in [place]. Cardiovascular History: Reports: CAD, Heart Failure, High Cholesterol, Hypertension, [place], PVD Other Cardiovascular History: defiberallator Respiratory History: Reports: COPD, Sleep Apnea Other Respiratory History: uses CPAP at night Gastrointestinal History: Reports: GERD Other Gastrointestinal History: hernia noted Genitourinary History: Reports: Dialysis, Renal Calculus, Urinary Incontinence Other Genitourinary History: history of kidney stones, dawkins when I pee. 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: Neurological History: Reports: Neuropathy, Peripheral Psychiatric History: Reports: Anxiety, Depression Endocrine/Metabolic History: Reports: Diabetes, Type II, Obesity/BMI 30+ Hematologic History: Reports: Anemia Other Dermatologic History: "boil on private parts" - Infectious Disease History Infectious Disease History: Reports: None - Past Surgical History HEENT Surgical History: Reports: Tonsillectomy Cardiovascular Surgical History: Reports: AICD, Coronary Artery Stent GI Surgical History: Reports: Appendectomy, Other (See Below) Female Surgical History: Reports: Section Musculoskeletal Surgical History: Reports: ORIF Social & Family History - Family History Family Medical History: Noncontributory Cardiac: Reports: CAD, Heart Failure Endocrine/Metabolic: Reports: Diabetes, type II Oncologic: Reports: Breast - Tobacco Use Smoking Status *Q: Never Smoker - Caffeine Use Caffeine Use: Reports: Coffee, Soda Other Caffeine Use: diet soda - Recreational Drug Use Recreational Drug Type: Reports: Marijuana/Hashish Other Recreational Drug Type: none iin past 2 weeks - Living Situation & Occupation Living situation: Reports: , with Family (with brother) Occupation: Unemployed ED ROS GENERAL - Review of Systems Review Of Systems: See Below Constitutional: Reports: Chills Respiratory: Denies: Shortness of Breath Cardiovascular: Denies: Chest Pain GI/Abdominal: Reports: Abdominal Pain (RLQ), Nausea, Vomiting. Denies: Diarrhea , Hematochezia, Melena ED EXAM, GI/ABD - Physical Exam Exam: See Below Exam Limited By: No Limitations General Appearance: Alert, WD/WN, Mild Distress, Obese Ears: Normal External Exam Nose: Normal Inspection Throat/Mouth: Normal Inspection, Normal Voice, No Airway Compromise Respiratory/Chest: No Respiratory Distress, Lungs Clear, Normal Breath Sounds Cardiovascular: Normal Peripheral Pulses, Regular Rate, Rhythm, No Murmur GI/Abdominal Exam: Normal Bowel Sounds, Soft, Tender (generalized greatest to the RLQ her a large hernia is present), Hernia Rectal (Female) Exam: Normal Exam, Normal Rectal Tone, Heme + Stool Neurological: Alert, Oriented, Normal Cognition Psychiatric: Normal Affect, Normal Mood Skin Exam: Warm, Dry, Normal Color Course - Vital Signs Last Recorded V/S: Last Vital Signs Temp 97.6 F 04/12/18 11:11 Pulse 86 04/12/18 11:11 Resp 20 04/12/18 11:11 BP 80/57 L 04/12/18 11:11 Pulse Ox 100 04/12/18 11:11 - Orders/Labs/Meds Orders: Active Orders 24 hr Category Date Time Status Blood Glucose Check, Bedside [RC] ONETIME Care 04/12/18 12:30 Active Cardiac Monitoring [RC] . DIRECTED Care 04/12/18 11:26 Active EKG Documentation Completion [RC] ASDIRECTED Care 04/12/18 11:36 Active Insert Hernandez Catheter [Insert Urinary Catheter] [OM.PC] Care 04/12/18 13:25 Ordered Stat Peripheral IV Care [RC] . DIRECTED Care 04/12/18 11:26 Active Urinary Catheter Assessment [RC] ASDIRECTED Care 04/12/18 13:25 Active Chest 1V Frontal [CR] Stat Exams 04/12/18 11:58 Taken CULTURE BLOOD [BC] Stat Lab 04/12/18 12:05 Received CULTURE BLOOD [BC] Stat Lab 04/12/18 12:35 Received DRUG SCREEN, URINE [URCHEM] Stat Lab 04/12/18 11:35 Ordered PATIENT RETYPE [BBK] Stat Lab 04/12/18 13:15 Results TYPE AND SCREEN [BBK] Stat Lab 04/12/18 13:15 Results UA W/MICROSCOPIC [URIN] Stat Lab 04/12/18 13:30 Ordered Sodium Chloride 0.9% [Normal Saline] 1,000 ml Med 04/12/18 13:30 Active IV ASDIRECTED Sodium Chloride 0.9% [Saline Flush] Med 04/12/18 11:26 Active 10 ml FLUSH ASDIRECTED PRN Blood Culture x2 Reflex Set [OM.PC] Stat Oth 04/12/18 11:57 Ordered Peripheral IV Insertion Adult [OM.PC] Routine Oth 04/12/18 11:26 Ordered EKG 12 Lead [EK] Stat Ther 04/12/18 11:35 Ordered Medication Orders Sodium Chloride (Normal Saline) 1,000 mls @ 150 mls/hr IV ASDIRECTED ANIKET Sodium Chloride (Saline Flush) 10 ml FLUSH ASDIRECTED PRN PRN Reason: Keep Vein Open Last Admin: 04/12/18 12:22 Dose: 10 ml Labs: Laboratory Tests 04/12/18 04/12/18 04/12/18 Range/Units 11:35 12:05 12:05 WBC (3.98-10.04) K/mm3 RBC (3.98-5.22) M/mm3 Hgb (11.2-15.7) gm/L Hct (34.1-44.9) % MCV (79.4-94.8) fl MCH (25.6-32.2) pg MCHC (32.2-35.5) g/dl RDW Std Deviation (36.4-46.3) fL Plt Count (182-369) K/mm3 MPV (9.4-12.3) fl Neut % (Auto) (34.0-71.1) % Lymph % (Auto) (19.3-51.7) % Butler % (Auto) (4.7-12.5) % Eos % (Auto) (0.7-5.8) Baso % (Auto) (0.1-1.2) % Neut # (Auto) (1.56-6.13) K/mm3 Lymph # (Auto) (1.18-3.74) K/mm3 Butler # (Auto) (0.24-0.36) K/mm3 Eos # (Auto) (0.04-0.36) K/mm3 Baso # (Auto) (0.01-0.08) K/mm3 Manual Slide Review PT (9.5-12.1) SECONDS INR APTT (24-31) SECONDS Sodium 138 (136-145) mEq/L Potassium 5.3 H (3.5-5.1) mEq/L Chloride 102 (98-107) mEq/L Carbon Dioxide 20 L (21-32) mEq/L Anion Gap 21.3 H (5-15) BUN 100 H (7-18) mg/dL Creatinine 7.1 H (0.55-1.02) mg/dL Est Cr Clr Drug Dosing 9.32 mL/min Estimated GFR (MDRD) 6 (>60) mL/min BUN/Creatinine Ratio 14.1 (14-18) Glucose 129 H (74-106) mg/dL Lactic Acid (0.4-2.0) mmol/L Calcium 8.9 (8.5-10.1) mg/dL Magnesium 2.6 H (1.8-2.4) mg/dl Total Bilirubin 0.7 (0.2-1.0) mg/dL AST 26 (15-37) U/L ALT 14 (14-59) U/L Alkaline Phosphatase 96 (46-116) U/L Total Protein 7.3 (6.4-8.2) g/dl Albumin 3.1 L (3.4-5.0) g/dl Globulin 4.2 gm/dL Albumin/Globulin Ratio 0.7 L (1-2) Lipase 120 (73-393) U/L Urine Color (Yellow) Urine Appearance (Clear) Urine pH (5.0-8.0) Ur Specific [place] (1.005-1.030) Urine Protein (Negative) Urine Glucose (UA) (Negative) Urine Ketones (Negative) Urine Occult Blood (Negative) Urine Nitrite (Negative) Urine Bilirubin (Negative) Urine Urobilinogen (0.2-1.0) Ur Leukocyte Esterase (Negative) Urine RBC (0-5) /hpf Urine WBC (0-5) /hpf Ur Epithelial Cells (0-5) /hpf Urine Bacteria (FEW) /hpf Hyaline Casts (0-5) /lpf Urine Mucus (FEW) /hpf Urine Opiates Screen Negative (NEGATIVE) Ur Buprenorphine Scrn Negative (NEGATIVE) Ur Oxycodone Screen Negative (NEGATIVE) Urine Methadone Screen Negative (NEGATIVE) Ur Propoxyphene Screen Negative (NEGATIVE) Ur Barbiturates Screen Negative (NEGATIVE) Ur Tricyclics Screen Negative (NEGATIVE) Ur Phencyclidine Scrn Negative (NEGATIVE) Ur Amphetamine Screen Negative (NEGATIVE) U Methamphetamines Scrn Negative (NEGATIVE) U Benzodiazepines Scrn Negative (NEGATIVE) U Cocaine Metab Screen Negative (NEGATIVE) U Marijuana (THC) Screen Presumptive positive H (NEGATIVE) Ethyl Alcohol 0.00 (0.00) gm% Blood Type Gel Antibody Screen 04/12/18 04/12/18 04/12/18 Range/Units 12:35 12:35 12:35 WBC 5.27 (3.98-10.04) K/mm3 RBC 3.15 L (3.98-5.22) M/mm3 Hgb 7.5 L (11.2-15.7) gm/L Hct 24.9 L (34.1-44.9) % MCV 79.0 L (79.4-94.8) fl MCH 23.8 L (25.6-32.2) pg MCHC 30.1 L (32.2-35.5) g/dl RDW Std Deviation 50.3 H (36.4-46.3) fL Plt Count 171 L (182-369) K/mm3 MPV 11.2 (9.4-12.3) fl Neut % (Auto) 68.4 (34.0-71.1) % Lymph % (Auto) 16.7 L (19.3-51.7) % Butler % (Auto) 13.7 H (4.7-12.5) % Eos % (Auto) 0.6 L (0.7-5.8) Baso % (Auto) 0.6 (0.1-1.2) % Neut # (Auto) 3.61 (1.56-6.13) K/mm3 Lymph # (Auto) 0.88 L (1.18-3.74) K/mm3 Butler # (Auto) 0.72 H (0.24-0.36) K/mm3 Eos # (Auto) 0.03 L (0.04-0.36) K/mm3 Baso # (Auto) 0.03 (0.01-0.08) K/mm3 Manual Slide Review Abnormal smear PT 12.2 H (9.5-12.1) SECONDS INR 1.12 APTT 27 (24-31) SECONDS Sodium (136-145) mEq/L Potassium (3.5-5.1) mEq/L Chloride (98-107) mEq/L Carbon Dioxide (21-32) mEq/L Anion Gap (5-15) BUN (7-18) mg/dL Creatinine (0.55-1.02) mg/dL Est Cr Clr Drug Dosing mL/min Estimated GFR (MDRD) (>60) mL/min BUN/Creatinine Ratio (14-18) Glucose (74-106) mg/dL Lactic Acid 1.7 (0.4-2.0) mmol/L Calcium (8.5-10.1) mg/dL Magnesium (1.8-2.4) mg/dl Total Bilirubin (0.2-1.0) mg/dL AST (15-37) U/L ALT (14-59) U/L Alkaline Phosphatase (46-116) U/L Total Protein (6.4-8.2) g/dl Albumin (3.4-5.0) g/dl Globulin gm/dL Albumin/Globulin Ratio (1-2) Lipase (73-393) U/L Urine Color (Yellow) Urine Appearance (Clear) Urine pH (5.0-8.0) Ur Specific [place] (1.005-1.030) Urine Protein (Negative) Urine Glucose (UA) (Negative) Urine Ketones (Negative) Urine Occult Blood (Negative) Urine Nitrite (Negative) Urine Bilirubin (Negative) Urine Urobilinogen (0.2-1.0) Ur Leukocyte Esterase (Negative) Urine RBC (0-5) /hpf Urine WBC (0-5) /hpf Ur Epithelial Cells (0-5) /hpf Urine Bacteria (FEW) /hpf Hyaline Casts (0-5) /lpf Urine Mucus (FEW) /hpf Urine Opiates Screen (NEGATIVE) Ur Buprenorphine Scrn (NEGATIVE) Ur Oxycodone Screen (NEGATIVE) Urine Methadone Screen (NEGATIVE) Ur Propoxyphene Screen (NEGATIVE) Ur Barbiturates Screen (NEGATIVE) Ur Tricyclics Screen (NEGATIVE) Ur Phencyclidine Scrn (NEGATIVE) Ur Amphetamine Screen (NEGATIVE) U Methamphetamines Scrn (NEGATIVE) U Benzodiazepines Scrn (NEGATIVE) U Cocaine Metab Screen (NEGATIVE) U Marijuana (THC) Screen (NEGATIVE) Ethyl Alcohol (0.00) gm% Blood Type Gel Antibody Screen 04/12/18 04/12/18 Range/Units 13:15 13:30 WBC (3.98-10.04) K/mm3 RBC (3.98-5.22) M/mm3 Hgb (11.2-15.7) gm/L Hct (34.1-44.9) % MCV (79.4-94.8) fl MCH (25.6-32.2) pg MCHC (32.2-35.5) g/dl RDW Std Deviation (36.4-46.3) fL Plt Count (182-369) K/mm3 MPV (9.4-12.3) fl Neut % (Auto) (34.0-71.1) % Lymph % (Auto) (19.3-51.7) % Butler % (Auto) (4.7-12.5) % Eos % (Auto) (0.7-5.8) Baso % (Auto) (0.1-1.2) % Neut # (Auto) (1.56-6.13) K/mm3 Lymph # (Auto) (1.18-3.74) K/mm3 [place] # (Auto) (0.24-0.36) K/mm3 Eos # (Auto) (0.04-0.36) K/mm3 Baso # (Auto) (0.01-0.08) K/mm3 Manual Slide Review PT (9.5-12.1) SECONDS INR APTT (24-31) SECONDS Sodium (136-145) mEq/L Potassium (3.5-5.1) mEq/L Chloride (98-107) mEq/L Carbon Dioxide (21-32) mEq/L Anion Gap (5-15) BUN (7-18) mg/dL Creatinine (0.55-1.02) mg/dL Est Cr Clr Drug Dosing mL/min Estimated GFR (MDRD) (>60) mL/min BUN/Creatinine Ratio (14-18) Glucose (74-106) mg/dL Lactic Acid (0.4-2.0) mmol/L Calcium (8.5-10.1) mg/dL Magnesium (1.8-2.4) mg/dl Total Bilirubin (0.2-1.0) mg/dL AST (15-37) U/L ALT (14-59) U/L Alkaline Phosphatase (46-116) U/L Total Protein (6.4-8.2) g/dl Albumin (3.4-5.0) g/dl Globulin gm/dL Albumin/Globulin Ratio (1-2) Lipase (73-393) U/L Urine Color Yellow (Yellow) Urine Appearance Clear (Clear) Urine pH 6.0 (5.0-8.0) Ur Specific [place] 1.025 (1.005-1.030) Urine Protein 3+ H (Negative) Urine Glucose (UA) Negative (Negative) Urine Ketones Negative (Negative) Urine Occult Blood Negative (Negative) Urine Nitrite Negative (Negative) Urine Bilirubin 1+ H (Negative) Urine Urobilinogen 0.2 (0.2-1.0) Ur Leukocyte Esterase Negative (Negative) Urine RBC Not seen (0-5) /hpf Urine WBC 5-10 H (0-5) /hpf Ur Epithelial Cells 0-5 (0-5) /hpf Urine Bacteria Few (FEW) /hpf Hyaline Casts 0-5 (0-5) /lpf Urine Mucus Not seen (FEW) /hpf Urine Opiates Screen (NEGATIVE) Ur Buprenorphine Scrn (NEGATIVE) Ur Oxycodone Screen (NEGATIVE) Urine Methadone Screen (NEGATIVE) Ur Propoxyphene Screen (NEGATIVE) Ur Barbiturates Screen (NEGATIVE) Ur Tricyclics Screen (NEGATIVE) Ur Phencyclidine Scrn (NEGATIVE) Ur Amphetamine Screen (NEGATIVE) U Methamphetamines Scrn (NEGATIVE) U Benzodiazepines Scrn (NEGATIVE) U Cocaine Metab Screen (NEGATIVE) U Marijuana (THC) Screen (NEGATIVE) Ethyl Alcohol (0.00) gm% Blood Type A POSITIVE Gel Antibody Screen Negative Meds: Medications Generic Name Dose Route Start Last Admin Trade Name Freq PRN Reason Stop Dose Admin Sodium Chloride 1,000 mls @ 150 mls/hr 04/12/18 13:30 Normal Saline IV ASDIRECTED ANIKET Sodium Chloride 10 ml 04/12/18 11:26 04/12/18 12:22 Saline Flush FLUSH 10 ml ASDIRECTED PRN Administration Keep Vein Open Discontinued Medications Generic Name Dose Route Start Last Admin Trade Name Freq PRN Reason Stop Dose Admin Acetaminophen 650 mg 04/12/18 14:49 Tylenol PO 04/12/18 14:50 NOW ONE Hydromorphone HCl 1 mg 04/12/18 11:40 04/12/18 12:21 Dilaudid IVPUSH 04/12/18 11:41 1 mg ONETIME ONE Administration Sodium Chloride 500 mls @ 999 mls/hr 04/12/18 11:26 04/12/18 11:35 Normal Saline IV 04/12/18 11:56 999 mls/hr ONETIME ONE Administration Metoclopramide HCl 5 mg 04/12/18 14:49 Reglan IVPUSH 04/12/18 14:50 ONETIME ONE Ondansetron HCl 4 mg 04/12/18 11:40 04/12/18 12:21 Zofran IVPUSH 04/12/18 11:41 4 mg ONETIME ONE Administration - Radiology Interpretation Free Text/Narrative:: CT abdomen and pelvis Technique: Multiple axial sections were obtained from above the dome of the diaphragm inferiorly through the pubic symphysis. Intravenous and oral contrast has not been given. Comparison: Prior abdominal x-ray of 03/22/[address] abdomen and pelvis exam of 02/27/17. Findings: Diffuse body wall edema is identified. Visualized lung bases shows nothing acute. Small amount of fluid is seen around the liver and spleen as well as extending down the right paracolic gutter into the pelvis. Liver shows no focal abnormality. Surgical clips are seen from prior cholecystectomy. Spleen appears within normal limits. Nodule is noted within the right adrenal gland measuring approximately 1.7 cm in size which is felt to be stable from previous exam. Left adrenal gland is unremarkable. Surgical clips are seen from prior cholecystectomy. Pancreas appears within normal limits. Aorta shows no aneurysmal dilatation. Kidneys show no abnormal calcifications or hydronephrosis. Anterior abdominal wall hernia is noted which contains loops of nondilated small bowel. No small bowel dilatation is seen. No pelvic mass or adenopathy is seen. Bone window settings were reviewed which show scattered disc space narrowing and vacuum phenomena within the lower thoracic spine. Mild scattered endplate osteophytes are seen within the lumbar spine. Impression: 1. Diffuse body wall edema as well as mild ascites. Etiology for these findings are not seen. 2. Stable right adrenal nodule. 3. Other incidental findings.] Chest xray shows a right sided dialysis cathater and a pacemaker. No acute intrathoracic process. No change from March 2018 chest xray - Re-Assessments/Exams Free Text/Narrative Re-Assessment/Exam: 04/12/18 14:46 B/p have been running in the 100s systolic when she is laying on her back after receiving a 500ml bolus. I spoke with out [facility]. There is nothgin they can do for her on such on the short notice for her. Spoke with hemodialysis unit in [place]. They know her quite well. Nothing that they can do on such short-term notice. I discussed the case with Dr. Balderas, hospitalist at [facility] in [place]. He informed me that the abdominal pain is a chronic problem they will not use narcotics to treat this. He will accept her for the dialysis piece. I informed the patient her abdominal pain is a chronic problem and while they will address it when she is in [place] they will likely not given narcotics for this. The main reason she is going to [facility] for her dialysis needs. She discusses understanding. After I left the room the patient is complaining of worsening abdominal pain. I will order her some Tylenol and nausea medication. Departure - Departure Time of Disposition: 14:56 Disposition: DC/Tfer to Acute Hospital 02 Condition: Fair Clinical Impression: Renal insufficiency, Abdominal pain of unknown etiology - Discharge Information Referrals: Klaus Doherty MD [Primary Care Provider] - Forms: ED Department Discharge Additional Instructions: Patient to be transported to [facility] in [place]. Dr. Mcdermott accepted. - My Orders Last 24 Hours: My Active Orders 04/12/18 11:26 Cardiac Monitoring [RC] . DIRECTED Peripheral IV Care [RC] . DIRECTED Sodium Chloride 0.9% [Saline Flush] 10 ml FLUSH ASDIRECTED PRN Peripheral IV Insertion Adult [OM.PC] Routine 04/12/18 11:35 DRUG SCREEN, URINE [URCHEM] Stat EKG 12 Lead [EK] Stat 04/12/18 11:36 EKG Documentation Completion [RC] ASDIRECTED 04/12/18 11:57 Blood Culture x2 Reflex Set [OM.PC] Stat 04/12/18 11:58 Chest 1V Frontal [CR] Stat 04/12/18 12:05 CULTURE BLOOD [BC] Stat 04/12/18 12:30 Blood Glucose Check, Bedside [RC] ONETIME 04/12/18 12:35 CULTURE BLOOD [BC] Stat 04/12/18 13:15 PATIENT RETYPE [BBK] Stat TYPE AND SCREEN [BBK] Stat 04/12/18 13:25 Insert Hernandez Catheter [Insert Urinary Catheter] [OM.PC] Stat Urinary Catheter Assessment [RC] ASDIRECTED 04/12/18 13:30 UA W/MICROSCOPIC [URIN] Stat Sodium Chloride 0.9% [Normal Saline] 1,000 ml IV ASDIRECTED - Assessment/Plan Last 24 Hours: My Active Orders 04/12/18 11:26 Cardiac Monitoring [RC] . DIRECTED Peripheral IV Care [RC] . DIRECTED Sodium Chloride 0.9% [Saline Flush] 10 ml FLUSH ASDIRECTED PRN Peripheral IV Insertion Adult [OM.PC] Routine 04/12/18 11:35 DRUG SCREEN, URINE [URCHEM] Stat EKG 12 Lead [EK] Stat 04/12/18 11:36 EKG Documentation Completion [RC] ASDIRECTED 04/12/18 11:57 Blood Culture x2 Reflex Set [OM.PC] Stat 04/12/18 11:58 Chest 1V Frontal [CR] Stat 04/12/18 12:05 CULTURE BLOOD [BC] Stat 04/12/18 12:30 Blood Glucose Check, Bedside [RC] ONETIME 04/12/18 12:35 CULTURE BLOOD [BC] Stat 04/12/18 13:15 PATIENT RETYPE [BBK] Stat TYPE AND SCREEN [BBK] Stat 04/12/18 13:25 Insert Hernandez Catheter [Insert Urinary Catheter] [OM.PC] Stat Urinary Catheter Assessment [RC] ASDIRECTED 04/12/18 13:30 UA W/MICROSCOPIC [URIN] Stat Sodium Chloride 0.9% [Normal Saline] 1,000 ml IV ASDIRECTED
--- NOTE | 2018-04-12 12:59 | CT ---
CT abdomen and pelvis Technique: Multiple axial sections were obtained from above the dome of the diaphragm inferiorly through the pubic symphysis. Intravenous and oral contrast has not been given. Comparison: Prior abdominal x-ray of 03/22/[address] abdomen and pelvis exam of 02/27/17. Findings: Diffuse body wall edema is identified. Visualized lung bases shows nothing acute. Small amount of fluid is seen around the liver and spleen as well as extending down the right paracolic gutter into the pelvis. Liver shows no focal abnormality. Surgical clips are seen from prior cholecystectomy. Spleen appears within normal limits. Nodule is noted within the right adrenal gland measuring approximately 1.7 cm in size which is felt to be stable from previous exam. Left adrenal gland is unremarkable. Surgical clips are seen from prior cholecystectomy. Pancreas appears within normal limits. Aorta shows no aneurysmal dilatation. Kidneys show no abnormal calcifications or hydronephrosis. Anterior abdominal wall hernia is noted which contains loops of nondilated small bowel. No small bowel dilatation is seen. No pelvic mass or adenopathy is seen. Bone window settings were reviewed which show scattered disc space narrowing and vacuum phenomena within the lower thoracic spine. Mild scattered endplate osteophytes are seen within the lumbar spine. Impression: 1. Diffuse body wall edema as well as mild ascites. Etiology for these findings are not seen. 2. Stable right adrenal nodule. 3. Other incidental findings. Diagnostic code #3
[2018-04-12] MEDS ORDERED: Sodium Chloride 0.9% 1,000 ML IV SCH (13:30)
[2018-04-12] MEDS ORDERED: Metoclopramide 10 MG/2 ML SDV IVPUSH ONE (14:49)
[2018-04-12] MEDS ORDERED: Acetaminophen 325 MG Tab PO ONE (14:49)
--- NOTE | 2018-04-15 08:45 | CR ---
Chest: Portable view of the chest was obtained. Comparison: Prior chest x-ray of 03/25/18. Heart is enlarged. Left coronary stent is present. Right-sided infusion catheter is seen. AICD is noted from the left side. Lungs are clear without acute parenchymal change. Bony structures are grossly intact. Impression: 1. Findings as noted above. Nothing acute is identified on portable chest x-ray. Diagnostic code #2
== END 2018-04-12 15:25 ==
LOC: JD.ED 11:03 → SUPCPDRO 11:03 → JD.ED 15:25
DX: R10.9 Unspecified abdominal pain (principal); N28.9 Disorder of kidney and ureter, unspecified; Z88.8 Allergy status to other drugs, medicaments and biological substances; Z79.82 Long term (current) use of aspirin; Z79.899 Other long term (current) drug therapy
CPT/HCPCS: 36415; 71045; 74176; 80053; 80306; 81001; 83605; 83690; 83735; 85025; 85610; 85730; 86850; 86900; 86901; 87040; 93005; 96361; 96374; 96375; 99285; A9270; G0480; J1170; J2405; J2765; J7040; J7050; 93010; 99284

== ENCOUNTER 2018-04-21 05:55 | Emergency (ER) | payer OTHER ==
[2018-04-21 06:02] VITALS: BP 106/65
--- NOTE | 2018-04-21 06:25 | EDM.PDOC ---
ED HPI GENERAL MEDICAL PROBLEM - General Chief Complaint: Cardiovascular Problem Stated Complaint: [facility] Time Seen by Provider: 04/21/18 06:15 Source of Information: Reports: Patient, Old Records History Limitations: Reports: No Limitations - History of Present Illness INITIAL COMMENTS - FREE TEXT/NARRATIVE: The patient states that she ordinarily receives hemodialysis every Sunday. She provided a confusing history, stating that she was admitted to [facility] 2 weeks prior to 04/13/2018, and, once discharged, found that her hemodialysis center no longer had a position for her, therefore, she claimed, she had not had hemodialysis since then. Our medical records indicate that the patient was transferred to [facility] from this ED on 04/12/2018, then discharged home the following day, 2017. Her last hemodialysis, then, would have been on 04/12/2018. She did not go to outpatient dialysis on 04/15/2018, 04/17/2018, or 04/19/2018, because, she said, she lost her position at the outpatient dialysis center. She now presents with nausea and emesis for 2 days, and decreased oral intake. She complains of chronic abdominal burning. Treatments ON AIR DIRECTOR: Reports: Aspirin, Other (see below) Other Treatments ON AIR DIRECTOR: Fentanyl Intranasal Chest Pain Score (Numeric/FACES): 10 - Related Data Allergies Allergy/AdvReac Type Severity Reaction Status Date / Time fentanyl Allergy Itching Verified 04/21/18 06:00 ibuprofen Allergy Hives Verified 04/21/18 06:00 metformin HCl Allergy Hives Verified 04/21/18 06:00 [From Glucophage] spinach Allergy Difficulty Verified 04/21/18 06:00 Breathing catfish Allergy Difficulty Uncoded 04/21/18 06:00 Breathing Home Meds: Home Meds Aspirin [Halfprin] 81 mg PO DAILY 08/10/15 [History] Carvedilol 3.125 mg PO BID 08/10/15 [History] Insulin Aspart [Novolog Flexpen] 3 - 11 unit SQ QID PRN 08/10/15 [History] Isosorbide Mononitrate [Isosorbide Mononitrate ER] 60 mg PO DAILY 02/16/17 [ History] Lisinopril [Prinivil] 5 mg PO DAILY 04/09/17 [History] Nitroglycerin 0.4 mg PO ASDIRECTED PRN 04/09/17 [History] Biotin/FA/Vit C/Vit B Complex [Nephrocaps] 1 mg PO DAILY 03/22/18 [History] Docusate Sodium 100 mg PO BID 03/22/18 [History] Omeprazole 20 mg PO DAILY 03/22/18 [History] Ondansetron HCl [Zofran] 4 mg PO Q6H PRN 03/22/18 [History] Sertraline [Zoloft] 100 mg PO DAILY 03/22/18 [History] SitaGLIPtin [Januvia] 100 mg PO DAILY 03/22/18 [History] Ticagrelor [Brilinta] 90 mg PO BID 03/22/18 [History] atorvaSTATin [Lipitor] 40 mg PO BEDTIME 03/22/18 [History] busPIRone [Buspar] 15 mg PO TID 03/22/18 [History] Hydrocodone/Acetaminophen [Hydrocodon-Acetaminophen 5-325] 5 - 325 mg PO BID PRN 04/12/18 [History] Metoclopramide [Reglan] 5 mg PO Q6H PRN 04/12/18 [History] Past Medical History Other HEENT History: no upper teeth--no dentures-----> pt says she does not have upper dentures however when getting home meds out of her backpack for her she had upper dentures in the pocket of the backpack. Pt says she wears glasses but left them in [place]. Cardiovascular History: Reports: CAD, Heart Failure, High Cholesterol, Hypertension, [place], Pacemaker, PVD Other Cardiovascular History: defiberallator Respiratory History: Reports: COPD, Sleep Apnea Other Respiratory History: uses CPAP at night Gastrointestinal History: Reports: GERD Other Gastrointestinal History: hernia noted, states they are unable to operate Genitourinary History: Reports: Dialysis, Renal Calculus, Urinary Incontinence Other Genitourinary History: history of kidney stones, dawkins when I pee. 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: Neurological History: Reports: Migraines, Neuropathy, Peripheral Psychiatric History: Reports: Anxiety, Depression Endocrine/Metabolic History: Reports: Diabetes, Type II, Obesity/BMI 30+ Hematologic History: Reports: Anemia Other Dermatologic History: "boil on private parts" - Infectious Disease History Infectious Disease History: Reports: None - Past Surgical History HEENT Surgical History: Reports: Tonsillectomy Cardiovascular Surgical History: Reports: AICD, Coronary Artery Stent GI Surgical History: Reports: Appendectomy, Hernia, Abdominal, Other (See Below) Female Surgical History: Reports: Section Musculoskeletal Surgical History: Reports: ORIF Social & Family History - Family History Family Medical History: Noncontributory Cardiac: Reports: CAD, Heart Failure Endocrine/Metabolic: Reports: Diabetes, type II Oncologic: Reports: Breast - Tobacco Use Smoking Status *Q: Former Smoker Used Tobacco, but Quit: Yes Month/Year Tobacco Last Used: 2011 - Caffeine Use Caffeine Use: Reports: Coffee, Soda Other Caffeine Use: diet soda - Recreational Drug Use Recreational Drug Use: Yes Recreational Drug Type: Reports: Marijuana/Hashish Recreational Drug Use Frequency: Weekly - Living Situation & Occupation Living situation: Reports: , with Family (with brother) Occupation: Unemployed ED ROS GENERAL - Review of Systems Review Of Systems: ROS reveals no pertinent complaints other than HPI. ED EXAM, GENERAL - Physical Exam Exam: See Below Exam Limited By: No Limitations General Appearance: Alert, WD/WN, No Apparent Distress Eye Exam: Bilateral Eye: Normal Inspection Ears: Normal External Exam, Hearing Grossly Normal Nose: Normal Inspection, No Blood Throat/Mouth: Normal Inspection, Normal Lips, Normal Voice, No Airway Compromise Head: Atraumatic, Normocephalic Neck: Normal Inspection, Full Range of Motion Respiratory/Chest: No Respiratory Distress, Lungs Clear, Normal Breath Sounds, No Accessory Muscle Use Cardiovascular: Normal Peripheral Pulses, Regular Rate, Rhythm, No Gallop, No JVD, No Murmur, No Rub Peripheral Pulses: 2+: Radial (L), Radial (R) GI/Abdominal: Normal Bowel Sounds, Soft, No Organomegaly, No Distention, No Abnormal Bruit, No Mass, Tender (Generalized, non-focal. Anterior hernia), Other (Obese) (Female) Exam: Deferred Rectal (Female) Exam: Deferred Extremities: Normal Range of Motion, No Pedal Edema, Normal Capillary Refill, Other (Healing surgical wound left antecubital fossa. Fair thrill proximal to the wound. 3+ pitting edema bilateral lower extremities.) Neurological: Alert, Oriented, Normal Cognition, No Motor/Sensory Deficits Psychiatric: Normal Affect Skin Exam: Warm, Dry, Intact, Normal Color, No Rash EKG INTERPRETATION EKG Date: 04/21/18 Time: 06:02 Rhythm: Other (Atrial fibrillation, ventricularly paced) Rate (Beats/Min): 93 Comparison: No Change (04/12/2018) Course - Vital Signs Last Recorded V/S: Last Vital Signs Temp 36.8 C 04/21/18 06:00 Pulse 83 04/21/18 06:00 Resp 17 04/21/18 06:00 BP 106/65 04/21/18 06:00 Pulse Ox 98 04/21/18 06:00 - Orders/Labs/Meds Orders: Active Orders 24 hr Category Date Time Status EKG Documentation Completion [RC] STAT Care 04/21/18 05:57 Active Chest 2V [CR] Stat Exams 04/21/18 06:31 Taken UA W/MICROSCOPIC [URIN] Stat Lab 04/21/18 06:49 Ordered Labs: Laboratory Tests 04/21/18 04/21/18 04/21/18 Range/Units 06:15 06:15 06:49 WBC 5.98 (3.98-10.04) K/mm3 RBC 2.91 L (3.98-5.22) M/mm3 Hgb 6.9 L* (11.2-15.7) gm/L Hct 23.2 L (34.1-44.9) % MCV 79.7 (79.4-94.8) fl MCH 23.7 L (25.6-32.2) pg MCHC 29.7 L (32.2-35.5) g/dl RDW Std Deviation 52.5 H (36.4-46.3) fL Plt Count 155 L (182-369) K/mm3 MPV 11.6 (9.4-12.3) fl Neutrophils % (Manual) 86 H (40-60) % Band Neutrophils % 1 (0-10) % Lymphocytes % (Manual) 7 L (20-40) % Atypical Lymphs % 0 % Monocytes % (Manual) 5 (2-10) % Eosinophils % (Manual) 0 L (0.7-5.8) % Basophils % (Manual) 1 (0.1-1.2) Platelet Estimate Adequate Polychromasia 1+ slight Hypochromasia 1+ slight Anisocytosis 1+ slight Microcytosis 1+ slight Ovalocytes Few RBC Morph Comment Not Reportable Sodium 137 (136-145) mEq/L Potassium 3.5 (3.5-5.1) mEq/L Chloride 100 (98-107) mEq/L Carbon Dioxide 21 (21-32) mEq/L Anion Gap 19.5 H (5-15) BUN 104 H (7-18) mg/dL Creatinine 7.2 H (0.55-1.02) mg/dL Est Cr Clr Drug Dosing 9.19 mL/min Estimated GFR (MDRD) 6 (>60) mL/min BUN/Creatinine Ratio 14.4 (14-18) Glucose 185 H (74-106) mg/dL Calcium 7.6 L (8.5-10.1) mg/dL Total Bilirubin 1.0 (0.2-1.0) mg/dL AST 23 (15-37) U/L ALT 15 (14-59) U/L Alkaline Phosphatase 76 (46-116) U/L Troponin I 0.047 (0.00-0.056) ng/mL Total Protein 7.0 (6.4-8.2) g/dl Albumin 3.1 L (3.4-5.0) g/dl Globulin 3.9 gm/dL Albumin/Globulin Ratio 0.8 L (1-2) Urine Color Yellow (Yellow) Urine Appearance Slt cloudy H (Clear) Urine pH 5.5 (5.0-8.0) Ur Specific [place] > or = 1.030 (1.005-1.030) Urine Protein 2+ H (Negative) Urine Glucose (UA) Negative (Negative) Urine Ketones Negative (Negative) Urine Occult Blood Trace-intact H (Negative) Urine Nitrite Negative (Negative) Urine Bilirubin 1+ H (Negative) Urine Urobilinogen 0.2 (0.2-1.0) Ur Leukocyte Esterase Negative (Negative) Urine RBC 0-5 (0-5) /hpf Urine WBC 0-5 (0-5) /hpf Ur Epithelial Cells 10-20 H (0-5) /hpf Amorphous Sediment Few H (NOT SEEN) /hpf Urine Bacteria Few (FEW) /hpf Urine Mucus Not seen (FEW) /hpf Meds: Medications Discontinued Medications Generic Name Dose Route Start Last Admin Trade Name Freq PRN Reason Stop Dose Admin Ondansetron HCl 4 mg 04/21/18 07:16 04/21/18 07:22 Zofran Odt PO 04/21/18 07:17 4 mg ONETIME ONE Administration - Re-Assessments/Exams Free Text/Narrative Re-Assessment/Exam: 04/21/18 07:13 2 view chest radiograph reviewed. There appears to be cardiomegaly, however, no pulmonary vascular congestion or pleural effusions to suggest decompensated CHF. No focal infiltrate. No pneumothorax. AICD, coronary stents incidentally noted. Formal read per the Radiologist pending. 04/21/18 07:24 Case discussed with Baldev [facility] at 07:17. Case then discussed with Dr. Doherty at 07:21. He accepts the patient for direct admission, for observation. We will transport the patient by ground ambulance. The chest x-ray images were pushed to [facility] Leivasy. Departure - Departure Time of Disposition: 07:25 Disposition: DC/Tfer to Acute Hospital 02 Condition: Fair Clinical Impression: End-stage renal disease needing dialysis, Severe anemia - Discharge Information - My Orders Last 24 Hours: My Active Orders 04/21/18 05:57 EKG Documentation Completion [RC] STAT 04/21/18 06:31 Chest 2V [CR] Stat 04/21/18 06:49 UA W/MICROSCOPIC [URIN] Stat - Assessment/Plan Last 24 Hours: My Active Orders 04/21/18 05:57 EKG Documentation Completion [RC] STAT 04/21/18 06:31 Chest 2V [CR] Stat 04/21/18 06:49 UA W/MICROSCOPIC [URIN] Stat
[2018-04-21] MEDS ORDERED: Ondansetron 4 MG Tab.DIS PO ONE (07:16)
[2018-04-21] MEDS ORDERED: diphenhydrAMINE 50 MG/ML SDV IVPUSH ONE (07:34)
[2018-04-21] MEDS ORDERED: Metoclopramide 10 MG/2 ML SDV IVPUSH STA (07:34)
--- NOTE | 2018-04-22 09:39 | CR ---
Chest: Two views of the chest were obtained. Comparison: Prior chest x-ray of 04/12/18. AICD is noted. Right-sided dialysis catheter appears to be present. Extensive coronary artery stent is seen. Lungs are clear without acute parenchymal densities. Heart size is normal. Bony structures are within normal limits for the patient's age. Impression: 1. Findings as noted above. Nothing acute is seen. Diagnostic code #2
== END 2018-04-21 08:00 ==
LOC: JD.ED 05:55
DX: I13.2 Hypertensive heart and chronic kidney disease with heart failure and with stage 5 chronic kidney disease, or end stage renal disease (principal); I50.9 Heart failure, unspecified; N18.6 End stage renal disease; D63.1 Anemia in chronic kidney disease; E11.22 Type 2 diabetes mellitus with diabetic chronic kidney disease; E11.42 Type 2 diabetes mellitus with diabetic polyneuropathy; J44.9 Chronic obstructive pulmonary disease, unspecified; K21.9 Gastro-esophageal reflux disease without esophagitis; Z99.2 Dependence on renal dialysis; Z88.8 Allergy status to other drugs, medicaments and biological substances; Z91.013 Allergy to seafood; Z88.6 Allergy status to analgesic agent; Z79.899 Other long term (current) drug therapy; Z79.82 Long term (current) use of aspirin; Z87.891 Personal history of nicotine dependence
CPT/HCPCS: 36415; 71046; 80053; 81001; 84484; 85007; 85027; 93005; 96374; 96375; 99285; A9270; J1200; J2765; 93010

== ENCOUNTER 2018-05-09 02:41 | Emergency (ER) | payer OTHER ==
[2018-05-09 02:51] VITALS: BP 123/77
--- NOTE | 2018-05-09 03:05 | EDM.PDOC ---
ED HPI GENERAL MEDICAL PROBLEM - General Chief Complaint: Flank Pain Stated Complaint: AMBULANCE Time Seen by Provider: 05/09/18 02:58 Source of Information: Reports: Patient History Limitations: Reports: Respiratory Distress - History of Present Illness INITIAL COMMENTS - FREE TEXT/NARRATIVE: 48-year-old female of [place] presents to the ED with diffuse back pain primarily mid back in the distribution of her kidneys and along the costal margin. He was brought down to the hospital from [facility] by the [facility] She feels of course short of breath. She denies cough or sputum production. She denies fever or chills. She's been having intermittent nausea vomiting and vomiting small amounts of bilious material. Oral intake has been very poor the last 3 days. Patient is a insulin-dependent diabetic since age 15. She started dialysis a year ago and has been often noncompliant with attending dialysis. Last dialysis treatment was one half weeks ago. She still makes about 2 teaspoons of urine daily. She states she can 't lie flat because she is too dyspneic. There is a bit of a pleuritic component to her pain on deep inspiration. Is otherwise a dull aching discomfort. He denies any diarrhea. Bedside blood sugar is 137. Onset: Gradual Onset Date: 05/05/18 (Physical gradually gotten worse over the last 5 days.) Duration: Day(s):, Getting Worse Location: Reports: Generalized (Generalized sense of illness with shortness of breath pain along her mid back and upper abdomen. Associated nausea poor oral intake of food and fluids.) Quality: Reports: Ache, Burning, Pressure Severity: Moderate (Described to be 7 or 8 out of 10.) Improves with: Reports: None Worsens with: Reports: Other Context: Denies: Activity (Worsens with lying down with movement.), Exercise, Lifting, Sick Contact, Trauma, Other Associated Symptoms: Reports: Chest Pain, Loss of Appetite, Malaise, Nausea/ Vomiting, Shortness of Breath, Weakness. 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: Other (see below) (She's not sure her normal medicines have stayed down.) Bilateral Flank Pain Score (Numeric/FACES): 8 - Related Data Allergies Allergy/AdvReac Type Severity Reaction Status Date / Time fentanyl Allergy Itching Verified 05/09/18 02:52 ibuprofen Allergy Hives Verified 05/09/18 02:52 metformin HCl Allergy Hives Verified 05/09/18 02:52 [From Glucophage] spinach Allergy Difficulty Verified 05/09/18 02:52 Breathing catfish Allergy Difficulty Uncoded 05/09/18 02:51 Breathing Home Meds: Home Meds Aspirin [Halfprin] 81 mg PO DAILY 08/10/15 [History] Carvedilol 3.125 mg PO BID 08/10/15 [History] Insulin Aspart [Novolog Flexpen] 3 - 11 unit SQ QID PRN 08/10/15 [History] Isosorbide Mononitrate [Isosorbide Mononitrate ER] 60 mg PO DAILY 02/16/17 [ History] Nitroglycerin 0.4 mg PO ASDIRECTED PRN 04/09/17 [History] Biotin/FA/Vit C/Vit B Complex [Nephrocaps] 1 mg PO DAILY 03/22/18 [History] Docusate Sodium 100 mg PO BID 03/22/18 [History] Omeprazole 20 mg PO DAILY 03/22/18 [History] Ondansetron HCl [Zofran] 4 mg PO Q6H PRN 03/22/18 [History] Sertraline [Zoloft] 100 mg PO DAILY 03/22/18 [History] SitaGLIPtin [Januvia] 100 mg PO DAILY 03/22/18 [History] Ticagrelor [Brilinta] 90 mg PO BID 03/22/18 [History] atorvaSTATin [Lipitor] 40 mg PO BEDTIME 03/22/18 [History] busPIRone [Buspar] 15 mg PO TID 03/22/18 [History] Hydrocodone/Acetaminophen [Hydrocodon-Acetaminophen 5-325] 5 - 325 mg PO BID PRN 04/12/18 [History] Metoclopramide [Reglan] 5 mg PO Q6H PRN 04/12/18 [History] Past Medical History Other HEENT History: no upper teeth--no dentures-----> pt says she does not have upper dentures however when getting home meds out of her backpack for her she had upper dentures in the pocket of the backpack. Pt says she wears glasses but left them in [place]. Cardiovascular History: Reports: CAD, Heart Failure, High Cholesterol, Hypertension, PR, Pacemaker, PVD Other Cardiovascular History: defiberallator Respiratory History: Reports: COPD, Sleep Apnea Other Respiratory History: uses CPAP at night Gastrointestinal History: Reports: GERD Other Gastrointestinal History: hernia noted, states they are unable to operate Genitourinary History: Reports: Dialysis, Renal Calculus, Urinary Incontinence Other Genitourinary History: history of kidney stones, dawkins when I pee. 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: Neurological History: Reports: Migraines, Neuropathy, Peripheral Psychiatric History: Reports: Anxiety, Depression Endocrine/Metabolic History: Reports: Diabetes, Type II, Obesity/BMI 30+ Hematologic History: Reports: Anemia Other Dermatologic History: "boil on private parts" - Infectious Disease History Infectious Disease History: Reports: None - Past Surgical History HEENT Surgical History: Reports: Tonsillectomy Cardiovascular Surgical History: Reports: AICD, Coronary Artery Stent GI Surgical History: Reports: Appendectomy, Hernia, Abdominal, Other (See Below) Female Surgical History: Reports: Section Musculoskeletal Surgical History: Reports: ORIF Social & Family History - Family History Family Medical History: Noncontributory Cardiac: Reports: CAD, Heart Failure Endocrine/Metabolic: Reports: Diabetes, type II Oncologic: Reports: Breast - Tobacco Use Smoking Status *Q: Unknown Ever Smoked - Caffeine Use Caffeine Use: Reports: Coffee, Soda Other Caffeine Use: diet soda - Recreational Drug Use Recreational Drug Use: No - Living Situation & Occupation Living situation: Reports: , with Family (with brother) Occupation: Unemployed ED ROS GENERAL - Review of Systems Review Of Systems: See Below Constitutional: Reports: Malaise, Weakness, Fatigue, Decreased Appetite, Weight Gain. Denies: Fever, Chills HEENT: Denies: Eye Discharge, Glasses, Hearing Loss, Nose Pain, Rhinitis, Sinus Problem, Throat Pain, Throat Swelling Respiratory: Reports: Shortness of Breath, Pleuritic Chest Pain (Some sharp stabbing pains on deep inspiration her), Other (Or severe orthopnea.). Denies: Wheezing, Cough ( posterior back), Sputum, Hemoptysis Cardiovascular: Reports: Chest Pain (In her lower mid back.), Blood Pressure Problem, Dyspnea on Exertion (Chronically but much worse the last week.), Edema (Cane even hardly bend her knees today due to swelling in her knee joints and below.), Orthopnea (Controlled with medications). Denies: Claudication Endocrine: Reports: Fatigue GI/Abdominal: Reports: Abdominal Pain, Nausea (Diffuse bilateral upper abdominal pain associated with nausea and vomiting intermittently of bilious material), Vomiting. Denies: Melena : Reports: No Symptoms, Other (Makes about 2 teaspoons of urine a day.) Musculoskeletal: Reports: Shoulder Pain, Back Pain, Joint Swelling (Especially her knees at this time) Skin: Reports: Other (No open skin wounds at this time) Neurological: Reports: Difficulty Walking (Unable to walk because of bad knees and swelling of the legs last week.). Denies: Confusion, Dizziness, Headache, Numbness, Pre-Existing Deficit, Seizure, Syncope, Tingling, Trouble Speaking Psychiatric: Reports: Anxiety Hematologic/Lymphatic: Reports: Anemia Immunologic: Reports: No Symptoms ED EXAM, GI/ABD - Physical Exam Exam: See Below Exam Limited By: No Limitations General Appearance: Alert, WD/WN, Moderate Distress (She is very anxious apprehensive and tearful. She cannot lie flat in all.) Eyes: Right: Normal Appearance (No jaundice), Bilateral: Pale Conjunctiva (Mild. ) Throat/Mouth: Other Head: Atraumatic (Tongue is dry and coated.), Normocephalic Neck: Normal Inspection, Supple, Non-Tender, Full Range of Motion, Other (No obvious jugular venous pulsation elevation but neck is short and). No: Lymphadenopathy (L) ( wide.), Lymphadenopathy (R) Respiratory/Chest: Respiratory Distress (Tachypneic at rest 23-20/m. Sats are 100% on room air.), Decreased Breath Sounds (Decreased air entry to both lung trujillo. Dullness to percussion both bases consistent issues for pleural effusions). No: Rales, Rhonchi, Wheezing, Splinting Cardiovascular: No Murmur, Tachycardia (Heart rate is irregularly irregular currently 10 3/m). No: Normal Peripheral Pulses, JVD, Systolic Murmur, Gallop/ S3, Gallop/S4 GI/Abdominal Exam: Distended ( It is soft palpation. Is slightly tympanitic to percussion upper abdomen compatible withaerophagia. ), Other (Multiple abdominal surgeries. Has a large abdominal wall hernia right lower quadrant.). No: Guarding, Rigid, Rebound (No peritoneal signs ) Back Exam: CVA Tenderness (L), CVA Tenderness (R) (Mild mild.) Extremities: Pedal Edema (She has pedal 4+ pitting edema both lower extremities up past the knees.) Neurological: Alert, Oriented, CN II-XII Intact, Normal Cognition Psychiatric: Anxious Skin Exam: Warm, Dry, Intact, Normal Color, No Rash, Other (Lips are quite dry and chapped) EKG INTERPRETATION EKG Date: 05/09/18 Time: 02:50 Rhythm: Other (She is atrial sensed ventricular paced rhythm at 72/m. There are some [place] beats that are faster than this.) Rate (Beats/Min): 89 [place]: RAD-Right [place] Deviation (163) P-Wave: Absent QRS: Other (There is decreased voltage throughout the limb and precordial This is noted in several leads. There are Q waves in V1 and aVL suggestive of lateral wall infarct in the past as well. leads. There is a Q-wave in V2 V3 suggestive of an old anteroseptal myocardial infarction.) ST-T: Other (Diffuse nonspecific T-wave changes mostly that of flattening.) QT: Prolonged (Minimally prolonged.) EKG Interpretation Comments: Abnormal ECG with no acute ischemic changes Course - Vital Signs Last Recorded V/S: Last Vital Signs Temp 36.6 C 05/09/18 02:50 Pulse 103 H 05/09/18 02:50 Resp 23 H 05/09/18 02:50 BP 123/77 05/09/18 02:50 Pulse Ox 100 05/09/18 02:50 - Orders/Labs/Meds Orders: Active Orders 24 hr Category Date Time Status Blood Glucose Check, Bedside [RC] ONETIME Care 05/09/18 02:55 Active EKG Documentation Completion [RC] STAT Care 05/09/18 02:53 Active Peripheral IV Care [RC] . DIRECTED Care 05/09/18 03:08 Active Chest 1V Frontal [CR] Stat Exams 05/09/18 02:53 Taken Sodium Chloride 0.9% [Saline Flush] Med 05/09/18 03:07 Active 10 ml FLUSH ASDIRECTED PRN Peripheral IV Insertion Adult [OM.PC] Stat Oth 05/09/18 03:08 Ordered Medication Orders Sodium Chloride (Saline Flush) 10 ml FLUSH ASDIRECTED PRN PRN Reason: Keep Vein Open Last Admin: 05/09/18 03:14 Dose: 10 ml Labs: Laboratory Tests 05/09/18 05/09/18 05/09/18 Range/Units 02:53 02:53 02:53 WBC 9.13 (3.98-10.04) K/mm3 RBC 4.14 (3.98-5.22) M/mm3 Hgb 10.4 L (11.2-15.7) gm/L Hct 34.7 (34.1-44.9) % MCV 83.8 (79.4-94.8) fl MCH 25.1 L (25.6-32.2) pg MCHC 30.0 L (32.2-35.5) g/dl RDW Std Deviation 70.3 H (36.4-46.3) fL Plt Count 125 L (182-369) K/mm3 MPV 11.2 (9.4-12.3) fl Neutrophils % (Manual) 87 H (40-60) % Band Neutrophils % 0 (0-10) % Lymphocytes % (Manual) 8 L (20-40) % Atypical Lymphs % 0 % Monocytes % (Manual) 5 (2-10) % Eosinophils % (Manual) 0 L (0.7-5.8) % Basophils % (Manual) 0 L (0.1-1.2) Platelet Estimate Decreased Plt Morphology Comment Normal Polychromasia 1+ slight Poikilocytosis 2+ moderate Microcytosis 1+ slight Macrocytosis 1+ slight Ovalocytes 1+ slight RBC Morph Comment A PT 12.2 H (9.5-12.1) SECONDS INR 1.12 Sodium 139 (136-145) mEq/L Potassium 3.4 L (3.5-5.1) mEq/L Chloride 102 (98-107) mEq/L Carbon Dioxide 25 (21-32) mEq/L Anion Gap 15.4 H (5-15) BUN 52 H (7-18) mg/dL Creatinine 6.7 H (0.55-1.02) mg/dL Est Cr Clr Drug Dosing TNP Estimated GFR (MDRD) 7 (>60) mL/min BUN/Creatinine Ratio 7.8 L (14-18) Glucose 132 H (74-106) mg/dL POC Glucose (70-105) mg/dL Lactic Acid (0.4-2.0) mmol/L Calcium 7.7 L (8.5-10.1) mg/dL Magnesium 2.2 (1.8-2.4) mg/dl Total Bilirubin 1.4 H (0.2-1.0) mg/dL AST 41 H (15-37) U/L ALT 17 (14-59) U/L Alkaline Phosphatase 98 (46-116) U/L Troponin I 0.047 (0.00-0.056) ng/mL C-Reactive Protein 11.3 H* (<1.0) mg/dL NT-Pro-B Natriuret Pep (0-125) pg/mL Total Protein 7.1 (6.4-8.2) g/dl Albumin 3.0 L (3.4-5.0) g/dl Globulin 4.1 gm/dL Albumin/Globulin Ratio 0.7 L (1-2) Ketones (0.0-0.3) mM 05/09/18 05/09/18 05/09/18 Range/Units 02:54 02:54 02:55 WBC (3.98-10.04) K/mm3 RBC (3.98-5.22) M/mm3 Hgb (11.2-15.7) gm/L Hct (34.1-44.9) % MCV (79.4-94.8) fl MCH (25.6-32.2) pg MCHC (32.2-35.5) g/dl RDW Std Deviation (36.4-46.3) fL Plt Count (182-369) K/mm3 MPV (9.4-12.3) fl Neutrophils % (Manual) (40-60) % Band Neutrophils % (0-10) % Lymphocytes % (Manual) (20-40) % Atypical Lymphs % % Monocytes % (Manual) (2-10) % Eosinophils % (Manual) (0.7-5.8) % Basophils % (Manual) (0.1-1.2) Platelet Estimate Plt Morphology Comment Polychromasia Poikilocytosis Microcytosis Macrocytosis Ovalocytes RBC Morph Comment PT (9.5-12.1) SECONDS INR Sodium (136-145) mEq/L Potassium (3.5-5.1) mEq/L Chloride (98-107) mEq/L Carbon Dioxide (21-32) mEq/L Anion Gap (5-15) BUN (7-18) mg/dL Creatinine (0.55-1.02) mg/dL Est Cr Clr Drug Dosing Estimated GFR (MDRD) (>60) mL/min BUN/Creatinine Ratio (14-18) Glucose (74-106) mg/dL POC Glucose (70-105) mg/dL Lactic Acid 2.2 H (0.4-2.0) mmol/L Calcium (8.5-10.1) mg/dL Magnesium (1.8-2.4) mg/dl Total Bilirubin (0.2-1.0) mg/dL AST (15-37) U/L ALT (14-59) U/L Alkaline Phosphatase (46-116) U/L Troponin I (0.00-0.056) ng/mL C-Reactive Protein (<1.0) mg/dL NT-Pro-B Natriuret Pep > 31368 H (0-125) pg/mL Total Protein (6.4-8.2) g/dl Albumin (3.4-5.0) g/dl Globulin gm/dL Albumin/Globulin Ratio (1-2) Ketones 0.65 (0.0-0.3) mM 05/09/18 Range/Units 02:59 WBC (3.98-10.04) K/mm3 RBC (3.98-5.22) M/mm3 Hgb (11.2-15.7) gm/L Hct (34.1-44.9) % MCV (79.4-94.8) fl MCH (25.6-32.2) pg MCHC (32.2-35.5) g/dl RDW Std Deviation (36.4-46.3) fL Plt Count (182-369) K/mm3 MPV (9.4-12.3) fl Neutrophils % (Manual) (40-60) % Band Neutrophils % (0-10) % Lymphocytes % (Manual) (20-40) % Atypical Lymphs % % Monocytes % (Manual) (2-10) % Eosinophils % (Manual) (0.7-5.8) % Basophils % (Manual) (0.1-1.2) Platelet Estimate Plt Morphology Comment Polychromasia Poikilocytosis Microcytosis Macrocytosis Ovalocytes RBC Morph Comment PT (9.5-12.1) SECONDS INR Sodium (136-145) mEq/L Potassium (3.5-5.1) mEq/L Chloride (98-107) mEq/L Carbon Dioxide (21-32) mEq/L Anion Gap (5-15) BUN (7-18) mg/dL Creatinine (0.55-1.02) mg/dL Est Cr Clr Drug Dosing Estimated GFR (MDRD) (>60) mL/min BUN/Creatinine Ratio (14-18) Glucose (74-106) mg/dL POC Glucose 137 H (70-105) mg/dL Lactic Acid (0.4-2.0) mmol/L Calcium (8.5-10.1) mg/dL Magnesium (1.8-2.4) mg/dl Total Bilirubin (0.2-1.0) mg/dL AST (15-37) U/L ALT (14-59) U/L Alkaline Phosphatase (46-116) U/L Troponin I (0.00-0.056) ng/mL C-Reactive Protein (<1.0) mg/dL NT-Pro-B Natriuret Pep (0-125) pg/mL Total Protein (6.4-8.2) g/dl Albumin (3.4-5.0) g/dl Globulin gm/dL Albumin/Globulin Ratio (1-2) Ketones (0.0-0.3) mM Meds: Medications Generic Name Dose Route Start Last Admin Trade Name Freq PRN Reason Stop Dose Admin Sodium Chloride 10 ml 05/09/18 03:07 05/09/18 03:14 Saline Flush FLUSH 10 ml ASDIRECTED PRN Administration Keep Vein Open Discontinued Medications Generic Name Dose Route Start Last Admin Trade Name Freq PRN Reason Stop Dose Admin Hydromorphone HCl 0.5 mg 05/09/18 03:09 05/09/18 03:14 Dilaudid IVPUSH 05/09/18 03:10 0.5 mg ONETIME ONE Administration Metoclopramide HCl 7.5 mg 05/09/18 03:08 05/09/18 03:14 Reglan IVPUSH 05/09/18 03:09 7.5 mg ONETIME ONE Administration - Radiology Interpretation Free Text/Narrative:: 48-year-old female who has been insulin-dependent diabetic since age 15 presents to the ED per ambulance from [facility] where she resides. She usually receives her dialysis treatments in [place]. [place] she has not been to dialysis for a week and a half. She has done this many times in the past where she has been noncompliant with her dialysis treatments and of course then goes on to develop severe congestive failure edema and metabolic acidosis. Presents the ED tonight short of breath or orthopneic diffuse pain across her lower lung trujillo posteriorly and upper abdominal pain likely from metabolic acidosis. She is also tympanitic to percussion the upper abdomen from aerophagia. O2 sats are 100 % on room air but she is working hard to breathe at 23-20 minutes. At the bedside was 137. She is afebrile. Patient is likely going to need dialysis at the bedside on a semiurgent basis. Plan 1 view chest x-ray routine labs to be collected. She usually attends [facility] in [facility] for her definitive care. - Re-Assessments/Exams Free Text/Narrative Re-Assessment/Exam: 05/09/18 03:44 portable chest x-ray reveals a isthmic her left upper anterior to the chest. She has moderate cardiomegaly. Lungs overall are clear without any significant vascular congestion or pleural effusions. 05/09/18 04:10 Labs reveal a normal white count at 9.13. 87% neutrophils with no bands. Hemoglobin is 10.4 and an improvement compared to April 1720 was 6.9. Hematocrit is 34.7. MCV is 83.8. Platelet count 125,000. PT is 12.2 with an INR of 1.12. Sodium is 139 with a potassium of 3.4. Chloride is 102 with a bicarbonate of 25. Anion gap is mildly elevated at 15.4. BUN is 52 with a creatinine of 6.7. Estimated GFR is 7. BUN/creatinine ratio is 7.8. Glucose is elevated at 132. Lactic acid is elevated at 2.2. Calcium is 7.7. Magnesium 2.2. Bilirubin 1.4. AST is 41 with an ALT of 17. Alk phosphatase normal at 98. Troponin I is less than 0.047. C-reactive protein is elevated at 11.3. BNP is greater than 35,000. I will discuss case with the hospitalist and Leonard as the patient is going to need dialysis as soon as possible up with her severe congestive failure and dyspnea. 05/09/18 04:19 Case discussed with one call nurse at [facility] in [facility] and then hospitalist Dr Fofana.Care has been accepted. She will be transported to that facility by ground ambulance. Departure - Departure Time of Disposition: 04:31 Disposition: DC/Tfer to Acute Hospital 02 Condition: Serious Clinical Impression: Dialysis patient, noncompliant Acute exacerbation of congestive heart failure Qualifiers: Heart failure type: diastolic Qualified Code(s): I50.33 - Acute on chronic diastolic (congestive) heart failure Type 1 diabetes mellitus Qualifiers: Diabetes mellitus complication status: with kidney complications Diabetes mellitus complication detail: with chronic kidney disease Chronic kidney disease stage: on chronic dialysis Qualified Code(s): E10.22 - Type 1 diabetes mellitus with diabetic chronic kidney disease; N18.6 - End stage renal disease; Z99.2 - Dependence on renal dialysis - Discharge Information Referrals: PCP,None [Primary Care Provider] - Forms: ED Department Discharge - My Orders Last 24 Hours: My Active Orders 05/09/18 02:53 EKG Documentation Completion [RC] STAT Chest 1V Frontal [CR] Stat 05/09/18 02:55 Blood Glucose Check, Bedside [RC] ONETIME 05/09/18 03:07 Sodium Chloride 0.9% [Saline Flush] 10 ml FLUSH ASDIRECTED PRN 05/09/18 03:08 Peripheral IV Care [RC] . DIRECTED Peripheral IV Insertion Adult [OM.PC] Stat - Assessment/Plan Last 24 Hours: My Active Orders 05/09/18 02:53 EKG Documentation Completion [RC] STAT Chest 1V Frontal [CR] Stat 05/09/18 02:55 Blood Glucose Check, Bedside [RC] ONETIME 05/09/18 03:07 Sodium Chloride 0.9% [Saline Flush] 10 ml FLUSH ASDIRECTED PRN 05/09/18 03:08 Peripheral IV Care [RC] . DIRECTED Peripheral IV Insertion Adult [OM.PC] Stat
[2018-05-09] MEDS ORDERED: Sodium Chloride 0.9% 10 ML Syringe FLUSH PRN (03:07)
[2018-05-09] MEDS ORDERED: Metoclopramide 10 MG/2 ML SDV IVPUSH ONE (03:08)
[2018-05-09] MEDS ORDERED: HYDROmorphone 0.5 MG/0.5 ML SYRINGE IVPUSH ONE (03:09)
--- NOTE | 2018-05-09 10:03 | CR ---
Chest: Portable view of the chest was obtained. Comparison: Prior chest x-ray of 04/21/18. Heart size at the upper limits of normal. Coronary artery stent is seen. AICD is noted as well as right-sided infusion catheter. Lungs are clear without acute parenchymal change. Bony structures are grossly intact. Impression: 1. Incidental findings. Nothing acute is seen. Diagnostic code #2
== END 2018-05-09 05:24 ==
LOC: JD.ED 02:41
DX: I13.2 Hypertensive heart and chronic kidney disease with heart failure and with stage 5 chronic kidney disease, or end stage renal disease (principal); I50.33 Acute on chronic diastolic (congestive) heart failure; N18.6 End stage renal disease; E10.22 Type 1 diabetes mellitus with diabetic chronic kidney disease; E78.00 Pure hypercholesterolemia, unspecified; I25.2 Old myocardial infarction; K21.9 Gastro-esophageal reflux disease without esophagitis; J44.9 Chronic obstructive pulmonary disease, unspecified; Z99.2 Dependence on renal dialysis; Z88.8 Allergy status to other drugs, medicaments and biological substances; Z91.018 Allergy to other foods; Z91.013 Allergy to seafood; Z79.899 Other long term (current) drug therapy; Z79.82 Long term (current) use of aspirin; Z91.19 Patient's noncompliance with other medical treatment and regimen
CPT/HCPCS: 36415; 71045; 80053; 82009; 82962; 83605; 83735; 83880; 84484; 85007; 85027; 85610; 86140; 93005; 96374; 96375; 99285; J1170; J2765; J7050

== ENCOUNTER 2018-05-24 06:40 | Emergency (ER) | payer OTHER ==
[2018-05-24 06:53] VITALS: BP 116/97
[2018-05-24] MEDS ORDERED: Benztropine 1 MG Tab PO STA (07:32)
[2018-05-24] MEDS ORDERED: Haloperidol Lactate 5 MG/ML SDV IM ONE (07:32)
--- NOTE | 2018-05-24 08:38 | CT ---
Head CT Technique: Multiple axial sections through the brain were obtained. Intravenous contrast was not utilized. Comparison: No prior intracranial imaging. Findings: Ventricles along with basal cisterns and sulci over convexities are mildly prominent. No abnormal parenchymal densities are seen. No evidence of intracranial hemorrhage. No midline shift or mass effect is seen. Mild atherosclerotic calcification is seen within the carotid siphon and vertebral vessels. Bone window settings were reviewed which shows no acute calvarial abnormality. Visualized sinuses are clear. Impression: 1. Mild generalized atrophy. 2. No acute intracranial abnormality is identified. Diagnostic code #2
--- NOTE | 2018-05-24 08:53 | EDM.PDOC ---
ED HPI GENERAL MEDICAL PROBLEM - General Chief Complaint: Respiratory Problem Stated Complaint: [facility] Time Seen by Provider: 05/24/18 07:05 Source of Information: Reports: Patient History Limitations: Reports: No Limitations - History of Present Illness INITIAL COMMENTS - FREE TEXT/NARRATIVE: The patient states that she developed a "migraine" headache last night. She states that while she has a history of migraines, she is not prescribed any anti -migraine medications. She states that she has only taken Tylenol. She describes a sharp pain felt in the front half of her head and also in her neck. She did not volunteer it, but when asked, stated that she has not had any nausea or vomiting. She states that she has has photophobia, but no phonophobia. No visual changes. No neurologic symptoms, such as tingling, numbness, or weakness. The patient states that she has never had an imaging study of her head. The patient has end-stage renal disease, on hemodialysis every Sunday, Sunday , and Sunday. Her last hemodialysis was this past 05/22/2018. She is due for hemodialysis at 13:30 this afternoon. PMHx/PSHx/SocHx per the RN. Headache Pain Score (Numeric/FACES): 10 - Related Data Allergies Allergy/AdvReac Type Severity Reaction Status Date / Time fentanyl Allergy Itching Verified 05/24/18 06:47 ibuprofen Allergy Hives Verified 05/24/18 06:47 metformin HCl Allergy Hives Verified 05/24/18 06:47 [From Glucophage] spinach Allergy Difficulty Verified 05/24/18 06:47 Breathing catfish Allergy Difficulty Uncoded 05/24/18 06:47 Breathing Home Meds: Home Meds Aspirin [Halfprin] 81 mg PO DAILY 08/10/15 [History] Carvedilol 3.125 mg PO BID 08/10/15 [History] Insulin Aspart [Novolog Flexpen] 3 - 11 unit SQ QID PRN 08/10/15 [History] Isosorbide Mononitrate [Isosorbide Mononitrate ER] 60 mg PO DAILY 02/16/17 [ History] Nitroglycerin 0.4 mg PO ASDIRECTED PRN 04/09/17 [History] Biotin/FA/Vit C/Vit B Complex [Nephrocaps] 1 mg PO DAILY 03/22/18 [History] Docusate Sodium 100 mg PO BID 03/22/18 [History] Omeprazole 20 mg PO DAILY 03/22/18 [History] Ondansetron HCl [Zofran] 4 mg PO Q6H PRN 03/22/18 [History] Sertraline [Zoloft] 100 mg PO DAILY 03/22/18 [History] SitaGLIPtin [Januvia] 100 mg PO DAILY 03/22/18 [History] Ticagrelor [Brilinta] 90 mg PO BID 03/22/18 [History] atorvaSTATin [Lipitor] 40 mg PO BEDTIME 03/22/18 [History] busPIRone [Buspar] 15 mg PO TID 03/22/18 [History] Hydrocodone/Acetaminophen [Hydrocodon-Acetaminophen 5-325] 5 - 325 mg PO BID PRN 04/12/18 [History] Metoclopramide [Reglan] 5 mg PO Q6H PRN 04/12/18 [History] Past Medical History Other HEENT History: no upper teeth--no dentures-----> pt says she does not have upper dentures however when getting home meds out of her backpack for her she had upper dentures in the pocket of the backpack. Pt says she wears glasses but left them in [place]. Cardiovascular History: Reports: CAD, Heart Failure, High Cholesterol, Hypertension, [place], Pacemaker, PVD Other Cardiovascular History: defiberallator Respiratory History: Reports: COPD, Sleep Apnea Other Respiratory History: uses CPAP at night Gastrointestinal History: Reports: GERD Other Gastrointestinal History: hernia noted, states they are unable to operate Genitourinary History: Reports: Dialysis, Renal Calculus, Urinary Incontinence Other Genitourinary History: history of kidney stones, dawkins when I pee. 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: Neurological History: Reports: Migraines, Neuropathy, Peripheral Psychiatric History: Reports: Anxiety, Depression Endocrine/Metabolic History: Reports: Diabetes, Type II, Obesity/BMI 30+ Hematologic History: Reports: Anemia Other Dermatologic History: "boil on private parts" - Infectious Disease History Infectious Disease History: Reports: None - Past Surgical History HEENT Surgical History: Reports: Tonsillectomy Cardiovascular Surgical History: Reports: AICD, Coronary Artery Stent GI Surgical History: Reports: Appendectomy, Hernia, Abdominal, Other (See Below) Female Surgical History: Reports: Section Musculoskeletal Surgical History: Reports: ORIF Social & Family History - Family History Family Medical History: Noncontributory Cardiac: Reports: CAD, Heart Failure Endocrine/Metabolic: Reports: Diabetes, type II Oncologic: Reports: Breast - Tobacco Use Smoking Status *Q: Unknown Ever Smoked - Caffeine Use Caffeine Use: Reports: Coffee, Soda Other Caffeine Use: diet soda - Recreational Drug Use Recreational Drug Use: No - Living Situation & Occupation Living situation: Reports: , with Family (with brother) Occupation: Unemployed ED ROS GENERAL - Review of Systems Review Of Systems: ROS reveals no pertinent complaints other than HPI. - Physical Exam Exam: See Below Exam Limited By: No Limitations General Appearance: Alert, WD/WN, No Apparent Distress Eye Exam: Bilateral Eye: Normal Inspection Ears: Normal External Exam, Hearing Grossly Normal Nose: Normal Inspection, No Blood Throat/Mouth: Normal Inspection, Normal Lips, Normal Voice, No Airway Compromise , Other (Edentulous) Head Exam: Atraumatic, Normocephalic Neck: Normal Inspection, Full Range of Motion Respiratory/Chest: No Respiratory Distress, Lungs Clear, Normal Breath Sounds, No Accessory Muscle Use Cardiovascular: Normal Peripheral Pulses, Regular Rate, Rhythm, No Gallop, No JVD, No Murmur, No Rub GI/Abdominal: Normal Bowel Sounds, Soft, Non-Tender, No Organomegaly, No Distention, No Abnormal Bruit, No Mass, Other (Obese) (Female) Exam: Deferred Rectal (Female) Exam: Deferred Neuro Exam (Abbreviated): Alert, Oriented, CN II-XII Intact, Normal Cognition, No Motor/Sensory Deficits Back Exam: Normal Inspection, Full Range of Motion, NT Extremities: Normal Inspection, Normal Range of Motion, No Pedal Edema, Normal Capillary Refill, Other (2+ bilateral pretibial edema) Psychiatric: Normal Affect Skin Exam: Warm, Dry, Intact, Normal Color, No Rash Course - Vital Signs Last Recorded V/S: Last Vital Signs Temp 36.3 C 05/24/18 06:51 Pulse 83 05/24/18 06:51 Resp 18 05/24/18 06:51 BP 116/97 H 05/24/18 06:51 Pulse Ox 99 05/24/18 06:51 - Orders/Labs/Meds Meds: Medications Discontinued Medications Generic Name Dose Route Start Last Admin Trade Name Leigh PRN Reason Stop Dose Admin Benztropine Mesylate 1 mg 05/24/18 07:32 05/24/18 07:38 Cogentin PO 05/24/18 07:33 1 mg ONETIME STA Administration Haloperidol Lactate 5 mg 05/24/18 07:32 05/24/18 07:38 Haldol IM 05/24/18 07:33 5 mg ONETIME ONE Administration - Re-Assessments/Exams Free Text/Narrative Re-Assessment/Exam: 05/24/18 08:25 While the patient has very few features of a migraine headache, we decided to proceed with treating the patient for a migraine with IM Haldol. If it worked, then the headache was most likely migrainous, and I could prescribe an anti- migraine medication, such as Maxalt. If it did not work, then headache was most unlikely to be migrainous, and we could treat for a tension headache with a muscle relaxant, such as Norflex. In the meantime, I ordered a CT scan of the head, as the patient reports no prior imaging of the head. Notified by Paula FINNEGAN that the Haldol did not help with the patient's headache. I was going to try a muscle relaxant, however, I'm told that the patient wants to leave. 05/24/18 08:30 Notified that the patient has left the ED without waiting for discharge instructions. 05/24/18 08:35 CT of the head without contrast is read by Dr. Rivas as: 1. Mild generalized atrophy. 2. No acute intracranial abnormality is identified. Departure - Departure Time of Disposition: 08:30 Disposition: Against Medical Advice 07 Condition: Good Clinical Impression: Tension type headache - Discharge Information *PRESCRIPTION DRUG MONITORING PROGRAM REVIEWED*: Not Applicable *COPY OF PRESCRIPTION DRUG MONITORING REPORT IN PATIENT ANA PAULA: Not Applicable Referrals: PCP,Not In Area [Primary Care Provider] - Forms: ED Department Discharge
== END 2018-05-24 08:32 | disposition left against medical advice (07) ==
LOC: JD.ED 06:40
DX: G44.209 Tension-type headache, unspecified, not intractable (principal); I11.0 Hypertensive heart disease with heart failure; I50.9 Heart failure, unspecified; E11.9 Type 2 diabetes mellitus without complications; E66.9 Obesity, unspecified; Z88.8 Allergy status to other drugs, medicaments and biological substances; Z79.82 Long term (current) use of aspirin; Z79.899 Other long term (current) drug therapy
CPT/HCPCS: 70450; 96372; 99284; A9270; J1630

== ENCOUNTER 2018-07-22 22:45 | Emergency (ER) | payer OTHER ==
[2018-07-22 22:53] VITALS: BP 117/72
[2018-07-22] MEDS ORDERED: Sodium Chloride 0.9% 10 ML Syringe FLUSH PRN (23:27)
[2018-07-22] MEDS ORDERED: Morphine 4 MG/ML Syringe IVPUSH ONE (23:27)
[2018-07-22] MEDS ORDERED: Furosemide 40 MG/4 ML VIAL IVPUSH ONE (23:27)
[2018-07-23] MEDS ORDERED: Morphine 4 MG/ML Syringe IVPUSH ONE (01:19)
--- NOTE | 2018-07-23 01:58 | EDM.PDOC ---
ED HPI GENERAL MEDICAL PROBLEM - General Chief Complaint: Chest Pain Stated Complaint: [facility] Time Seen by Provider: 07/22/18 23:10 Source of Information: Reports: Patient, RN Notes Reviewed - History of Present Illness INITIAL COMMENTS - FREE TEXT/NARRATIVE: 48-year-old female has been brought here by [facility] with severe shortness of breath, anterior chest discomfort, back and neck discomfort. She does have history of chronic renal failure on dialysis. She states she was just discharged from [facility] not 4 days ago. She did receive dialysis while in the hospital and had her last dialysis at that time prior to discharge. She states she was supposed to get dialysis today up at [place] but was "too sick to go". She does have history of insulin-dependent diabetes, hypertension and long-standing renal failure. Her legs and ankles are very swollen. She states it is difficult for her to walk today. She also does have increased abdominal distention and generalized abdominal discomfort. She has not been vomiting. No fever or chills. Chest Pain Score (Numeric/FACES): 10 - Related Data Allergies Allergy/AdvReac Type Severity Reaction Status Date / Time fentanyl Allergy Itching Verified 07/22/18 23:40 ibuprofen Allergy Hives Verified 07/22/18 23:40 metformin HCl Allergy Hives Verified 07/22/18 23:40 [From Glucophage] spinach Allergy Difficulty Verified 07/22/18 23:40 Breathing catfish Allergy Difficulty Uncoded 07/22/18 23:40 Breathing Home Meds: Home Meds Aspirin [Halfprin] 81 mg PO DAILY 08/10/15 [History] Carvedilol 3.125 mg PO BID 08/10/15 [History] Insulin Aspart [Novolog Flexpen] 3 - 11 unit SQ QID PRN 08/10/15 [History] Isosorbide Mononitrate [Isosorbide Mononitrate ER] 60 mg PO DAILY 02/16/17 [ History] Nitroglycerin 0.4 mg PO ASDIRECTED PRN 04/09/17 [History] Biotin/FA/Vit C/Vit B Complex [Nephrocaps] 1 mg PO DAILY 03/22/18 [History] Docusate Sodium 100 mg PO BID 03/22/18 [History] Omeprazole 20 mg PO DAILY 03/22/18 [History] Ondansetron HCl [Zofran] 4 mg PO Q6H PRN 03/22/18 [History] Sertraline [Zoloft] 100 mg PO DAILY 03/22/18 [History] Ticagrelor [Brilinta] 90 mg PO BID 03/22/18 [History] atorvaSTATin [Lipitor] 40 mg PO BEDTIME 03/22/18 [History] busPIRone [Buspar] 15 mg PO TID 03/22/18 [History] Hydrocodone/Acetaminophen [Hydrocodon-Acetaminophen 5-325] 5 - 325 mg PO BID PRN 04/12/18 [History] Metoclopramide [Reglan] 5 mg PO Q6H PRN 04/12/18 [History] Lisinopril 5 mg PO DAILY 07/23/18 [History] Past Medical History Other HEENT History: no upper teeth--no dentures-----> pt says she does not have upper dentures however when getting home meds out of her backpack for her she had upper dentures in the pocket of the backpack. Pt says she wears glasses but left them in [place]. Cardiovascular History: Reports: Automatic Implantable Cardioverter Defibrillators, CAD, Congenital Septal Defect, Heart Failure, High Cholesterol, Hypertension, [place], Pacemaker, PVD Other Cardiovascular History: defibrillator Respiratory History: Reports: COPD, Sleep Apnea Other Respiratory History: uses CPAP at night Gastrointestinal History: Reports: GERD Other Gastrointestinal History: hernia noted, states they are unable to operate Genitourinary History: Reports: Dialysis, Renal Calculus, Urinary Incontinence Other Genitourinary History: history of kidney stones, dawkins when I pee. 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: Neurological History: Reports: Migraines, Neuropathy, Peripheral Psychiatric History: Reports: Anxiety, Depression Endocrine/Metabolic History: Reports: Diabetes, Type II, Obesity/BMI 30+ Hematologic History: Reports: Anemia Other Dermatologic History: "boil on private parts" - Infectious Disease History Infectious Disease History: Reports: None - Past Surgical History HEENT Surgical History: Reports: Tonsillectomy Cardiovascular Surgical History: Reports: AICD, Coronary Artery Stent GI Surgical History: Reports: Appendectomy, Hernia, Abdominal, Other (See Below) Female Surgical History: Reports: Section Musculoskeletal Surgical History: Reports: ORIF Social & Family History - Family History Family Medical History: Noncontributory Cardiac: Reports: CAD, Heart Failure Endocrine/Metabolic: Reports: Diabetes, type II Oncologic: Reports: Breast - Tobacco Use Smoking Status *Q: Never Smoker - Caffeine Use Caffeine Use: Reports: Coffee, Soda Other Caffeine Use: diet soda - Recreational Drug Use Recreational Drug Use: Yes Drug Use in Last 12 Months: Yes Recreational Drug Type: Reports: Marijuana/Hashish Recreational Drug Use Frequency: Weekly - Living Situation & Occupation Living situation: Reports: , with Family (with brother) Occupation: Unemployed ED ROS GENERAL - Review of Systems Review Of Systems: See Below Constitutional: Denies: Fever, Chills, Diaphoresis HEENT: Denies: Throat Pain Respiratory: Reports: Shortness of Breath. Denies: Cough Cardiovascular: Reports: Chest Pain (Anterior chest discomfort, worse with deep breathing), Dyspnea on Exertion GI/Abdominal: Reports: Abdominal Pain. Denies: Nausea, Vomiting Musculoskeletal: Reports: Leg Pain (Bilateral leg pain and swelling) Skin: Denies: Rash Neurological: Reports: Weakness (Generalized) ED EXAM, GENERAL - Physical Exam Exam: See Below General Appearance: Alert, Anxious, Moderate Distress Eye Exam: Bilateral Eye: PERRL Head: Atraumatic Neck: Supple, Other (No JVD) Respiratory/Chest: Respiratory Distress (Moderate tachypnea) Cardiovascular: Regular Rate, Rhythm GI/Abdominal: Distended, Other Back Exam: No: CVA Tenderness (L), CVA Tenderness (R) Extremities: Pedal Edema. No: Increased Warmth, Redness Neurological: Alert, Oriented, Other (No focal weakness) Skin Exam: Warm, Dry, Normal Color EKG INTERPRETATION EKG Date: 07/22/18 Rhythm: Other (Paced rhythm, rate 87) Course - Vital Signs Last Recorded V/S: Last Vital Signs Temp 98.4 F 07/22/18 22:50 Pulse 89 07/22/18 22:50 Resp 19 07/22/18 22:50 BP 117/72 07/22/18 22:50 Pulse Ox 99 07/22/18 22:50 - Orders/Labs/Meds Orders: Active Orders 24 hr Category Date Time Status EKG 12 Lead [EKG Documentation Completion] [RC] STAT Care 07/22/18 23:26 Active Peripheral IV Care [RC] . DIRECTED Care 07/22/18 23:27 Active Chest 1V Frontal [CR] Stat Exams 07/22/18 23:25 Taken Peripheral IV Insertion Adult [OM.PC] Stat Oth 07/22/18 23:27 Ordered Labs: Laboratory Tests 07/22/18 07/22/18 Range/Units 23:45 23:45 WBC 6.14 (3.98-10.04) K/mm3 RBC 3.56 L (3.98-5.22) M/mm3 Hgb 9.8 L (11.2-15.7) gm/L Hct 31.7 L (34.1-44.9) % MCV 89.0 (79.4-94.8) fl MCH 27.5 (25.6-32.2) pg MCHC 30.9 L (32.2-35.5) g/dl RDW Std Deviation 49.5 H (36.4-46.3) fL Plt Count 157 L (182-369) K/mm3 MPV 10.0 (9.4-12.3) fl Neut % (Auto) 78.7 H (34.0-71.1) % Lymph % (Auto) 9.9 L (19.3-51.7) % [place] % (Auto) 9.4 (4.7-12.5) % Eos % (Auto) 1.5 (0.7-5.8) Baso % (Auto) 0.3 (0.1-1.2) % Neut # (Auto) 4.83 (1.56-6.13) K/mm3 Lymph # (Auto) 0.61 L (1.18-3.74) K/mm3 [place] # (Auto) 0.58 H (0.24-0.36) K/mm3 Eos # (Auto) 0.09 (0.04-0.36) K/mm3 Baso # (Auto) 0.02 (0.01-0.08) K/mm3 Manual Slide Review Abnormal smear Sodium 139 (136-145) mEq/L Potassium 3.8 (3.5-5.1) mEq/L Chloride 106 (98-107) mEq/L Carbon Dioxide 23 (21-32) mEq/L Anion Gap 13.8 (5-15) BUN 54 H (7-18) mg/dL Creatinine 3.9 H (0.55-1.02) mg/dL Est Cr Clr Drug Dosing TNP Estimated GFR (MDRD) 12 (>60) mL/min BUN/Creatinine Ratio 13.8 L (14-18) Glucose 166 H (74-106) mg/dL Calcium 7.7 L (8.5-10.1) mg/dL Total Bilirubin 0.5 (0.2-1.0) mg/dL AST 25 (15-37) U/L ALT 10 L (14-59) U/L Alkaline Phosphatase 113 (46-116) U/L Total Protein 6.8 (6.4-8.2) g/dl Albumin 2.4 L (3.4-5.0) g/dl Globulin 4.4 gm/dL Albumin/Globulin Ratio 0.6 L (1-2) Meds: Medications Discontinued Medications Generic Name Dose Route Start Last Admin Trade Name Freq PRN Reason Stop Dose Admin Furosemide 40 mg 07/22/18 23:27 07/22/18 23:47 Lasix IVPUSH 07/22/18 23:28 40 mg NOW ONE Administration Morphine Sulfate 4 mg 07/22/18 23:27 07/22/18 23:48 Morphine IVPUSH 07/22/18 23:28 4 mg ONETIME ONE Administration Morphine Sulfate 4 mg 07/23/18 01:19 07/23/18 01:27 Morphine IVPUSH 07/23/18 01:20 4 mg ONETIME ONE Administration Sodium Chloride 10 ml 07/22/18 23:27 07/22/18 23:46 Saline Flush FLUSH 10 ml ASDIRECTED PRN Administration Keep Vein Open - Re-Assessments/Exams Free Text/Narrative Re-Assessment/Exam: 07/23/18 04:07 Chest x-ray shows moderate pulmonary congestion, mild cardiomegaly. O2 sats have continued in the mid to upper 90s with O2 2 L nasal cannula. She has been given IV morphine for pain and also to help relieve fluid congestion on her lungs. Our dialysis unit does not accept doing dialysis for patient's in this hospital. Therefore she will need to be transferred. She has been previously transferred to [facility]. I did visit with Dr. 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 She'll be transferred by ground ambulance. Departure - Departure Time of Disposition: 01:30 Disposition: DC/Tfer to Acute Hospital 02 Reason for Transfer *Q: Other Condition: Serious Clinical Impression: Renal failure Qualifiers: Renal failure chronicity: acute on chronic Acute renal failure type: unspecified Chronic kidney disease stage: unspecified stage Qualified Code(s): N17.9 - Acute kidney failure, unspecified; N18.9 - Chronic kidney disease, unspecified Referrals: PCP,None [Primary Care Provider] - Forms: ED Department Discharge - My Orders Last 24 Hours: My Active Orders 07/22/18 23:25 Chest 1V Frontal [CR] Stat 07/22/18 23:26 EKG 12 Lead [EKG Documentation Completion] [RC] STAT 07/22/18 23:27 Peripheral IV Care [RC] . DIRECTED Peripheral IV Insertion Adult [OM.PC] Stat - Assessment/Plan Last 24 Hours: My Active Orders 07/22/18 23:25 Chest 1V Frontal [CR] Stat 07/22/18 23:26 EKG 12 Lead [EKG Documentation Completion] [RC] STAT 07/22/18 23:27 Peripheral IV Care [RC] . DIRECTED Peripheral IV Insertion Adult [OM.PC] Stat
--- NOTE | 2018-07-24 10:30 | CR ---
Chest: Frontal view of the chest was obtained. Comparison: Prior chest x-ray of 06/13/18. Right-sided infusion catheter is seen. Left-sided AICD is noted. Mild atelectasis noted within the left lateral costophrenic angle. Lungs otherwise are clear. Heart size appears within normal limits. Coronary artery stent is present. Impression: 1. Mild atelectasis. Other incidental findings. 2. Nothing acute is suspected. Diagnostic code #2
== END 2018-07-23 02:20 ==
LOC: JD.ED 22:45
DX: N17.9 Acute kidney failure, unspecified (principal); I13.0 Hypertensive heart and chronic kidney disease with heart failure and stage 1 through stage 4 chronic kidney disease, or unspecified chronic kidney disease; N18.9 Chronic kidney disease, unspecified; E11.22 Type 2 diabetes mellitus with diabetic chronic kidney disease; E78.00 Pure hypercholesterolemia, unspecified; I25.2 Old myocardial infarction; K21.9 Gastro-esophageal reflux disease without esophagitis; F41.9 Anxiety disorder, unspecified; Z88.8 Allergy status to other drugs, medicaments and biological substances; Z79.82 Long term (current) use of aspirin; Z79.899 Other long term (current) drug therapy; Z99.2 Dependence on renal dialysis; Z79.4 Long term (current) use of insulin
CPT/HCPCS: 36415; 71045; 80053; 85025; 93005; 96374; 96375; 96376; 99285; J1940; J2270; J7050; 93010

== ENCOUNTER 2018-08-04 11:57 | Emergency (ER) | payer OTHER ==
[2018-08-04 12:17] VITALS: BP 131/83
[2018-08-04] MEDS ORDERED: Sodium Chloride 0.9% 10 ML Syringe FLUSH PRN (12:32)
[2018-08-04] MEDS ORDERED: LORazepam 2 MG/ML SDV IVPUSH ONE (12:33)
[2018-08-04] MEDS ORDERED: Promethazine 25 MG/ML SDV IM ONE (12:43)
--- NOTE | 2018-08-04 12:52 | EDM.PDOC ---
ED HPI GENERAL MEDICAL PROBLEM - General Chief Complaint: Chest Pain Stated Complaint: [facility] Time Seen by Provider: 08/04/18 12:22 Source of Information: Reports: Patient History Limitations: Reports: No Limitations - History of Present Illness INITIAL COMMENTS - FREE TEXT/NARRATIVE: 48-year-old female arrives via [facility] for evaluation and treatment of chest pain. Reportedly the chest pain started at 0300 this morning. Located in her center of her chest and she describes as a sharp pain with radiation into her neck and back. She states that the pain is a 10 out of 10 at this time. She was given 1 mg of IV Versed, 8 mg IV Zofran 2 mg of IV morphine en route by ambulance. She continues to complain of significant pain. Patient is known to the ER and has been seen on numerous occasions. Most recently she was seen July 23 and sent [place]. she is known to be noncompliant with dialysis. Reportedly she was just released from the hospital a few days ago. She had dialysis reportedly on Sunday as scheduled have it again on Sunday. Onset: Today, Sudden Location: Reports: Neck, Chest, Back Chest Pain Score (Numeric/FACES): 10 - Related Data Allergies Allergy/AdvReac Type Severity Reaction Status Date / Time fentanyl Allergy Itching Verified 08/04/18 12:07 ibuprofen Allergy Hives Verified 08/04/18 12:07 metformin HCl Allergy Hives Verified 08/04/18 12:07 [From Glucophage] spinach Allergy Difficulty Verified 08/04/18 12:07 Breathing Home Meds: Home Meds Aspirin [Halfprin] 81 mg PO DAILY 08/10/15 [History] Carvedilol 3.125 mg PO BID 08/10/15 [History] Insulin Aspart [Novolog Flexpen] 3 - 11 unit SQ QID PRN 08/10/15 [History] Isosorbide Mononitrate [Isosorbide Mononitrate ER] 60 mg PO DAILY 02/16/17 [ History] Nitroglycerin 0.4 mg PO ASDIRECTED PRN 04/09/17 [History] Biotin/FA/Vit C/Vit B Complex [Nephrocaps] 1 mg PO DAILY 03/22/18 [History] Docusate Sodium 100 mg PO BID 03/22/18 [History] Omeprazole 20 mg PO DAILY 03/22/18 [History] Ondansetron HCl [Zofran] 4 mg PO Q6H PRN 03/22/18 [History] Sertraline [Zoloft] 100 mg PO DAILY 03/22/18 [History] Ticagrelor [Brilinta] 90 mg PO BID 03/22/18 [History] atorvaSTATin [Lipitor] 40 mg PO BEDTIME 03/22/18 [History] busPIRone [Buspar] 15 mg PO TID 03/22/18 [History] Hydrocodone/Acetaminophen [Hydrocodon-Acetaminophen 5-325] 5 - 325 mg PO BID PRN 04/12/18 [History] Metoclopramide [Reglan] 5 mg PO Q6H PRN 04/12/18 [History] Lisinopril 5 mg PO DAILY 07/23/18 [History] Past Medical History Other HEENT History: no upper teeth--no dentures-----> pt says she does not have upper dentures however when getting home meds out of her backpack for her she had upper dentures in the pocket of the backpack. Pt says she wears glasses but left them in [place]. Cardiovascular History: Reports: Automatic Implantable Cardioverter Defibrillators, CAD, Congenital Septal Defect, Heart Failure, High Cholesterol, Hypertension, [place], Pacemaker, PVD Other Cardiovascular History: defibrillator Respiratory History: Reports: COPD, Sleep Apnea Other Respiratory History: uses CPAP at night Gastrointestinal History: Reports: GERD Other Gastrointestinal History: hernia noted, states they are unable to operate Genitourinary History: Reports: Dialysis, Renal Calculus, Urinary Incontinence Other Genitourinary History: history of kidney stones, dawkins when I pee. KEY HOLDER History: Reports: Neurological History: Reports: Migraines, Neuropathy, Peripheral Psychiatric History: Reports: Anxiety, Depression Endocrine/Metabolic History: Reports: Diabetes, Type II, Obesity/BMI 30+ Hematologic History: Reports: Anemia Other Dermatologic History: "boil on private parts" - Infectious Disease History Infectious Disease History: Reports: None - Past Surgical History HEENT Surgical History: Reports: Tonsillectomy Cardiovascular Surgical History: Reports: AICD, Coronary Artery Stent GI Surgical History: Reports: Appendectomy, Hernia, Abdominal, Other (See Below) Female Surgical History: Reports: Section Musculoskeletal Surgical History: Reports: ORIF Social & Family History - Family History Family Medical History: Noncontributory Cardiac: Reports: CAD, Heart Failure Endocrine/Metabolic: Reports: Diabetes, type II Oncologic: Reports: Breast - Tobacco Use Smoking Status *Q: Never Smoker - Caffeine Use Caffeine Use: Reports: Coffee Other Caffeine Use: diet soda - Recreational Drug Use Recreational Drug Use: Yes Recreational Drug Type: Reports: Marijuana/Hashish - Living Situation & Occupation Living situation: Reports: , with Family (with brother) Occupation: Unemployed ED ROS GENERAL - Review of Systems Review Of Systems: See Below Cardiovascular: Reports: Chest Pain GI/Abdominal: Reports: Abdominal Pain Musculoskeletal: Reports: Neck Pain, Back Pain ED EXAM, GENERAL - Physical Exam Exam: See Below Exam Limited By: No Limitations General Appearance: Alert, WD/WN, No Apparent Distress, Moderate Distress, Other (Patient is whimpering) Respiratory/Chest: No Respiratory Distress, Lungs Clear, Normal Breath Sounds Cardiovascular: Normal Peripheral Pulses, Regular Rate, Rhythm, Systolic Murmur (grade 3), Other (3+ pitting edema; chest wall pain) GI/Abdominal: Normal Bowel Sounds, Other (anterior abdominal wall hernia, reeports tenderness) Neurological: Alert, Oriented, Normal Cognition Psychiatric: Normal Affect, Normal Mood Skin Exam: Warm, Dry, Normal Color EKG INTERPRETATION EKG Date: 08/04/18 Time: 12:12 Rate (Beats/Min): 97 [place]: Normal P-Wave: Present QRS: Normal ST-T: Normal QT: Normal Comparison: No Change EKG Interpretation Comments: 12:12 atrial paced nonspecific T wave flattening. No signs of acute ST segment elevation. Reviewed by myself and DR. Patrick Garnica. 16:13 atrial paced rhythm at 94 bpm. No acute changes. No change from earlier EKG. Reviewed by myself and Dr. Patrick Garnica. Course - Vital Signs Last Recorded V/S: Last Vital Signs Temp 97.7 F 08/04/18 11:59 Pulse 91 08/04/18 11:59 Resp 14 08/04/18 11:59 BP 131/83 08/04/18 11:59 Pulse Ox 94 L 08/04/18 11:59 - Orders/Labs/Meds Orders: Active Orders 24 hr Category Date Time Status Cardiac Monitoring [RC] . DIRECTED Care 08/04/18 12:32 Active EKG 12 Lead [EKG Documentation Completion] [RC] STAT Care 08/04/18 16:04 Active EKG Documentation Completion [RC] ASDIRECTED Care 08/04/18 12:32 Active Peripheral IV Care [RC] . DIRECTED Care 08/04/18 12:32 Active Chest Abdomen Pelvis w Cont [CT] Stat Exams 08/04/18 16:41 Ordered Sodium Chloride 0.9% [Saline Flush] Med 08/04/18 12:32 Active 10 ml FLUSH ASDIRECTED PRN Peripheral IV Insertion Adult [OM.PC] Routine Oth 08/04/18 12:32 Ordered EKG 12 Lead [EK] Stat Ther 08/04/18 12:32 Ordered Medication Orders Sodium Chloride (Saline Flush) 10 ml FLUSH ASDIRECTED PRN PRN Reason: Keep Vein Open Last Admin: 08/04/18 12:41 Dose: 10 ml Labs: Laboratory Tests 08/04/18 08/04/18 08/04/18 Range/Units 12:50 12:50 12:50 WBC 7.65 (3.98-10.04) K/mm3 RBC 3.44 L (3.98-5.22) M/mm3 Hgb 9.6 L (11.2-15.7) gm/L Hct 31.2 L (34.1-44.9) % MCV 90.7 (79.4-94.8) fl MCH 27.9 (25.6-32.2) pg MCHC 30.8 L (32.2-35.5) g/dl RDW Std Deviation 53.1 H (36.4-46.3) fL Plt Count 202 (182-369) K/mm3 MPV 9.8 (9.4-12.3) fl Neut % (Auto) 81.5 H (34.0-71.1) % Lymph % (Auto) 7.6 L (19.3-51.7) % [place] % (Auto) 10.2 (4.7-12.5) % Eos % (Auto) 0 L (0.7-5.8) Baso % (Auto) 0.4 (0.1-1.2) % Neut # (Auto) 6.24 H (1.56-6.13) K/mm3 Lymph # (Auto) 0.58 L (1.18-3.74) K/mm3 [place] # (Auto) 0.78 H (0.24-0.36) K/mm3 Eos # (Auto) 0.00 L (0.04-0.36) K/mm3 Baso # (Auto) 0.03 (0.01-0.08) K/mm3 Manual Slide Review Abnormal smear Sodium 139 (136-145) mEq/L Potassium 3.4 L (3.5-5.1) mEq/L Chloride 102 (98-107) mEq/L Carbon Dioxide 26 (21-32) mEq/L Anion Gap 14.4 (5-15) BUN 30 H (7-18) mg/dL Creatinine 3.8 H (0.55-1.02) mg/dL Est Cr Clr Drug Dosing 17.41 mL/min Estimated GFR (MDRD) 13 (>60) mL/min BUN/Creatinine Ratio 7.9 L (14-18) Glucose 128 H (74-106) mg/dL Calcium 7.8 L (8.5-10.1) mg/dL Magnesium 1.7 L (1.8-2.4) mg/dl Total Bilirubin 1.5 H (0.2-1.0) mg/dL AST 27 (15-37) U/L ALT 9 L (14-59) U/L Alkaline Phosphatase 105 (46-116) U/L Troponin I 0.036 (0.00-0.056) ng/mL NT-Pro-B Natriuret Pep 45996 H (0-125) pg/mL Total Protein 7.1 (6.4-8.2) g/dl Albumin 2.6 L (3.4-5.0) g/dl Globulin 4.5 gm/dL Albumin/Globulin Ratio 0.6 L (1-2) Urine Opiates Screen (NEGATIVE) Ur Buprenorphine Scrn (NEGATIVE) Ur Oxycodone Screen (NEGATIVE) Urine Methadone Screen (NEGATIVE) Ur Propoxyphene Screen (NEGATIVE) Ur Barbiturates Screen (NEGATIVE) Ur Tricyclics Screen (NEGATIVE) Ur Phencyclidine Scrn (NEGATIVE) Ur Amphetamine Screen (NEGATIVE) U Methamphetamines Scrn (NEGATIVE) U Benzodiazepines Scrn (NEGATIVE) U Cocaine Metab Screen (NEGATIVE) U Marijuana (THC) Screen (NEGATIVE) Ethyl Alcohol 0.00 (0.00) gm% 09/08/04/18 08/04/18 Range/Units 15:05 16:55 17:05 WBC (3.98-10.04) K/mm3 RBC (3.98-5.22) M/mm3 Hgb (11.2-15.7) gm/L Hct (34.1-44.9) % MCV (79.4-94.8) fl MCH (25.6-32.2) pg MCHC (32.2-35.5) g/dl RDW Std Deviation (36.4-46.3) fL Plt Count (182-369) K/mm3 MPV (9.4-12.3) fl Neut % (Auto) (34.0-71.1) % Lymph % (Auto) (19.3-51.7) % [place] % (Auto) (4.7-12.5) % Eos % (Auto) (0.7-5.8) Baso % (Auto) (0.1-1.2) % Neut # (Auto) (1.56-6.13) K/mm3 Lymph # (Auto) (1.18-3.74) K/mm3 [place] # (Auto) (0.24-0.36) K/mm3 Eos # (Auto) (0.04-0.36) K/mm3 Baso # (Auto) (0.01-0.08) K/mm3 Manual Slide Review Sodium (136-145) mEq/L Potassium (3.5-5.1) mEq/L Chloride (98-107) mEq/L Carbon Dioxide (21-32) mEq/L Anion Gap (5-15) BUN (7-18) mg/dL Creatinine (0.55-1.02) mg/dL Est Cr Clr Drug Dosing mL/min Estimated GFR (MDRD) (>60) mL/min BUN/Creatinine Ratio (14-18) Glucose (74-106) mg/dL Calcium (8.5-10.1) mg/dL Magnesium (1.8-2.4) mg/dl Total Bilirubin (0.2-1.0) mg/dL AST (15-37) U/L ALT (14-59) U/L Alkaline Phosphatase (46-116) U/L Troponin I 0.059 H* 0.073 H* (0.00-0.056) ng/mL NT-Pro-B Natriuret Pep (0-125) pg/mL Total Protein (6.4-8.2) g/dl Albumin (3.4-5.0) g/dl Globulin gm/dL Albumin/Globulin Ratio (1-2) Urine Opiates Screen Presumptive positive H (NEGATIVE) Ur Buprenorphine Scrn Negative (NEGATIVE) Ur Oxycodone Screen Negative (NEGATIVE) Urine Methadone Screen Negative (NEGATIVE) Ur Propoxyphene Screen Negative (NEGATIVE) Ur Barbiturates Screen Negative (NEGATIVE) Ur Tricyclics Screen Negative (NEGATIVE) Ur Phencyclidine Scrn Negative (NEGATIVE) Ur Amphetamine Screen Negative (NEGATIVE) U Methamphetamines Scrn Negative (NEGATIVE) U Benzodiazepines Scrn Negative (NEGATIVE) U Cocaine Metab Screen Negative (NEGATIVE) U Marijuana (THC) Screen Presumptive positive H (NEGATIVE) Ethyl Alcohol (0.00) gm% Meds: Medications Generic Name Dose Route Start Last Admin Trade Name Freq PRN Reason Stop Dose Admin Sodium Chloride 10 ml 08/04/18 12:32 08/04/18 12:41 Saline Flush FLUSH 10 ml ASDIRECTED PRN Administration Keep Vein Open Discontinued Medications Generic Name Dose Route Start Last Admin Trade Name Freq PRN Reason Stop Dose Admin Acetaminophen 650 mg 08/04/18 16:04 08/04/18 16:09 Tylenol PO 08/04/18 16:05 650 mg NOW ONE Administration Aspirin 324 mg 08/04/18 17:21 08/04/18 17:32 Aspirin PO 08/04/18 17:22 324 mg ONETIME ONE Administration Hydromorphone HCl 0.5 mg 08/04/18 16:42 08/04/18 16:51 Dilaudid IVPUSH 08/04/18 16:43 0.5 mg ONETIME ONE Administration Lorazepam 1 mg 08/04/18 12:33 08/04/18 12:41 Ativan IVPUSH 08/04/18 12:34 1 mg ONETIME ONE Administration Promethazine HCl 12.5 mg 08/04/18 12:43 08/04/18 12:55 Phenergan IM 08/04/18 12:44 12.5 mg ONETIME ONE Administration - Radiology Interpretation Free Text/Narrative:: Chest: Portable view of the chest was obtained. Comparison: Prior chest x-ray of 07/22/18. Left sided AICD is noted. Right-sided infusion catheter is seen. Lungs are clear. Heart size and mediastinum are within normal limits. Left coronary artery stent is present. Bony structures are grossly intact. Impression: 1. Incidental findings. Nothing acute is identified on portable chest x-ray. - Re-Assessments/Exams Free Text/Narrative Re-Assessment/Exam: 08/04/18 13:22 Checked on the patient, she is sleeping at this time. 08/04/18 14:[address] Patrick Garnica. Plan will be to repeat trop and will likely send patient home. She is sleeping at this time. 08/04/18 16:55 Repeat trop returned elevated at 0.059. This is up from 0.036. Of note she has had elevated troponins past medical history of a troponin leak. Discussed with Dr. Patrick Garnica. She will see the patient. 08/04/18 17:20 Patient continues to complain of pain despite pain medication. Continues to state that it is a 10 out of 10 and severe. Seen by Dr. Patrick Garnica. Concern for dissection and PE. Radiology has concerns about the contrast and recommends dialysis immediately after contrast given. We are unable to do this at our facility. I discussed this with the patient. I informed her if she feels that this is significant pain I cannot rule out a PE or dissectand she would have to go to [facility] to further rule these out. She states that the pain continues to be severe despite the pain medication. I informed her she would have to go to [facility] for further workup. She is in agreement to going to [place]. 08/04/18 17:55 3rd trop is 0.073 Discussed the case with Dr. Lozada, ER physician, and Dr. Haider, cleaner and polisher, at [facility] in [place]. Dr. Lozada agrees to accept the patient. She will be transported by ground ambulance to [facility] for further evaluation. Departure - Departure Time of Disposition: 18:04 Disposition: DC/Tfer to [facility] 02 Reason for Transfer *Q: Other Condition: Fair Clinical Impression: Insulin dependent diabetes mellitus, ESRD on hemodialysis, Chest pain, atypical , Elevated troponin Referrals: PCP,None [Primary Care Provider] - Forms: ED Department Discharge Additional Instructions: Patient to be transferred to [facility] in [place]. ER physician, Dr. Lozada accepting. - My Orders Last 24 Hours: My Active Orders 08/04/18 12:32 Cardiac Monitoring [RC] . DIRECTED EKG Documentation Completion [RC] ASDIRECTED Peripheral IV Care [RC] . DIRECTED Sodium Chloride 0.9% [Saline Flush] 10 ml FLUSH ASDIRECTED PRN Peripheral IV Insertion Adult [OM.PC] Routine EKG 12 Lead [EK] Stat 08/04/18 16:04 EKG 12 Lead [EKG Documentation Completion] [RC] STAT 08/04/18 16:41 Chest Abdomen Pelvis w Cont [CT] Stat - Assessment/Plan Last 24 Hours: My Active Orders 08/04/18 12:32 Cardiac Monitoring [RC] . DIRECTED EKG Documentation Completion [RC] ASDIRECTED Peripheral IV Care [RC] . DIRECTED Sodium Chloride 0.9% [Saline Flush] 10 ml FLUSH ASDIRECTED PRN Peripheral IV Insertion Adult [OM.PC] Routine EKG 12 Lead [EK] Stat 08/04/18 16:04 EKG 12 Lead [EKG Documentation Completion] [RC] STAT 08/04/18 16:41 Chest Abdomen Pelvis w Cont [CT] Stat
[2018-08-04] MEDS ORDERED: Acetaminophen 325 MG Tab PO ONE (16:04)
[2018-08-04] MEDS ORDERED: HYDROmorphone 0.5 MG/0.5 ML SYRINGE IVPUSH ONE (16:42)
--- NOTE | 2018-08-04 17:18 | CR ---
Chest: Portable view of the chest was obtained. Comparison: Prior chest x-ray of 07/22/18. Left sided AICD is noted. Right-sided infusion catheter is seen. Lungs are clear. Heart size and mediastinum are within normal limits. Left coronary artery stent is present. Bony structures are grossly intact. Impression: 1. Incidental findings. Nothing acute is identified on portable chest x-ray. Diagnostic code #2
[2018-08-04] MEDS ORDERED: Aspirin 81 MG Tab.Chew PO ONE (17:21)
== END 2018-08-04 18:17 ==
LOC: JD.ED 11:57
DX: R07.89 Other chest pain (principal); I13.2 Hypertensive heart and chronic kidney disease with heart failure and with stage 5 chronic kidney disease, or end stage renal disease; I50.9 Heart failure, unspecified; N18.6 End stage renal disease; E11.22 Type 2 diabetes mellitus with diabetic chronic kidney disease; J44.9 Chronic obstructive pulmonary disease, unspecified; I25.2 Old myocardial infarction; R79.89 Other specified abnormal findings of blood chemistry; K21.9 Gastro-esophageal reflux disease without esophagitis; F41.9 Anxiety disorder, unspecified; E11.42 Type 2 diabetes mellitus with diabetic polyneuropathy; Z79.82 Long term (current) use of aspirin; Z79.899 Other long term (current) drug therapy; Z79.4 Long term (current) use of insulin; Z99.2 Dependence on renal dialysis
CPT/HCPCS: 36415; 71045; 80053; 80306; 83735; 83880; 84484; 85025; 93005; 96372; 96374; 96375; 99285; A9270; G0480; J1170; J2060; J2550; J7050; 93010

== ENCOUNTER 2018-11-02 02:15 | Emergency (ER) | payer OTHER ==
[2018-11-02 02:26] VITALS: BP 121/64
[2018-11-02] MEDS ORDERED: Sodium Chloride 0.9% 10 ML Syringe FLUSH PRN (02:43)
--- NOTE | 2018-11-02 03:21 | EDM.PDOC ---
ED HPI GENERAL MEDICAL PROBLEM - General Chief Complaint: General Stated Complaint: [facility] Time Seen by Provider: 11/02/18 02:20 Source of Information: Reports: Patient, EMS History Limitations: Reports: No Limitations - History of Present Illness INITIAL COMMENTS - FREE TEXT/NARRATIVE: The patient presents by [facility] for a fall. She says she was in the shower and she got lightheaded and fell. She says she was in the shower she thinks about 3 hours. She did hit her head and she as a headache and neck pain. She also has some chest pain and abdominal pain. She says her abdomen is filled with fluid because she did not have dialysis for 2 weeks. The last time she was here was on the and she was transferred to [facility] in [place]. She usually gets dialyzed in [place] 3 times per week but she does not have any transportation. She has no car and her family will not help take her. She has no help from [facility] or the [facility]. Onset: Sudden Duration: Hour(s): Location: Reports: Head, Neck, Chest Quality: Reports: Sharp Severity: Moderate Improves with: Reports: Immobilization Worsens with: Reports: Movement Context: Reports: Trauma (She fell in the shower) Associated Symptoms: Reports: Chest Pain, Headaches. Denies: Fever/Chills, Nausea/Vomiting, Shortness of Breath Back Pain Score (Numeric/FACES): 5 - Related Data Allergies Allergy/AdvReac Type Severity Reaction Status Date / Time fentanyl Allergy Itching Verified 08/04/18 12:07 ibuprofen Allergy Hives Verified 08/04/18 12:07 metformin HCl Allergy Hives Verified 08/04/18 12:07 [From Glucophage] spinach Allergy Difficulty Verified 08/04/18 12:07 Breathing Home Meds: Home Meds Aspirin [Halfprin] 81 mg PO DAILY 08/10/15 [History] Carvedilol 3.125 mg PO BID 08/10/15 [History] Insulin Aspart [Novolog Flexpen] 2 unit SQ ASDIRECTED PRN 08/10/15 [History] Isosorbide Mononitrate [Isosorbide Mononitrate ER] 60 mg PO DAILY 02/16/17 [ History] Nitroglycerin 0.4 mg PO ASDIRECTED PRN 04/09/17 [History] Biotin/FA/Vit C/Vit B Complex [Nephrocaps] 1 mg PO DAILY 03/22/18 [History] Docusate Sodium 100 mg PO BID 03/22/18 [History] Omeprazole 20 mg PO DAILY 03/22/18 [History] Ondansetron HCl [Zofran] 4 mg PO Q6H PRN 03/22/18 [History] Sertraline [Zoloft] 100 mg PO DAILY 03/22/18 [History] Ticagrelor [Brilinta] 90 mg PO BID 03/22/18 [History] atorvaSTATin [Lipitor] 40 mg PO BEDTIME 03/22/18 [History] busPIRone [Buspar] 15 mg PO TID 03/22/18 [History] Hydrocodone/Acetaminophen [Hydrocodon-Acetaminophen 5-325] 5 - 325 mg PO BID PRN 04/12/18 [History] Metoclopramide [Reglan] 5 mg PO Q6H PRN 04/12/18 [History] Lisinopril 5 mg PO DAILY 07/23/18 [History] Metoclopramide HCl [Reglan] 10 mg PO Q6H PRN 10/18/18 [History] Past Medical History HEENT History: Reports: Cataract Other HEENT History: no upper teeth--no dentures-----> pt says she does not have upper dentures however when getting home meds out of her backpack for her she had upper dentures in the pocket of the backpack. Pt says she wears glasses but left them in [place]. Cardiovascular History: Reports: Automatic Implantable Cardioverter Defibrillators, CAD, Congenital Septal Defect, Heart Failure, High Cholesterol, Hypertension, [place], Pacemaker, PVD Other Cardiovascular History: defibrillator Respiratory History: Reports: COPD, Sleep Apnea Other Respiratory History: uses CPAP at night Gastrointestinal History: Reports: GERD Other Gastrointestinal History: hernia noted, states they are unable to operate Genitourinary History: Reports: Dialysis, Renal Calculus, Urinary Incontinence Other Genitourinary History: history of kidney stones, dawkins when I pee. [employer]ACHIN[employer] History: Reports: Neurological History: Reports: Migraines, Neuropathy, Peripheral Psychiatric History: Reports: Anxiety, Depression Endocrine/Metabolic History: Reports: Diabetes, Type II, Obesity/BMI 30+ Hematologic History: Reports: Anemia Other Dermatologic History: "boil on private parts" - Infectious Disease History Infectious Disease History: Reports: None - Past Surgical History HEENT Surgical History: Reports: Tonsillectomy Cardiovascular Surgical History: Reports: AICD, Coronary Artery Stent GI Surgical History: Reports: Appendectomy, Hernia, Abdominal, Other (See Below) Female Surgical History: Reports: Section Musculoskeletal Surgical History: Reports: ORIF Social & Family History - Family History Family Medical History: Noncontributory Cardiac: Reports: CAD, Heart Failure Endocrine/Metabolic: Reports: Diabetes, type II Oncologic: Reports: Breast - Caffeine Use Caffeine Use: Reports: Coffee, Soda Other Caffeine Use: diet soda - Living Situation & Occupation Living situation: Reports: , with Family (with brother) Occupation: Disabled (Lives in [place].) ED ROS GENERAL - Review of Systems Review Of Systems: See Below Constitutional: Reports: No Symptoms HEENT: Reports: No Symptoms Respiratory: Reports: No Symptoms Cardiovascular: Reports: No Symptoms Endocrine: Reports: No Symptoms GI/Abdominal: Reports: Abdominal Pain. Denies: Nausea, Vomiting : Reports: No Symptoms Musculoskeletal: Reports: Neck Pain Neurological: Reports: Headache ED EXAM, GENERAL - Physical Exam Exam: See Below Exam Limited By: No Limitations General Appearance: Alert, No Apparent Distress Ears: Normal External Exam Nose: Normal Inspection Head: Atraumatic, Normocephalic Neck: Tender Midline Respiratory/Chest: No Respiratory Distress, Lungs Clear, Normal Breath Sounds Cardiovascular: Regular Rate, Rhythm, No Edema, No Murmur GI/Abdominal: Soft, No Organomegaly, No Mass, Tender (Mild generalized tenderness) Back Exam: Normal Inspection Extremities: Normal Inspection Neurological: Alert, Oriented, No Motor/Sensory Deficits Course - Vital Signs Last Recorded V/S: Last Vital Signs Temp 97.1 F 11/02/18 02:21 Pulse 86 11/02/18 02:21 Resp 15 11/02/18 02:21 BP 121/64 11/02/18 02:21 Pulse Ox 100 11/02/18 02:21 - Orders/Labs/Meds Orders: Active Orders 24 hr Category Date Time Status Cardiac Monitoring [RC] . DIRECTED Care 11/02/18 02:43 Active EKG Documentation Completion [RC] STAT Care 11/02/18 02:44 Active Peripheral IV Care [RC] . DIRECTED Care 11/02/18 02:44 Active Cervical Spine wo Cont [CT] Stat Exams 11/02/18 02:45 Taken Chest 1V Frontal [CR] Stat Exams 11/02/18 02:44 Taken Head wo Cont [CT] Stat Exams 11/02/18 02:44 Taken ETOH [ETHANOL BLOOD MEDICAL] [CHEM] Stat Lab 11/02/18 03:00 Received Sodium Chloride 0.9% [Saline Flush] Med 11/02/18 02:43 Active 10 ml FLUSH ASDIRECTED PRN Peripheral IV Insertion Adult [OM.PC] Stat Oth 11/02/18 02:43 Ordered Medication Orders Sodium Chloride (Saline Flush) 10 ml FLUSH ASDIRECTED PRN PRN Reason: Keep Vein Open Labs: Laboratory Tests 11/02/18 11/02/18 Range/Units 03:00 03:00 WBC 4.03 (3.98-10.04) K/mm3 RBC 3.47 L (3.98-5.22) M/mm3 Hgb 9.4 L (11.2-15.7) gm/L Hct 29.6 L (34.1-44.9) % MCV 85.3 (79.4-94.8) fl MCH 27.1 (25.6-32.2) pg MCHC 31.8 L (32.2-35.5) g/dl RDW Std Deviation 44.9 (36.4-46.3) fL Plt Count 208 (182-369) K/mm3 MPV 10.1 (9.4-12.3) fl Neut % (Auto) 77.7 H (34.0-71.1) % Lymph % (Auto) 10.9 L (19.3-51.7) % Mcdonald % (Auto) 10.2 (4.7-12.5) % Eos % (Auto) 0.2 L (0.7-5.8) Baso % (Auto) 1.0 (0.1-1.2) % Neut # (Auto) 3.13 (1.56-6.13) K/mm3 Lymph # (Auto) 0.44 L (1.18-3.74) K/mm3 Mcdonald # (Auto) 0.41 H (0.24-0.36) K/mm3 Eos # (Auto) 0.01 L (0.04-0.36) K/mm3 Baso # (Auto) 0.04 (0.01-0.08) K/mm3 Sodium 139 (136-145) mEq/L Potassium 3.2 L (3.5-5.1) mEq/L Chloride 105 (98-107) mEq/L Carbon Dioxide 18 L (21-32) mEq/L Anion Gap 19.2 H (5-15) BUN 90 H (7-18) mg/dL Creatinine 3.2 H (0.55-1.02) mg/dL Est Cr Clr Drug Dosing TNP Estimated GFR (MDRD) 15 (>60) mL/min BUN/Creatinine Ratio 28.1 H (14-18) Glucose 133 H (74-106) mg/dL Calcium 8.2 L (8.5-10.1) mg/dL Phosphorus 6.8 H (2.6-4.7) mg/dL Magnesium 2.7 H (1.8-2.4) mg/dl Total Bilirubin 0.8 (0.2-1.0) mg/dL AST 38 H (15-37) U/L ALT 28 (14-59) U/L Alkaline Phosphatase 167 H (46-116) U/L Troponin I 0.040 (0.00-0.056) ng/mL Total Protein 6.9 (6.4-8.2) g/dl Albumin 2.9 L (3.4-5.0) g/dl Globulin 4.0 gm/dL Albumin/Globulin Ratio 0.7 L (1-2) Meds: Medications Generic Name Dose Route Start Last Admin Trade Name Freq PRN Reason Stop Dose Admin Sodium Chloride 10 ml 11/02/18 02:43 Saline Flush FLUSH ASDIRECTED PRN Keep Vein Open - Re-Assessments/Exams Free Text/Narrative Re-Assessment/Exam: 11/02/18 03:20 I ordered an IV saline lock, EKG, labs, CXR, CT of her head and cervical spine. Her EKG shows an atrial sensed ventricular paced rhythm at 84. 11/02/18 04:58 Her Hgb is low at 9.4. Her Na is normal at 139. Her K is a little low at 3.2. Her anion gap is elevated at 19.2. Her BUN was elevated at 90. Her creatinine is elevated at 3.2. Her GFR is 15. Her glucose is 133. Her calcium is 8.2. Her phosphorus is elevated at 6.8. Her magnesium is elevated at 2.7. Her Alk Phos is elevated at 167. Her troponin is negative. Her CXR looks good. The CT of her head and cervical spine show nothing acute. 11/02/18 05:30 I called [facility] and they do not have beds and I do not feel she needs emergent dialysis. She does have many challenges in getting to her appointments. I did call our oncology social worker Tiny and left a message for Sunday to see if there is something we can do to set up transportation. Departure - Departure Time of Disposition: 05:35 Disposition: Home, Self-Care 01 Condition: Good Clinical Impression: End-stage renal disease needing dialysis Fall Qualifiers: Encounter type: initial encounter Qualified Code(s): W19.XXXA - Unspecified fall, initial encounter Neck strain Qualifiers: Encounter type: initial encounter Qualified Code(s): S16.1XXA - Strain of muscle, fascia and tendon at neck level, initial encounter Head injury Qualifiers: Encounter type: initial encounter Qualified Code(s): S09.90XA - Unspecified injury of head, initial encounter Anemia Qualifiers: Anemia type: unspecified type Qualified Code(s): D64.9 - Anemia, unspecified - Discharge Information *PRESCRIPTION DRUG MONITORING PROGRAM REVIEWED*: No *COPY OF PRESCRIPTION DRUG MONITORING REPORT IN PATIENT ANA PAULA: No Referrals: PCP,None [Primary Care Provider] - Forms: ED Department Discharge Additional Instructions: Take your medication as prescribed. Follow up with your doctor on Sunday or Sunday. Go to dialysis on Sunday. Please return here if you are worse or go directly to [facility] in [place] where they have dialysis for you and where your doctor is. - My Orders Last 24 Hours: My Active Orders 11/02/18 02:43 Cardiac Monitoring [RC] . DIRECTED Sodium Chloride 0.9% [Saline Flush] 10 ml FLUSH ASDIRECTED PRN Peripheral IV Insertion Adult [OM.PC] Stat 11/02/18 02:44 EKG Documentation Completion [RC] STAT Peripheral IV Care [RC] . DIRECTED Chest 1V Frontal [CR] Stat Head wo Cont [CT] Stat 11/02/18 02:45 Cervical Spine wo Cont [CT] Stat 11/02/18 03:00 ETOH [ETHANOL BLOOD MEDICAL] [CHEM] Stat - Assessment/Plan Last 24 Hours: My Active Orders 11/02/18 02:43 Cardiac Monitoring [RC] . DIRECTED Sodium Chloride 0.9% [Saline Flush] 10 ml FLUSH ASDIRECTED PRN Peripheral IV Insertion Adult [OM.PC] Stat 11/02/18 02:44 EKG Documentation Completion [RC] STAT Peripheral IV Care [RC] . DIRECTED Chest 1V Frontal [CR] Stat Head wo Cont [CT] Stat 11/02/18 02:45 Cervical Spine wo Cont [CT] Stat 11/02/18 03:00 ETOH [ETHANOL BLOOD MEDICAL] [CHEM] Stat
[2018-11-02] MEDS ORDERED: Ondansetron 4 MG/2 ML SDV IVPUSH ONE (06:42)
--- NOTE | 2018-11-02 15:36 | CT ---
Head CT Multiple axial sections through the brain were obtained. Intravenous contrast was not utilized. Comparison: Prior head CT study of 05/24/18. Findings: Ventricles along with basal cisterns and sulci over the convexities are mildly prominent. No abnormal parenchymal densities are seen. No evidence of intracranial hemorrhage. No midline shift or mass effect is seen. Bone window settings were reviewed which show no acute calvarial abnormality. Mild atherosclerotic calcification is seen within the vertebral vessels. Impression: 1. Mild generalized atrophy which is stable from prior head CT exam. 2. No acute intracranial abnormality is identified. Diagnostic code #2 I agree with preliminary report from [facility], finalized on 11/02/18, 7:12 AM Central Time
--- NOTE | 2018-11-02 15:36 | CR ---
Chest: Portable view of the chest was obtained. Comparison: Prior chest x-ray of 10/18/18. AICD is noted. Coronary artery stent is present. Heart size appears within normal limits for portable technique. Lungs are clear. Bony structures are grossly intact. Impression: 1. Incidental findings as noted above. Nothing acute is appreciated on portable chest x-ray. Diagnostic code #2
--- NOTE | 2018-11-02 16:04 | CT ---
CT cervical spine Technique: Multiple axial sections were obtained from above C1 inferiorly to the bottom of T1. Reconstructed sagittal and coronal images were reviewed. Comparison: No prior cervical spine imaging. Findings: Mild spondylolisthesis is noted at C3-C4 measuring 2.4 mm which is felt compatible with degenerative apophyseal change. Vertebral body heights are maintained. Disc spaces are fairly well maintained. Minimal scattered anterior endplate osteophytes are seen. No fracture is identified. No bony central or bony neural foraminal stenosis is seen. Scattered degenerative apophyseal change is seen. Mild scoliosis is present. Impression: 1. Mild degenerative change as noted above. Mild scoliosis. 2. Nothing acute is appreciated on CT study of the cervical spine. Diagnostic code #2 I agree with preliminary report from [facility], finalized on 11/02/18, 7:10 AM Central Time
== END 2018-11-02 09:21 | disposition home or self-care (01) ==
LOC: JD.ED 02:15
DX: S16.1XXA Strain of muscle, fascia and tendon at neck level, initial encounter (principal); S09.90XA Unspecified injury of head, initial encounter; D64.9 Anemia, unspecified; I13.2 Hypertensive heart and chronic kidney disease with heart failure and with stage 5 chronic kidney disease, or end stage renal disease; I50.9 Heart failure, unspecified; N18.6 End stage renal disease; Q21.9 Congenital malformation of cardiac septum, unspecified; I25.2 Old myocardial infarction; I25.10 Atherosclerotic heart disease of native coronary artery without angina pectoris; J44.9 Chronic obstructive pulmonary disease, unspecified; K21.9 Gastro-esophageal reflux disease without esophagitis; F41.9 Anxiety disorder, unspecified; F32.9 Major depressive disorder, single episode, unspecified; E11.42 Type 2 diabetes mellitus with diabetic polyneuropathy; E11.22 Type 2 diabetes mellitus with diabetic chronic kidney disease; Z88.8 Allergy status to other drugs, medicaments and biological substances; Z79.82 Long term (current) use of aspirin; Z79.899 Other long term (current) drug therapy; Z99.2 Dependence on renal dialysis; W18.2XXA Fall in (into) shower or empty bathtub, initial encounter; Z79.4 Long term (current) use of insulin; Z91.018 Allergy to other foods
CPT/HCPCS: 36415; 70450; 71045; 72125; 80053; 83735; 84100; 84484; 85025; 93005; 96374; 99285; G0480; J2405

== ENCOUNTER 2018-11-20 01:43 | Emergency (ER) | payer OTHER ==
[2018-11-20] MEDS ORDERED: HYDROmorphone 1 MG/ML Syringe IM ONE (02:05)
[2018-11-20] MEDS ORDERED: Metoclopramide 10 MG/2 ML SDV IM ONE (02:05)
--- NOTE | 2018-11-20 02:10 | EDM.PDOC ---
Addendum entered and electronically signed by Kareem Nicole MD 11/20/18 15:43 : I did some repeat labs and they came back. Her Hgb went up some at 9.1. Her creatinine stayed about the same at 3.7. Her troponin did go up to 0.185. I gave her some aspirin. I called [facility] to let them know the change. This could be renal related. They will recheck it when she gets here. Original Note: <Kareem Nicole - Last Filed: 11/20/18 15:34> ED HPI GENERAL MEDICAL PROBLEM - General Chief Complaint: Chest Pain Stated Complaint: AMBULANCE Time Seen by Provider: 11/20/18 02:05 - Related Data Allergies Allergy/AdvReac Type Severity Reaction Status Date / Time fentanyl Allergy Itching Verified 08/04/18 12:07 ibuprofen Allergy Hives Verified 08/04/18 12:07 metformin HCl Allergy Hives Verified 08/04/18 12:07 [From Glucophage] spinach Allergy Difficulty Verified 08/04/18 12:07 Breathing Home Meds: Home Meds Aspirin [Halfprin] 81 mg PO DAILY 08/10/15 [History] Carvedilol 3.125 mg PO BID 08/10/15 [History] Insulin Aspart [Novolog Flexpen] 2 unit SQ ASDIRECTED PRN 08/10/15 [History] Isosorbide Mononitrate [Isosorbide Mononitrate ER] 60 mg PO DAILY 02/16/17 [ History] Nitroglycerin 0.4 mg PO ASDIRECTED PRN 04/09/17 [History] Biotin/FA/Vit C/Vit B Complex [Nephrocaps] 1 mg PO DAILY 03/22/18 [History] Docusate Sodium 100 mg PO BID 03/22/18 [History] Omeprazole 20 mg PO DAILY 03/22/18 [History] Ondansetron HCl [Zofran] 4 mg PO Q6H PRN 03/22/18 [History] Sertraline [Zoloft] 100 mg PO DAILY 03/22/18 [History] Ticagrelor [Brilinta] 90 mg PO BID 03/22/18 [History] atorvaSTATin [Lipitor] 40 mg PO BEDTIME 03/22/18 [History] busPIRone [Buspar] 15 mg PO TID 03/22/18 [History] Hydrocodone/Acetaminophen [Hydrocodon-Acetaminophen 5-325] 5 - 325 mg PO BID PRN 04/12/18 [History] Metoclopramide [Reglan] 5 mg PO Q6H PRN 04/12/18 [History] Lisinopril 5 mg PO DAILY 07/23/18 [History] Metoclopramide HCl [Reglan] 10 mg PO Q6H PRN 10/18/18 [History] Ondansetron [Zofran ODT] 4 mg PO Q6H PRN #20 tab.dis 11/02/18 [Rx] Course - Vital Signs Last Recorded V/S: Last Vital Signs Temp 35.8 C 11/20/18 15:35 Pulse 80 11/20/18 15:35 Resp 20 11/20/18 15:35 BP 105/66 11/20/18 15:35 Pulse Ox 98 11/20/18 15:35 - Orders/Labs/Meds Labs: Laboratory Tests 11/20/18 11/20/18 11/20/18 Range/Units 02:25 02:35 02:35 WBC 6.44 (3.98-10.04) K/mm3 RBC 3.31 L (3.98-5.22) M/mm3 Hgb 8.9 L (11.2-15.7) gm/L Hct 29.3 L (34.1-44.9) % MCV 88.5 (79.4-94.8) fl MCH 26.9 (25.6-32.2) pg MCHC 30.4 L (32.2-35.5) g/dl RDW Std Deviation 53.1 H (36.4-46.3) fL Plt Count 200 (182-369) K/mm3 MPV 10.7 (9.4-12.3) fl Neut % (Auto) (34.0-71.1) % Lymph % (Auto) (19.3-51.7) % Pepin % (Auto) (4.7-12.5) % Eos % (Auto) (0.7-5.8) Baso % (Auto) (0.1-1.2) % Neut # (Auto) (1.56-6.13) K/mm3 Lymph # (Auto) (1.18-3.74) K/mm3 Pepin # (Auto) (0.24-0.36) K/mm3 Eos # (Auto) (0.04-0.36) K/mm3 Baso # (Auto) (0.01-0.08) K/mm3 Neutrophils % (Manual) 89 H (40-60) % Band Neutrophils % 0 (0-10) % Lymphocytes % (Manual) 5 L (20-40) % Atypical Lymphs % 0 % Monocytes % (Manual) 5 (2-10) % Eosinophils % (Manual) 0 L (0.7-5.8) % Basophils % (Manual) 1 (0.1-1.2) Manual Slide Review Platelet Estimate Adequate Hypochromasia 2+ moderate Anisocytosis 3+ marked RBC Morph Comment Abnormal PT 11.7 (9.5-12.1) SECONDS INR 1.07 APTT 26 (24-31) SECONDS Sodium 143 (136-145) mEq/L Potassium 4.1 (3.5-5.1) mEq/L Chloride 104 (98-107) mEq/L Carbon Dioxide 25 (21-32) mEq/L Anion Gap 18.1 H (5-15) BUN 42 H (7-18) mg/dL Creatinine 3.8 H (0.55-1.02) mg/dL Est Cr Clr Drug Dosing 16.76 mL/min Estimated GFR (MDRD) 13 (>60) mL/min BUN/Creatinine Ratio 11.1 L (14-18) Glucose 176 H (74-106) mg/dL POC Glucose (70-105) mg/dL Lactic Acid (0.4-2.0) mmol/L Calcium 8.4 L (8.5-10.1) mg/dL Magnesium 2.2 (1.8-2.4) mg/dl Total Bilirubin 1.0 (0.2-1.0) mg/dL AST 29 (15-37) U/L ALT 19 (14-59) U/L Alkaline Phosphatase 123 H (46-116) U/L CK-MB (CK-2) 3.7 H (0-3.6) ng/ml Troponin I 0.024 (0.00-0.056) ng/mL C-Reactive Protein 2.7 H* (<1.0) mg/dL NT-Pro-B Natriuret Pep (0-125) pg/mL Total Protein 7.1 (6.4-8.2) g/dl Albumin 2.9 L (3.4-5.0) g/dl Globulin 4.2 gm/dL Albumin/Globulin Ratio 0.7 L (1-2) Urine Color (Yellow) Urine Appearance (Clear) Urine pH (5.0-8.0) Ur Specific [place] (1.005-1.030) Urine Protein (Negative) Urine Glucose (UA) (Negative) Urine Ketones (Negative) Urine Occult Blood (Negative) Urine Nitrite (Negative) Urine Bilirubin (Negative) Urine Urobilinogen (0.2-1.0) Ur Leukocyte Esterase (Negative) Urine RBC (0-5) /hpf Urine WBC (0-5) /hpf Ur Epithelial Cells (0-5) /hpf Urine Bacteria (FEW) /hpf Hyaline Casts (0-5) /lpf Urine Mucus (FEW) /hpf Ketones (0.0-0.3) mM 11/20/18 11/20/18 11/20/18 Range/Units 02:35 02:35 02:35 WBC (3.98-10.04) K/mm3 RBC (3.98-5.22) M/mm3 Hgb (11.2-15.7) gm/L Hct (34.1-44.9) % MCV (79.4-94.8) fl MCH (25.6-32.2) pg MCHC (32.2-35.5) g/dl RDW Std Deviation (36.4-46.3) fL Plt Count (182-369) K/mm3 MPV (9.4-12.3) fl Neut % (Auto) (34.0-71.1) % Lymph % (Auto) (19.3-51.7) % Pepin % (Auto) (4.7-12.5) % Eos % (Auto) (0.7-5.8) Baso % (Auto) (0.1-1.2) % Neut # (Auto) (1.56-6.13) K/mm3 Lymph # (Auto) (1.18-3.74) K/mm3 Pepin # (Auto) (0.24-0.36) K/mm3 Eos # (Auto) (0.04-0.36) K/mm3 Baso # (Auto) (0.01-0.08) K/mm3 Neutrophils % (Manual) (40-60) % Band Neutrophils % (0-10) % Lymphocytes % (Manual) (20-40) % Atypical Lymphs % % Monocytes % (Manual) (2-10) % Eosinophils % (Manual) (0.7-5.8) % Basophils % (Manual) (0.1-1.2) Manual Slide Review Platelet Estimate Hypochromasia Anisocytosis RBC Morph Comment PT (9.5-12.1) SECONDS INR APTT (24-31) SECONDS Sodium (136-145) mEq/L Potassium (3.5-5.1) mEq/L Chloride (98-107) mEq/L Carbon Dioxide (21-32) mEq/L Anion Gap (5-15) BUN (7-18) mg/dL Creatinine (0.55-1.02) mg/dL Est Cr Clr Drug Dosing mL/min Estimated GFR (MDRD) (>60) mL/min BUN/Creatinine Ratio (14-18) Glucose (74-106) mg/dL POC Glucose (70-105) mg/dL Lactic Acid 2.3 H (0.4-2.0) mmol/L Calcium (8.5-10.1) mg/dL Magnesium (1.8-2.4) mg/dl Total Bilirubin (0.2-1.0) mg/dL AST (15-37) U/L ALT (14-59) U/L Alkaline Phosphatase (46-116) U/L CK-MB (CK-2) (0-3.6) ng/ml Troponin I (0.00-0.056) ng/mL C-Reactive Protein (<1.0) mg/dL NT-Pro-B Natriuret Pep 05337 H (0-125) pg/mL Total Protein (6.4-8.2) g/dl Albumin (3.4-5.0) g/dl Globulin gm/dL Albumin/Globulin Ratio (1-2) Urine Color (Yellow) Urine Appearance (Clear) Urine pH (5.0-8.0) Ur Specific [place] (1.005-1.030) Urine Protein (Negative) Urine Glucose (UA) (Negative) Urine Ketones (Negative) Urine Occult Blood (Negative) Urine Nitrite (Negative) Urine Bilirubin (Negative) Urine Urobilinogen (0.2-1.0) Ur Leukocyte Esterase (Negative) Urine RBC (0-5) /hpf Urine WBC (0-5) /hpf Ur Epithelial Cells (0-5) /hpf Urine Bacteria (FEW) /hpf Hyaline Casts (0-5) /lpf Urine Mucus (FEW) /hpf Ketones 0.76 (0.0-0.3) mM 11/20/18 11/20/18 11/20/18 Range/Units 03:01 03:30 14:50 WBC 3.39 L (3.98-10.04) K/mm3 RBC 3.35 L (3.98-5.22) M/mm3 Hgb 9.1 L (11.2-15.7) gm/L Hct 30.5 L (34.1-44.9) % MCV 91.0 (79.4-94.8) fl MCH 27.2 (25.6-32.2) pg MCHC 29.8 L (32.2-35.5) g/dl RDW Std Deviation 54.7 H (36.4-46.3) fL Plt Count 164 L (182-369) K/mm3 MPV 10.5 (9.4-12.3) fl Neut % (Auto) 60.4 (34.0-71.1) % Lymph % (Auto) 23.0 (19.3-51.7) % Pepin % (Auto) 13.6 H (4.7-12.5) % Eos % (Auto) 2.4 (0.7-5.8) Baso % (Auto) 0.6 (0.1-1.2) % Neut # (Auto) 2.05 (1.56-6.13) K/mm3 Lymph # (Auto) 0.78 L (1.18-3.74) K/mm3 Pepin # (Auto) 0.46 H (0.24-0.36) K/mm3 Eos # (Auto) 0.08 (0.04-0.36) K/mm3 Baso # (Auto) 0.02 (0.01-0.08) K/mm3 Neutrophils % (Manual) (40-60) % Band Neutrophils % (0-10) % Lymphocytes % (Manual) (20-40) % Atypical Lymphs % % Monocytes % (Manual) (2-10) % Eosinophils % (Manual) (0.7-5.8) % Basophils % (Manual) (0.1-1.2) Manual Slide Review Abnormal smear Platelet Estimate Hypochromasia Anisocytosis RBC Morph Comment PT (9.5-12.1) SECONDS INR APTT (24-31) SECONDS Sodium (136-145) mEq/L Potassium (3.5-5.1) mEq/L Chloride (98-107) mEq/L Carbon Dioxide (21-32) mEq/L Anion Gap (5-15) BUN (7-18) mg/dL Creatinine (0.55-1.02) mg/dL Est Cr Clr Drug Dosing mL/min Estimated GFR (MDRD) (>60) mL/min BUN/Creatinine Ratio (14-18) Glucose (74-106) mg/dL POC Glucose 161 H (70-105) mg/dL Lactic Acid (0.4-2.0) mmol/L Calcium (8.5-10.1) mg/dL Magnesium (1.8-2.4) mg/dl Total Bilirubin (0.2-1.0) mg/dL AST (15-37) U/L ALT (14-59) U/L Alkaline Phosphatase (46-116) U/L CK-MB (CK-2) (0-3.6) ng/ml Troponin I (0.00-0.056) ng/mL C-Reactive Protein (<1.0) mg/dL NT-Pro-B Natriuret Pep (0-125) pg/mL Total Protein (6.4-8.2) g/dl Albumin (3.4-5.0) g/dl Globulin gm/dL Albumin/Globulin Ratio (1-2) Urine Color Yellow (Yellow) Urine Appearance Slt cloudy H (Clear) Urine pH 7.0 (5.0-8.0) Ur Specific [place] 1.020 (1.005-1.030) Urine Protein 2+ H (Negative) Urine Glucose (UA) Negative (Negative) Urine Ketones Trace H (Negative) Urine Occult Blood Trace-intact H (Negative) Urine Nitrite Negative (Negative) Urine Bilirubin 1+ H (Negative) Urine Urobilinogen 2.0 H (0.2-1.0) Ur Leukocyte Esterase Negative (Negative) Urine RBC 0-5 (0-5) /hpf Urine WBC 0-5 (0-5) /hpf Ur Epithelial Cells 0-5 (0-5) /hpf Urine Bacteria Few (FEW) /hpf Hyaline Casts 0-5 (0-5) /lpf Urine Mucus Not seen (FEW) /hpf Ketones (0.0-0.3) mM 11/20/18 Range/Units 14:50 WBC (3.98-10.04) K/mm3 RBC (3.98-5.22) M/mm3 Hgb (11.2-15.7) gm/L Hct (34.1-44.9) % MCV (79.4-94.8) fl MCH (25.6-32.2) pg MCHC (32.2-35.5) g/dl RDW Std Deviation (36.4-46.3) fL Plt Count (182-369) K/mm3 MPV (9.4-12.3) fl Neut % (Auto) (34.0-71.1) % Lymph % (Auto) (19.3-51.7) % Pepin % (Auto) (4.7-12.5) % Eos % (Auto) (0.7-5.8) Baso % (Auto) (0.1-1.2) % Neut # (Auto) (1.56-6.13) K/mm3 Lymph # (Auto) (1.18-3.74) K/mm3 Pepin # (Auto) (0.24-0.36) K/mm3 Eos # (Auto) (0.04-0.36) K/mm3 Baso # (Auto) (0.01-0.08) K/mm3 Neutrophils % (Manual) (40-60) % Band Neutrophils % (0-10) % Lymphocytes % (Manual) (20-40) % Atypical Lymphs % % Monocytes % (Manual) (2-10) % Eosinophils % (Manual) (0.7-5.8) % Basophils % (Manual) (0.1-1.2) Manual Slide Review Platelet Estimate Hypochromasia Anisocytosis RBC Morph Comment PT (9.5-12.1) SECONDS INR APTT (24-31) SECONDS Sodium 144 (136-145) mEq/L Potassium 4.2 (3.5-5.1) mEq/L Chloride 106 (98-107) mEq/L Carbon Dioxide 28 (21-32) mEq/L Anion Gap 14.2 (5-15) BUN 43 H (7-18) mg/dL Creatinine 3.7 H (0.55-1.02) mg/dL Est Cr Clr Drug Dosing 17.22 mL/min Estimated GFR (MDRD) 13 (>60) mL/min BUN/Creatinine Ratio 11.6 L (14-18) Glucose 91 (74-106) mg/dL POC Glucose (70-105) mg/dL Lactic Acid (0.4-2.0) mmol/L Calcium 8.3 L (8.5-10.1) mg/dL Magnesium (1.8-2.4) mg/dl Total Bilirubin 0.6 (0.2-1.0) mg/dL AST 25 (15-37) U/L ALT 17 (14-59) U/L Alkaline Phosphatase 111 (46-116) U/L CK-MB (CK-2) (0-3.6) ng/ml Troponin I 0.185 H* (0.00-0.056) ng/mL C-Reactive Protein (<1.0) mg/dL NT-Pro-B Natriuret Pep (0-125) pg/mL Total Protein 6.9 (6.4-8.2) g/dl Albumin 2.7 L (3.4-5.0) g/dl Globulin 4.2 gm/dL Albumin/Globulin Ratio 0.6 L (1-2) Urine Color (Yellow) Urine Appearance (Clear) Urine pH (5.0-8.0) Ur Specific [place] (1.005-1.030) Urine Protein (Negative) Urine Glucose (UA) (Negative) Urine Ketones (Negative) Urine Occult Blood (Negative) Urine Nitrite (Negative) Urine Bilirubin (Negative) Urine Urobilinogen (0.2-1.0) Ur Leukocyte Esterase (Negative) Urine RBC (0-5) /hpf Urine WBC (0-5) /hpf Ur Epithelial Cells (0-5) /hpf Urine Bacteria (FEW) /hpf Hyaline Casts (0-5) /lpf Urine Mucus (FEW) /hpf Ketones (0.0-0.3) mM Meds: Medications Discontinued Medications Generic Name Dose Route Start Last Admin Trade Name Freq PRN Reason Stop Dose Admin Aspirin 324 mg 11/20/18 15:40 11/20/18 15:45 Aspirin PO 11/20/18 15:41 324 mg ONETIME ONE Administration Hydromorphone HCl 1 mg 11/20/18 02:05 11/20/18 02:18 Dilaudid IM 11/20/18 02:06 1 mg ONETIME ONE Administration Hydromorphone HCl 1 mg 11/20/18 03:36 11/20/18 03:45 Dilaudid IVPUSH 11/20/18 03:37 1 mg ONETIME ONE Administration Hydromorphone HCl 0.5 mg 11/20/18 10:10 11/20/18 10:15 Dilaudid IVPUSH 11/20/18 10:11 0.5 mg ONETIME ONE Administration Sodium Chloride 1,000 mls @ 100 mls/hr 11/20/18 03:45 11/20/18 03:46 Normal Saline IV 100 mls/hr ASDIRECTED ANIKET Administration Metoclopramide HCl 10 mg 11/20/18 02:05 11/20/18 02:18 Reglan IM 11/20/18 02:06 10 mg ONETIME ONE Administration Ondansetron HCl 4 mg 11/20/18 03:36 11/20/18 03:45 Zofran IVPUSH 11/20/18 03:37 4 mg ONETIME ONE Administration Sodium Chloride 10 ml 11/20/18 03:02 11/20/18 03:45 Saline Flush FLUSH 10 ml ASDIRECTED PRN Administration Keep Vein Open - Re-Assessments/Exams Free Text/Narrative Re-Assessment/Exam: 11/20/18 15:[address] Cassidy. [facility] was full and could not except her until 3: 30 out time. I have ordered some repeat labs. They are not back yet. I will transfer her by ambulance. Departure - Departure Time of Disposition: 15:40 Disposition: DC/Tfer to [facility] Reason for Transfer *Q: Other Condition: Fair Clinical Impression: Atypical chest pain, End-stage renal disease needing dialysis Anemia Qualifiers: Anemia type: unspecified type Qualified Code(s): D64.9 - Anemia, unspecified Nausea & vomiting Qualifiers: Vomiting type: unspecified Vomiting Intractability: non-intractable Qualified Code(s): R11.2 - Nausea with vomiting, unspecified Referrals: PCP,None [Primary Care Provider] - Forms: ED Department Discharge <Klaus Evans - Last Filed: 11/23/18 07:46> ED HPI GENERAL MEDICAL PROBLEM - General Source of Information: Reports: Patient, EMS Notes Reviewed History Limitations: Reports: No Limitations - History of Present Illness INITIAL COMMENTS - FREE TEXT/NARRATIVE: 48-year-old female who is a renal dialysis patient presents per ambulance from [place]. She reports that she's been vomiting for the last 2 days . Hasn't kept down any food or fluids. She has attended her dialysis appointments on a more regular basis ,apparently took 4 L off on November 18. She will be due for dialysis once again today. No noted fever or chills. She complains of diffuse central chest pain radiating to to her back, worsened by vomiting. She continues to dry heave and wretch in the department. Emesis did not contain any blood. Only slightly yellow bile and saliva identified.. She did have a formed bowel movement upon arrival in the ED as well. Complains of diffuse abdominal wall pain and she has a very large ventral hernia for a lengthy period of time which is been previously operated on and re-occurred. Not considered a future surgical candidate. As significant cirrhosis of the liver with chronic ascites ascites fluid was appreciated on CT exam of the abdomen October 18 with numerous loops of small bowel in a very wide neck ventral hernia which is unlikely to become incarcerated. Complaining of pain 10 out of 10 in her abdomen as well as 10 out of 10 in her mid chest. She is cool to touch slightly diaphoretic. Monitor shows that she is ventricular paced rhythm at 100 bpm. Patient is on Brilenta due to cardiac catheterization and stents. He has significant coronary disease. She is an insulin-dependent diabetic for many years. This is felt to be the cause of her renal failure every other day. Onset: Sudden Onset Date: 11/18/18 Duration: Hour(s): (About 36 hours of recurrent nausea vomiting and dry heaving. ) Location: Reports: Chest, Abdomen (Central chest pain use mid abdominal pain.) Quality: Reports: Ache, Pressure, Other Severity: Severe (Worsened by vomiting both abdominally and in her chest. 10 out of 10) Improves with: Reports: None Worsens with: Reports: None Context: Denies: Activity, Exercise, Lifting, Sick Contact, Trauma, Other Associated Symptoms: Reports: Diaphoresis, Loss of Appetite, Malaise, Nausea/ Vomiting, Shortness of Breath, Weakness. Denies: Confusion, Chest Pain, Cough, cough w sputum, Fever/Chills, Headaches, Rash, Seizure (Intractable 36 hours per patient), Syncope Treatments RADIOLOGY RESIDENT: Reports: Other (see below) (Nothing will stay down including her normal meds) Bilateral Shoulder Pain Score (Numeric/FACES): 10 Past Medical History HEENT History: Reports: Cataract Other HEENT History: no upper teeth--no dentures-----> pt says she does not have upper dentures however when getting home meds out of her backpack for her she had upper dentures in the pocket of the backpack. Pt says she wears glasses but left them in [place]. Cardiovascular History: Reports: Automatic Implantable Cardioverter Defibrillators, CAD, Congenital Septal Defect, Heart Failure, High Cholesterol, Hypertension, [place], Pacemaker, PVD Other Cardiovascular History: defibrillator Respiratory History: Reports: COPD, Sleep Apnea Other Respiratory History: uses CPAP at night Gastrointestinal History: Reports: GERD Other Gastrointestinal History: hernia noted, states they are unable to operate Genitourinary History: Reports: Dialysis, Renal Calculus, Urinary Incontinence Other Genitourinary History: history of kidney stones, dawkins when I pee. 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: Neurological History: Reports: Migraines, Neuropathy, Peripheral Psychiatric History: Reports: Anxiety, Depression Endocrine/Metabolic History: Reports: Diabetes, Type II, Obesity/BMI 30+ Hematologic History: Reports: Anemia Other Dermatologic History: "boil on private parts" - Infectious Disease History Infectious Disease History: Reports: None - Past Surgical History HEENT Surgical History: Reports: Tonsillectomy Cardiovascular Surgical History: Reports: AICD, Coronary Artery Stent GI Surgical History: Reports: Appendectomy, Hernia, Abdominal, Other (See Below) Female Surgical History: Reports: Section Musculoskeletal Surgical History: Reports: ORIF Social & Family History - Family History Family Medical History: Noncontributory Cardiac: Reports: CAD, Heart Failure Endocrine/Metabolic: Reports: Diabetes, type II Oncologic: Reports: Breast - Tobacco Use Smoking Status *Q: Never Smoker - Caffeine Use Caffeine Use: Reports: None Other Caffeine Use: diet soda - Recreational Drug Use Recreational Drug Use: Yes Recreational Drug Type: Reports: Marijuana/Hashish Recreational Drug Use Frequency: Weekly - Living Situation & Occupation Living situation: Reports: , with Family (with brother) Occupation: Disabled (Lives in [place].) ED ROS GENERAL - Review of Systems Review Of Systems: See Below Constitutional: Reports: Malaise, Weakness, Fatigue, Decreased Appetite. Denies : Fever, Chills Respiratory: Reports: Shortness of Breath, Cough. Denies: Wheezing, Pleuritic Chest Pain, Sputum, Hemoptysis, Other Cardiovascular: Reports: Chest Pain (Chronic hypertension due to renal disease chest pain rating from epigastrium up to the neck.), Blood Pressure Problem, Dyspnea on Exertion, Edema, Lightheadedness (Increased lower extremity edema compared to my last assessment.), Orthopnea Endocrine: Reports: Other (Is a type II diabetic on insulin.). Denies: Fatigue GI/Abdominal: Reports: Abdominal Pain (Few submitted abdominal pain due to large ventral hernia which gives her good deal pain at the best of time without vomiting.), Decreased Appetite, Distension, Flatus, Other (Had a formed brown bowel movements upon arrival in the ED.). Denies: Constipation, Diarrhea ( Unable to keep anything down.) : Reports: Other (She still makes about a teaspoon of urine every other day.) Musculoskeletal: Reports: Neck Pain, Back Pain Skin: Reports: Diaphoresis, Bruising, Rash (Venous stasis dermatitis both lower extremities). Denies: Jaundice, Mottled, Pallor, Dryness, Pruritis, Erythema Neurological: Reports: No Symptoms Psychiatric: Reports: Anxiety Hematologic/Lymphatic: Reports: No Symptoms ED EXAM, GENERAL - Physical Exam Exam: See Below Exam Limited By: No Limitations General Appearance: Alert, WD/WN, Anxious, Moderate Distress, Other (Recurrent dry heaving and retching while in the examining room.) Eye Exam: Bilateral Eye: Normal Inspection (No scleral icterus.) Throat/Mouth: Other Head: Atraumatic (Tongue is dry and coated), Normocephalic Neck: Normal Inspection, Supple, Non-Tender, Full Range of Motion, Other ( Patient has had a recent internal jugular vein catheterization on the right side ). No: Lymphadenopathy (L), Lymphadenopathy (R) Respiratory/Chest: Respiratory Distress (Tachypnea At rest 20/m), Decreased Breath Sounds (Breath sounds are mildly diminished lower 20% of lung trujillo bilaterally.), Other (Has a pacemaker defibrillator left upper anterior chest below her collarbone). No: Rales, Rhonchi, Wheezing Cardiovascular: Other (Monitor shows regular rhythm i.e. due to particular paced rhythm at 100/m.). No: Normal Peripheral Pulses, No Edema Peripheral Pulses: 0: Posterior Tibial (L) (Pulses in her feet are obscured due to significant dependent edema), Posterior Tibial (R), Dorsalis Pedis (L), Dorsalis Pedis (R) GI/Abdominal: Normal Bowel Sounds, Other (Patient has a very large mid abdominal ventral hernia that contains a large amount of bowel due to very active bowel sounds in palpation of the bowel itself. Previous CT exam but has a very large neck to the hernia and is unlikely to allow any incarceration of bowel.) Extremities: Pedal Edema (Plus pitting edema up to the knees bilaterally. Tissue slightly erythematous but not bruising or broken down and any areas.) Neurological: Alert, Oriented Psychiatric: Anxious Skin Exam: Cool (Actively vomiting.), Diaphoretic EKG INTERPRETATION EKG Date: 11/20/18 Time: 01:57 Rhythm: Other (Ventricular paced rhythm at 100/m) Rate (Beats/Min): 100 Sacul: RAD-Right Sacul Deviation (160) P-Wave: Absent QRS: Other (Q waves V1 and V2 V3 V4. Q waves also in [address]-T: Other (Wondering baseline. No obvious ST segment elevation or depression) QT: Normal EKG Interpretation Comments: Further analysis attempted due to ventricular paced rhythm. Course - Orders/Labs/Meds Labs: Laboratory Tests 11/20/18 11/20/18 11/20/18 Range/Units 02:25 02:35 02:35 WBC 6.44 (3.98-10.04) K/mm3 RBC 3.31 L (3.98-5.22) M/mm3 Hgb 8.9 L (11.2-15.7) gm/L Hct 29.3 L (34.1-44.9) % MCV 88.5 (79.4-94.8) fl MCH 26.9 (25.6-32.2) pg MCHC 30.4 L (32.2-35.5) g/dl RDW Std Deviation 53.1 H (36.4-46.3) fL Plt Count 200 (182-369) K/mm3 MPV 10.7 (9.4-12.3) fl Neut % (Auto) (34.0-71.1) % Lymph % (Auto) (19.3-51.7) % Pepin % (Auto) (4.7-12.5) % Eos % (Auto) (0.7-5.8) Baso % (Auto) (0.1-1.2) % Neut # (Auto) (1.56-6.13) K/mm3 Lymph # (Auto) (1.18-3.74) K/mm3 Pepin # (Auto) (0.24-0.36) K/mm3 Eos # (Auto) (0.04-0.36) K/mm3 Baso # (Auto) (0.01-0.08) K/mm3 Neutrophils % (Manual) 89 H (40-60) % Band Neutrophils % 0 (0-10) % Lymphocytes % (Manual) 5 L (20-40) % Atypical Lymphs % 0 % Monocytes % (Manual) 5 (2-10) % Eosinophils % (Manual) 0 L (0.7-5.8) % Basophils % (Manual) 1 (0.1-1.2) Manual Slide Review Platelet Estimate Adequate Hypochromasia 2+ moderate Anisocytosis 3+ marked RBC Morph Comment Abnormal PT 11.7 (9.5-12.1) SECONDS INR 1.07 APTT 26 (24-31) SECONDS Sodium 143 (136-145) mEq/L Potassium 4.1 (3.5-5.1) mEq/L Chloride 104 (98-107) mEq/L Carbon Dioxide 25 (21-32) mEq/L Anion Gap 18.1 H (5-15) BUN 42 H (7-18) mg/dL Creatinine 3.8 H (0.55-1.02) mg/dL Est Cr Clr Drug Dosing 16.76 mL/min Estimated GFR (MDRD) 13 (>60) mL/min BUN/Creatinine Ratio 11.1 L (14-18) Glucose 176 H (74-106) mg/dL POC Glucose (70-105) mg/dL Lactic Acid (0.4-2.0) mmol/L Calcium 8.4 L (8.5-10.1) mg/dL Magnesium 2.2 (1.8-2.4) mg/dl Total Bilirubin 1.0 (0.2-1.0) mg/dL AST 29 (15-37) U/L ALT 19 (14-59) U/L Alkaline Phosphatase 123 H (46-116) U/L CK-MB (CK-2) 3.7 H (0-3.6) ng/ml Troponin I 0.024 (0.00-0.056) ng/mL C-Reactive Protein 2.7 H* (<1.0) mg/dL NT-Pro-B Natriuret Pep (0-125) pg/mL Total Protein 7.1 (6.4-8.2) g/dl Albumin 2.9 L (3.4-5.0) g/dl Globulin 4.2 gm/dL Albumin/Globulin Ratio 0.7 L (1-2) Urine Color (Yellow) Urine Appearance (Clear) Urine pH (5.0-8.0) Ur Specific [place] (1.005-1.030) Urine Protein (Negative) Urine Glucose (UA) (Negative) Urine Ketones (Negative) Urine Occult Blood (Negative) Urine Nitrite (Negative) Urine Bilirubin (Negative) Urine Urobilinogen (0.2-1.0) Ur Leukocyte Esterase (Negative) Urine RBC (0-5) /hpf Urine WBC (0-5) /hpf Ur Epithelial Cells (0-5) /hpf Urine Bacteria (FEW) /hpf Hyaline Casts (0-5) /lpf Urine Mucus (FEW) /hpf Ketones (0.0-0.3) mM 11/20/18 11/20/18 11/20/18 Range/Units 02:35 02:35 02:35 WBC (3.98-10.04) K/mm3 RBC (3.98-5.22) M/mm3 Hgb (11.2-15.7) gm/L Hct (34.1-44.9) % MCV (79.4-94.8) fl MCH (25.6-32.2) pg MCHC (32.2-35.5) g/dl RDW Std Deviation (36.4-46.3) fL Plt Count (182-369) K/mm3 MPV (9.4-12.3) fl Neut % (Auto) (34.0-71.1) % Lymph % (Auto) (19.3-51.7) % Pepin % (Auto) (4.7-12.5) % Eos % (Auto) (0.7-5.8) Baso % (Auto) (0.1-1.2) % Neut # (Auto) (1.56-6.13) K/mm3 Lymph # (Auto) (1.18-3.74) K/mm3 Pepin # (Auto) (0.24-0.36) K/mm3 Eos # (Auto) (0.04-0.36) K/mm3 Baso # (Auto) (0.01-0.08) K/mm3 Neutrophils % (Manual) (40-60) % Band Neutrophils % (0-10) % Lymphocytes % (Manual) (20-40) % Atypical Lymphs % % Monocytes % (Manual) (2-10) % Eosinophils % (Manual) (0.7-5.8) % Basophils % (Manual) (0.1-1.2) Manual Slide Review Platelet Estimate Hypochromasia Anisocytosis RBC Morph Comment PT (9.5-12.1) SECONDS INR APTT (24-31) SECONDS Sodium (136-145) mEq/L Potassium (3.5-5.1) mEq/L Chloride (98-107) mEq/L Carbon Dioxide (21-32) mEq/L Anion Gap (5-15) BUN (7-18) mg/dL Creatinine (0.55-1.02) mg/dL Est Cr Clr Drug Dosing mL/min Estimated GFR (MDRD) (>60) mL/min BUN/Creatinine Ratio (14-18) Glucose (74-106) mg/dL POC Glucose (70-105) mg/dL Lactic Acid 2.3 H (0.4-2.0) mmol/L Calcium (8.5-10.1) mg/dL Magnesium (1.8-2.4) mg/dl Total Bilirubin (0.2-1.0) mg/dL AST (15-37) U/L ALT (14-59) U/L Alkaline Phosphatase (46-116) U/L CK-MB (CK-2) (0-3.6) ng/ml Troponin I (0.00-0.056) ng/mL C-Reactive Protein (<1.0) mg/dL NT-Pro-B Natriuret Pep 19780 H (0-125) pg/mL Total Protein (6.4-8.2) g/dl Albumin (3.4-5.0) g/dl Globulin gm/dL Albumin/Globulin Ratio (1-2) Urine Color (Yellow) Urine Appearance (Clear) Urine pH (5.0-8.0) Ur Specific [place] (1.005-1.030) Urine Protein (Negative) Urine Glucose (UA) (Negative) Urine Ketones (Negative) Urine Occult Blood (Negative) Urine Nitrite (Negative) Urine Bilirubin (Negative) Urine Urobilinogen (0.2-1.0) Ur Leukocyte Esterase (Negative) Urine RBC (0-5) /hpf Urine WBC (0-5) /hpf Ur Epithelial Cells (0-5) /hpf Urine Bacteria (FEW) /hpf Hyaline Casts (0-5) /lpf Urine Mucus (FEW) /hpf Ketones 0.76 (0.0-0.3) mM 11/20/18 11/20/18 11/20/18 Range/Units 03:01 03:30 14:50 WBC 3.39 L (3.98-10.04) K/mm3 RBC 3.35 L (3.98-5.22) M/mm3 Hgb 9.1 L (11.2-15.7) gm/L Hct 30.5 L (34.1-44.9) % MCV 91.0 (79.4-94.8) fl MCH 27.2 (25.6-32.2) pg MCHC 29.8 L (32.2-35.5) g/dl RDW Std Deviation 54.7 H (36.4-46.3) fL Plt Count 164 L (182-369) K/mm3 MPV 10.5 (9.4-12.3) fl Neut % (Auto) 60.4 (34.0-71.1) % Lymph % (Auto) 23.0 (19.3-51.7) % Pepin % (Auto) 13.6 H (4.7-12.5) % Eos % (Auto) 2.4 (0.7-5.8) Baso % (Auto) 0.6 (0.1-1.2) % Neut # (Auto) 2.05 (1.56-6.13) K/mm3 Lymph # (Auto) 0.78 L (1.18-3.74) K/mm3 Pepin # (Auto) 0.46 H (0.24-0.36) K/mm3 Eos # (Auto) 0.08 (0.04-0.36) K/mm3 Baso # (Auto) 0.02 (0.01-0.08) K/mm3 Neutrophils % (Manual) (40-60) % Band Neutrophils % (0-10) % Lymphocytes % (Manual) (20-40) % Atypical Lymphs % % Monocytes % (Manual) (2-10) % Eosinophils % (Manual) (0.7-5.8) % Basophils % (Manual) (0.1-1.2) Manual Slide Review Abnormal smear Platelet Estimate Hypochromasia Anisocytosis RBC Morph Comment PT (9.5-12.1) SECONDS INR APTT (24-31) SECONDS Sodium (136-145) mEq/L Potassium (3.5-5.1) mEq/L Chloride (98-107) mEq/L Carbon Dioxide (21-32) mEq/L Anion Gap (5-15) BUN (7-18) mg/dL Creatinine (0.55-1.02) mg/dL Est Cr Clr Drug Dosing mL/min Estimated GFR (MDRD) (>60) mL/min BUN/Creatinine Ratio (14-18) Glucose (74-106) mg/dL POC Glucose 161 H (70-105) mg/dL Lactic Acid (0.4-2.0) mmol/L Calcium (8.5-10.1) mg/dL Magnesium (1.8-2.4) mg/dl Total Bilirubin (0.2-1.0) mg/dL AST (15-37) U/L ALT (14-59) U/L Alkaline Phosphatase (46-116) U/L CK-MB (CK-2) (0-3.6) ng/ml Troponin I (0.00-0.056) ng/mL C-Reactive Protein (<1.0) mg/dL NT-Pro-B Natriuret Pep (0-125) pg/mL Total Protein (6.4-8.2) g/dl Albumin (3.4-5.0) g/dl Globulin gm/dL Albumin/Globulin Ratio (1-2) Urine Color Yellow (Yellow) Urine Appearance Slt cloudy H (Clear) Urine pH 7.0 (5.0-8.0) Ur Specific [place] 1.020 (1.005-1.030) Urine Protein 2+ H (Negative) Urine Glucose (UA) Negative (Negative) Urine Ketones Trace H (Negative) Urine Occult Blood Trace-intact H (Negative) Urine Nitrite Negative (Negative) Urine Bilirubin 1+ H (Negative) Urine Urobilinogen 2.0 H (0.2-1.0) Ur Leukocyte Esterase Negative (Negative) Urine RBC 0-5 (0-5) /hpf Urine WBC 0-5 (0-5) /hpf Ur Epithelial Cells 0-5 (0-5) /hpf Urine Bacteria Few (FEW) /hpf Hyaline Casts 0-5 (0-5) /lpf Urine Mucus Not seen (FEW) /hpf Ketones (0.0-0.3) mM 11/20/18 Range/Units 14:50 WBC (3.98-10.04) K/mm3 RBC (3.98-5.22) M/mm3 Hgb (11.2-15.7) gm/L Hct (34.1-44.9) % MCV (79.4-94.8) fl MCH (25.6-32.2) pg MCHC (32.2-35.5) g/dl RDW Std Deviation (36.4-46.3) fL Plt Count (182-369) K/mm3 MPV (9.4-12.3) fl Neut % (Auto) (34.0-71.1) % Lymph % (Auto) (19.3-51.7) % Pepin % (Auto) (4.7-12.5) % Eos % (Auto) (0.7-5.8) Baso % (Auto) (0.1-1.2) % Neut # (Auto) (1.56-6.13) K/mm3 Lymph # (Auto) (1.18-3.74) K/mm3 Pepin # (Auto) (0.24-0.36) K/mm3 Eos # (Auto) (0.04-0.36) K/mm3 Baso # (Auto) (0.01-0.08) K/mm3 Neutrophils % (Manual) (40-60) % Band Neutrophils % (0-10) % Lymphocytes % (Manual) (20-40) % Atypical Lymphs % % Monocytes % (Manual) (2-10) % Eosinophils % (Manual) (0.7-5.8) % Basophils % (Manual) (0.1-1.2) Manual Slide Review Platelet Estimate Hypochromasia Anisocytosis RBC Morph Comment PT (9.5-12.1) SECONDS INR APTT (24-31) SECONDS Sodium 144 (136-145) mEq/L Potassium 4.2 (3.5-5.1) mEq/L Chloride 106 (98-107) mEq/L Carbon Dioxide 28 (21-32) mEq/L Anion Gap 14.2 (5-15) BUN 43 H (7-18) mg/dL Creatinine 3.7 H (0.55-1.02) mg/dL Est Cr Clr Drug Dosing 17.22 mL/min Estimated GFR (MDRD) 13 (>60) mL/min BUN/Creatinine Ratio 11.6 L (14-18) Glucose 91 (74-106) mg/dL POC Glucose (70-105) mg/dL Lactic Acid (0.4-2.0) mmol/L Calcium 8.3 L (8.5-10.1) mg/dL Magnesium (1.8-2.4) mg/dl Total Bilirubin 0.6 (0.2-1.0) mg/dL AST 25 (15-37) U/L ALT 17 (14-59) U/L Alkaline Phosphatase 111 (46-116) U/L CK-MB (CK-2) (0-3.6) ng/ml Troponin I 0.185 H* (0.00-0.056) ng/mL C-Reactive Protein (<1.0) mg/dL NT-Pro-B Natriuret Pep (0-125) pg/mL Total Protein 6.9 (6.4-8.2) g/dl Albumin 2.7 L (3.4-5.0) g/dl Globulin 4.2 gm/dL Albumin/Globulin Ratio 0.6 L (1-2) Urine Color (Yellow) Urine Appearance (Clear) Urine pH (5.0-8.0) Ur Specific [place] (1.005-1.030) Urine Protein (Negative) Urine Glucose (UA) (Negative) Urine Ketones (Negative) Urine Occult Blood (Negative) Urine Nitrite (Negative) Urine Bilirubin (Negative) Urine Urobilinogen (0.2-1.0) Ur Leukocyte Esterase (Negative) Urine RBC (0-5) /hpf Urine WBC (0-5) /hpf Ur Epithelial Cells (0-5) /hpf Urine Bacteria (FEW) /hpf Hyaline Casts (0-5) /lpf Urine Mucus (FEW) /hpf Ketones (0.0-0.3) mM Meds: Medications Discontinued Medications Generic Name Dose Route Start Last Admin Trade Name Freq PRN Reason Stop Dose Admin Aspirin 324 mg 11/20/18 15:40 11/20/18 15:45 Aspirin PO 11/20/18 15:41 324 mg ONETIME ONE Administration Hydromorphone HCl 1 mg 11/20/18 02:05 11/20/18 02:18 Dilaudid IM 11/20/18 02:06 1 mg ONETIME ONE Administration Hydromorphone HCl 1 mg 11/20/18 03:36 11/20/18 03:45 Dilaudid IVPUSH 11/20/18 03:37 1 mg ONETIME ONE Administration Hydromorphone HCl 0.5 mg 11/20/18 10:10 11/20/18 10:15 Dilaudid IVPUSH 11/20/18 10:11 0.5 mg ONETIME ONE Administration Sodium Chloride 1,000 mls @ 100 mls/hr 11/20/18 03:45 11/20/18 03:46 Normal Saline IV 100 mls/hr ASDIRECTED ANIKET Administration Metoclopramide HCl 10 mg 11/20/18 02:05 11/20/18 02:18 Reglan IM 11/20/18 02:06 10 mg ONETIME ONE Administration Ondansetron HCl 4 mg 11/20/18 03:36 11/20/18 03:45 Zofran IVPUSH 11/20/18 03:37 4 mg ONETIME ONE Administration Sodium Chloride 10 ml 11/20/18 03:02 11/20/18 03:45 Saline Flush FLUSH 10 ml ASDIRECTED PRN Administration Keep Vein Open - Radiology Interpretation Free Text/Narrative:: 48-year-old female [place] presents to the ED per ambulance from [facility] [place]. She travels to [place] to have dialysis every other day or 3 times weekly. Last dialysis apparently was on November 18. She has been known to be noncompliant with dialysis but apparently has been more compliant last 2-3 weeks. He presents to the ED with a 36 hour of history of recurrent nausea vomiting. She is complaining of central chest pain worsened by vomiting and abdominal pain due to a large ventral hernia that she's had for a lengthy period of time with failed surgical closure. Currently relates rates pain as 10 out of 10 in her chest and in her abdomen. Patient is unlikely of a bowel obstruction as she had a large bowel movement just upon after arrival in the ED. Emesis is mostly bilious to to saliva only. Patient is a very difficult IV stick due to absence of veins. Last been utilized was a internal jugular and right side of her neck. Plan initial medications will be IM with Reglan 10 mg and Dilaudid 1 mg IM. Routine labs to be obtained as well as serum ketones and lactic acid. I do not smell ketones on her breath. The bedside blood sugar will be obtained. He reports never medication stay down over the last 36 hours. One view chest one view the abdomen to be obtained. ECG shows ventricular paced rhythm at 100/m and no further analysis was attempted. - Re-Assessments/Exams Free Text/Narrative Re-Assessment/Exam: 11/20/18 02:48 portable chest x-ray shows poor inspirational view. Mild cardiomegaly. Visualized portion of the lungs appear clear without any pleural effusions. 2 views of the abdomen were obtained because of the patient's size. It shows haziness throughout the lower half of the abdomen compatible with ascites. Scattered gas in the bowel is evident with no signs of bowel obstruction. 11/20/18 03:31 Labs reveal a normal white count at 6.44. He 9% neutrophils however. Hemoglobin is 8.9 with a hematocrit of 29.3. MCV is 88.5. Platelet count is 200,000. The slight shows 2+ hypochromasia and 3+ and iso-cytosis PT is 11.7 with an INR 1.07. PTT is 26. Sodium is 143 with a potassium of 4.1 chloride is 104 with a bicarbonate of 25. Anion gap is elevated at 18.1. BUN is 42 with a creatinine of 3.8. GFR is 13. Glucose 176. The conus at the bedside was 161. Lactic acid is elevated at 2.3. Calcium is 8.4. Magnesium is 2.2. Bilirubin is 1.0 with an AST of 29 and ALT of 19. Alk phosphatase is mildly elevated at 123. CK-MB fraction is 3.7 mildly elevated troponin I is normal at 0.024. C-reactive protein is mildly elevated at 2.7. Total protein is 7.1 with an albumin fraction of 2.9. Serum ketones are elevated at 0.76 with normal are lab up to 0.3. Urine has been obtained by catheterization in a satisfactory specimen obtained. It'll be analyzed at this point time. IV will be normal saline at 100 mils per hour. Suggest trying for some of the metabolic acidosis although most will have to be reversed by dialysis treatment today. 11/20/18 03:36 On firm questioning patient has not taken any insulin for 2 days. She remains nauseated but to dry heaving and retching had stopped. Complaining of significant abdominal pain. Will give Zofran 4 mg IV and repeat Dilaudid 1 mg IV. 11/20/18 04:00 Urine obtained by catheterization shows 2+ protein and trace of ketones trace of occult blood 1+ bilirubin negative leukocyte esterase and micro -shows no signs of infection. 11/20/18 04:20: I did discuss this patient's case with the 1 call provider at [facility] in [place]. Right now they are on diversion and did not have a bed for her. He advises calling back in a couple of hours to see if status has changed. 11/20/18 04:53 BNP is back. It is markedly elevated at 25,240. Serum magnesium is normal at 2.2. 11/20/18 06:58 spoke once again with 1 call nurse at [facility] in [place]. Presently they are still sorting out their discharges for the day and she will thus call back when a bed becomes available so that she can get down to [place] and have dialysis today even if it's at the bedside.
[2018-11-20] MEDS ORDERED: Sodium Chloride 0.9% 10 ML Syringe FLUSH PRN (03:02)
[2018-11-20] MEDS ORDERED: HYDROmorphone 1 MG/ML Syringe IVPUSH ONE ×2 (03:36→10:10)
[2018-11-20] MEDS ORDERED: Ondansetron 4 MG/2 ML SDV IVPUSH ONE (03:36)
[2018-11-20] MEDS ORDERED: Sodium Chloride 0.9% 1,000 ML IV SCH (03:45)
--- NOTE | 2018-11-20 07:07 | CR ---
Abdomen: Supine view of the abdomen was obtained. Comparison: Prior abdominal x-ray of 10/08/18. Bowel gas pattern appears within normal limits. Surgical clips are seen from prior cholecystectomy. No discrete soft tissue or bony abnormality is seen. Impression: 1. Nothing acute is definitely appreciated. Diagnostic code #2
--- NOTE | 2018-11-20 07:07 | CR ---
Chest: Portable view of the chest was obtained. Comparison: Prior chest x-ray of 11/02/18. AICD is noted. Coronary artery stent is present. Heart size appears within normal limits for portable technique. Lungs are clear without acute parenchymal change. Impression: 1. Stable findings as noted above. Nothing acute is appreciated. Diagnostic code #2
[2018-11-20] MEDS ORDERED: Aspirin 81 MG Tab.Chew PO ONE (15:40)
[2018-11-20 15:52] VITALS: BP 105/66
== END 2018-11-20 15:50 ==
LOC: JD.ED 01:43
DX: R07.89 Other chest pain (principal); D64.9 Anemia, unspecified; R11.2 Nausea with vomiting, unspecified; I13.2 Hypertensive heart and chronic kidney disease with heart failure and with stage 5 chronic kidney disease, or end stage renal disease; N18.6 End stage renal disease; Z99.2 Dependence on renal dialysis; I25.2 Old myocardial infarction; J44.9 Chronic obstructive pulmonary disease, unspecified; K21.9 Gastro-esophageal reflux disease without esophagitis; E11.22 Type 2 diabetes mellitus with diabetic chronic kidney disease; K43.9 Ventral hernia without obstruction or gangrene; E11.42 Type 2 diabetes mellitus with diabetic polyneuropathy; F32.9 Major depressive disorder, single episode, unspecified; F41.9 Anxiety disorder, unspecified; Z87.442 Personal history of urinary calculi; Z90.89 Acquired absence of other organs; Z98.890 Other specified postprocedural states
CPT/HCPCS: 36415; 71045; 74018; 80053; 81001; 82009; 82553; 82962; 83605; 83735; 83880; 84484; 85007; 85025; 85027; 85610; 85730; 86140; 87040; 93005; 96361; 96372; 96374; 96375; 96376; 99285; A9270; J1170; J2405; J2765; J7040; 93010

== ENCOUNTER 2018-11-30 21:17 | Emergency (ER) | payer OTHER ==
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
[2018-12-01] MEDS ORDERED: Acetaminophen 325 MG Tab PO STA (07:15)
[2018-12-01] MEDS ORDERED: Cyclobenzaprine 10 MG Tab PO ONE (07:15)
[2018-12-01 07:53] VITALS: BP 127/83
--- NOTE | 2018-12-01 15:19 | CR ---
Chest: Two views of the chest were obtained. Comparison: Prior chest x-ray of 11/20/18. Heart size and mediastinum are normal. AICD is present. Lungs are clear with no acute parenchymal change. Left coronary artery stent is present. Impression: 1. Incidental findings. Nothing acute is appreciated. Diagnostic code #2
== END 2018-12-01 07:35 | disposition home or self-care (01) ==
LOC: JD.ED 21:17
DX: M54.6 Pain in thoracic spine (principal); M54.2 Cervicalgia; I13.0 Hypertensive heart and chronic kidney disease with heart failure and stage 1 through stage 4 chronic kidney disease, or unspecified chronic kidney disease; I50.9 Heart failure, unspecified; N18.9 Chronic kidney disease, unspecified; E11.22 Type 2 diabetes mellitus with diabetic chronic kidney disease; I25.2 Old myocardial infarction; K21.9 Gastro-esophageal reflux disease without esophagitis; E66.9 Obesity, unspecified; Z99.2 Dependence on renal dialysis; Z88.6 Allergy status to analgesic agent; Z88.8 Allergy status to other drugs, medicaments and biological substances; Z79.4 Long term (current) use of insulin; Z79.82 Long term (current) use of aspirin; Z79.899 Other long term (current) drug therapy; Z98.890 Other specified postprocedural states; Z95.5 Presence of coronary angioplasty implant and graft; Z90.49 Acquired absence of other specified parts of digestive tract
CPT/HCPCS: 36415; 71046; 80048; 80053; 81001; 82962; 83880; 85025; 99285; A9270; 99284

== ENCOUNTER 2018-12-19 21:48 | Emergency (ER) | payer OTHER ==
[2018-12-19 21:53] VITALS: BP 116/82
--- NOTE | 2018-12-19 23:22 | EDM.PDOC ---
ED HPI GENERAL MEDICAL PROBLEM - General Chief Complaint: Chest Pain Stated Complaint: [facility] Time Seen by Provider: 12/19/18 22:47 Source of Information: Reports: Patient, RN Notes Reviewed History Limitations: Reports: No Limitations - History of Present Illness INITIAL COMMENTS - FREE TEXT/NARRATIVE: The patient states that she has had shortness of breath since 17:00 this evening. I pointed out to the patient that that is not what she had told the triage nurse. She then stated that she developed left-sided chest pain, also around 17:00, and that she has had watery diarrhea for the past 6 days. The patient has end-stage renal disease, on hemodialysis every Sunday, Sunday , Sunday, however, she has a long history of noncompliance, and acknowledged that the last time she had dialysis was on 11/30/2018. Review of prior medical records finds that the patient was seen on 11/30/2018, stating that she had not had hemodialysis for 12 days. She was not found to be fluid overloaded, acidotic, or hyperkalemic, therefore she was discharged home. The patient tells me that she was able to get hemodialysis that same day. Here in the ED tonight, the patient is hemodynamically stable, with an oxygen saturation of 100% on room air. Left Chest Pain Score (Numeric/FACES): 9 - Related Data Allergies Allergy/AdvReac Type Severity Reaction Status Date / Time fentanyl Allergy Itching Verified 12/19/18 21:51 ibuprofen Allergy Hives Verified 12/19/18 21:51 metformin HCl Allergy Hives Verified 12/19/18 21:51 [From Glucophage] spinach Allergy Difficulty Verified 12/19/18 21:51 Breathing Home Meds: Home Meds Aspirin [Halfprin] 81 mg PO DAILY 08/10/15 [History] Carvedilol 3.125 mg PO BID 08/10/15 [History] Insulin Aspart [Novolog Flexpen] 2 unit SQ ASDIRECTED PRN 08/10/15 [History] Isosorbide Mononitrate [Isosorbide Mononitrate ER] 60 mg PO DAILY 02/16/17 [ History] Nitroglycerin 0.4 mg PO ASDIRECTED PRN 04/09/17 [History] Biotin/FA/Vit C/Vit B Complex [Nephrocaps] 1 mg PO DAILY 03/22/18 [History] Docusate Sodium 100 mg PO BID 03/22/18 [History] Omeprazole 20 mg PO DAILY 03/22/18 [History] Ondansetron HCl [Zofran] 4 mg PO Q6H PRN 03/22/18 [History] Sertraline [Zoloft] 100 mg PO DAILY 03/22/18 [History] Ticagrelor [Brilinta] 90 mg PO BID 03/22/18 [History] atorvaSTATin [Lipitor] 40 mg PO BEDTIME 03/22/18 [History] busPIRone [Buspar] 15 mg PO TID 03/22/18 [History] Hydrocodone/Acetaminophen [Hydrocodon-Acetaminophen 5-325] 5 - 325 mg PO BID PRN 04/12/18 [History] Metoclopramide [Reglan] 5 mg PO Q6H PRN 04/12/18 [History] Lisinopril 5 mg PO DAILY 07/23/18 [History] Metoclopramide HCl [Reglan] 10 mg PO Q6H PRN 10/18/18 [History] Ondansetron [Zofran ODT] 4 mg PO Q6H PRN #20 tab.dis 11/02/18 [Rx] Past Medical History HEENT History: Reports: Cataract Other HEENT History: no upper teeth--no dentures-----> pt says she does not have upper dentures however when getting home meds out of her backpack for her she had upper dentures in the pocket of the backpack. Pt says she wears glasses but left them in [place]. Cardiovascular History: Reports: Automatic Implantable Cardioverter Defibrillators, CAD, Congenital Septal Defect, Heart Failure, High Cholesterol, Hypertension, [place], Pacemaker, PVD Other Cardiovascular History: defibrillator Respiratory History: Reports: COPD, Sleep Apnea Other Respiratory History: uses CPAP at night Gastrointestinal History: Reports: GERD Other Gastrointestinal History: hernia noted, states they are unable to operate Genitourinary History: Reports: Dialysis, Renal Calculus, Urinary Incontinence Other Genitourinary History: history of kidney stones, dawkins when I pee. 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: Neurological History: Reports: Migraines, Neuropathy, Peripheral Psychiatric History: Reports: Anxiety, Depression Endocrine/Metabolic History: Reports: Diabetes, Type II, Obesity/BMI 30+ Hematologic History: Reports: Anemia Other Dermatologic History: "boil on private parts" - Infectious Disease History Infectious Disease History: Reports: None - Past Surgical History HEENT Surgical History: Reports: Tonsillectomy Cardiovascular Surgical History: Reports: AICD, Coronary Artery Stent (> 9), Vascular Surgery (LUE AVF) GI Surgical History: Reports: Appendectomy, Hernia, Abdominal Female Surgical History: Reports: Section (x 1) Musculoskeletal Surgical History: Reports: ORIF (right ankle) Social & Family History - Family History Family Medical History: Noncontributory Cardiac: Reports: CAD, Heart Failure Endocrine/Metabolic: Reports: Diabetes, type II Oncologic: Reports: Breast - Tobacco Use Smoking Status *Q: Former Smoker Month/Year Tobacco Last Used: Quit 2012 - Caffeine Use Caffeine Use: Reports: Coffee, Tea Other Caffeine Use: diet soda - Recreational Drug Use Recreational Drug Use: Yes Drug Use in Last 12 Months: Yes Recreational Drug Type: Reports: Marijuana/Hashish Recreational Drug Use Frequency: Weekly - Living Situation & Occupation Living situation: Reports: , with Family (with brother) Occupation: Disabled (Lives in [place].) ED ROS GENERAL - Review of Systems Review Of Systems: ROS reveals no pertinent complaints other than HPI. ED EXAM, GENERAL - Physical Exam Exam: See Below Exam Limited By: No Limitations General Appearance: Alert, WD/WN, No Apparent Distress Eye Exam: Bilateral Eye: EOMI, Normal Inspection Ears: Normal External Exam, Hearing Grossly Normal Nose: Normal Inspection Throat/Mouth: Normal Inspection, Normal Lips, Normal Voice, No Airway Compromise Head: Atraumatic, Normocephalic Neck: Normal Inspection, Full Range of Motion Respiratory/Chest: No Respiratory Distress, Lungs Clear, Normal Breath Sounds, No Accessory Muscle Use. No: Decreased Breath Sounds, Crackles, Rhonchi, Wheezing, Prolonged Expiration Cardiovascular: Normal Peripheral Pulses, Regular Rate, Rhythm, No Gallop, No JVD, No Murmur, No Rub Peripheral Pulses: 4+: Radial (L), Radial (R) GI/Abdominal: Normal Bowel Sounds, Soft, Non-Tender, No Organomegaly, No Distention, No Abnormal Bruit, No Mass, Other (Obese) (Female) Exam: Deferred Rectal (Female) Exam: Deferred Back Exam: Normal Inspection, Full Range of Motion, NT Extremities: Normal Range of Motion, Normal Capillary Refill, Other (Good thrill , left upper extremity AV fistula) Neurological: Alert, Oriented, Normal Cognition, No Motor/Sensory Deficits Psychiatric: Depressed Mood Skin Exam: Warm, Dry, Intact, Normal Color, No Rash EKG INTERPRETATION EKG Date: 12/19/18 Time: 22:05 Rhythm: Other (Atrially sensed, ventricularly paced) Rate (Beats/Min): 92 Comparison: No Change (11/20/2018) Course - Vital Signs Last Recorded V/S: Last Vital Signs Temp 35.8 C 12/19/18 21:51 Pulse 97 12/19/18 21:51 Resp 17 12/19/18 21:51 BP 116/82 12/19/18 21:51 Pulse Ox 100 12/19/18 21:51 - Orders/Labs/Meds Orders: Active Orders 24 hr Category Date Time Status EKG 12 Lead [EKG Documentation Completion] [RC] STAT Care 12/19/18 22:03 Active Chest 2V [CR] Stat Exams 12/19/18 22:57 Taken Labs: Laboratory Tests 12/19/18 12/19/18 12/19/18 Range/Units 22:20 22:20 22:20 WBC 5.01 (3.98-10.04) K/mm3 RBC 3.39 L (3.98-5.22) M/mm3 Hgb 9.2 L (11.2-15.7) gm/L Hct 30.5 L (34.1-44.9) % MCV 90.0 (79.4-94.8) fl MCH 27.1 (25.6-32.2) pg MCHC 30.2 L (32.2-35.5) g/dl RDW Std Deviation 59.0 H (36.4-46.3) fL Plt Count 170 L (182-369) K/mm3 MPV 10.1 (9.4-12.3) fl Neutrophils % (Manual) 67 H (40-60) % Band Neutrophils % 0 (0-10) % Lymphocytes % (Manual) 20 (20-40) % Atypical Lymphs % 0 % Monocytes % (Manual) 7 (2-10) % Eosinophils % (Manual) 5 (0.7-5.8) % Basophils % (Manual) 1 (0.1-1.2) Platelet Estimate Adequate Plt Morphology Comment Normal Hypochromasia 1+ slight RBC Morph Comment Not Reportable Sodium 144 (136-145) mEq/L Potassium 4.3 (3.5-5.1) mEq/L Chloride 109 H (98-107) mEq/L Carbon Dioxide 23 (21-32) mEq/L Anion Gap 16.3 H (5-15) BUN 53 H (7-18) mg/dL Creatinine 3.9 H (0.55-1.02) mg/dL Est Cr Clr Drug Dosing 16.97 mL/min Estimated GFR (MDRD) 12 (>60) mL/min BUN/Creatinine Ratio 13.6 L (14-18) Glucose 97 (74-106) mg/dL Calcium 7.5 L (8.5-10.1) mg/dL Total Bilirubin 0.4 (0.2-1.0) mg/dL AST 32 (15-37) U/L ALT 18 (14-59) U/L Alkaline Phosphatase 123 H (46-116) U/L Troponin I 0.037 (0.00-0.056) ng/mL Total Protein 6.4 (6.4-8.2) g/dl Albumin 2.5 L (3.4-5.0) g/dl Globulin 3.9 gm/dL Albumin/Globulin Ratio 0.6 L (1-2) - Re-Assessments/Exams Free Text/Narrative Re-Assessment/Exam: 12/19/18 23:01 With respect to the patient's dyspnea, I did not hear any crackles on auscultation, and I note that her oxygen saturation is 100% on room air, therefore I doubt that she is significantly fluid overloaded. She reports that her last hemodialysis was on 11/30/2018, however, therefore I have ordered some blood work to see if she qualifies for emergency dialysis (indications for emergency dialysis include fluid overload, hyperkalemia, or metabolic acidosis - not creatinine level). If she does, she will need to be transferred to [place]. 12/19/18 23:43 2-view chest radiograph reviewed. The cardiac silhouette is within normal limits. No pulmonary vascular congestion. No pleural effusions. No focal infiltrate. No pneumothorax. A dual-chamber left-sided AICD is noted. Two left- sided coronary artery stents are incidentally noted. Formal read per the Radiologist pending. 12/20/18 00:19 Test results discussed with the patient. As above, there is no evidence of fluid overload, as the patient's chest x-ray shows no pulmonary vascular congestion, and her oxygen saturation is 100% on room air. Her potassium is normal at 4.3, and her bicarbonate is normal at 23. The remainder of her workup was likewise unremarkable. The patient therefore does not qualify for emergency dialysis, and I therefore do not have an indication to transfer her to [place]. This was explained to the patient. She then responded "I don't know why I come to this [facility]". I will discharge her home. Departure - Departure Time of Disposition: 00:22 Disposition: Home, Self-Care 01 Condition: Good Clinical Impression: Shortness of breath, Missed dialysis, Chest pain, Diarrhea - Discharge Information *PRESCRIPTION DRUG MONITORING PROGRAM REVIEWED*: Not Applicable *COPY OF PRESCRIPTION DRUG MONITORING REPORT IN PATIENT ANA PAULA: Not Applicable Instructions: Nonspecific Chest Pain, [id number] Referrals: PCP,None [Primary Care Provider] - Forms: ED Department Discharge Additional Instructions: You were seen in the emergency room for left-sided chest pain, watery diarrhea, and shortness of breath. Workup in the ER included blood work, a chest x-ray, and an ECG. Your entire workup was unremarkable. You are not fluid overloaded. Your potassium is within normal limits. You are not acidotic. He has not suffered a heart attack. As explained, indications for emergency dialysis include fluid overload, high potassium, or acidosis. As you have none of these, emergency dialysis is not indicated, and therefore there is no indication for transfer to [place]. We strongly recommend that you go to your usually scheduled dialysis tomorrow. If any other problems, please do not hesitate to return to the ER. - My Orders Last 24 Hours: My Active Orders 12/19/18 22:03 EKG 12 Lead [EKG Documentation Completion] [RC] STAT 12/19/18 22:57 Chest 2V [CR] Stat - Assessment/Plan Last 24 Hours: My Active Orders 12/19/18 22:03 EKG 12 Lead [EKG Documentation Completion] [RC] STAT 12/19/18 22:57 Chest 2V [CR] Stat
--- NOTE | 2018-12-20 10:07 | CR ---
Chest: Two views of the chest were obtained. Comparison: Prior chest x-ray of 12/01/18. Heart size and mediastinum are normal. AICD is seen. Coronary artery stent is noted. Slight atelectasis is seen within the right base. Lungs otherwise are clear. Impression: 1. Mild right basilar atelectasis. 2. Other incidental findings. Diagnostic code #2
== END 2018-12-20 01:15 | disposition home or self-care (01) ==
LOC: JD.ED 21:48
DX: R07.9 Chest pain, unspecified (principal); R06.02 Shortness of breath; R19.7 Diarrhea, unspecified; Z88.8 Allergy status to other drugs, medicaments and biological substances; Z79.82 Long term (current) use of aspirin; J44.9 Chronic obstructive pulmonary disease, unspecified; I11.0 Hypertensive heart disease with heart failure; I50.9 Heart failure, unspecified; E11.9 Type 2 diabetes mellitus without complications; E66.9 Obesity, unspecified; Z87.891 Personal history of nicotine dependence; Z91.15 Patient's noncompliance with renal dialysis
CPT/HCPCS: 36415; 71046; 71046-26; 80053; 84484; 85007; 85027; 93005; 93010; 99285; 99285-25

== ENCOUNTER 2019-01-09 14:27 | Emergency (ER) | payer OTHER ==
[2019-01-09 14:39] VITALS: BP 112/77
--- NOTE | 2019-01-09 14:45 | EDM.PDOC ---
ED HPI GENERAL MEDICAL PROBLEM - General Chief Complaint: Chest Pain Stated Complaint: [facility] Time Seen by Provider: 01/09/19 14:39 - History of Present Illness INITIAL COMMENTS - FREE TEXT/NARRATIVE: 48-year-old female presents emergency room via EMS after having a near syncopal episode and falling. Patient fell landed on her back. She became lightheaded which caused the fall. The patient is on no a close she complains of low back and some chest discomfort the most of her pain is in her back right more so than left. She did receive Dilaudid 2 EMS in route. This is helped some. She has not had any shortness of breath breathing difficulties nausea vomiting or diaphoresis associated with this discomfort patient has multiple medical problems including renal failure recently started on hemodialysis she does not always go to dialysis because of inability to get their. Bilateral Lower Back Pain Score (Numeric/FACES): 9 - Related Data Allergies Allergy/AdvReac Type Severity Reaction Status Date / Time fentanyl Allergy Itching Verified 12/19/18 21:51 ibuprofen Allergy Hives Verified 12/19/18 21:51 metformin HCl Allergy Hives Verified 12/19/18 21:51 [From Glucophage] morphine Allergy Hives Verified 01/09/19 14:39 spinach Allergy Difficulty Verified 12/19/18 21:51 Breathing Home Meds: Home Meds Aspirin [Halfprin] 81 mg PO DAILY 08/10/15 [History] Carvedilol 3.125 mg PO BID 08/10/15 [History] Insulin Aspart [Novolog Flexpen] 2 unit SQ ASDIRECTED PRN 08/10/15 [History] Isosorbide Mononitrate [Isosorbide Mononitrate ER] 60 mg PO DAILY 02/16/17 [ History] Nitroglycerin 0.4 mg PO ASDIRECTED PRN 04/09/17 [History] Biotin/FA/Vit C/Vit B Complex [Nephrocaps] 1 mg PO DAILY 03/22/18 [History] Docusate Sodium 100 mg PO BID 03/22/18 [History] Omeprazole 20 mg PO DAILY 03/22/18 [History] Ondansetron HCl [Zofran] 4 mg PO Q6H PRN 03/22/18 [History] Sertraline [Zoloft] 100 mg PO DAILY 03/22/18 [History] Ticagrelor [Brilinta] 90 mg PO BID 03/22/18 [History] atorvaSTATin [Lipitor] 40 mg PO BEDTIME 03/22/18 [History] busPIRone [Buspar] 15 mg PO TID 03/22/18 [History] Hydrocodone/Acetaminophen [Hydrocodon-Acetaminophen 5-325] 5 - 325 mg PO BID PRN 04/12/18 [History] Metoclopramide [Reglan] 5 mg PO Q6H PRN 04/12/18 [History] Lisinopril 5 mg PO DAILY 07/23/18 [History] Metoclopramide HCl [Reglan] 10 mg PO Q6H PRN 10/18/18 [History] Ondansetron [Zofran ODT] 4 mg PO Q6H PRN #20 tab.dis 11/02/18 [Rx] Past Medical History HEENT History: Reports: Cataract Other HEENT History: no upper teeth--no dentures-----> pt says she does not have upper dentures however when getting home meds out of her backpack for her she had upper dentures in the pocket of the backpack. Pt says she wears glasses but left them in [place]. Cardiovascular History: Reports: Automatic Implantable Cardioverter Defibrillators, CAD, Congenital Septal Defect, Heart Failure, High Cholesterol, Hypertension, [place], Pacemaker, PVD Other Cardiovascular History: defibrillator Respiratory History: Reports: COPD, Sleep Apnea Other Respiratory History: uses CPAP at night Gastrointestinal History: Reports: GERD Other Gastrointestinal History: hernia noted, states they are unable to operate Genitourinary History: Reports: Dialysis, Renal Calculus, Urinary Incontinence Other Genitourinary History: history of kidney stones, dawkins when I pee. 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: Neurological History: Reports: Migraines, Neuropathy, Peripheral Psychiatric History: Reports: Anxiety, Depression Endocrine/Metabolic History: Reports: Diabetes, Type II, Obesity/BMI 30+ Hematologic History: Reports: Anemia Other Dermatologic History: "boil on private parts" - Infectious Disease History Infectious Disease History: Reports: None - Past Surgical History HEENT Surgical History: Reports: Tonsillectomy Cardiovascular Surgical History: Reports: AICD, Coronary Artery Stent (> 9), Vascular Surgery (LUE AVF) GI Surgical History: Reports: Appendectomy, Hernia, Abdominal Female Surgical History: Reports: Section (x 1) Musculoskeletal Surgical History: Reports: ORIF (right ankle) Social & Family History - Family History Family Medical History: Noncontributory Cardiac: Reports: CAD, Heart Failure Endocrine/Metabolic: Reports: Diabetes, type II Oncologic: Reports: Breast - Caffeine Use Caffeine Use: Reports: Coffee, Tea Other Caffeine Use: diet soda - Living Situation & Occupation Living situation: Reports: , with Family (with brother) Occupation: Disabled (Lives in [place].) Review of Systems - Review of Systems Review Of Systems: See Below Constitutional: Reports: No Symptoms Eyes: Reports: No Symptoms Ears: Reports: No Symptoms, Previous Injury Mouth/Throat: Reports: No Symptoms Respiratory: Reports: Other (She has some discomfort with deep breathing but no shortness of breath). Denies: Cough Cardiovascular: Reports: Chest Pain (Mild) GI/Abdominal: Denies: Abdominal Pain, Constipation, Diarrhea, Nausea, Vomiting Genitourinary: Denies: Dysuria, Painful Urination Musculoskeletal: Reports: Back Pain Skin: Reports: No Symptoms Neurological: Reports: No Symptoms Psychiatric: Reports: No Symptoms ED EXAM, GENERAL - Physical Exam Exam: See Below Exam Limited By: No Limitations General Appearance: Alert, No Apparent Distress Ears: Normal External Exam, Normal Canal, Hearing Grossly Normal, Normal TMs Nose: Normal Inspection, Normal Mucosa, No Blood Throat/Mouth: Normal Inspection, Normal Lips, Normal Teeth, Normal Gums, Normal Oropharynx, Normal Voice, No Airway Compromise Head: Atraumatic, Normocephalic Neck: Normal Inspection, Supple, Non-Tender, Full Range of Motion Respiratory/Chest: No Respiratory Distress, Lungs Clear, Normal Breath Sounds, No Accessory Muscle Use, Chest Non-Tender Cardiovascular: Normal Peripheral Pulses GI/Abdominal: Normal Bowel Sounds, Soft, Non-Tender, Other (She has a large ventral hernia that is mildly tender she is morbidly obese) Back Exam: Other (Vague discomfort mostly on the right side of her back from the lower thoracic area on down no ecchymosis or obvious skin trauma) Neurological: Alert, Oriented, CN II-XII Intact, Normal Cognition Skin Exam: Warm, Dry, Intact Lymphatic: No Adenopathy Course - Vital Signs Last Recorded V/S: Last Vital Signs Temp 35.8 C 01/09/19 14:34 Pulse 90 01/09/19 14:34 Resp 22 H 01/09/19 14:34 BP 112/77 01/09/19 14:34 Pulse Ox 100 01/09/19 14:34 - Orders/Labs/Meds Orders: Active Orders 24 hr Category Date Time Status EKG Documentation Completion [RC] STAT Care 01/09/19 14:45 Active Labs: Laboratory Tests 01/09/19 01/09/19 01/09/19 Range/Units 15:03 15:03 15:03 WBC 5.21 (3.98-10.04) K/mm3 RBC 3.64 L (3.98-5.22) M/mm3 Hgb 10.1 L (11.2-15.7) gm/L Hct 32.5 L (34.1-44.9) % MCV 89.3 (79.4-94.8) fl MCH 27.7 (25.6-32.2) pg MCHC 31.1 L (32.2-35.5) g/dl RDW Std Deviation 58.0 H (36.4-46.3) fL Plt Count 178 L (182-369) K/mm3 MPV 10.3 (9.4-12.3) fl Neutrophils % (Manual) 84 H (40-60) % Band Neutrophils % 0 (0-10) % Lymphocytes % (Manual) 5 L (20-40) % Atypical Lymphs % 0 % Monocytes % (Manual) 7 (2-10) % Eosinophils % (Manual) 4 (0.7-5.8) % Basophils % (Manual) 0 L (0.1-1.2) Platelet Estimate Adequate Anisocytosis Sl Tear Drop Cells 1+ slight Ovalocytes 1+ slight Obed Cells 1+ slight RBC Morph Comment Abnormal PT 11.0 (9.5-12.1) SECONDS INR 1.01 APTT 29 (24-31) SECONDS Sodium 144 (136-145) mEq/L Potassium 3.9 (3.5-5.1) mEq/L Chloride 110 H (98-107) mEq/L Carbon Dioxide 20 L (21-32) mEq/L Anion Gap 17.9 H (5-15) BUN 53 H (7-18) mg/dL Creatinine 3.2 H (0.55-1.02) mg/dL Est Cr Clr Drug Dosing 20.68 mL/min Estimated GFR (MDRD) 15 (>60) mL/min BUN/Creatinine Ratio 16.6 (14-18) Glucose 109 H (74-106) mg/dL Calcium 8.1 L (8.5-10.1) mg/dL Total Bilirubin 0.5 (0.2-1.0) mg/dL AST 29 (15-37) U/L ALT 19 (14-59) U/L Alkaline Phosphatase 156 H (46-116) U/L Troponin I 0.040 (0.00-0.056) ng/mL Total Protein 6.7 (6.4-8.2) g/dl Albumin 2.8 L (3.4-5.0) g/dl Globulin 3.9 gm/dL Albumin/Globulin Ratio 0.7 L (1-2) Meds: Medications Discontinued Medications Generic Name Dose Route Start Last Admin Trade Name Freq PRN Reason Stop Dose Admin Hydrocodone Bitart/Acetaminophen 1 tab 01/09/19 19:00 01/09/19 19:16 [place] 325-5 Mg PO 01/09/19 19:01 1 tab ONETIME ONE Administration - Re-Assessments/Exams Free Text/Narrative Re-Assessment/Exam: 01/09/19 19:59 Patient had a near syncopal type episode became lightheaded did not completely pass out and she fell hitting her back she's developed a little bit chest discomfort worse with deep breathing. Her evaluation here in the emergency department is unrevealing the patient is newly started on hemodialysis and due to have a dialysis treatment tomorrow. Patient has missed some of her dialysis treatments because of inability to get to where the dialysis is, in [place] from [place]. I did discuss patient's case with Dr. Serna senior quality assurance analyst at [facility] in [place] who recommends encouraging the patient to follow-up as scheduled for dialysis but cannot think of any immediate reason for transfer. Patient's labs been reviewed and overall her potassium is stable her BUN and creatinine is improving. Patient had a unenhanced CT of the chest abdomen pelvis that were unrevealing her hemoglobin and hematocrit been stable. Cardiac workup negative. The patient still has some renal function voids one or 2 times a day it was determined best not to give her IV contrast. She has some ascites. Ventral hernia that is not new and fluctuates in size. These were revealed and seen on the CT and compared to her last CT any weight ventral hernias perhaps a little larger as is her ascites. CT evaluation was done because of her morbid obesity rather than plain films also some concerns of bleeding as she was on Eliquis Departure - Departure Time of Disposition: 19:04 Disposition: Home, Self-Care 01 Clinical Impression: Contusion of mid back, Chest wall pain - Discharge Information Instructions: Chest Wall Pain, [id number], Contusion, [id number] Referrals: PCP,None [Primary Care Provider] - Forms: ED Department Discharge Additional Instructions: Return to emergency room if any questions problems worsening symptoms. It is recommended that you follow-up with dialysis as scheduled. You have been given a few pain pills use only as needed for the pain take one every [address] or returning to work within 12 hours of taking this medication - My Orders Last 24 Hours: My Active Orders 01/09/19 14:45 EKG Documentation Completion [RC] STAT - Assessment/Plan Last 24 Hours: My Active Orders 01/09/19 14:45 EKG Documentation Completion [RC] STAT
--- NOTE | 2019-01-09 15:27 | CT ---
CT chest Technique: Multiple axial sections were obtained from above the lung apices inferiorly through the lung bases. Intravenous contrast was not utilized. Comparison: No prior CT chest exam. Findings: Diffuse body wall edema is identified. AICD is present causing some artifact. No mediastinal or hilar adenopathy is seen. No pericardial thickening is seen. Prominent coronary artery stent is noted. Atelectasis is noted adjacent to the right hemidiaphragm. Minimal scarring and atelectasis is seen within the left lung base and right middle lobe. Lungs otherwise are clear. No pleural effusions are seen. Bone window settings were reviewed which show mild degenerative change scattered within the spine. Impression: 1. Diffuse body wall edema. 2. Areas of atelectasis and linear scarring. 3. Other incidental findings. Nothing acute is seen on CT study of the chest. Diagnostic code #3 CT abdomen and pelvis Technique: Multiple axial sections were obtained from above the dome of the diaphragm inferiorly through the pubic symphysis. Intravenous and oral contrast not utilized which limits details of the exam. Comparison: Previous CT abdomen and pelvis exam of 10/18/18. Findings: Diffuse ascites is seen within the abdomen and pelvis. Diffuse body wall edema is noted. Liver is small in size compatible with cirrhotic change. Spleen appears within normal limits. Adrenal glands show no nodule. Pancreas shows no discrete abnormality. Kidneys show no hydronephrosis or abnormal calcifications. Surgical clips are seen from prior cholecystectomy. Aorta shows mild atherosclerotic change without aneurysm. No retroperitoneal adenopathy is seen. Anterior abdominal wall hernia is seen which appears to contain some loops of bowel as well as ascites. No discrete pelvic mass or adenopathy is seen. Bone window settings were reviewed which show slight degenerative change. Nothing acute is seen within the osseous structures. Impression: 1. Diffuse ascites. Diffuse body wall edema. Ascites has slightly increased in amount from previous exam. 2. Cirrhotic change within the liver. 3. Anterior abdominal wall hernia containing bowel as well as ascitic fluid. More ascitic fluid seen within the hernia from prior study. No bowel dilatation is seen. 4. Nothing acute is seen on CT study of the abdomen and pelvis. Diagnostic code #3
[2019-01-09] MEDS ORDERED: Acetaminophen/HYDROcodone 325-5 MG Tab PO ONE (19:00)
== END 2019-01-09 21:55 | disposition home or self-care (01) ==
LOC: JD.ED 14:27
DX: S20.221A Contusion of right back wall of thorax, initial encounter (principal); R07.89 Other chest pain; Z88.8 Allergy status to other drugs, medicaments and biological substances; Z88.5 Allergy status to narcotic agent; Z91.018 Allergy to other foods; Z79.899 Other long term (current) drug therapy; J44.9 Chronic obstructive pulmonary disease, unspecified; K21.9 Gastro-esophageal reflux disease without esophagitis; Z95.5 Presence of coronary angioplasty implant and graft; W18.39XA Other fall on same level, initial encounter
CPT/HCPCS: 36415; 71250; 74176; 80053; 84484; 85007; 85027; 85610; 85730; 93005; 99285; A9270; 99283

== ENCOUNTER 2019-01-24 03:37 | Emergency (ER) | payer OTHER ==
[2019-01-24 03:47] VITALS: BP 164/107
[2019-01-24] MEDS ORDERED: Acetaminophen/HYDROcodone 325-5 MG Tab PO STA (03:56)
[2019-01-24] MEDS ORDERED: Ondansetron 4 MG Tab.DIS PO ONE (03:56)
--- NOTE | 2019-01-24 04:03 | EDM.PDOC ---
ED HPI GENERAL MEDICAL PROBLEM - General Chief Complaint: Back Pain or Injury Stated Complaint: BACK PAIN & CHEST PAIN Time Seen by Provider: 01/24/19 03:47 Source of Information: Reports: Patient, RN Notes Reviewed History Limitations: Reports: No Limitations - History of Present Illness INITIAL COMMENTS - FREE TEXT/NARRATIVE: The patient states that she developed upper and middle back pain about 2-3 hours ago, while sitting in a car. She states that the back pain is made better by sitting up, but is not modified with respirations. She states that she has had similar pain for years, but that is worse tonight. She states that she usually treats her pain with hot showers. She is asking for [place] and Zofran. The patient's PCP is at [facility]. Back Pain Score (Numeric/FACES): 10 - Related Data Allergies Allergy/AdvReac Type Severity Reaction Status Date / Time fentanyl Allergy Itching Verified 01/24/19 03:46 ibuprofen Allergy Hives Verified 01/24/19 03:46 metformin HCl Allergy Hives Verified 01/24/19 03:46 [From Glucophage] morphine Allergy Hives Verified 01/24/19 03:46 spinach Allergy Difficulty Verified 01/24/19 03:46 Breathing Home Meds: Home Meds Aspirin [Halfprin] 81 mg PO DAILY 08/10/15 [History] Carvedilol 3.125 mg PO BID 08/10/15 [History] Insulin Aspart [Novolog Flexpen] 2 unit SQ ASDIRECTED PRN 08/10/15 [History] Isosorbide Mononitrate [Isosorbide Mononitrate ER] 60 mg PO DAILY 02/16/17 [ History] Nitroglycerin 0.4 mg PO ASDIRECTED PRN 04/09/17 [History] Biotin/FA/Vit C/Vit B Complex [Nephrocaps] 1 mg PO DAILY 03/22/18 [History] Docusate Sodium 100 mg PO BID 03/22/18 [History] Omeprazole 20 mg PO DAILY 03/22/18 [History] Ondansetron HCl [Zofran] 4 mg PO Q6H PRN 03/22/18 [History] Sertraline [Zoloft] 100 mg PO DAILY 03/22/18 [History] Ticagrelor [Brilinta] 90 mg PO BID 03/22/18 [History] atorvaSTATin [Lipitor] 40 mg PO BEDTIME 03/22/18 [History] busPIRone [Buspar] 15 mg PO TID 03/22/18 [History] Hydrocodone/Acetaminophen [Hydrocodon-Acetaminophen 5-325] 5 - 325 mg PO BID PRN 04/12/18 [History] Metoclopramide [Reglan] 5 mg PO Q6H PRN 04/12/18 [History] Lisinopril 5 mg PO DAILY 07/23/18 [History] Metoclopramide HCl [Reglan] 10 mg PO Q6H PRN 10/18/18 [History] Ondansetron [Zofran ODT] 4 mg PO Q6H PRN #20 tab.dis 11/02/18 [Rx] Past Medical History Cardiovascular History: Reports: CAD, Heart Failure, High Cholesterol, Hypertension, DC, PVD Respiratory History: Reports: COPD, Sleep Apnea (noncompliant with CPAP) Gastrointestinal History: Reports: GERD Genitourinary History: Reports: Dialysis, Renal Calculus, Urinary Incontinence 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: Neurological History: Reports: Neuropathy, Peripheral Psychiatric History: Reports: Anxiety, Depression Endocrine/Metabolic History: Reports: Diabetes, Type II, Obesity/BMI 30+ Hematologic History: Reports: Anemia - Past Surgical History HEENT Surgical History: Reports: Tonsillectomy Cardiovascular Surgical History: Reports: AICD, Coronary Artery Stent (>9), Vascular Surgery (LUE AVF) GI Surgical History: Reports: Appendectomy Female Surgical History: Reports: Section (x 1) Musculoskeletal Surgical History: Reports: ORIF (right ankle) Social & Family History - Family History Family Medical History: Noncontributory Cardiac: Reports: CAD, Heart Failure Endocrine/Metabolic: Reports: Diabetes, type II Oncologic: Reports: Breast - Tobacco Use Smoking Status *Q: Unknown Ever Smoked - Caffeine Use Caffeine Use: Reports: Coffee, Tea Other Caffeine Use: diet soda - Recreational Drug Use Recreational Drug Use: No - Living Situation & Occupation Living situation: Reports: , with Family (with brother) Occupation: Disabled (Lives in [place].) ED ROS GENERAL - Review of Systems Review Of Systems: ROS reveals no pertinent complaints other than HPI. ED EXAM, UPPER BACK/NECK PAIN - Physical Exam Exam: See Below Exam Limited By: No Limitations General Appearance: Alert, WD/WN Eye Exam: Bilateral Eye: EOMI, Normal Inspection Ears Exam: Normal External Exam, Hearing Grossly Normal Nose Exam: Normal Inspection Throat/Mouth Exam: Normal Inspection, Normal Lips, Normal Voice, No Airway Compromise Head Exam: Atraumatic, Normocephalic Neck Exam: Normal Inspection Cardiovascular/Respiratory: Regular Rate, Rhythm, Normal Peripheral Pulses, Normal Breath Sounds, No Respiratory Distress, Other (Good thrill LUE AVF) GI/Abdominal: Normal Bowel Sounds, Soft, Non-Tender, No Organomegaly, No Distention, No Abnormal Bruit, No Mass, Other (Obese) (Female) Exam: Deferred Rectal (Female) Exam: Deferred Back Exam: Normal Inspection, Full Range of Motion. No: Paraspinal Tenderness, Vertebral Tenderness Extremities: Normal Inspection, Normal Range of Motion, Normal Capillary Refill Neurologic: No Motor/Sensory Deficits, Alert, Oriented x 3 Psychiatric: Depressed Mood Skin Exam: Normal Color, Warm/Dry EKG INTERPRETATION EKG Date: 01/24/19 Time: 04:13 Rhythm: Other (Ventricularly paced) Rate (Beats/Min): 88 Comparison: No Change (01/09/2019) Course - Vital Signs Last Recorded V/S: Last Vital Signs Temp 36.4 C 01/24/19 03:44 Pulse 97 01/24/19 03:44 Resp 22 H 01/24/19 03:44 BP 164/107 H 01/24/19 03:44 Pulse Ox 100 01/24/19 03:44 - Orders/Labs/Meds Meds: Medications Discontinued Medications Generic Name Dose Route Start Last Admin Trade Name Milq PRN Reason Stop Dose Admin Hydrocodone Bitart/Acetaminophen 2 tab 01/24/19 03:56 01/24/19 04:06 [place] 325-5 Mg PO 01/24/19 03:57 2 tab ONETIME STA Administration Ondansetron HCl 4 mg 01/24/19 03:56 01/24/19 04:06 Zofran Odt PO 01/24/19 03:57 4 mg ONETIME ONE Administration - Re-Assessments/Exams Free Text/Narrative Re-Assessment/Exam: 01/24/19 03:59 The patient is reporting acute on chronic upper and mid back pain that she states she usually treats with a hot shower. She is requesting [place] and Zofran. I have ordered a chest x-ray and an ECG, to make sure that there are no significant abnormalities, and I have ordered 2 tablets of [place] and one tablet of Zofran ODT. 01/24/19 04:41 2-view chest radiograph reviewed. Poor inspiratory effort. The cardiac silhouette is otherwise within normal limits. No pulmonary vascular congestion. No pleural effusions. No focal infiltrate. No pneumothorax. 2-chamber AICD noted. Cardiac stent is incidentally noted. Formal read per the Radiologist pending. 01/24/19 04:44 Test results discussed with the patient. She is feeling more comfortable following [place]. I will discharge her home. Departure - Departure Time of Disposition: 04:45 Disposition: Home, Self-Care 01 Condition: Good Clinical Impression: Chronic upper back pain - Discharge Information *PRESCRIPTION DRUG MONITORING PROGRAM REVIEWED*: Not Applicable *COPY OF PRESCRIPTION DRUG MONITORING REPORT IN PATIENT ANA PAULA: Not Applicable Instructions: Back Pain, Adult Referrals: PCP,None [Primary Care Provider] - Forms: ED Department Discharge Additional Instructions: You were seen in the emergency room for worsening of your chronic mid and upper back pain. Workup in the ER included an ECG and chest x-ray. Your chest x-ray did not find any acute abnormalities. Your ECG is uninterpretable, because your heart is paced. You received [place] and Zofran in the ER. If you need additional [place], you need to see your primary care at [facility]. If any other problems, please do not hesitate to return to the ER.
--- NOTE | 2019-01-24 07:16 | CR ---
Chest: Two views of the chest were obtained. Comparison: Prior chest x-ray of 12/19/18 Heart is slightly prominent. Coronary artery stent is again noted. AICD is present. Scattered areas of atelectasis are noted. Lungs otherwise are clear with no acute parenchymal change. Impression: 1. Incidental findings. Nothing acute is seen. Diagnostic code #2
== END 2019-01-24 05:02 | disposition home or self-care (01) ==
LOC: JD.ED 03:37
DX: M54.6 Pain in thoracic spine (principal); G89.29 Other chronic pain; I11.0 Hypertensive heart disease with heart failure; I50.9 Heart failure, unspecified; E78.00 Pure hypercholesterolemia, unspecified; I25.10 Atherosclerotic heart disease of native coronary artery without angina pectoris; E11.42 Type 2 diabetes mellitus with diabetic polyneuropathy; Z88.8 Allergy status to other drugs, medicaments and biological substances; Z79.82 Long term (current) use of aspirin; Z79.899 Other long term (current) drug therapy; Z79.4 Long term (current) use of insulin
CPT/HCPCS: 71046; 93005; 99283; A9270